=== PATIENT | male | born 1945 | race Caucasian/White ===

== ENCOUNTER 2017-08-10 09:11 | Day surgery (SDC) | payer OTHER, MEDICARE ==
[2017-08-08 17:20] VITALS: BMI 33.2
[2017-08-10] MEDS ORDERED: oxyCODONE HCL 5 MG TABLET PO PRN (10:16)
[2017-08-10] MEDS ORDERED: MIDAZOLAM HCL 2 MG/2 ML SINGLE DOSE VIAL ONE (10:49)
[2017-08-10] MEDS: TROPICAMIDE 1% OPHTH SOLN 15 ML BOTTLE ONE ×3 (11:00→11:10)
[2017-08-10] MEDS: CYCLOPENTOLATE 2% OPHTH SOLN 2 ML BOTTLE ONE ×3 (11:00→11:10)
[2017-08-10] MEDS: PHENYLEPHRINE 2.5% OPHTH SOLN 15 ML BOTTLE ONE ×3 (11:00→11:10)
[2017-08-10] MEDS: CIPROFLOXACIN 0.3% EYE DROPS 5 ML BOTTLE ONE ×3 (11:00→11:10)
[2017-08-10 11:05] VITALS: PULSE 68
[2017-08-10 12:20] VITALS: BP 124/75; TEMP 98
== END 2017-08-10 12:15 | disposition home or self-care (01) ==
LOC: FASU 09:11
PROVIDERS: ATTEND Ophthalmology
PROC: 08RK3JZ Replacement of Left Lens with Synthetic Substitute, Percutaneous Approach (ICD-10-PCS; principal; 2017-08-10 11:28)
DX: H26.8 Other specified cataract (principal)

== ENCOUNTER 2018-04-05 07:59 | Day surgery (SDC) | payer OTHER, MEDICARE ==
[2018-03-29 12:46] VITALS: BMI 33.2
[2018-04-05 08:23] VITALS: TEMP 98
[2018-04-05] MEDS ORDERED: PROPOFOL 20 ML ONE ×2 (08:44)
[2018-04-05] MEDS ORDERED: LIDOCAINE HCL/PF 2% SDV 5ML VIAL ONE (08:44)
[2018-04-05 10:04] VITALS: BP 117/70; PULSE 79
--- NOTE | 2018-04-07 17:50 | PATH ---
Surgical Pathology Report Patient Name: ADRIANA MONET [facility]. Rec. #: [id number] /Age/Gender: 1945 (Age: 73) / M Account: [id number] Location: [facility] Taken: 04/05/2018 Received: 04/05/2018 Reported: 04/07/2018 Physicians: Joseph Brown M.D. Specimen(s) Received A: BX DUODENUM B: BX ANTRUM C: BX ESOPHAGUS Clinical History GERD, history of polyps Postoperative diagnosis: Gastritis Final Diagnosis A. DUODENUM, BIOPSY: DUODENUM MUCOSA WITH MILD CHRONIC DUODENITIS. B. ANTRUM, BIOPSY: GASTRIC MUCOSA WITH REACTIVE GASTROPATHY. IMMUNOSTAIN FOR H. PYLORI IS NEGATIVE. NEGATIVE FOR INTESTINAL METAPLASIA. C. ESOPHAGUS, BIOPSY: GASTROESOPHAGEAL JUNCTIONAL MUCOSA WITH CHANGES CONSISTENT WITH REFLUX ESOPHAGITIS. NEGATIVE FOR INTESTINAL METAPLASIA. Electronically Signed Earl Sigala M.D. Gross Description A. Received in formalin, labeled "biopsy at duodenum" are 2 martínez, irregular portions of soft tissue measuring 0.3 and 0.5 cm. in greatest dimension. The specimens are submitted in toto in one cassette. B. Received in formalin, labeled "biopsy at gastric antrum" are 4 martínez, irregular portions of soft tissue ranging from 0.2-0.3 cm. in greatest dimension. The specimens are submitted in toto in one cassette. C. Received in formalin, labeled "biopsy of esophagus" is a martínez, irregular portion of soft tissue measuring 0.4 cm. in greatest dimension. The specimen is submitted in toto in one cassette. 04/06/2018 saudi04/06/2018
== END 2018-04-05 10:05 | disposition home or self-care (01) ==
LOC: FASU-ENDO 07:59
PROVIDERS: ATTEND Internal Medicine Gastroenterology
PROC: 0DJD8ZZ Inspection of Lower Intestinal Tract, Via Natural or Artificial Opening Endoscopic (ICD-10-PCS; principal; 2018-04-05 08:51)
DX: Z86.010 Personal history of colon polyps (principal)
CPT/HCPCS: 88305-TC; 88342-TC

== ENCOUNTER 2018-04-12 19:59 | Emergency (ER) | payer OTHER, MEDICARE ==
[2018-04-12 20:12] VITALS: BP 128/87; PULSE 82; TEMP 98; BMI 33.2
[2018-04-12] MEDS ORDERED: CYCLOBENZAPRINE HCL 10 MG TABLET (FP) PO ONE (20:22)
[2018-04-12] MEDS ORDERED: CYCLOBENZAPRINE HCL 10 MG TABLET (FP) ONE (20:25)
--- NOTE | 2018-04-12 20:50 | PDOC ---
History of Present Illness - General Chief Complaint: Pain, Acute Stated Complaint: BACK PAIN POST LIFTING HEAVY BUCKET Time Seen by Provider: 04/12/18 20:02 - History of Present Illness Initial Comments: 04/12/18 20:52 73 M with h/o herniated disc, HTN, presenting to ED with lower back pain since yesterday. Pt states that he was lifting a heavy bucket when he felt a pop in his back followed by pain. Pt states that the pain is localized to his lower back, does not radiate. Pt states that it is exacerbated by any sort of movement , though he is still able to ambulate with assistance. Denies any weakness/ numbness in his legs. Denies saddle anesthesia. Denies incontinence of bowel or bladder. States the pain is similar to when he had a herniated disc several years ago but not as severe. Denies abdominal pain. Denies any falls or other injury. Past History - Past Medical History Allergies/Adverse Reactions: Allergies Allergy/AdvReac Type Severity Reaction Status Date / Time No Known Drug Allergies Allergy Verified 04/12/18 20:00 Home Medications: Ambulatory Orders Cholecalciferol (Vitamin D3) [Vitamin D] 5,000 unit PO DAILY 12/27/14 Multivitamin [Poly-Vitamin] 1 cap PO DAILY 12/27/14 Simvastatin 40 mg PO DAILY 12/27/14 Esomeprazole Magnesium [Nexium 24Hr] 10 mg PO DAILY 08/08/17 Lactobacillus Acidophilus [Probiotic] 1 each PO DAILY 08/08/17 Naproxen [Naprosyn -] 375 mg PO BID 08/08/17 [place]-3/Dha/Epa/Fish Oil [Fish Oil EC 1,200 mg Softgel] 1 each PO DAILY Pyridoxine HCl (B-6) [Vitamin B6 -] 100 mg PO DAILY 08/08/17 Ubidecarenone [Co Q-10] 200 mg PO DAILY 08/08/17 Docusate Sodium [Colace] 100 mg PO PRN 08/21/17 Anemia: No Asthma: No Cancer: No Cardiac Disorders: No CVA: No COPD: No CHF: No Dementia: No Diabetes: No GI Disorders: Yes (acid reflux) Disorders: No HTN: No Hypercholesterolemia: Yes Liver Disease: No Seizures: No Thyroid Disease: No - Surgical History Abdominal Surgery: No Appendectomy: No Cardiac Surgery: No Cholecystectomy: No Lung Surgery: No Neurologic Surgery: No Orthopedic Surgery: Yes (repaired meniscus L knee) - Suicide/Smoking/Psychosocial Hx Smoking History: Never smoked Have you smoked in the past 12 months: No Information on smoking cessation initiated: No Hx Alcohol Use: No Drug/Substance Use Hx: No Substance Use Type: None Hx Substance Use Treatment: No Review of Systems - Review of Systems Comments:: 04/12/18 20:45 GENERAL/CONSTITUTIONAL: No fever or chills. No weakness. HEAD, EYES, EARS, NOSE AND THROAT: No change in vision. No ear pain or discharge. No sore throat. CARDIOVASCULAR: No chest pain, no shortness of breath, no loss of consciousness RESPIRATORY: No cough, wheezing, or hemoptysis. GASTROINTESTINAL: No nausea, vomiting, diarrhea or constipation. GENITOURINARY: No dysuria, frequency, or change in urination. MUSCULOSKELETAL: + back pain, No joint or muscle swelling or pain. No neck pain. SKIN: No rash NEUROLOGIC: No vertigo, no change in strength/sensation. ENDOCRINE: No increased thirst. No abnormal weight change. HEMATOLOGIC/LYMPHATIC: No anemia, easy bleeding, or history of blood clots. ALLERGIC/IMMUNOLOGIC: No hives or skin allergy. *Physical Exam - Vital Signs Last Vital Signs Temp Pulse Resp BP Pulse Ox 98 F 82 16 128/87 97 04/12/18 20:08 04/12/18 20:08 04/12/18 20:08 04/12/18 20:08 04/12/18 20:08 - Physical Exam Comments: 04/12/18 20:45 "GENERAL: Awake, alert, and fully oriented, in no acute distress. HEAD: No signs of trauma EYES: PERRLA, EOMI, sclera anicteric, conjunctiva clear ENT: Auricles normal inspection, hearing grossly normal, nares patent, oropharynx clear without exudates. Moist mucosa NECK: Nontender, no stepoffs, Normal ROM, supple, no lymphadenopathy, JVD, or masses LUNGS: Breath sounds equal, clear to auscultation bilaterally. No wheezes, and no crackles HEART: Regular rate and rhythm, normal S1 and S2, no murmurs, rubs or gallops ABDOMEN: Soft, nontender, normoactive bowel sounds. No guarding, no rebound. No masses EXTREMITIES: Normal range of motion, no edema. No clubbing or cyanosis. No cords, erythema, or tenderness NEUROLOGICAL: Cranial nerves II through XII intact. 5/5 strength and sensation in all extremities, Normal speech, normal gait, normal cerebellar function SKIN: Warm, Dry, normal turgor, no rashes or lesions noted. Moderate Sedation - Procedure Monitoring Vital Signs: Procedure Monitoring Vital Signs Temperature 98 F 04/12/18 20:08 Pulse Rate 82 04/12/18 20:08 Respiratory Rate 16 04/12/18 20:08 Blood Pressure 128/87 04/12/18 20:08 O2 Sat by Pulse Oximetry (%) 97 04/12/18 20:08 ED Treatment Course - Medications Given in the ED: ED Medications Discontinued Medications Generic Name Dose Route Start Last Admin Trade Name Sohailq PRN Reason Stop Dose Admin Cyclobenzaprine HCl 5 mg 04/12/18 20:22 04/12/18 20:28 Flexeril - PO 04/12/18 20:23 5 mg ONCE ONE Administration Oxycodone/Acetaminophen 1 combo 04/12/18 20:21 04/12/18 20:28 Percocet 5/325 - PO 04/12/18 20:22 1 combo ONCE ONE Administration Medical Decision Making - Medical Decision Making 04/12/18 20:45 73 M with lower back pain after lifting a bucket. No neuro deficits. No spinal tenderness or stepoffs or other sign of traumatic injury. No clinical signs of cord compression or cauda equina. No CVAT to suggest kidney stone or pyelo. No abdominal pain to suggest aortic dissection/aneurysm. - Percocet, flexaril - F/u ortho Pt is well appearing, with normal vitals. Clinically stable for DC at this time. I discussed the physical exam findings, ancillary test results and final diagnoses with the patient. I answered all of the patient's questions. The patient was satisfied with the care received and felt comfortable with the discharge plan and treatment plan. The patient agrees to follow up with the primary care physician within 24-72 hours. *DC/Admit/Observation/Transfer Diagnosis at time of Disposition: Back pain - Discharge Dispostion Disposition: HOME Condition at time of disposition: Stable - Referrals Referrals: Gamal Davidson MD [Primary Care Provider] - Obdulio Blanc MD [Staff Physician] - - Patient Instructions Printed Discharge Instructions: DI for Low Back Pain Additional Instructions: Follow up with Dr. Blanc tomorrow as scheduled. You will need a MRI to further evaluate your back pain. If you experience any worsening pain, numbness or weakness in your legs, incontinence, difficulty walking, or any other concerning symptoms, return to the ER immediately. - Post Discharge Activity - Attestations Physician Attestion: 04/12/18 20:50 I, Dr. Grupo Gold MD, attest that this document has been prepared under my direction and personally reviewed by me in its entirety. I further attest, that it accurately reflects all work, treatment, procedures and medical decision -making performed by me.
== END 2018-04-12 20:54 | disposition home or self-care (01) ==
LOC: FER 19:59
DX: M54.5 Low back pain (principal); I10 Essential (primary) hypertension; K21.9 Gastro-esophageal reflux disease without esophagitis
CPT/HCPCS: 99281-25

== ENCOUNTER 2018-04-13 05:54 | Inpatient (IN) | payer OTHER, MEDICARE ==
--- NOTE | 2018-04-13 07:52 | PDOC ---
History of Present Illness - General Chief Complaint: Back Pain Stated Complaint: BACK PAIN Time Seen by Provider: 04/13/18 07:52 - History of Present Illness Initial Comments: 04/13/18 08:32 Mr. Chang is a 73 yo male w/ pmh of HTN, HLD, prior herniated disc who presents to ER for evaluation of back pain. Patient woke up with some discomfort on Tuesday - was reportedly washing his car in the nice weather that day when he "felt a pop" followed by pain. Patient reports he was seen at [facility] emergency room last night and given single percocet and flexaril (5mg) which relieved his pain, however represents as his pain came back this morning necessitating him calling EMS. Denies any saddle anesthesia, denies incontinence of bowel/bladder, denies saddle anesthesia. Reports pain as similar to herniated disc in 2003. Denies trauma to area. Denies falls or other mechanisms. The patient denies chest pain, shortness of breath, headache and dizziness. Denies fever, chills, nausea, vomit, diarrhea and constipation. Denies dysuria, frequency, urgency and hematuria. Past History - Past Medical History Allergies/Adverse Reactions: Allergies Allergy/AdvReac Type Severity Reaction Status Date / Time No Known Drug Allergies Allergy Verified 04/12/18 20:00 Home Medications: Ambulatory Orders Cholecalciferol (Vitamin D3) [Vitamin D] 5,000 unit PO DAILY 12/27/14 Multivitamin [Poly-Vitamin] 1 cap PO DAILY 12/27/14 Simvastatin 40 mg PO DAILY 12/27/14 Esomeprazole Magnesium [Nexium 24Hr] 10 mg PO DAILY 08/08/17 Lactobacillus Acidophilus [Probiotic] 1 each PO DAILY 08/08/17 Naproxen [Naprosyn -] 375 mg PO BID 08/08/17 [place]-3/Dha/Epa/Fish Oil [Fish Oil EC 1,200 mg Softgel] 1 each PO DAILY Pyridoxine HCl (B-6) [Vitamin B6 -] 100 mg PO DAILY 08/08/17 Ubidecarenone [Co Q-10] 200 mg PO DAILY 08/08/17 Docusate Sodium [Colace] 100 mg PO PRN 08/21/17 Anemia: No Asthma: No Cancer: No Cardiac Disorders: No CVA: No COPD: No CHF: No Dementia: No Diabetes: No GI Disorders: Yes (acid reflux) Disorders: No HTN: No Hypercholesterolemia: Yes Liver Disease: No Seizures: No Thyroid Disease: No - Surgical History Abdominal Surgery: No Appendectomy: No Cardiac Surgery: No Cholecystectomy: No Lung Surgery: No Neurologic Surgery: No Orthopedic Surgery: Yes (repaired meniscus L knee) - Immunization History Immunization Up to Date: Yes - Suicide/Smoking/Psychosocial Hx Smoking History: Never smoked Have you smoked in the past 12 months: No Information on smoking cessation initiated: No Hx Alcohol Use: No Drug/Substance Use Hx: No Substance Use Type: None Hx Substance Use Treatment: No Review of Systems - Review of Systems Comments:: 04/13/18 08:40 GENERAL/CONSTITUTIONAL: No fever or chills. No weakness. HEAD, EYES, EARS, NOSE AND THROAT: No change in vision. No ear pain or discharge. No sore throat. CARDIOVASCULAR: No chest pain or shortness of breath RESPIRATORY: No cough, wheezing, or hemoptysis. GASTROINTESTINAL: No nausea, vomiting, diarrhea or constipation. GENITOURINARY: No dysuria, frequency, or change in urination. MUSCULOSKELETAL: +Right lower back pain as described. Patient describes a "burning" sensation at rest and shooting pains medially with movement. No joint or muscle swelling. No neck or back pain. SKIN: No rash NEUROLOGIC: No headache, vertigo, loss of consciousness, or change in strength/ sensation. ENDOCRINE: No increased thirst. No abnormal weight change HEMATOLOGIC/LYMPHATIC: No anemia, easy bleeding, or history of blood clots. ALLERGIC/IMMUNOLOGIC: No hives or skin allergy. *Physical Exam - Vital Signs Last Vital Signs Temp Pulse Resp BP Pulse Ox 98.3 F 78 18 129/83 94 L 04/13/18 06:52 04/13/18 06:52 04/13/18 06:52 04/13/18 06:52 04/13/18 06:52 - Physical Exam Comments: 04/13/18 08:42 GENERAL: Awake, alert, and fully oriented, in no acute distress HEAD: No signs of trauma, normocephalic, atraumatic EYES: PERRLA, EOMI, sclera anicteric, conjunctiva clear ENT: Auricles normal inspection, hearing grossly normal, nares patent, oropharynx clear without exudates. Moist mucosa NECK: Normal ROM, supple, no lymphadenopathy, JVD, or masses LUNGS: No distress, speaks full sentences, clear to auscultation bilaterally HEART: Regular rate and rhythm, normal S1 and S2, no murmurs, rubs or gallops, peripheral pulses normal and equal bilaterally. ABDOMEN: Soft, nontender, normoactive bowel sounds. No guarding, no rebound. No masses EXTREMITIES: +Tenderness to R upper gluteal region in point area only. Sensation intact. Negative straight leg, Normal inspection, Normal range of motion, no edema. No clubbing or cyanosis. NEUROLOGICAL: Cranial nerves II through XII grossly intact. Normal speech, no focal sensorimotor deficits SKIN: Warm, Dry, normal turgor, no rashes or lesions noted. Moderate Sedation - Procedure Monitoring Vital Signs: Procedure Monitoring Vital Signs Temperature 98.3 F 04/13/18 06:52 Pulse Rate 78 04/13/18 06:52 Respiratory Rate 18 04/13/18 06:52 Blood Pressure 129/83 04/13/18 06:52 O2 Sat by Pulse Oximetry (%) 94 L 04/13/18 06:52 ED Treatment Course - LABORATORY CBC & Chemistry Diagram: 04/13/18 10:35 04/13/18 10:35 Medical Decision Making - Medical Decision Making 04/13/18 08:40 Mr. Chang is a 73 yo male w/ pmh as described who presents for evaluation of R low back pain. No spinal tenderness or stepoffs or other sign of traumatic injury. No concern for cord compression or cauda equina. Patient given flexeril oral w/ no improvement. Repeat exam following flexeril showed no improvment of symptoms. Rectal exam performed with good tone. Valium, toradol, tylenol given IV w/ basic labs drawn. Plan to reassess. 04/13/18 12:30 XR positive for extensive facet joint arthropathy. Minimal anterior degenerative spondelythiasis L4 on L5. Neural foraminal stenosis L3-L4, L4-L5, L5-S1. 04/13/18 12:53 Patient unable to get up despite repeated attempts with assistance. Will admit for intractable back pain. 04/13/18 13:09 Discussed with hospitalist who will admit. *DC/Admit/Observation/Transfer Diagnosis at time of Disposition: Intractable low back pain - Discharge Dispostion Decision to Admit order: Yes - Referrals - Patient Instructions - Post Discharge Activity
--- NOTE | 2018-04-13 08:40 | PDOC ---
Attending Attestation - HPI HPI: 04/13/18 09:40 The patient is a 73 year old male with a significant past medical history of HTN , HLD, prior herniated disc, who presents to ER for evaluation of right sided back pain since Tuesday. He states he was washing his car when he lifted a pale of water and "felt a pop" in his right back. He states he was seen at [facility] emergency room last night, given percocet and flexaril (5mg) which relieved his pain, and given a referral to Dr. Blanc. The states she made an appointment with Dr. Blanc for this morning, however, the patient woke up with increased pain and inability to ambulate secondary to his pain prompting his EMS call. He states he is used to intermittent discomfort radiating across his low back, however, reports his pain is localized to the right side today and unlike his usual discomforts. He reports the pain is severe to where he can not sit up. He denies any saddle anesthesia, denies incontinence of bowel/bladder, denies saddle anesthesia. Denies trauma to area. Denies falls or other mechanisms. The patient denies chest pain, shortness of breath, headache and dizziness. Denies fever, chills, nausea, vomit, diarrhea and constipation. Denies dysuria, frequency, urgency and hematuria. - Physicial Exam PE: 04/13/18 09:44 Vitals: Triage vital signs reviewed General Appearance: No acute distress, well nourished, well developed Head: Atraumatic Eyes: Pupils equal reactive round, extraocular movement intact Ears: TM's normal bilaterally Nose: Nares patent bilaterally; no nasal congestion Throat: Posterior oropharynx without erythema, mucous membranes moist Neck: Supple; No nuchal rigidity Chest Wall: Nontender Cardiac: Regular rate and rhythm, no murmurs, no rubs, no gallops Lungs: Clear to auscultation bilateral, good air movement bilaterally Abdomen: Soft, nondistended, normal bowel sounds, nontender to palpation Extremities: Full range of motion to all extremities, no cyanosis, clubbing, or edema Msk: (+) right hip ttp. no spinous process tenderness. no step offs. no evidence of trauma. Skin: Warm and dry, no rashes or lesions, no rash, no petechiae Neuro: AOX3; Cranial Nerves 2-12 grossly intact, Strength intact to all extremities, Sensation intact to all extremities, gait unassessed. Psych: Normal mood, normal affect <Frances Palacio - Last Filed: 04/13/18 09:40> - Resident Resident Name: Titus Landers - ED Attending Attestation I have performed the following: I have examined & evaluated the patient, The case was reviewed & discussed with the resident, I agree w/resident's findings & plan, Exceptions are as noted - Medical Decision Making 04/13/18 15:15 73 years old with chronic low back discomfort usually very manageable tweaked it the other day was seen in another emergency department initially with decent pain relief. Scheduled to see orthopedics today but awoke this morning unable to transfer from bed brought into the emergency department by upon arrival to the ED pain is 10 out of 10 Patient failed trial of by mouth medications IV placed IV medications given After multiple rounds of IV medication patient still unable to transfer from bed At this point patient unable to be discharged home unable to transfer unable to care for himself at home we'll observe overnight for further management and pain management. <Goldy Zepeda - Last Filed: 04/13/18 15:16> Attestations - Attestations 04/13/18 09:46 Documentation prepared by Frances Palacio, acting as medical stenographer for Goldy Zepeda MD <Frances Palacio - Last Filed: 04/13/18 09:40>
[2018-04-13] MEDS ORDERED: CYCLOBENZAPRINE HCL 5 MG TABLET PO ONE (08:48)
[2018-04-13] MEDS ORDERED: CYCLOBENZAPRINE HCL 10 MG TABLET (FP) ONE (08:52)
[2018-04-13] MEDS ORDERED: KETOROLAC TROMETHAMINE 15 MG/ML VIAL IVPUSH ONE (09:39)
[2018-04-13] MEDS ORDERED: diazePAM CARPU-JECT 10 MG/2 ML DISP.SYRIN IVPUSH ONE (09:39)
[2018-04-13] MEDS ORDERED: ACETAMINOPHEN 1000 MG/100 ML VIAL (NON FORMULARY) IVPB ONE (09:39)
[2018-04-13] MEDS ORDERED: KETOROLAC TROMETHAMINE 15 MG/ML VIAL ONE (10:23)
[2018-04-13] MEDS ORDERED: ACETAMINOPHEN INJECTION 100 ML IVPB ONE (10:23)
[2018-04-13 10:48] LABS: BASO % 0.8 % (0-2.0); EOS % 2.5 % (0-4.5); HEMATOCRIT 44.8 % (35.4-49); HEMOGLOBIN 15.6 GM/dL (11.7-16.9); LYMPH % 12.6 % (8-40); MCH 30.8 pg (25.7-33.7); MCHC 34.8 g/dl (32.0-35.9); MEAN CELL VOLUME 88.5 fl (80-96); MEAN PLT VOLUME 8.6 fl (7.5-11.1); MONO % 9.2 % (3.8-10.2); NEUT % 74.9 % (42.8-82.8); PLATELET COUNT 144 K/MM3 (134-434); RBC 5.07 M/mm3 (4.00-5.60); RDW 14.2 % (11.9-15.9); WHITE BLOOD COUNT 11.5 K/mm3 (4.0-10.0)
[2018-04-13 11:35] LABS: ALK PHOS 62 U/L (45-117); ANION GAP 7 MMOL/L (8-16); BILIRUBIN,TOTAL 0.7 mg/dL (0.2-1); BLOOD UREA NITROGEN 23 mg/dL (7-18); CALCIUM 8.9 mg/dL (8.5-10.1); CHLORIDE 107 mmol/L (98-107); CO2 24 mmol/L (21-32); GLUCOSE,RANDOM 125 mg/dL (74-106); POTASSIUM 4.2 mmol/L (3.5-5.1); SGOT/AST 22 U/L (15-37); SGPT/ALT 32 U/L (13-61); SODIUM 138 mmol/L (136-145); TOT PROT 7.3 g/dl (6.4-8.2)
[2018-04-13] MEDS ORDERED: KETOROLAC TROMETHAMINE 30 MG/1 ML VIAL IM ONE (11:48)
[2018-04-13] MEDS ORDERED: diazePAM 2 MG TABLET PO PRN (14:58)
--- NOTE | 2018-04-13 15:00 | HP ---
CHIEF COMPLAINT: intractable back pain PCP: Dr. Davidson HISTORY OF PRESENT ILLNESS: Mr. Chang is a 73 year old male with a significant past medical history of hyperlipidemia, herniated discs 2004, GERD with polyps, bilateral cataracts with cataract extraction of the right eye with IDL implant (2014) and cataract extraction of the left eye with lens implant (2017). He comes to the ER for evaluation of severe back pain and inability to ambulate. He initially went to the ED at [facility] last night for severe back pain and was given pain medications (percocet and flexiril) which initially helped his pain. He returns today after his back pain became severe that he needed to use two canes to ambulate. Denies any saddle anesthesia, denies incontinence of bowel or bladder. Denies any trauma or falls. His back pain has been going on for years but has been worsening in the past few weeks. Back pain is mostly on his lower back and shoots across from left flank to the right. The pain hinders his ability to ambulate and now needs major assistance with all ADLs. ER course was notable for: (1) pelvic xray: no acute bony abnormality (2) lumbar spine xray: extensive facet joint arthopathy, minimal anterior degenerative spondylolisthesis of L4 on L5. neural foramina stenosis at L3-L4, L4-L4, L5-S1. facet joint arthoplasty, degenerative spondylolisthesis associated with central spine canal stenosis. (3) Recent Travel: none PAST MEDICAL HISTORY: hyperlipidemia, herniated discs 2003, PAST SURGICAL HISTORY: GERD with polyps (s/p EGD and colonoscopy 03/2018), bilateral cataracts with cataract extraction of the right eye with IDL implant ( 2014) and cataract extraction of the left eye with lens implant (2018) Social History: Smoking: n/a Alcohol:n/a Drugs: n/a Family History: Allergies No Known Drug Allergies Allergy (Verified 04/12/18 20:00) HOME MEDICATIONS: Home Medications Medication Instructions Recorded Cholecalciferol (Vitamin D3) 5,000 unit PO DAILY 12/27/14 [Vitamin D] Multivitamin [Poly-Vitamin] 1 cap PO DAILY 12/27/14 Simvastatin 40 mg PO DAILY 12/27/14 Esomeprazole Magnesium [Nexium 10 mg PO DAILY 08/08/17 24Hr] Lactobacillus Acidophilus 1 each PO DAILY 08/08/17 [Probiotic] Naproxen [Naprosyn -] 375 mg PO BID 08/08/17 [place]-3/Dha/Epa/Fish Oil [Fish Oil 1 each PO DAILY 08/08/17 EC 1,200 mg Softgel] Pyridoxine HCl (B-6) [Vitamin B6 -] 100 mg PO DAILY 08/08/17 Ubidecarenone [Co Q-10] 200 mg PO DAILY 08/08/17 Docusate Sodium [Colace] 100 mg PO PRN 08/21/17 PHYSICAL EXAMINATION Vital Signs - 24 hr 04/13/18 04/13/18 06:52 10:44 Temperature 98.3 F Pulse Rate 78 Pulse Rate [ 82 Right Radial] Respiratory 18 18 Rate Blood Pressure 129/83 Blood Pressure 133/75 [Left Arm] O2 Sat by Pulse 94 L 96 Oximetry (%) GENERAL: Awake, alert, and fully oriented, in no acute distress. HEAD: Normal with no signs of trauma. EYES: Pupils equal, round and reactive to light, extraocular movements intact, sclera anicteric, conjunctiva clear. No lid lag. EARS, NOSE, THROAT: Ears normal, nares patent, oropharynx clear without exudates. Moist mucous membranes. NECK: Normal range of motion, supple without lymphadenopathy, JVD, or masses. LUNGS: Breath sounds equal, clear to auscultation bilaterally. No wheezes, and no crackles. No accessory muscle use. HEART: Regular rate and rhythm ABDOMEN: Soft, nontender, not distended, normoactive bowel sounds, no guarding, no rebound, no masses. No hepatomegaly or splenomegaly. MUSCULOSKELETAL: No CVA tenderness. right hip pain UPPER EXTREMITIES: No peripheral edema. LOWER EXTREMITIES: No peripheral edema. NEUROLOGICAL: Normal speech. gait not observed PSYCHIATRIC: Cooperative. Good eye contact. Appropriate mood and affect. SKIN: Warm, dry, normal turgor, no rashes or lesions noted, normal capillary refill. Laboratory Results - last 24 hr 04/13/18 04/13/18 10:35 10:35 WBC 11.5 H RBC 5.07 Hgb 15.6 Hct 44.8 MCV 88.5 MCH 30.8 MCHC 34.8 RDW 14.2 Plt Count 144 MPV 8.6 Absolute Neuts (auto) 8.6 H Neutrophils % 74.9 Lymphocytes % 12.6 Monocytes % 9.2 Eosinophils % 2.5 Basophils % 0.8 Nucleated RBC % 0 Sodium 138 Potassium 4.2 Chloride 107 Carbon Dioxide 24 Anion Gap 7 L BUN 23 H Creatinine 1.0 Creat Clearance w eGFR > 60 Random Glucose 125 H Calcium 8.9 Total Bilirubin 0.7 AST 22 ALT 32 Alkaline Phosphatase 62 Total Protein 7.3 Albumin 4.0 ASSESSMENT/PLAN: Mr. Chang is a 73 year old male with a significant past medical history of hyperlipidemia, herniated discs 2003, GERD with polyps, bilateral cataracts with cataract extraction of the right eye with IDL implant (2014) and cataract extraction of the left eye with lens implant (2018). He comes to the ER for evaluation of severe back pain and inability to ambulate. He initially went to the ED at [facility] last night for severe back pain and was given pain medications (percocet and flexiril) which initially helped his pain. He returns today after his back pain became severe that he needed to use two canes to ambulate. Denies any saddle anesthesia, denies incontinence of bowel or bladder. Denies any trauma or falls. Past medical history Hyperlipidemia Herniated discs 2003 GERD with polyps Bilateral cataracts with implants Intractable back pain Imaging: pelvic xray: no acute bony abnormality lumbar spine xray: extensive facet joint arthopathy, minimal anterior degenerative spondylolisthesis of L4 on L5. neural foramina stenosis at L3-L4, L4-L4, L5-S1. facet joint arthoplasty, degenerative spondylolisthesis associated with central spine canal stenosis. Spine: Intractable back pain/Severe back pain Inability to ambulate secondary to severe back pain that radiates across his lower back. No falls or trauma. Pain management with oxycodone, valium for spasms MRI of lumbar spine Neurosurgery/Neuro consulted Physical therapy Card: Hyperlipidemia. continue statin therapy. GI: Gerd. on protonix. fen tolerating PO monitor electrolytes low salt diet prophy heparin physical therapy bowel regimen full code Visit type - Emergency Visit Emergency Visit: Yes ED Registration Date: 04/13/18 Care time: The patient presented to the Emergency Department on the above date and was hospitalized for further evaluation of their emergent condition. - New Patient This patient is new to me today: Yes Date on this admission: 04/14/18 - Critical Care Critical Care patient: No
[2018-04-13] MEDS ORDERED: LIDOCAINE 5% TOPICAL PATCH ONE (15:48)
[2018-04-13] MEDS: LIDOCAINE 5% TOPICAL PATCH TP SCH (16:10)
[2018-04-13] MEDS ORDERED: DOCUSATE SODIUM 100 MG CAPSULE (FP) PO PRN ×2 (18:15→21:33)
[2018-04-13] MEDS ORDERED: diazePAM 2 MG TABLET ONE (20:29)
[2018-04-13] MEDS: LIDOCAINE PATCH REMOVAL MC SCH (22:26)
[2018-04-13] MEDS: HEPARIN NA (PORCINE) 5,000 UNITS/ML 1ML VIAL SQ SCH (22:26)
[2018-04-13] MEDS: ATORVASTATIN CA 20 MG TABLET (FP) PO SCH (22:27)
[2018-04-13] MEDS: oxyCODONE HCL 5 MG TABLET PO PRN (22:27)
[2018-04-13 23:31] LABS: URINE APPEARANCE CLEAR; URINE BILIRUBIN NEGATIVE (<2.0 mg/dL); URINE COLOR YELLOW; URINE GLUCOSE (UA) NEGATIVE (NEGATIVE); URINE KETONE 1+ (NEGATIVE); URINE LEUK ESTERASE NEGATIVE (NEGATIVE); URINE NITRITE NEGATIVE (NEGATIVE); URINE PROTEIN NEGATIVE (NEGATIVE); URINE UROBILINOGEN NEGATIVE mg/dL (0.2-1.0)
[2018-04-14 07:38] LABS: HEMOGLOBIN 14.8 GM/dL (11.7-16.9); MCH 30.2 pg (25.7-33.7); MCHC 34.5 g/dl (32.0-35.9); MEAN CELL VOLUME 87.6 fl (80-96); MEAN PLT VOLUME 8.6 fl (7.5-11.1); PLATELET COUNT 153 K/MM3 (134-434); RBC 4.91 M/mm3 (4.00-5.60); RDW 14.5 % (11.9-15.9); WHITE BLOOD COUNT 12.4 K/mm3 (4.0-10.0)
[2018-04-14 08:19] LABS: ALBUMIN 3.4 g/dl (3.4-5.0); ALK PHOS 60 U/L (45-117); ANION GAP 8 MMOL/L (8-16); BILIRUBIN,TOTAL 0.8 mg/dL (0.2-1); BLOOD UREA NITROGEN 23 mg/dL (7-18); CALCIUM 8.5 mg/dL (8.5-10.1); CHLORIDE 103 mmol/L (98-107); CO2 25 mmol/L (21-32); GLUCOSE,RANDOM 112 mg/dL (74-106); MAGNESIUM 2.6 mg/dL (1.8-2.4); SGOT/AST 13 U/L (15-37); SGPT/ALT 26 U/L (13-61); SODIUM 136 mmol/L (136-145)
[2018-04-14] MEDS ORDERED: PT OWN MED DRAWER 7, Y5N ONE ×2 (09:27→09:37)
[2018-04-14] MEDS: CHOLECALCIFEROL (VITAMIN D3) 1,000 UNIT TABLET (FP) PO SCH (09:34)
[2018-04-14] MEDS: LIDOCAINE 5% TOPICAL PATCH TP SCH (09:34)
[2018-04-14] MEDS: GABAPENTIN 100 MG CAPSULE (FP) PO SCH (09:35)
[2018-04-14] MEDS: LACTOBACILLUS ACIDOPHILUS 1 TABLET PO SCH (09:35)
[2018-04-14] MEDS: PANTOPRAZOLE 40 MG TABLET (FP) PO SCH (09:35)
[2018-04-14] MEDS: HEPARIN NA (PORCINE) 5,000 UNITS/ML 1ML VIAL SQ SCH ×2 (09:35→21:30)
[2018-04-14] MEDS: oxyCODONE HCL 5 MG TABLET PO PRN ×2 (09:47→21:31)
[2018-04-14] MEDS: ACETAMINOPHEN 325 MG TABLET (FP) PO PRN ×2 (09:48→21:31)
[2018-04-14] MEDS: POLYETHYLENE GLYCOL 3350 119 GM BTL PO SCH (09:48)
[2018-04-14] MEDS ORDERED: PATIENT'S OWN MEDICATION (NON-FORMULARY) (Lactobacillus Acidophilus [Probiotic] 1 EACH) PO SCH (10:00)
[2018-04-14] MEDS ORDERED: LACTOBACILLUS ACIDOPHILUS 1 TABLET PO SCH (10:00)
--- NOTE | 2018-04-14 10:07 | CON.NEURO ---
Consult - Alcohol/Substance Use Hx Alcohol Use: No - Smoking History Smoking history: Never smoked Have you smoked in the past 12 months: No Home Medications - Allergies Allergies/Adverse Reactions: Allergies Allergy/AdvReac Type Severity Reaction Status Date / Time No Known Drug Allergies Allergy Verified 04/12/18 20:00 - Home Medications Home Medications: Ambulatory Orders Cholecalciferol (Vitamin D3) [Vitamin D] 5,000 unit PO DAILY 12/27/14 Multivitamin [Poly-Vitamin] 1 cap PO DAILY 12/27/14 Simvastatin 40 mg PO DAILY 12/27/14 Esomeprazole Magnesium [Nexium 24Hr] 10 mg PO DAILY 08/08/17 Lactobacillus Acidophilus [Probiotic] 1 each PO DAILY 08/08/17 Naproxen [Naprosyn -] 375 mg PO BID 08/08/17 [place]-3/Dha/Epa/Fish Oil [Fish Oil EC 1,200 mg Softgel] 1 each PO DAILY Pyridoxine HCl (B-6) [Vitamin B6 -] 100 mg PO DAILY 08/08/17 Ubidecarenone [Co Q-10] 200 mg PO DAILY 08/08/17 Docusate Sodium [Colace] 100 mg PO PRN 08/21/17 Physical Exam-Neuro Vital Signs: Vital Signs Temperature 83 F L 04/14/18 07:24 Pulse Rate 83 04/14/18 07:24 Respiratory Rate 20 04/14/18 09:00 Blood Pressure 121/78 04/14/18 07:24 O2 Sat by Pulse Oximetry (%) 96 04/14/18 09:00 Labs: CBC, BMP 04/14/18 06:00 04/14/18 06:00 Assessment/Plan cc Severe Non Radicular Back pain for three days HPI 73 year old male history of Chronic low back pain, intermittent follwoing a severe back pain episode in 2003. Patient also have historyo f cataract , HLD, GERD. Patient denies any bowel or bladder symptoms. Paitent denies any trauma, fever , or cancer. Patient having difficulty to ambulate. He did have xray of Spine done and it showed djd. Patient is taking percocet and muslce relaxant and waiting for mri of L spine. r: (1) Recent Travel: none PAST MEDICAL HISTORY: hyperlipidemia, herniated discs 2003, PAST SURGICAL HISTORY: GERD with polyps (s/p EGD and colonoscopy 03/2018), bilateral cataracts with cataract extraction of the right eye with IDL implant ( 2014) and cataract extraction of the left eye with lens implant (2017) Social History: retired and no toxic habits NKDA FH,ROS,SH reviewed in chart HOME MEDICATIONS: Home Medications Medication Instructions Recorded Cholecalciferol (Vitamin D3) 5,000 unit PO DAILY 12/27/14 [Vitamin D] Multivitamin [Poly-Vitamin] 1 cap PO DAILY 12/27/14 Simvastatin 40 mg PO DAILY 12/27/14 Esomeprazole Magnesium [Nexium 10 mg PO DAILY 08/08/17 24Hr] Lactobacillus Acidophilus 1 each PO DAILY 08/08/17 [Probiotic] Naproxen [Naprosyn -] 375 mg PO BID 08/08/17 [place]-3/Dha/Epa/Fish Oil [Fish Oil 1 each PO DAILY 08/08/17 EC 1,200 mg Softgel] Pyridoxine HCl (B-6) [Vitamin B6 -] 100 mg PO DAILY 08/08/17 Ubidecarenone [Co Q-10] 200 mg PO DAILY 08/08/17 Docusate Sodium [Colace] 100 mg PO PRN 08/21/17 NEUROLOGICAL EXAMINATION Alert oriented x 3, CN all intact, eomi, pupils reactive, no face asymmetry Moving all ext sensation is normal HIP flexion, Hip extension, knee flexion and extension, planter flexion and extension is normal reflex are generalized diminisehd Xray of Pelvis and Lumbar xray Pelvic xray: no acute bony abnormality lumbar spine xray: extensive facet joint arthopathy, minimal anterior degenerative spondylolisthesis of L4 on L5. neural foramina stenosis at L3-L4, L4-L4, L5-S1. facet joint arthoplasty, degenerative spondylolisthesis associated with central spine canal stenosis. 1. Severe non radicular low back pain, there is no clinical evidence of Radiculopathy and Cord compression or Cauda equina syndrome. Xray showed there is djd. Plan: continue muslce relaxant, NSAID, AND Opioid for PAIN - MRI of L spine is pending - PT consider Pain management after mri of L spine Thnaking you so much Saul Leroy MD
[2018-04-14] MEDS: CYCLOBENZAPRINE HCL 5 MG TABLET PO SCH ×3 (11:24→21:33)
[2018-04-14] MEDS: DOCUSATE SODIUM 100 MG CAPSULE (FP) PO SCH ×2 (14:16→21:31)
[2018-04-14] MEDS: PYRIDOXINE HCL (B-6) 100 MG TABLET PO SCH (14:16)
--- NOTE | 2018-04-14 15:41 | CONSULT ---
Consult - text type - Consultation Consultation Note: NEUROSURGERY CONSULTATION Patient is a 73 year old male who has a history of low back pain for 15 years and presents with recent exacerbation resulting in tremendous pain and inability to sit or walk. Extension results in severe paroxysms of pain and he has difficulty even turning over in bed. Plain films demonstrate moderate, multilevel degenerative changes with osteophytes and facet hypertrophy. 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 MRI Lumbar reveals multilevel spondylosis worst at L34 where there is moderate stenosis from ligamentum flavum and facet hypertrophy as well as a small cental bulge. L45 has a spondylolisthesis with severe stenosis and central disc bulging resulting in lateral recess compression bilaterally. If the patient remains completely incapacitated (bedbound and unable to turn from side to side) with severe pain, and no other etiology or treatment can be identified, I will consider the role of surgical intervention. The patient may benefit from L3-5 decompression and fusion with trimming of the spinous processes. - GI/DVT prophylaxis
--- NOTE | 2018-04-14 18:44 | PN ---
Physical Exam: SUBJECTIVE: Patient seen and examined at the bedside. still having back pain, improving with oxycodone and muscle relaxer. Unable to turn and position d/t back pain/spasms. OBJECTIVE: for lumbar spine mri Vital Signs Period Temp Pulse Resp BP Sys/Mccoy Pulse Ox Last 24 Hr 83 F-98.1 F 79-83 20-20 121-145/75-86 96-96 GENERAL: Awake, alert, and fully oriented, in no acute distress. HEAD: Normal with no signs of trauma. EYES: Pupils equal, round and reactive to light, extraocular movements intact, sclera anicteric, conjunctiva clear. No lid lag. EARS, NOSE, THROAT: Ears normal, nares patent, oropharynx clear without exudates. Moist mucous membranes. NECK: Normal range of motion, supple without lymphadenopathy, JVD, or masses. LUNGS: Breath sounds equal, clear to auscultation bilaterally. No wheezes, and no crackles. No accessory muscle use. HEART: Regular rate and rhythm ABDOMEN: Soft, nontender, not distended, normoactive bowel sounds, no guarding, no rebound, no masses. No hepatomegaly or splenomegaly. MUSCULOSKELETAL: No CVA tenderness. right hip pain UPPER EXTREMITIES: No peripheral edema. LOWER EXTREMITIES: No peripheral edema. NEUROLOGICAL: Normal speech. gait not observed PSYCHIATRIC: Cooperative. Good eye contact. Appropriate mood and affect. SKIN: Warm, dry, normal turgor, no rashes or lesions noted, normal capillary refill. Laboratory Results - last 24 hr 04/13/18 04/13/18 04/14/18 10:35 22:30 06:00 WBC 12.4 H RBC 4.91 Hgb 14.8 Hct 43.0 MCV 87.6 MCH 30.2 MCHC 34.5 RDW 14.5 Plt Count 153 MPV 8.6 Sodium Potassium Chloride Carbon Dioxide Anion Gap BUN Creatinine Creat Clearance w eGFR Random Glucose Calcium Magnesium Total Bilirubin AST ALT Alkaline Phosphatase Total Protein Albumin Urine Color Yellow Urine Appearance Clear Urine pH 6.0 Ur Specific [place] 1.021 Urine Protein Negative Urine Glucose (UA) Negative Urine Ketones 1+ H Urine Blood Negative Urine Nitrite Negative Urine Bilirubin Negative Urine Urobilinogen Negative Ur Leukocyte Esterase Negative Blood Type A POSITIVE Antibody Screen 04/14/18 04/14/18 06:00 06:00 WBC RBC Hgb Hct MCV MCH MCHC RDW Plt Count MPV Sodium 136 Potassium 4.0 Chloride 103 Carbon Dioxide 25 Anion Gap 8 BUN 23 H Creatinine 1.0 Creat Clearance w eGFR > 60 Random Glucose 112 H Calcium 8.5 Magnesium 2.6 H Total Bilirubin 0.8 AST 13 L ALT 26 Alkaline Phosphatase 60 Total Protein 7.0 Albumin 3.4 Urine Color Urine Appearance Urine pH Ur Specific [place] Urine Protein Urine Glucose (UA) Urine Ketones Urine Blood Urine Nitrite Urine Bilirubin Urine Urobilinogen Ur Leukocyte Esterase Blood Type A POSITIVE Antibody Screen Negative Active Medications Generic Name Dose Route Start Last Admin Trade Name Freq PRN Reason Stop Dose Admin Acetaminophen 650 mg 04/13/18 18:59 04/14/18 09:48 Tylenol - PO 650 mg Q6H PRN Administration PAIN LEVEL 6-10 Atorvastatin Calcium 20 mg 04/13/18 22:00 04/13/18 22:27 Lipitor - PO 20 mg HS MEAGHAN Administration Cholecalciferol 5,000 unit 04/14/18 10:00 04/14/18 09:34 Vitamin D3 - PO 5,000 unit DAILY MEAGHAN Administration Cyclobenzaprine HCl 5 mg 04/14/18 10:27 04/14/18 14:16 Cyclobenzaprine Hcl PO 5 mg TID MEAGHAN Administration Docusate Sodium 100 mg 04/14/18 14:00 04/14/18 14:16 Colace - PO 100 mg TID MEAGHAN Administration Gabapentin 100 mg 04/14/18 10:00 04/14/18 09:35 Neurontin - PO 100 mg DAILY MEAGHAN Administration Heparin Sodium (Porcine) 5,000 unit 04/13/18 22:00 04/14/18 09:35 Heparin - SQ 5,000 unit BID MEAGHAN Administration Lactobacillus Acidophilus 1 tab 04/14/18 10:00 04/14/18 09:35 Bacid - PO 1 tab DAILY MEAGHAN Administration Lidocaine 2 patch 04/13/18 15:00 04/14/18 09:34 Lidoderm Patch - TP 2 patch DAILY MEAGHAN Administration Miscellaneous 1 each 04/13/18 22:00 04/13/18 22:26 Lidoderm Patch Removal MC 1 each DAILY@2200 MEAGHAN Administration Oxycodone HCl 10 mg 04/13/18 14:56 04/14/18 09:47 Roxicodone - PO 10 mg Q6H PRN Administration PAIN LEVEL 7 - 10 Oxycodone HCl 5 mg 04/13/18 14:57 Roxicodone - PO Q6H PRN PAIN LEVEL 4 - 6 Pantoprazole Sodium 40 mg 04/14/18 10:00 04/14/18 09:35 Protonix - PO 40 mg DAILY MEAGHAN Administration Polyethylene Glycol 17 gm 04/14/18 10:00 04/14/18 09:48 Miralax (For Daily Use) - PO 17 grams DAILY MEAGHAN Administration Pyridoxine HCl 100 mg 04/14/18 10:00 04/14/18 14:16 Vitamin B6 - PO 100 mg DAILY MEAGHAN Administration Senna 2 tab 04/14/18 07:38 Senna - PO HS PRN CONSTIPATION Imaging: MRI Lumbar 04/13/2018: reveals multilevel spondylosis worst at L34 where there is moderate stenosis from ligamentum flavum and facet hypertrophy as well as a small cental bulge. L45 has a spondylolisthesis with severe stenosis and central disc bulging resulting in lateral recess compression bilaterally. pelvic xray: no acute bony abnormality lumbar spine xray: extensive facet joint arthopathy, minimal anterior degenerative spondylolisthesis of L4 on L5. neural foramina stenosis at L3-L4, L4-L4, L5-S1. facet joint arthoplasty, degenerative spondylolisthesis associated with central spine canal stenosis. ASSESSMENT/PLAN: Mr. Chang is a 73 year old male with a significant past medical history of hyperlipidemia, herniated discs 2003, GERD with polyps, bilateral cataracts with cataract extraction of the right eye with IDL implant (2014) and cataract extraction of the left eye with lens implant (2017). He comes to the ER for evaluation of severe back pain and inability to ambulate. Spine: Intractable back pain/Severe back pain Inability to ambulate secondary to severe back pain that radiates across his lower back. No falls or trauma. With pain management he is still having a difficult time with ambulation, and turning/positioning. will add Flexiril tid. On Oxycodone 5/10 prn, lidocaine for pain management MRI of lumbar spine as noted above Neurosurgery/Neuro consulted and following, notes reviewed. Physical therapy when patient is able to participate. Card: Hyperlipidemia. continue statin therapy. GI: Gerd. on protonix. fen tolerating PO monitor electrolytes low salt diet prophy heparin physical therapy bowel regimen full code Visit type - Emergency Visit Emergency Visit: Yes ED Registration Date: 04/14/18 Care time: The patient presented to the Emergency Department on the above date and was hospitalized for further evaluation of their emergent condition. - New Patient This patient is new to me today: No - Critical Care Critical Care patient: No - Discharge Referral Referred to [facility] No
[2018-04-14] MEDS: ATORVASTATIN CA 20 MG TABLET (FP) PO SCH (21:31)
[2018-04-14] MEDS: SENNOSIDES 8.6MG TABLET (FP) PO PRN (21:31)
[2018-04-14] MEDS: LIDOCAINE PATCH REMOVAL MC SCH (21:32)
[2018-04-15] MEDS ORDERED: PT OWN MED DRAWER 7, Y5N ONE ×4 (05:46→21:15)
[2018-04-15] MEDS: DOCUSATE SODIUM 100 MG CAPSULE (FP) PO SCH ×3 (06:11→21:40)
[2018-04-15] MEDS: CYCLOBENZAPRINE HCL 5 MG TABLET PO SCH ×3 (06:11→21:40)
[2018-04-15] MEDS: oxyCODONE HCL 5 MG TABLET PO PRN ×2 (09:24→18:54)
[2018-04-15] MEDS: LACTOBACILLUS ACIDOPHILUS 1 TABLET PO SCH (09:25)
[2018-04-15] MEDS: HEPARIN NA (PORCINE) 5,000 UNITS/ML 1ML VIAL SQ SCH ×2 (09:25→21:39)
[2018-04-15] MEDS: LIDOCAINE 5% TOPICAL PATCH TP SCH (09:26)
[2018-04-15] MEDS: PANTOPRAZOLE 40 MG TABLET (FP) PO SCH (09:26)
[2018-04-15] MEDS: GABAPENTIN 100 MG CAPSULE (FP) PO SCH (09:26)
[2018-04-15] MEDS: POLYETHYLENE GLYCOL 3350 119 GM BTL PO SCH (09:26)
[2018-04-15] MEDS: PYRIDOXINE HCL (B-6) 100 MG TABLET PO SCH (09:28)
[2018-04-15] MEDS: CHOLECALCIFEROL (VITAMIN D3) 1,000 UNIT TABLET (FP) PO SCH (09:29)
[2018-04-15 11:23] LABS: BASO % 0.8 % (0-2.0); EOS % 3.4 % (0-4.5); HEMATOCRIT 45.5 % (35.4-49); HEMOGLOBIN 15.3 GM/dL (11.7-16.9); LYMPH % 10.5 % (8-40); MCH 29.9 pg (25.7-33.7); MCHC 33.6 g/dl (32.0-35.9); MEAN CELL VOLUME 88.8 fl (80-96); MEAN PLT VOLUME 8.4 fl (7.5-11.1); MONO % 9.6 % (3.8-10.2); NEUT % 75.7 % (42.8-82.8); PLATELET COUNT 175 K/MM3 (134-434); RBC 5.12 M/mm3 (4.00-5.60); RDW 14.4 % (11.9-15.9); WHITE BLOOD COUNT 11.8 K/mm3 (4.0-10.0)
[2018-04-15 11:50] LABS: ALBUMIN 3.2 g/dl (3.4-5.0); ALK PHOS 67 U/L (45-117); ANION GAP 6 MMOL/L (8-16); BILIRUBIN,TOTAL 0.6 mg/dL (0.2-1); BLOOD UREA NITROGEN 23 mg/dL (7-18); CALCIUM 8.9 mg/dL (8.5-10.1); CHLORIDE 104 mmol/L (98-107); CO2 26 mmol/L (21-32); GLUCOSE,RANDOM 124 mg/dL (74-106); MAGNESIUM 2.7 mg/dL (1.8-2.4); POTASSIUM 4.3 mmol/L (3.5-5.1); SGOT/AST 15 U/L (15-37); SGPT/ALT 23 U/L (13-61); SODIUM 136 mmol/L (136-145); TOT PROT 7.2 g/dl (6.4-8.2)
--- NOTE | 2018-04-15 13:09 | PN ---
Progress Note (short form) - Note Progress Note: 73 year old male history of Chronic low back pain, intermittent follwoing a severe back pain episode in 2003. Patient also have historyo f cataract , HLD, GERD. Patient denies any bowel or bladder symptoms. Paitent denies any trauma, fever , or cancer. Patient having difficulty to ambulate. He did have xray of Spine done and it showed djd. He continue to remain in severe back pain. Pain is not radicular . Neurosurgery consult appreciated. mri showed djd. He is not able to do PT due to Severe back pain r NEUROLOGICAL EXAMINATION Alert oriented x 3, CN all intact, eomi, pupils reactive, no face asymmetry Moving all ext sensation is normal HIP flexion, Hip extension, knee flexion and extension, planter flexion and extension is normal reflex are generalized diminisehd Exam remain cunahged Xray of Pelvis and Lumbar xray Pelvic xray: no acute bony abnormality lumbar spine xray: extensive facet joint arthopathy, minimal anterior degenerative spondylolisthesis of L4 on L5. neural foramina stenosis at L3-L4, L4-L4, L5-S1. facet joint arthoplasty, degenerative spondylolisthesis associated with central spine canal stenosis. MRI of L spine reviewed and there is severe djd Neurosurgery consult appreicated 1. Severe non radicular low back pain, there is no clinical evidence of Radiculopathy and Cord compression or Cauda equina syndrome. Neurosurgery consult appreciated and mri of L showed djd. 1. Continue NSAID, Opioids and Muslce relxant fo rpain - Prdnisone 40 mg once a day for five days, spoke to patient and agree , side effect and benefit were discussed with patient consider Pain management , if pain persists Thnaking you so much Saul Leroy MD
[2018-04-15] MEDS ORDERED: predniSONE 20 MG TABLET (UD) PO SCH (13:15)
[2018-04-15] MEDS ORDERED: IBUPROFEN 600 MG TABLET (FP) PO ONE ×2 (14:50→16:30)
--- NOTE | 2018-04-15 16:36 | PN ---
Physical Exam: SUBJECTIVE: Patient seen and examined at the bedside. In no acute distress. still unable to move around, due to back pain. OBJECTIVE: will give motrin 600mg x 1 started on prednisone 40mg by neuro Vital Signs Period Temp Pulse Resp BP Sys/Mccoy Pulse Ox Last 24 Hr 97.5 F-98.9 F 76-89 18-20 116-142/53-81 96 GENERAL: Awake, alert, and fully oriented, in no acute distress. HEAD: Normal with no signs of trauma. EYES: Pupils equal, round and reactive to light, extraocular movements intact, sclera anicteric, conjunctiva clear. No lid lag. EARS, NOSE, THROAT: Ears normal, nares patent, oropharynx clear without exudates. Moist mucous membranes. NECK: Normal range of motion, supple without lymphadenopathy, JVD, or masses. LUNGS: Breath sounds equal, clear to auscultation bilaterally. No wheezes, and no crackles. No accessory muscle use. HEART: Regular rate and rhythm ABDOMEN: Soft, nontender, not distended, normoactive bowel sounds, no guarding, no rebound, no masses. No hepatomegaly or splenomegaly. MUSCULOSKELETAL: No CVA tenderness. right hip pain UPPER EXTREMITIES: No peripheral edema. LOWER EXTREMITIES: No peripheral edema. NEUROLOGICAL: Normal speech. gait not observed PSYCHIATRIC: Cooperative. Good eye contact. Appropriate mood and affect. SKIN: Warm, dry, normal turgor, no rashes or lesions noted, normal capillary refill. Laboratory Results - last 24 hr 04/15/18 04/15/18 11:05 11:05 WBC 11.8 H RBC 5.12 Hgb 15.3 Hct 45.5 MCV 88.8 MCH 29.9 MCHC 33.6 RDW 14.4 Plt Count 175 MPV 8.4 Absolute Neuts (auto) 9.0 H Neutrophils % 75.7 Lymphocytes % 10.5 Monocytes % 9.6 Eosinophils % 3.4 Basophils % 0.8 Nucleated RBC % 0 Sodium 136 Potassium 4.3 Chloride 104 Carbon Dioxide 26 Anion Gap 6 L BUN 23 H Creatinine 1.0 Creat Clearance w eGFR > 60 Random Glucose 124 H Calcium 8.9 Magnesium 2.7 H Total Bilirubin 0.6 AST 15 ALT 23 Alkaline Phosphatase 67 Total Protein 7.2 Albumin 3.2 L Active Medications Generic Name Dose Route Start Last Admin Trade Name Freq PRN Reason Stop Dose Admin Acetaminophen 650 mg 04/13/18 18:59 04/14/18 21:31 Tylenol - PO 650 mg Q6H PRN Administration PAIN LEVEL 6-10 Atorvastatin Calcium 20 mg 04/13/18 22:00 04/14/18 21:31 Lipitor - PO 20 mg HS MEAGHAN Administration Cholecalciferol 5,000 unit 04/14/18 10:00 04/15/18 09:29 Vitamin D3 - PO 5,000 unit DAILY MEAGHAN Administration Cyclobenzaprine HCl 5 mg 04/14/18 10:27 04/15/18 14:08 Cyclobenzaprine Hcl PO 5 mg TID MEAGHAN Administration Docusate Sodium 100 mg 04/14/18 14:00 04/15/18 14:07 Colace - PO 100 mg TID MEAGHAN Administration Gabapentin 100 mg 04/14/18 10:00 04/15/18 09:26 Neurontin - PO 100 mg DAILY MEAGHAN Administration Heparin Sodium (Porcine) 5,000 unit 04/13/18 22:00 04/15/18 09:25 Heparin - SQ 5,000 unit BID MEAGHAN Administration Ceftriaxone Sodium 2 gm/ 100 mls @ 200 mls/hr 04/16/18 15:00 Dextrose IVPB DAILY [facility] Protocol Lactobacillus Acidophilus 1 tab 04/14/18 10:00 04/15/18 09:25 Bacid - PO 1 tab DAILY MEAGHAN Administration Lidocaine 2 patch 04/13/18 15:00 04/15/18 09:26 Lidoderm Patch - TP 2 patch DAILY MEAGHAN Administration Miscellaneous 1 each 04/13/18 22:00 04/14/18 21:32 Lidoderm Patch Removal MC 1 each DAILY@2200 MEAGHAN Administration Oxycodone HCl 10 mg 04/13/18 14:56 04/14/18 21:31 Roxicodone - PO 10 mg Q6H PRN Administration PAIN LEVEL 7 - 10 Oxycodone HCl 5 mg 04/13/18 14:57 04/15/18 09:24 Roxicodone - PO 5 mg Q6H PRN Administration PAIN LEVEL 4 - 6 Pantoprazole Sodium 40 mg 04/14/18 10:00 04/15/18 09:26 Protonix - PO 40 mg DAILY MEAGHAN Administration Polyethylene Glycol 17 gm 04/14/18 10:00 04/15/18 09:26 Miralax (For Daily Use) - PO 17 grams DAILY MEAGHAN Administration Prednisone 40 mg 04/15/18 16:30 Deltasone - PO DAILY MEAGHAN Pyridoxine HCl 100 mg 04/14/18 10:00 04/15/18 09:28 Vitamin B6 - PO 100 mg DAILY MEAGHAN Administration Senna 2 tab 04/14/18 07:38 04/14/18 21:31 Senna - PO 2 tab HS PRN Administration CONSTIPATION Imaging: MRI Lumbar 04/13/2018: reveals multilevel spondylosis worst at L34 where there is moderate stenosis from ligamentum flavum and facet hypertrophy as well as a small cental bulge. L45 has a spondylolisthesis with severe stenosis and central disc bulging resulting in lateral recess compression bilaterally. pelvic xray: no acute bony abnormality lumbar spine xray: extensive facet joint arthopathy, minimal anterior degenerative spondylolisthesis of L4 on L5. neural foramina stenosis at L3-L4, L4-L4, L5-S1. facet joint arthoplasty, degenerative spondylolisthesis associated with central spine canal stenosis. ASSESSMENT/PLAN: Mr. Chang is a 73 year old male with a significant past medical history of hyperlipidemia, herniated discs 2003, GERD with polyps, bilateral cataracts with cataract extraction of the right eye with IDL implant (2014) and cataract extraction of the left eye with lens implant (2017). He comes to the ER for evaluation of severe back pain and inability to ambulate. Spine: Intractable back pain/Severe back pain Inability to ambulate secondary to severe back pain that radiates across his lower back. No falls or trauma. With pain management he is still having a difficult time with ambulation, and turning/positioning. Back pain managed with Oxycodone 5/10 prn, lidocaine for pain management, Motrin and prednisone 40mg MRI of lumbar spine as noted above Neurosurgery/Neuro consulted and following, notes reviewed. Physical therapy when patient is able to participate. UTI Blood cultures with group D/streptococcus Awaiting UC Will treat as patient was symptomatic at home with urinary frequency Ceftriaxone Card: Hyperlipidemia. continue statin therapy. GI: Gerd. on protonix. fen tolerating PO monitor electrolytes low salt diet prophy heparin physical therapy bowel regimen full code Visit type - Emergency Visit Emergency Visit: Yes ED Registration Date: 04/14/18 Care time: The patient presented to the Emergency Department on the above date and was hospitalized for further evaluation of their emergent condition. - New Patient This patient is new to me today: No - Critical Care Critical Care patient: No - Discharge Referral Referred to [facility] Med P.C.: No
[2018-04-15] MEDS ORDERED: CEFTRIAXONE 2 GM in DEXTROSE 5%-WATER 100 ML IVPB ONE (17:00)
[2018-04-15] MEDS ORDERED: DEXTROSE 5%-WATER 100 ML IVPB ONE (17:01)
[2018-04-15] MEDS: predniSONE 20 MG TABLET (UD) PO SCH (17:07)
[2018-04-15] MEDS: SENNOSIDES 8.6MG TABLET (FP) PO PRN (21:39)
[2018-04-15] MEDS: ATORVASTATIN CA 20 MG TABLET (FP) PO SCH (21:40)
[2018-04-15] MEDS: LIDOCAINE PATCH REMOVAL MC SCH (21:42)
--- NOTE | 2018-04-16 00:02 | PN ---
Progress Note (short form) - Note Progress Note: Patient continues to have severe back pain and remains incapacitated in bed. He cannot turn from side to side and bathing and grooming is limited despite aggressive medical treatment. I had a long discussion with the patient regarding various treatment options including, bracing, injections, Physical therapy,decompressionand posterior stabilization at two or more levels in the Lumbar spine. I described both L3-5 decompression and fusion as well as a more extensive procedure, likely from T10- S2 to address hisdegenerative changes. After discussion of the various strategies, we agreed that L3-5would be a reasonable initial plan of care with the expectation that this would address the mostlikely pain generators.I explained the risks, benefits and alternatives to Lumbar 3-5decompressionand possible interbody cage/arthrodesis with L3-5posterior instrumentationwith mild correction ofalignment in great detail. The risks included, but were not limited to: , coma, paralysis, bleeding, infection, CSF leakage possibly requiring spinal drainage or additional surgery, instrumentation migration/ malposition/malfunction and the need for additional surgery. I explained that not all patients benefit from surgeryand that additional intervention may be required. All questions were answered. Informed consent was obtained. I offered the patientthe option of seeking another opinion or another surgeon. This procedure would involve trimming of the abutting spinous processes to reduce the contribution of Bastrup's disease to his extension associated pain and enthesopathy.
[2018-04-16] MEDS: oxyCODONE HCL 5 MG TABLET PO PRN ×3 (00:12→19:03)
[2018-04-16] MEDS: DOCUSATE SODIUM 100 MG CAPSULE (FP) PO SCH ×3 (06:16→23:07)
[2018-04-16] MEDS: CYCLOBENZAPRINE HCL 5 MG TABLET PO SCH ×3 (06:16→23:07)
[2018-04-16] MEDS ORDERED: PT OWN MED DRAWER 7, Y5N ONE (09:57)
[2018-04-16] MEDS: LIDOCAINE 5% TOPICAL PATCH TP SCH (10:56)
[2018-04-16] MEDS: CHOLECALCIFEROL (VITAMIN D3) 1,000 UNIT TABLET (FP) PO SCH (10:57)
[2018-04-16] MEDS: PYRIDOXINE HCL (B-6) 50 MG TABLET (FP) PO SCH (10:57)
[2018-04-16] MEDS: predniSONE 20 MG TABLET (UD) PO SCH (10:58)
--- NOTE | 2018-04-16 10:58 | PN ---
Physical Exam: SUBJECTIVE: Patient seen and examined at the bedside. able to move his legs better but still having back pain, severe at times. unable to perform his own bathing or cleaning. using urinal. had bm yesterday. he is exploring surgical options. OBJECTIVE: Vital Signs Period Temp Pulse Resp BP Sys/Mccoy Pulse Ox Last 24 Hr 97.4 F-98.9 F 76-86 18-18 124-133/66-80 96 GENERAL: Awake, alert, and fully oriented, in no acute distress. HEAD: Normal with no signs of trauma. EYES: Pupils equal, round and reactive to light, extraocular movements intact, sclera anicteric, conjunctiva clear. No lid lag. EARS, NOSE, THROAT: Ears normal, nares patent, oropharynx clear without exudates. Moist mucous membranes. NECK: Normal range of motion, supple without lymphadenopathy, JVD, or masses. LUNGS: Breath sounds equal, clear to auscultation bilaterally. No wheezes, and no crackles. No accessory muscle use. HEART: Regular rate and rhythm ABDOMEN: Soft, nontender, not distended, normoactive bowel sounds, no guarding, no rebound, no masses. No hepatomegaly or splenomegaly. MUSCULOSKELETAL: No CVA tenderness. UPPER EXTREMITIES: No peripheral edema. LOWER EXTREMITIES: No peripheral edema. NEUROLOGICAL: Normal speech. gait not observed PSYCHIATRIC: Cooperative. Good eye contact. Appropriate mood and affect. SKIN: Warm, dry, normal turgor, no rashes or lesions noted, normal capillary refill. Laboratory Results - last 24 hr 04/15/18 04/15/18 11:05 11:05 WBC 11.8 H RBC 5.12 Hgb 15.3 Hct 45.5 MCV 88.8 MCH 29.9 MCHC 33.6 RDW 14.4 Plt Count 175 MPV 8.4 Absolute Neuts (auto) 9.0 H Neutrophils % 75.7 Lymphocytes % 10.5 Monocytes % 9.6 Eosinophils % 3.4 Basophils % 0.8 Nucleated RBC % 0 Sodium 136 Potassium 4.3 Chloride 104 Carbon Dioxide 26 Anion Gap 6 L BUN 23 H Creatinine 1.0 Creat Clearance w eGFR > 60 Random Glucose 124 H Calcium 8.9 Magnesium 2.7 H Total Bilirubin 0.6 AST 15 ALT 23 Alkaline Phosphatase 67 Total Protein 7.2 Albumin 3.2 L Active Medications Generic Name Dose Route Start Last Admin Trade Name Freq PRN Reason Stop Dose Admin Acetaminophen 650 mg 04/13/18 18:59 04/14/18 21:31 Tylenol - PO 650 mg Q6H PRN Administration PAIN LEVEL 6-10 Atorvastatin Calcium 20 mg 04/13/18 22:00 04/15/18 21:40 Lipitor - PO 20 mg HS MEAGHAN Administration Cholecalciferol 5,000 unit 04/14/18 10:00 04/15/18 09:29 Vitamin D3 - PO 5,000 unit DAILY MEAGHAN Administration Cyclobenzaprine HCl 5 mg 04/14/18 10:27 04/16/18 06:16 Cyclobenzaprine Hcl PO 5 mg TID MEAGHAN Administration Docusate Sodium 100 mg 04/14/18 14:00 04/16/18 06:16 Colace - PO 100 mg TID MEAGHAN Administration Gabapentin 100 mg 04/14/18 10:00 04/15/18 09:26 Neurontin - PO 100 mg DAILY MEAGHAN Administration Heparin Sodium (Porcine) 5,000 unit 04/13/18 22:00 04/15/18 21:39 Heparin - SQ 5,000 unit BID MEAGHAN Administration Ceftriaxone Sodium 2 gm/ 100 mls @ 200 mls/hr 04/16/18 15:00 Dextrose IVPB DAILY [facility] Protocol Lactobacillus Acidophilus 1 tab 04/14/18 10:00 04/15/18 09:25 Bacid - PO 1 tab DAILY MEAGHAN Administration Lidocaine 2 patch 04/13/18 15:00 04/15/18 09:26 Lidoderm Patch - TP 2 patch DAILY MEAGHAN Administration Miscellaneous 1 each 04/13/18 22:00 04/15/18 21:42 Lidoderm Patch Removal MC 1 each DAILY@2200 MEAGHAN Administration Oxycodone HCl 10 mg 04/13/18 14:56 04/15/18 18:54 Roxicodone - PO 10 mg Q6H PRN Administration PAIN LEVEL 7 - 10 Oxycodone HCl 5 mg 04/13/18 14:57 04/16/18 00:12 Roxicodone - PO 5 mg Q6H PRN Administration PAIN LEVEL 4 - 6 Pantoprazole Sodium 40 mg 04/14/18 10:00 04/15/18 09:26 Protonix - PO 40 mg DAILY MEAGHAN Administration Polyethylene Glycol 17 gm 04/14/18 10:00 04/15/18 09:26 Miralax (For Daily Use) - PO 17 grams DAILY MEAGHAN Administration Prednisone 40 mg 04/15/18 16:30 04/15/18 17:07 Deltasone - PO 40 mg DAILY MEAGHAN Administration Pyridoxine HCl 100 mg 04/16/18 10:00 Vitamin B6 - PO DAILY MEAGHAN Senna 2 tab 04/14/18 07:38 04/15/18 21:39 Senna - PO 2 tab HS PRN Administration CONSTIPATION Imaging: MRI Lumbar 04/13/2018: reveals multilevel spondylosis worst at L34 where there is moderate stenosis from ligamentum flavum and facet hypertrophy as well as a small cental bulge. L45 has a spondylolisthesis with severe stenosis and central disc bulging resulting in lateral recess compression bilaterally. pelvic xray: no acute bony abnormality lumbar spine xray: extensive facet joint arthopathy, minimal anterior degenerative spondylolisthesis of L4 on L5. neural foramina stenosis at L3-L4, L4-L4, L5-S1. facet joint arthoplasty, degenerative spondylolisthesis associated with central spine canal stenosis. ASSESSMENT/PLAN: Mr. Chang is a 73 year old male with a significant past medical history of hyperlipidemia, herniated discs 2003, GERD with polyps, bilateral cataracts with cataract extraction of the right eye with IDL implant (2014) and cataract extraction of the left eye with lens implant (2018). He comes to the ER for evaluation of severe back pain and inability to ambulate. Spine: Intractable back pain/Severe back pain - some improvement with prednisone Inability to ambulate secondary to severe back pain that radiates across his lower back. No falls or trauma. With pain management he is still having a difficult time with ambulation, and turning/positioning. Back pain managed with Oxycodone 5/10 prn, lidocaine for pain management, Motrin and prednisone 40mg MRI of lumbar spine as noted above For possible surgical procedure per neurosurgery Physical therapy when patient is able to participate. UTI Urine cultures with enterococcus faecalis start levaquin. qtc 439 Card: Hyperlipidemia. continue statin therapy. GI: Gerd. on protonix. fen tolerating PO monitor electrolytes low salt diet prophy heparin physical therapy bowel regimen full code Visit type - Emergency Visit Emergency Visit: Yes ED Registration Date: 04/14/18 Care time: The patient presented to the Emergency Department on the above date and was hospitalized for further evaluation of their emergent condition. - New Patient This patient is new to me today: No - Critical Care Critical Care patient: No - Discharge Referral Referred to [facility] Med P.C.: No
[2018-04-16] MEDS: PANTOPRAZOLE 40 MG TABLET (FP) PO SCH (10:59)
[2018-04-16] MEDS: POLYETHYLENE GLYCOL 3350 119 GM BTL PO SCH (10:59)
[2018-04-16] MEDS: LACTOBACILLUS ACIDOPHILUS 1 TABLET PO SCH (10:59)
[2018-04-16] MEDS: GABAPENTIN 100 MG CAPSULE (FP) PO SCH (10:59)
[2018-04-16] MEDS: HEPARIN NA (PORCINE) 5,000 UNITS/ML 1ML VIAL SQ SCH ×2 (10:59→23:07)
[2018-04-16] MEDS ORDERED: IBUPROFEN 600 MG TABLET (FP) PO ONE (11:01)
--- NOTE | 2018-04-16 11:01 | PN ---
Progress Note (short form) - Note Progress Note: 73 year old male history of Chronic low back pain, intermittent follwoing a severe back pain episode in 2003. Patient also have historyo f cataract , HLD, GERD. Patient denies any bowel or bladder symptoms. Paitent denies any trauma, fever , or cancer. Patient having difficulty to ambulate. He did have xray of Spine done and it showed djd. He did have mri of L spine and was seen by neurosurgery. He is offered surgery and she is 50% better on steroid. NEUROLOGICAL EXAMINATION Alert oriented x 3, CN all intact, eomi, pupils reactive, no face asymmetry Moving all ext sensation is normal HIP flexion, Hip extension, knee flexion and extension, planter flexion and extension is normal reflex are generalized diminisehd Exam remain cunahged Xray of Pelvis and Lumbar xray Pelvic xray: no acute bony abnormality lumbar spine xray: extensive facet joint arthopathy, minimal anterior degenerative spondylolisthesis of L4 on L5. neural foramina stenosis at L3-L4, L4-L4, L5-S1. facet joint arthoplasty, degenerative spondylolisthesis associated with central spine canal stenosis. MRI of L spine reviewed and there is severe djd Neurosurgery consult appreicated 1. Severe non radicular low back pain, there is no clinical evidence of Radiculopathy and Cord compression or Cauda equina syndrome. Neurosurgery consult appreciated and mri of L showed djd. Guy is being planned for laminectomy . I started him on steroid and he is feeling better. Thnaking you so much Saul Leroy MD
--- NOTE | 2018-04-16 13:00 | EKG ---
Test Reason : Blood Pressure : / mmHG Vent. Rate : 084 BPM Atrial Rate : 084 BPM P-R Int : 178 ms QRS Dur : 116 ms QT Int : 372 ms P-R-T Axes : 018 -50 -20 degrees QTc Int : 439 ms NORMAL SINUS RHYTHM LEFT ANTERIOR FASCICULAR BLOCK LEFT VENTRICULAR HYPERTROPHY WITH QRS WIDENING NONSPECIFIC ST ABNORMALITY ABNORMAL ECG NO PREVIOUS ECGS AVAILABLE Confirmed by Scott Philip MD ([id number]) on 04/16/2018 12:59:43 PM Referred By: Meg SALDANA Confirmed By:Scott Philip MD
--- NOTE | 2018-04-16 13:38 | CON.ID ---
Consult Consult Specialty:: infectious diseases - Alcohol/Substance Use Hx Alcohol Use: No - Smoking History Smoking history: Never smoked Have you smoked in the past 12 months: No Home Medications - Allergies Allergies/Adverse Reactions: Allergies Allergy/AdvReac Type Severity Reaction Status Date / Time No Known Drug Allergies Allergy Verified 04/12/18 20:00 - Home Medications Home Medications: Ambulatory Orders Cholecalciferol (Vitamin D3) [Vitamin D] 5,000 unit PO DAILY 12/27/14 Multivitamin [Poly-Vitamin] 1 cap PO DAILY 12/27/14 Simvastatin 40 mg PO DAILY 12/27/14 Esomeprazole Magnesium [Nexium 24Hr] 10 mg PO DAILY 08/08/17 Lactobacillus Acidophilus [Probiotic] 1 each PO DAILY 08/08/17 Naproxen [Naprosyn -] 375 mg PO BID 08/08/17 Slater-3/Dha/Epa/Fish Oil [Fish Oil EC 1,200 mg Softgel] 1 each PO DAILY Pyridoxine HCl (B-6) [Vitamin B6 -] 100 mg PO DAILY 08/08/17 Ubidecarenone [Co Q-10] 200 mg PO DAILY 08/08/17 Docusate Sodium [Colace] 100 mg PO PRN 08/21/17 Physical Exam Vital Signs: Vital Signs Temperature 98.7 F 04/16/18 06:00 Pulse Rate 86 04/16/18 06:00 Respiratory Rate 18 04/15/18 21:00 Blood Pressure 133/80 04/16/18 06:00 O2 Sat by Pulse Oximetry (%) 96 04/15/18 21:00 Labs: CBC, BMP 04/15/18 11:05 04/15/18 11:05
--- NOTE | 2018-04-16 13:39 | CON.ID ---
Consult Consult Specialty:: infectious diseases Referred by:: hospitalist Reason for Consultation:: back pain,uti - History of Present Illness Chief Complaint: back pain History of Present Illness: Mr. Chang is a 73 year old male with a significant past medical history of hyperlipidemia, herniated discs 2003, GERD with polyps, bilateral cataracts with cataract extraction of the right eye with IDL implant (2014) and cataract extraction of the left eye with lens implant (2018). patient was admitted to the hospital for back pain .patient was admitted and then fond to [facility] uti and neurosurgery has seen the patient and the paln is to take him to the operating room. patients pain had increased and also his sensation ahd decreased and patient was started on steroids patient has been on ceftriaxone for the uti currently his main complaint is the back pain - History Source History Provided By: Patient Limitations to Obtaining History: No Limitations - Alcohol/Substance Use Hx Alcohol Use: No - Smoking History Smoking history: Never smoked Have you smoked in the past 12 months: No Home Medications - Allergies Allergies/Adverse Reactions: Allergies Allergy/AdvReac Type Severity Reaction Status Date / Time No Known Drug Allergies Allergy Verified 04/12/18 20:00 kiwi Allergy Itching Uncoded 04/21/18 16:04 - Home Medications Home Medications: Ambulatory Orders RX: Cholecalciferol (Vitamin D3) [Vitamin D] 5,000 unit PO DAILY 12/27/14 RX: Multivitamin [Poly-Vitamin] 1 cap PO DAILY 12/27/14 RX: Simvastatin 40 mg PO DAILY 12/27/14 RX: Esomeprazole Magnesium [Nexium 24Hr] 10 mg PO DAILY 08/08/17 RX: Lactobacillus Acidophilus [Probiotic] 1 each PO DAILY 08/08/17 RX: Naproxen [Naprosyn -] 375 mg PO BID 08/08/17 RX: Belk-3/Dha/Epa/Fish Oil [Fish Oil EC 1,200 mg Softgel] 1 each PO DAILY 06/22 RX: Pyridoxine HCl (B-6) [Vitamin B6 -] 100 mg PO DAILY 08/08/17 RX: Ubidecarenone [Co Q-10] 200 mg PO DAILY 08/08/17 Docusate Sodium [Colace] 100 mg PO PRN 08/21/17 Review of Systems - Review of Systems Constitutional: reports: No Symptoms Eyes: reports: No Symptoms HENT: reports: No Symptoms Neck: reports: No Symptoms Cardiovascular: reports: No Symptoms Respiratory: reports: No Symptoms Gastrointestinal: reports: No Symptoms Genitourinary: reports: No Symptoms Musculoskeletal: reports: Back Pain Integumentary: reports: No Symptoms Neurological: reports: Numbness (in the legs) Endocrine: reports: No Symptoms Hematology/Lymphatic: reports: No Symptoms Psychiatric: reports: No Symptoms Physical Exam Vital Signs: Vital Signs Temperature 98.7 F 04/16/18 06:00 Pulse Rate 86 04/16/18 06:00 Respiratory Rate 18 04/15/18 21:00 Blood Pressure 133/80 04/16/18 06:00 O2 Sat by Pulse Oximetry (%) 96 04/15/18 21:00 Constitutional: Yes: Well Nourished, Calm, Mild Distress Eyes: Yes: Conjunctiva Clear HENT: Yes: Atraumatic, Normocephalic Neck: Yes: Supple, Trachea Midline Cardiovascular: Yes: Regular Rate and Rhythm Respiratory: Yes: Regular, CTA Bilaterally Gastrointestinal: Yes: Normal Bowel Sounds, Soft Musculoskeletal: Yes: Back Pain Extremities: Yes: WNL Integumentary: Yes: WNL Neurological: Yes: Alert, Oriented, Numbness (in both legs) Psychiatric: Yes: Alert, Oriented Labs: CBC, BMP 04/15/18 11:05 04/15/18 11:05 Imaging - Results Chest X-ray: Report Reviewed, Image Reviewed Cat Scan: Report Reviewed, Image Reviewed MRI: Report Reviewed, Image Reviewed Assessment/Plan Problem List - Problems (1) Hyperlipidemia Code(s): E78.5 - HYPERLIPIDEMIA, UNSPECIFIED Qualifiers: Hyperlipidemia type: pure hypercholesterolemia Qualified Code(s): E78.00 - Pure hypercholesterolemia, unspecified; E78.0 - Pure hypercholesterolemia (2) Intractable low back pain Code(s): M54.5 - LOW BACK PAIN (3) Status post lumbar laminectomy Code(s): Z98.890 - OTHER SPECIFIED POSTPROCEDURAL STATES uti plan will stop ceftriaxone will switch to zosyn patient for surgery rest as per the team
[2018-04-16] MEDS ORDERED: PIPERACILLIN/TAZOBACTAM 3.375 GM VIAL IVPB ONE ×2 (14:42→17:48)
[2018-04-16] MEDS ORDERED: DEXTROSE 5%-WATER - 50 ML IVPB ONE ×2 (14:42→17:49)
[2018-04-16] MEDS: PIPERACILLIN/TAZOB 3.375 GM 3.375 GM in DEXTROSE 5%-WATER - 50 ML IVPB SCH ×2 (14:53→18:50)
[2018-04-16] MEDS ORDERED: CEFTRIAXONE 2 GM in DEXTROSE 5%-WATER 100 ML IVPB SCH (15:00)
[2018-04-16] MEDS: SENNOSIDES 8.6MG TABLET (FP) PO PRN (23:06)
[2018-04-16] MEDS: LIDOCAINE PATCH REMOVAL MC SCH (23:07)
[2018-04-16] MEDS: ATORVASTATIN CA 20 MG TABLET (FP) PO SCH (23:07)
--- NOTE | 2018-04-16 23:51 | PN ---
Progress Note (short form) - Note Progress Note: I reviewed the risks, benefits and alternatives to L3-5 decompression and fusion with patient and spouse in detail. I explained that surgery is not mandatory, however, it represents the logical next step in his care given the radiographic findings and lack of an alternative diagnosis in a patient who has become incapacitated. All questions were answered and they ask that I expedite treatment if possible. Will plan for surgery on Tuesday, April 17, 2018.
[2018-04-17] MEDS ORDERED: PIPERACILLIN/TAZOBACTAM 3.375 GM VIAL IVPB ONE ×3 (02:06→17:06)
[2018-04-17] MEDS ORDERED: DEXTROSE 5%-WATER - 50 ML IVPB ONE ×3 (02:06→17:06)
[2018-04-17] MEDS: PIPERACILLIN/TAZOB 3.375 GM 3.375 GM in DEXTROSE 5%-WATER - 50 ML IVPB SCH ×3 (02:18→17:18)
[2018-04-17] MEDS: oxyCODONE HCL 5 MG TABLET PO PRN ×2 (06:24→17:17)
[2018-04-17] MEDS: CYCLOBENZAPRINE HCL 5 MG TABLET PO SCH ×3 (06:24→22:33)
[2018-04-17] MEDS: DOCUSATE SODIUM 100 MG CAPSULE (FP) PO SCH ×3 (06:24→22:33)
[2018-04-17 07:59] LABS: BASO % 0.4 % (0-2.0); EOS % 1.5 % (0-4.5); HEMATOCRIT 44.3 % (35.4-49); HEMOGLOBIN 15.1 GM/dL (11.7-16.9); LYMPH % 16.9 % (8-40); MCH 30.1 pg (25.7-33.7); MEAN CELL VOLUME 88.4 fl (80-96); MEAN PLT VOLUME 8.8 fl (7.5-11.1); MONO % 8.9 % (3.8-10.2); NEUT % 72.3 % (42.8-82.8); PLATELET COUNT 228 K/MM3 (134-434); RBC 5.01 M/mm3 (4.00-5.60); RDW 13.7 % (11.9-15.9); WHITE BLOOD COUNT 11.9 K/mm3 (4.0-10.0)
[2018-04-17 08:27] LABS: ALK PHOS 73 U/L (45-117); ANION GAP 6 MMOL/L (8-16); BILIRUBIN,TOTAL 0.5 mg/dL (0.2-1); BLOOD UREA NITROGEN 28 mg/dL (7-18); CALCIUM 8.9 mg/dL (8.5-10.1); CHLORIDE 101 mmol/L (98-107); CO2 30 mmol/L (21-32); CREATININE 1.1 mg/dL (0.55-1.3); GLUCOSE,RANDOM 106 mg/dL (74-106); MAGNESIUM 2.7 mg/dL (1.8-2.4); POTASSIUM 4.4 mmol/L (3.5-5.1); SGOT/AST 20 U/L (15-37); SGPT/ALT 39 U/L (13-61); SODIUM 136 mmol/L (136-145); TOT PROT 7.1 g/dl (6.4-8.2)
[2018-04-17] MEDS: HEPARIN NA (PORCINE) 5,000 UNITS/ML 1ML VIAL SQ SCH ×2 (09:41→22:33)
--- NOTE | 2018-04-17 09:41 | PN ---
Progress Note (short form) - Note Progress Note: 73 year old male history of Chronic low back pain, intermittent follwoing a severe back pain episode in 2003. Patient also have historyo f cataract , HLD, GERD. Patient denies any bowel or bladder symptoms. Paitent denies any trauma, fever , or cancer. Patient having difficulty to ambulate. He did have xray of Spine done and it showed djd. He did have mri of L spine and was seen by neurosurgery. He is undergoing surgery today. He is better but still in lot of pain. NEUROLOGICAL EXAMINATION Alert oriented x 3, CN all intact, eomi, pupils reactive, no face asymmetry Moving all ext sensation is normal HIP flexion, Hip extension, knee flexion and extension, planter flexion and extension is normal reflex are generalized diminisehd Exam remain cunahged Xray of Pelvis and Lumbar xray Pelvic xray: no acute bony abnormality lumbar spine xray: extensive facet joint arthopathy, minimal anterior degenerative spondylolisthesis of L4 on L5. neural foramina stenosis at L3-L4, L4-L4, L5-S1. facet joint arthoplasty, degenerative spondylolisthesis associated with central spine canal stenosis. MRI of L spine reviewed and there is severe djd Neurosurgery consult appreicated 1. Severe non radicular low back pain, there is no clinical evidence of Radiculopathy and Cord compression or Cauda equina syndrome. Patient undergoing surgery today. Thnaking you so much Saul Leroy MD
[2018-04-17] MEDS: LIDOCAINE 5% TOPICAL PATCH TP SCH (09:43)
[2018-04-17] MEDS: LACTOBACILLUS ACIDOPHILUS 1 TABLET PO SCH (09:47)
[2018-04-17] MEDS: POLYETHYLENE GLYCOL 3350 119 GM BTL PO SCH (09:47)
[2018-04-17] MEDS: PYRIDOXINE HCL (B-6) 50 MG TABLET (FP) PO SCH (09:47)
[2018-04-17] MEDS: PANTOPRAZOLE 40 MG TABLET (FP) PO SCH (09:47)
[2018-04-17] MEDS: GABAPENTIN 100 MG CAPSULE (FP) PO SCH (09:47)
[2018-04-17] MEDS: CHOLECALCIFEROL (VITAMIN D3) 1,000 UNIT TABLET (FP) PO SCH (09:47)
[2018-04-17] MEDS: predniSONE 20 MG TABLET (UD) PO SCH (09:47)
[2018-04-17 10:10] LABS: INR 1.13 (0.83-1.09); PROTHROMBIN TIME (PATIENT) 13.3 SEC (9.7-13.0)
--- NOTE | 2018-04-17 11:56 | CON.CARD ---
Consult Consult Specialty:: Cardiology Referred by:: Hospitalist Medicine Reason for Consultation:: Pre-operative cardiovascular evaluation - History of Present Illness Chief Complaint: Acute in chronic LBP History of Present Illness: Severe Non-Radicular Back pain for three days H PI 73 year old male history of hyperlipidemia, chronic low back pain, intermittent following a severe back pain episode in 2003 presents with acute exacerbation. Patient denies any bowel or bladder symptoms. Paitent denies any trauma, fever, or cancer. Patient having difficulty with ambulation. MRI of LS Spine showed djd. Patient is taking percocet and muscle relaxant and is planned for L3-5 decompression and fusion. He denies cardiovascular symptoms including chest pain, dyspnea, near or true syncope, palpitations, orthopnea, PND or LE edema. - History Source History Provided By: Patient Limitations to Obtaining History: No Limitations - Alcohol/Substance Use Hx Alcohol Use: No - Smoking History Smoking history: Never smoked Have you smoked in the past 12 months: No Home Medications - Allergies Allergies/Adverse Reactions: Allergies Allergy/AdvReac Type Severity Reaction Status Date / Time No Known Drug Allergies Allergy Verified 04/12/18 20:00 - Home Medications Home Medications: Ambulatory Orders Cholecalciferol (Vitamin D3) [Vitamin D] 5,000 unit PO DAILY 12/27/14 Multivitamin [Poly-Vitamin] 1 cap PO DAILY 12/27/14 Simvastatin 40 mg PO DAILY 12/27/14 Esomeprazole Magnesium [Nexium 24Hr] 10 mg PO DAILY 08/08/17 Lactobacillus Acidophilus [Probiotic] 1 each PO DAILY 08/08/17 Naproxen [Naprosyn -] 375 mg PO BID 08/08/17 Transfer-3/Dha/Epa/Fish Oil [Fish Oil EC 1,200 mg Softgel] 1 each PO DAILY Pyridoxine HCl (B-6) [Vitamin B6 -] 100 mg PO DAILY 08/08/17 Ubidecarenone [Co Q-10] 200 mg PO DAILY 08/08/17 Docusate Sodium [Colace] 100 mg PO PRN 08/21/17 Review of Systems - Review of Systems Musculoskeletal: reports: Back Pain Vital Signs: Vital Signs Temperature 97.7 F 04/17/18 09:55 Pulse Rate 81 04/17/18 09:55 Respiratory Rate 18 04/17/18 09:55 Blood Pressure 155/91 04/17/18 09:55 O2 Sat by Pulse Oximetry (%) 96 04/16/18 21:00 Constitutional: Yes: No Distress, Calm Neck: Yes: Supple Respiratory: Yes: Regular, CTA Bilaterally Gastrointestinal: Yes: Normal Bowel Sounds, Soft Cardiovascular: Yes: Regular Rate and Rhythm Heart Sounds: Yes: S1, S2 Edema: No - Other Data Labs, Other Data: CBC, BMP 04/17/18 06:20 04/17/18 06:20 INR, PTT INR 1.13 (0.83-1.09) H 04/17/18 09:30 NSR @ 84 LVH, LAD Imaging - Results Chest X-ray: Report Reviewed (NAD) Problem List - Problems (1) Hyperlipidemia Code(s): E78.5 - HYPERLIPIDEMIA, UNSPECIFIED Qualifiers: Hyperlipidemia type: pure hypercholesterolemia Qualified Code(s): E78.00 - Pure hypercholesterolemia, unspecified; E78.0 - Pure hypercholesterolemia (2) Pre-operative cardiovascular examination Code(s): Z01.810 - ENCOUNTER FOR PREPROCEDURAL CARDIOVASCULAR EXAMINATION (3) Intractable low back pain Code(s): M54.5 - LOW BACK PAIN Assessment/Plan Pelvic xray: no acute bony abnormality lumbar spine xray: extensive facet joint arthopathy, minimal anterior degenerative spondylolisthesis of L4 on L5. neural foramina stenosis at L3-L4, L4-L4, L5-S1. facet joint arthoplasty, degenerative spondylolisthesis associated with central spine canal stenosis. MRI Lumbar reveals multilevel spondylosis worst at L34 where there is moderate stenosis from ligamentum flavum and facet hypertrophy as well as a small cental bulge. L45 has a spondylolisthesis with severe stenosis and central disc bulging resulting in lateral recess compression bilaterally. 1. Severe non-radicular low back pain w/o clinical evidence of Radiculopathy and Cord compression or Cauda equina syndrome. Patient is planned for L3-5 decompression and fusion 2. Pre-operative cardiovascular evaluation 3. Hyperlipidemia P:1. Given absence of symptoms of acute coronary syndrome, decompensated CHF or malignant arrhythmia, may proceed with NSG as clinically indicated from CV standpoint without further imaging tests 2. Continue Zocor 40 qhs 3. Thank you for consultative opportunity .
--- NOTE | 2018-04-17 13:26 | PN ---
Progress Note, Physician History of Present Illness: patient stable improvement in the movement of the legs - Current Medication List Current Medications: Active Medications Acetaminophen (Tylenol -) 650 mg PO Q6H PRN PRN Reason: PAIN LEVEL 6-10 Last Admin: 04/14/18 21:31 Dose: 650 mg Atorvastatin Calcium (Lipitor -) 20 mg PO HS [facility] Last Admin: 04/16/18 23:07 Dose: 20 mg Cholecalciferol (Vitamin D3 -) 5,000 unit PO DAILY [facility] Last Admin: 04/17/18 09:47 Dose: Not Given Cyclobenzaprine HCl (Cyclobenzaprine Hcl) 5 mg PO TID [facility] Last Admin: 04/17/18 06:24 Dose: 5 mg Docusate Sodium (Colace -) 100 mg PO TID [facility] Last Admin: 04/17/18 06:24 Dose: 100 mg Gabapentin (Neurontin -) 100 mg PO DAILY [facility] Last Admin: 04/17/18 09:47 Dose: Not Given Heparin Sodium (Porcine) (Heparin -) 5,000 unit SQ BID [facility] Last Admin: 04/17/18 09:41 Dose: 5,000 unit Piperacillin Sod/Tazobactam (Sod 3.375 gm/ Dextrose) 50 mls @ 100 mls/hr IVPB Q8H-IV [facility]; Protocol Last Admin: 04/17/18 09:41 Dose: 100 mls/hr Lactobacillus Acidophilus (Bacid -) 1 tab PO DAILY [facility] Last Admin: 04/17/18 09:47 Dose: Not Given Lidocaine (Lidoderm Patch -) 2 patch TP DAILY [facility] Last Admin: 04/17/18 09:43 Dose: 2 patch Miscellaneous (Lidoderm Patch Removal) 1 each MC DAILY@2200 [facility] Last Admin: 04/16/18 23:07 Dose: 1 each Oxycodone HCl (Roxicodone -) 10 mg PO Q6H PRN PRN Reason: PAIN LEVEL 7 - 10 Last Admin: 04/16/18 19:03 Dose: 10 mg Oxycodone HCl (Roxicodone -) 5 mg PO Q6H PRN PRN Reason: PAIN LEVEL 4 - 6 Last Admin: 04/17/18 06:24 Dose: 5 mg Pantoprazole Sodium (Protonix -) 40 mg PO DAILY [facility] Last Admin: 04/17/18 09:47 Dose: Not Given Polyethylene Glycol (Miralax (For Daily Use) -) 17 gm PO DAILY [facility] Last Admin: 04/17/18 09:47 Dose: Not Given Prednisone (Deltasone -) 40 mg PO DAILY [facility] Last Admin: 04/17/18 09:47 Dose: Not Given Pyridoxine HCl (Vitamin B6 -) 100 mg PO DAILY [facility] Last Admin: 04/17/18 09:47 Dose: Not Given Senna (Senna -) 2 tab PO HS PRN PRN Reason: CONSTIPATION Last Admin: 04/16/18 23:06 Dose: 2 tab - Objective Vital Signs: Vital Signs Temperature 97.7 F 04/17/18 09:55 Pulse Rate 81 04/17/18 09:55 Respiratory Rate 18 04/17/18 09:55 Blood Pressure 155/91 04/17/18 09:55 O2 Sat by Pulse Oximetry (%) 96 04/17/18 09:00 Constitutional: Yes: No Distress, Calm Cardiovascular: Yes: Regular Rate and Rhythm Respiratory: Yes: Regular, CTA Bilaterally Gastrointestinal: Yes: Normal Bowel Sounds, Soft Musculoskeletal: Yes: Back Pain Extremities: Yes: Other Neurological: Yes: Alert, Oriented Psychiatric: Yes: Alert, Oriented Labs: CBC, BMP 04/17/18 06:20 04/17/18 06:20 INR, PTT INR 1.13 (0.83-1.09) H 04/17/18 09:30 Assessment/Plan back pain hld gerd uti plan continue current abx awaiting for surgery rest as per neurosurgery and the team
[2018-04-17] MEDS ORDERED: PT OWN MED DRAWER 7, Y5N ONE (13:50)
--- NOTE | 2018-04-17 19:07 | PN ---
Physical Exam: SUBJECTIVE: Patient seen and examined at the bedside. back pain and discomfort persists. patient is seeking surgical options. OBJECTIVE: cleared by cardiology for surgery Vital Signs Period Temp Pulse Resp BP Sys/Mccoy Pulse Ox Last 24 Hr 97.7 F-98.6 F 72-81 18-20 132-155/62-91 96-96 GENERAL: Awake, alert, and fully oriented, in no acute distress. HEAD: Normal with no signs of trauma. EYES: Pupils equal, round and reactive to light, extraocular movements intact, sclera anicteric, conjunctiva clear. No lid lag. EARS, NOSE, THROAT: Ears normal, nares patent, oropharynx clear without exudates. Moist mucous membranes. NECK: Normal range of motion, supple without lymphadenopathy, JVD, or masses. LUNGS: Breath sounds equal, clear to auscultation bilaterally. No wheezes, and no crackles. No accessory muscle use. HEART: Regular rate and rhythm ABDOMEN: Soft, nontender, not distended, normoactive bowel sounds, no guarding, no rebound, no masses. No hepatomegaly or splenomegaly. MUSCULOSKELETAL: No CVA tenderness. UPPER EXTREMITIES: No peripheral edema. LOWER EXTREMITIES: No peripheral edema. NEUROLOGICAL: Normal speech. bed bound secondary to back pain. PSYCHIATRIC: Cooperative. Good eye contact. Appropriate mood and affect. SKIN: Warm, dry, normal turgor, no rashes or lesions noted, normal capillary refill. Laboratory Results - last 24 hr 04/17/18 04/17/18 04/17/18 06:20 06:20 09:30 WBC 11.9 H RBC 5.01 Hgb 15.1 Hct 44.3 MCV 88.4 MCH 30.1 MCHC 34.0 RDW 13.7 Plt Count 228 D MPV 8.8 Absolute Neuts (auto) 8.6 H Neutrophils % 72.3 Lymphocytes % 16.9 D Monocytes % 8.9 Eosinophils % 1.5 Basophils % 0.4 Nucleated RBC % 0 PT with INR INR Sodium 136 Potassium 4.4 Chloride 101 Carbon Dioxide 30 Anion Gap 6 L BUN 28 H Creatinine 1.1 Creat Clearance w eGFR > 60 Random Glucose 106 Calcium 8.9 Magnesium 2.7 H Total Bilirubin 0.5 AST 20 ALT 39 Alkaline Phosphatase 73 Total Protein 7.1 Albumin 3.0 L Blood Type A POSITIVE Antibody Screen Negative 04/17/18 09:30 WBC RBC Hgb Hct MCV MCH MCHC RDW Plt Count MPV Absolute Neuts (auto) Neutrophils % Lymphocytes % Monocytes % Eosinophils % Basophils % Nucleated RBC % PT with INR 13.30 H INR 1.13 H Sodium Potassium Chloride Carbon Dioxide Anion Gap BUN Creatinine Creat Clearance w eGFR Random Glucose Calcium Magnesium Total Bilirubin AST ALT Alkaline Phosphatase Total Protein Albumin Blood Type Antibody Screen Active Medications Generic Name Dose Route Start Last Admin Trade Name Freq PRN Reason Stop Dose Admin Acetaminophen 650 mg 04/13/18 18:59 04/14/18 21:31 Tylenol - PO 650 mg Q6H PRN Administration PAIN LEVEL 6-10 Atorvastatin Calcium 20 mg 04/13/18 22:00 04/16/18 23:07 Lipitor - PO 20 mg HS [facility] Administration Chlorhexidine Gluconate 1 applic 04/17/18 22:00 Hibiclens For Decolonization - TP HS [facility] Cholecalciferol 5,000 unit 04/14/18 10:00 04/17/18 09:47 Vitamin D3 - PO Not Given DAILY [facility] Cyclobenzaprine HCl 5 mg 04/14/18 10:27 04/17/18 14:14 Cyclobenzaprine Hcl PO 5 mg TID [facility] Administration Docusate Sodium 100 mg 04/14/18 14:00 04/17/18 14:14 Colace - PO 100 mg TID [facility] Administration Gabapentin 100 mg 04/14/18 10:00 04/17/18 09:47 Neurontin - PO Not Given DAILY [facility] Heparin Sodium (Porcine) 5,000 unit 04/13/18 22:00 04/17/18 09:41 Heparin - SQ 04/17/18 22:01 5,000 unit BID [facility] Administration Piperacillin Sod/Tazobactam 50 mls @ 100 mls/hr 04/16/18 13:45 04/17/18 17:18 Sod 3.375 gm/ Dextrose IVPB 100 mls/hr Q8H-IV [facility] Administration Protocol Lactobacillus Acidophilus 1 tab 04/14/18 10:00 04/17/18 09:47 Bacid - PO Not Given DAILY [facility] Lidocaine 2 patch 04/13/18 15:00 04/17/18 09:43 Lidoderm Patch - TP 2 patch DAILY [facility] Administration Miscellaneous 1 each 04/13/18 22:00 04/16/18 23:07 Lidoderm Patch Removal MC 1 each DAILY@2200 [facility] Administration Oxycodone HCl 10 mg 04/13/18 14:56 04/17/18 17:17 Roxicodone - PO 10 mg Q6H PRN Administration PAIN LEVEL 7 - 10 Oxycodone HCl 5 mg 04/13/18 14:57 04/17/18 06:24 Roxicodone - PO 5 mg Q6H PRN Administration PAIN LEVEL 4 - 6 Pantoprazole Sodium 40 mg 04/14/18 10:00 04/17/18 09:47 Protonix - PO Not Given DAILY [facility] Polyethylene Glycol 17 gm 04/14/18 10:00 04/17/18 09:47 Miralax (For Daily Use) - PO Not Given DAILY [facility] Prednisone 40 mg 04/15/18 16:30 04/17/18 09:47 Deltasone - PO Not Given DAILY [facility] Pyridoxine HCl 100 mg 04/16/18 10:00 04/17/18 09:47 Vitamin B6 - PO Not Given DAILY [facility] Senna 2 tab 04/14/18 07:38 04/16/18 23:06 Senna - PO 2 tab HS PRN Administration CONSTIPATION Imaging: MRI Lumbar 04/13/2018: reveals multilevel spondylosis worst at L34 where there is moderate stenosis from ligamentum flavum and facet hypertrophy as well as a small cental bulge. L45 has a spondylolisthesis with severe stenosis and central disc bulging resulting in lateral recess compression bilaterally. pelvic xray: no acute bony abnormality lumbar spine xray: extensive facet joint arthopathy, minimal anterior degenerative spondylolisthesis of L4 on L5. neural foramina stenosis at L3-L4, L4-L4, L5-S1. facet joint arthoplasty, degenerative spondylolisthesis associated with central spine canal stenosis. ASSESSMENT/PLAN: Mr. Chang is a 73 year old male with a significant past medical history of hyperlipidemia, herniated discs 2003, GERD with polyps, bilateral cataracts with cataract extraction of the right eye with IDL implant (2014) and cataract extraction of the left eye with lens implant (2018). He comes to the ER for evaluation of severe back pain and inability to ambulate. Spine: Intractable back pain/Severe back pain - some improvement with prednisone Inability to ambulate secondary to severe back pain that radiates across his lower back. No falls or trauma. With pain management he is still having a difficult time with ambulation, and turning/positioning. Back pain managed with Oxycodone 5/10 prn, lidocaine for pain management, Motrin and prednisone 40mg MRI of lumbar spine as noted above For possible surgical procedure per neurosurgery Physical therapy when patient is able to participate. UTI Urine cultures with enterococcus faecalis bacteria. sensitivities noted. will give zosyn as patient is going for spinal surgery. ID consulted. Card: Hyperlipidemia. continue statin therapy. GI: Gerd. on protonix. fen tolerating PO monitor electrolytes low salt diet prophy heparin physical therapy bowel regimen full code hold heparin at midnight. npo at midnight. Visit type - Emergency Visit Emergency Visit: Yes ED Registration Date: 04/14/18 Care time: The patient presented to the Emergency Department on the above date and was hospitalized for further evaluation of their emergent condition. - New Patient This patient is new to me today: No - Critical Care Critical Care patient: No - Discharge Referral Referred to [facility] Med P.C.: No
--- NOTE | 2018-04-17 20:17 | PN ---
Progress Note (short form) - Note Progress Note: Patient is comfortable and is prepared for planned L3-5 decompression and stabilization in AM. - NPO p MN - GI/DVT prophylaxis - Hibiclens bath
[2018-04-17] MEDS ORDERED: CHLORHEXIDINE GLUCONATE 4% CLEANSER FOR DECOLONIZATION TP SCH (22:00)
[2018-04-17] MEDS: ATORVASTATIN CA 20 MG TABLET (FP) PO SCH (22:33)
[2018-04-17] MEDS: LIDOCAINE PATCH REMOVAL MC SCH (22:33)
[2018-04-18] MEDS ORDERED: PIPERACILLIN/TAZOBACTAM 3.375 GM VIAL IVPB ONE ×2 (03:07→17:58)
[2018-04-18] MEDS ORDERED: DEXTROSE 5%-WATER - 50 ML IVPB ONE ×2 (03:07→17:59)
[2018-04-18] MEDS: PIPERACILLIN/TAZOB 3.375 GM 3.375 GM in DEXTROSE 5%-WATER - 50 ML IVPB SCH ×3 (03:09→18:12)
[2018-04-18] MEDS: DOCUSATE SODIUM 100 MG CAPSULE (FP) PO SCH ×3 (05:23→21:29)
[2018-04-18] MEDS: CYCLOBENZAPRINE HCL 5 MG TABLET PO SCH ×2 (05:23→13:40)
[2018-04-18 07:09] LABS: EOS % 7.2 % (0-4.5); HEMATOCRIT 46.6 % (35.4-49); LYMPH % 14.7 % (8-40); MCH 30.2 pg (25.7-33.7); MCHC 34.4 g/dl (32.0-35.9); MEAN CELL VOLUME 87.7 fl (80-96); MEAN PLT VOLUME 8.2 fl (7.5-11.1); MONO % 10.1 % (3.8-10.2); PLATELET COUNT 225 K/MM3 (134-434); RBC 5.31 M/mm3 (4.00-5.60); RDW 14.1 % (11.9-15.9); WHITE BLOOD COUNT 11.2 K/mm3 (4.0-10.0)
[2018-04-18 07:38] LABS: INR 1.15 (0.83-1.09); PROTHROMBIN TIME (PATIENT) 13.6 SEC (9.7-13.0)
[2018-04-18] MEDS ORDERED: GENTAMICIN SO4 80 MG/2 ML VIAL ONE (07:45)
[2018-04-18] MEDS ORDERED: LIDOCAINE 1%-EPI 1:100,000 30 ML MDV IJ ONE (07:45)
[2018-04-18] MEDS ORDERED: THROMBIN (BOVINE) 20,000 UNIT VIAL TP ONE (07:46)
[2018-04-18 09:02] LABS: ALBUMIN 3.2 g/dl (3.4-5.0); ALK PHOS 75 U/L (45-117); ANION GAP 7 MMOL/L (8-16); BILIRUBIN,TOTAL 0.6 mg/dL (0.2-1); CALCIUM 9.5 mg/dL (8.5-10.1); CHLORIDE 103 mmol/L (98-107); CO2 27 mmol/L (21-32); CREATININE 1.2 mg/dL (0.55-1.3); GLUCOSE,RANDOM 116 mg/dL (74-106); POTASSIUM 4.4 mmol/L (3.5-5.1); SGPT/ALT 42 U/L (13-61); SODIUM 138 mmol/L (136-145); TOT PROT 7.1 g/dl (6.4-8.2)
[2018-04-18] MEDS ORDERED: BUPIVACAINE LIPOSOME/PF (EXPAREL) 266 MG/20 ML VIAL ONE (09:39)
[2018-04-18] MEDS ORDERED: MIDAZOLAM HCL 2 MG/2 ML SINGLE DOSE VIAL ONE ×4 (09:41)
[2018-04-18] MEDS ORDERED: PROPOFOL 20 ML ONE (09:55)
[2018-04-18] MEDS ORDERED: KETAMINE HCL 200 MG/20 ML VIAL ONE (09:55)
[2018-04-18] MEDS ORDERED: SODIUM CHLORIDE 0.9% P/F 10 ML VIAL IJ ONE (09:56)
[2018-04-18] MEDS ORDERED: ceFAZolin SODIUM 1 GM VIAL ONE (09:56)
[2018-04-18] MEDS ORDERED: LIDOCAINE HCL/PF 2% SDV 5ML VIAL ONE (09:56)
[2018-04-18] MEDS: LACTOBACILLUS ACIDOPHILUS 1 TABLET PO SCH (10:00)
[2018-04-18] MEDS: LIDOCAINE 5% TOPICAL PATCH TP SCH (10:00)
[2018-04-18] MEDS: predniSONE 20 MG TABLET (UD) PO SCH (10:00)
[2018-04-18] MEDS: GABAPENTIN 100 MG CAPSULE (FP) PO SCH (10:00)
[2018-04-18] MEDS: POLYETHYLENE GLYCOL 3350 119 GM BTL PO SCH (10:00)
[2018-04-18] MEDS: CHOLECALCIFEROL (VITAMIN D3) 1,000 UNIT TABLET (FP) PO SCH (10:01)
[2018-04-18] MEDS: PANTOPRAZOLE 40 MG TABLET (FP) PO SCH (10:01)
[2018-04-18] MEDS: PYRIDOXINE HCL (B-6) 50 MG TABLET (FP) PO SCH (10:01)
[2018-04-18] MEDS ORDERED: BUPIVACAINE HCL/PF 0.25% (2.5MG/ML) 10 ML VIAL IJ ONE (10:02)
[2018-04-18] MEDS ORDERED: ceFAZolin SODIUM 1 GM VIAL IVPB ONE ×2 (10:02→10:35)
[2018-04-18] MEDS ORDERED: LIDOCAINE 1%/EPI 1:100000 (50 ML MULTI DOSE VIAL) NR ONE (10:03)
[2018-04-18] MEDS ORDERED: GENTAMICIN 80MG PREMIX BAG IVPB ONE ×2 (10:04→12:30)
[2018-04-18] MEDS ORDERED: BACITRACIN 50,000 UNITS VIAL TP ONE ×2 (10:04→12:30)
[2018-04-18] MEDS ORDERED: VANCOMYCIN 1,000 MG VIAL (RESTRICTED TO ID ONLY) IVPB ONE ×3 (10:05→12:30)
[2018-04-18] MEDS ORDERED: THROMBIN (BOVINE) 5,000 UNIT VIAL TP ONE ×3 (10:06→12:45)
[2018-04-18] MEDS ORDERED: HYDROGEN PEROXIDE 473 ML PO ONE ×2 (10:07→12:30)
[2018-04-18] MEDS ORDERED: GELATIN, ABSORBABLE 12-7MM EACH SPONGE TP ONE ×2 (10:07→12:45)
[2018-04-18] MEDS ORDERED: ROCURONIUM BROMIDE 50 MG/5 ML VIAL ONE ×2 (10:10→12:42)
[2018-04-18] MEDS ORDERED: MAGNESIUM SULF 50% (8.12 MEQ/2 ML-1 GM VIAL) ONE (10:44)
[2018-04-18] MEDS ORDERED: VANCOMYCIN 1,000 MG VIAL (RESTRICTED TO ID ONLY) ONE (10:51)
--- NOTE | 2018-04-18 11:45 | PN ---
Progress Note (short form) - Note Progress Note: 73 year old male history of Chronic low back pain, intermittent follwoing a severe back pain episode in 2003. Patient also have historyo f cataract , HLD, GERD. Patient denies any bowel or bladder symptoms. Paitent denies any trauma, fever , or cancer. Patient having difficulty to ambulate. He did have xray of Spine done and it showed djd. He did have mri of L spine and was seen by neurosurgery. He continue to be in pain and is undergoing surgery by dr aguayo . L 3-l4 Decompression. NEUROLOGICAL EXAMINATION Alert oriented x 3, CN all intact, eomi, pupils reactive, no face asymmetry Moving all ext sensation is normal HIP flexion, Hip extension, knee flexion and extension, planter flexion and extension is normal reflex are generalized diminisehd Exam remain cunahged Xray of Pelvis and Lumbar xray Pelvic xray: no acute bony abnormality lumbar spine xray: extensive facet joint arthopathy, minimal anterior degenerative spondylolisthesis of L4 on L5. neural foramina stenosis at L3-L4, L4-L4, L5-S1. facet joint arthoplasty, degenerative spondylolisthesis associated with central spine canal stenosis. MRI of L spine reviewed and there is severe djd 1. Severe non radicular low back pain, there is no clinical evidence of Radiculopathy and Cord compression or Cauda equina syndrome. Continue current level of care I would see him after surgery Thanking you Saul Leroy MD
[2018-04-18] MEDS ORDERED: NEOSTIGMINE METHYLSULFATE 0.5 MG/1 ML - 10 ML MDV ONE ×2 (12:42→14:24)
[2018-04-18 13:12] LABS: BLOOD UREA NITROGEN 32 mg/dL (7-18); SGOT/AST 22 U/L (15-37)
[2018-04-18] MEDS ORDERED: GLYCOPYRROLATE 0.2 MG/1 ML VIAL ONE (14:24)
[2018-04-18] MEDS ORDERED: diphenhydrAMINE HCL 25 MG CAPSULE (FP) PO PRN (14:32)
[2018-04-18] MEDS ORDERED: ONDANSETRON 4 MG/2 ML VIAL IVPUSH PRN ×2 (14:32→14:38)
[2018-04-18] MEDS ORDERED: LACTATED RINGERS SOLUTION 1,000 ML/1,000 ML INFUS.BAG IV SCH (14:45)
[2018-04-18] MEDS ORDERED: LACTATED RINGERS SOLUTION 1,000 ML IV SCH (14:45)
[2018-04-18] MEDS ORDERED: ACETAMINOPHEN 325 MG TABLET (FP) PO PRN (14:49)
[2018-04-18] MEDS ORDERED: SENNOSIDES 8.6MG TABLET (FP) PO PRN (14:49)
[2018-04-18] MEDS ORDERED: oxyCODONE HCL 5 MG TABLET PO PRN ×2 (14:49)
--- NOTE | 2018-04-18 15:02 | OP ---
Operative Note - Note: Operative Date: 04/18/18 Pre-Operative Diagnosis: Lumbar splondylosis. Stenosis. Bastrups disease. Spondylolisthesis Operation: L3-L5 laminectomies, decompression with interbody cages at L34 and L45, Posterior fusion with pedicle screws and rods Post-Operative Diagnosis: Same as Pre-op Surgeon: Chivo Witt Body Piercer: Tiffanie Hearn Anesthesiologist/ECOSYSTEM ECOLOGY PROFESSOR: Grady Simms Anesthesia: General, Local (TLIP block under u/s) Estimated Blood Loss (mls): 500 Drains & Tubes with Location: J/P right lumbar paravetebral Drains, Volume Out (mls): 300 (norris) Fluid Volume Replaced (mls): 2,300 Operative Report Dictated: Yes
--- NOTE | 2018-04-18 15:57 | PROC ---
Procedure Note Procedure: Norris 16F norris catheter placed under sterile technique after intubation in the OR. The catheter passed with ease and no resistance was met. Once placed the norris drained urine throughout the case. the patient left the OR with the norris.
[2018-04-18] MEDS ORDERED: PT OWN MED DRAWER 7, Y5N ONE (17:35)
--- NOTE | 2018-04-18 18:23 | PN ---
Progress Note, Physician History of Present Illness: 24HR EVENTS: -Today 04/18: s/p L3-L5 laminectomies, decompression with interbody cages at L34 and L45, Posterior fusion with pedicle screws and rods -pt moved to [facility] bed post op - Current Medication List Current Medications: Active Medications Acetaminophen (Tylenol -) 650 mg PO Q6H [facility] Stop: 04/21/18 14:44 Atorvastatin Calcium (Lipitor -) 20 mg PO HS [facility] Cholecalciferol (Vitamin D3 -) 5,000 unit PO DAILY [facility] Cyclobenzaprine HCl (Flexeril -) 5 mg PO TID [facility] Diphenhydramine HCl (Benadryl -) 25 mg PO Q6H PRN PRN Reason: FOR ITCHING Docusate Sodium (Colace -) 100 mg PO TID [facility] Fentanyl (Sublimaze Injection -) 25 mcg IVPUSH [id number] PRN PRN Reason: PAIN-PACU ORDER X 4 DOSES ONLY Ferrous Sulfate (Feosol -) 325 mg PO DAILY [facility] Gabapentin (Neurontin -) 100 mg PO DAILY [facility] Heparin Sodium (Porcine) (Heparin -) 5,000 unit SQ TID [facility] Lactated Ringer's (Lactated Ringers Solution) 1,000 mls @ 75 mls/hr IV [facility] Piperacillin Sod/Tazobactam (Sod 3.375 gm/ Dextrose) 50 mls @ 100 mls/hr IVPB Q8H-IV [facility]; Protocol Cefazolin Sodium (Ancef 1 Gm Premixed Ivpb -) 1 gm in 50 mls @ 100 mls/hr IVPB Q8H [facility] Lactated Ringer's (Lactated Ringers Solution) 1,000 ml in 1,000 mls @ 100 mls/ hr IV ASDIR [facility] Lactobacillus Acidophilus (Bacid -) 1 tab PO DAILY [facility] Lidocaine (Lidoderm Patch -) 2 patch TP DAILY [facility] Miscellaneous (Lidoderm Patch Removal) 1 each MC DAILY@2200 [facility] Miscellaneous (Lidoderm Patch Removal) 1 each MC DAILY@2200 [facility] Ondansetron HCl (Zofran Injection) 4 mg IVPUSH Q6H PRN PRN Reason: NAUSEA AND/OR VOMITING Ondansetron HCl (Zofran Injection) 4 mg IVPUSH Q6H PRN PRN Reason: NAUSEA Oxycodone HCl (Oxycontin -) 10 mg PO BID [facility] Stop: 04/21/18 14:38 Oxycodone HCl (Roxicodone -) 10 mg PO Q6H PRN PRN Reason: PAIN LEVEL 7 - 10 Oxycodone HCl (Roxicodone -) 5 mg PO Q6H PRN PRN Reason: PAIN LEVEL 4 - 6 Pantoprazole Sodium (Protonix -) 40 mg PO DAILY [facility] Polyethylene Glycol (Miralax (For Daily Use) -) 17 gm PO DAILY [facility] Prednisone (Deltasone -) 40 mg PO DAILY [facility] Pyridoxine HCl (Vitamin B6 -) 100 mg PO DAILY [facility] Senna (Senna -) 2 tab PO HS PRN PRN Reason: CONSTIPATION - Objective Vital Signs: Vital Signs Temperature 98.2 F 04/18/18 16:30 Pulse Rate 108 H 04/18/18 16:30 Respiratory Rate 16 04/18/18 16:30 Blood Pressure 115/80 04/18/18 16:30 O2 Sat by Pulse Oximetry (%) 93 L 04/18/18 16:15 Constitutional: Yes: Well Nourished, No Distress, Calm Eyes: Yes: Conjunctiva Clear, PERRL (1mm) HENT: Yes: Atraumatic, Normocephalic Neck: Yes: Supple, Trachea Midline Cardiovascular: Yes: Tachycardia (distant S1S2) Respiratory: Yes: Regular, CTA Bilaterally Gastrointestinal: Yes: Normal Bowel Sounds, Soft ...Rectal Exam: Yes: Deferred Extremities: Yes: WNL Edema: No Peripheral Pulses: Left Radial: 2+, Right Radial: 2+ Wound/Incision: Yes: Clean/Dry, Dressing Dry and Intact (L-spine) Neurological: Yes: Alert, Oriented ...Motor Strength: LUE, RUE Psychiatric: Yes: Alert, Oriented Labs: CBC, BMP 04/18/18 06:30 04/18/18 06:30 INR, PTT INR 1.15 (0.83-1.09) H 04/18/18 06:30 Problem List - Problems (1) Hyperlipidemia Assessment/Plan: lipitor 20mg qhs Code(s): E78.5 - HYPERLIPIDEMIA, UNSPECIFIED Qualifiers: Hyperlipidemia type: pure hypercholesterolemia Qualified Code(s): E78.00 - Pure hypercholesterolemia, unspecified; E78.0 - Pure hypercholesterolemia (2) Intractable low back pain Assessment/Plan: s/p spinal surgery pain control PT when stable flexeril TID Fluid hydration post-op Code(s): M54.5 - LOW BACK PAIN (3) Constipation Assessment/Plan: continue senna/colace/miralax Code(s): K59.00 - CONSTIPATION, UNSPECIFIED Qualifiers: Constipation type: other constipation type Qualified Code(s): K59.09 - Other constipation (4) Urinary retention Assessment/Plan: maintain norris Code(s): R33.9 - RETENTION OF URINE, UNSPECIFIED Impression/Plan Impression/Plan: Anemia -continue iron Enteroccocus UTI continue cefazolin and Zosyn Full code Visit type - Emergency Visit Emergency Visit: Yes ED Registration Date: 04/14/18 Care time: The patient presented to the Emergency Department on the above date and was hospitalized for further evaluation of their emergent condition. - New Patient This patient is new to me today: Yes Date on this admission: 04/18/18 - Critical Care Critical Care patient: No - Discharge Referral Referred to [facility] Med P.C.: No
[2018-04-18] MEDS: CEFAZOLIN 1 GM/D5W 1 GM/50 ML BAG IVPB SCH (21:26)
[2018-04-18] MEDS: oxyCODONE HCL 10 MG SUSTAINED ACTING TABLET PO SCH (21:27)
[2018-04-18] MEDS: ATORVASTATIN CA 20 MG TABLET (FP) PO SCH (21:28)
[2018-04-18] MEDS: ACETAMINOPHEN 325 MG TABLET (FP) PO SCH ×2 (21:29→21:52)
[2018-04-18] MEDS: HEPARIN NA (PORCINE) 5,000 UNITS/ML 1ML VIAL SQ SCH (21:30)
[2018-04-18] MEDS: LIDOCAINE PATCH REMOVAL MC SCH ×2 (21:30)
[2018-04-18] MEDS: CYCLOBENZAPRINE HCL 10 MG TABLET (FP) PO SCH (21:31)
[2018-04-19] MEDS ORDERED: PIPERACILLIN/TAZOBACTAM 3.375 GM VIAL IVPB ONE ×3 (02:19→17:40)
[2018-04-19] MEDS ORDERED: DEXTROSE 5%-WATER - 50 ML IVPB ONE ×3 (02:21→17:41)
[2018-04-19] MEDS: CEFAZOLIN 1 GM/D5W 1 GM/50 ML BAG IVPB SCH ×3 (02:29→18:01)
[2018-04-19] MEDS: PIPERACILLIN/TAZOB 3.375 GM 3.375 GM in DEXTROSE 5%-WATER - 50 ML IVPB SCH ×3 (02:29→17:50)
[2018-04-19] MEDS: ACETAMINOPHEN 325 MG TABLET (FP) PO SCH ×4 (02:32→22:55)
[2018-04-19] MEDS: HEPARIN NA (PORCINE) 5,000 UNITS/ML 1ML VIAL SQ SCH ×3 (06:21→22:55)
[2018-04-19] MEDS: CYCLOBENZAPRINE HCL 10 MG TABLET (FP) PO SCH ×3 (06:21→22:54)
[2018-04-19] MEDS: DOCUSATE SODIUM 100 MG CAPSULE (FP) PO SCH ×3 (06:22→22:54)
[2018-04-19 06:45] LABS: HEMATOCRIT 38.7 % (35.4-49); MCH 29.7 pg (25.7-33.7); MCHC 33.6 g/dl (32.0-35.9); MEAN CELL VOLUME 88.4 fl (80-96); MEAN PLT VOLUME 8.3 fl (7.5-11.1); PLATELET COUNT 224 K/MM3 (134-434); RBC 4.38 M/mm3 (4.00-5.60); RDW 13.7 % (11.9-15.9); WHITE BLOOD COUNT 14.7 K/mm3 (4.0-10.0)
[2018-04-19 07:34] LABS: ALBUMIN 2.7 g/dl (3.4-5.0); ALK PHOS 60 U/L (45-117); ANION GAP 7 MMOL/L (8-16); BILIRUBIN,TOTAL 0.6 mg/dL (0.2-1); BLOOD UREA NITROGEN 31 mg/dL (7-18); CALCIUM 7.8 mg/dL (8.5-10.1); CHLORIDE 101 mmol/L (98-107); CO2 29 mmol/L (21-32); CREATININE 1.1 mg/dL (0.55-1.3); GLUCOSE,RANDOM 132 mg/dL (74-106); MAGNESIUM 2.3 mg/dL (1.8-2.4); POTASSIUM 4.6 mmol/L (3.5-5.1); SGOT/AST 26 U/L (15-37); SGPT/ALT 32 U/L (13-61); SODIUM 137 mmol/L (136-145); TOT PROT 5.9 g/dl (6.4-8.2)
--- NOTE | 2018-04-19 08:12 | PN ---
Progress Note (short form) - Note Progress Note: 73yo M s/p L3-4 PLIF POD 1, pt seen and examined at bedside. Pt states that he continues to have a lot of back pain since the surgery and is having some difficulty moving due to the pain. pt denies n/v, fever, chills. Pt eating and urinating well. Last Vital Signs Temp Pulse Resp BP Pulse Ox 97.4 F L 91 H 20 120/74 95 04/19/18 02:00 04/19/18 06:00 04/19/18 06:00 04/19/18 06:00 04/18/18 20:51 CBC, BMP 04/19/18 05:30 04/19/18 05:30 PE: Gen: A&O X3 Resp: breathing comfortably Back: drain in place with serosanguinous drainage Ext: no weakness or numbness Problem List - Problems (1) Intractable low back pain Assessment/Plan: Plan - will add on valium to help with back spasms -PT OOB/ambulate -DVT ppx -pain management Code(s): M54.5 - LOW BACK PAIN
[2018-04-19] MEDS: diazePAM 5 MG TABLET PO PRN ×2 (08:33→22:55)
--- NOTE | 2018-04-19 09:00 | PN ---
Progress Note (short form) - Note Progress Note: 73 year old male history of Chronic low back pain, intermittent follwoing a severe back pain episode in 2003. Patient also have historyo f cataract , HLD, GERD. Patient denies any bowel or bladder symptoms. Paitent denies any trauma, fever , or cancer. Patient having difficulty to ambulate. He did have xray of Spine done and it showed djd. He did have mri of L spine and was seen by neurosurgery. Patient has decompressin surgery yesterday and having post op back pain. NEUROLOGICAL EXAMINATION Alert oriented x 3, CN all intact, eomi, pupils reactive, no face asymmetry Moving all ext exam is limited due to pain he has good sensation and dorsiflexion and extension is normal Xray of Pelvis and Lumbar xray Pelvic xray: no acute bony abnormality lumbar spine xray: extensive facet joint arthopathy, minimal anterior degenerative spondylolisthesis of L4 on L5. neural foramina stenosis at L3-L4, L4-L4, L5-S1. facet joint arthoplasty, degenerative spondylolisthesis associated with central spine canal stenosis. MRI of L spine reviewed and there is severe djd N 1. Severe non radicular low back pain, there is spinal stenosis and underwent spinal decompression surgery. Plan mobilization as per neurosurgery . Thnaking you so much Saul Leroy MD
[2018-04-19] MEDS: POLYETHYLENE GLYCOL 3350 119 GM BTL PO SCH (09:46)
[2018-04-19] MEDS: PYRIDOXINE HCL (B-6) 50 MG TABLET (FP) PO SCH (09:47)
[2018-04-19] MEDS: CHOLECALCIFEROL (VITAMIN D3) 1,000 UNIT TABLET (FP) PO SCH (09:47)
[2018-04-19] MEDS: FERROUS SO4 325 MG TABLET (FP) PO SCH (09:48)
[2018-04-19] MEDS: oxyCODONE HCL 10 MG SUSTAINED ACTING TABLET PO SCH ×2 (09:48→22:55)
[2018-04-19] MEDS: LACTOBACILLUS ACIDOPHILUS 1 TABLET PO SCH (09:48)
[2018-04-19] MEDS: predniSONE 20 MG TABLET (UD) PO SCH (09:49)
[2018-04-19] MEDS: LIDOCAINE 5% TOPICAL PATCH TP SCH (09:49)
[2018-04-19] MEDS: PANTOPRAZOLE 40 MG TABLET (FP) PO SCH (09:49)
[2018-04-19] MEDS ORDERED: FOLIC ACID 1 MG TABLET (FP) PO SCH (10:00)
[2018-04-19] MEDS ORDERED: GABAPENTIN 100 MG CAPSULE (FP) PO SCH (10:00)
--- NOTE | 2018-04-19 11:30 | PN ---
Progress Note, Physician History of Present Illness: 24 HR events --day # 1 post L3-L5 laminectomies, -pt reports uncontrolled pain which limits his mobility. Valium added by surgical team for pain control -diet advanced, now consuming 50% of meals. - Current Medication List Current Medications: Active Medications Acetaminophen (Tylenol -) 650 mg PO Q6H [facility] Stop: 04/21/18 14:44 Last Admin: 04/19/18 08:33 Dose: 650 mg Atorvastatin Calcium (Lipitor -) 20 mg PO HS [facility] Last Admin: 04/18/18 21:28 Dose: 20 mg Cholecalciferol (Vitamin D3 -) 5,000 unit PO DAILY [facility] Last Admin: 04/19/18 09:47 Dose: 5,000 unit Cyclobenzaprine HCl (Flexeril -) 5 mg PO TID [facility] Last Admin: 04/19/18 06:21 Dose: 5 mg Diazepam (Valium -) 5 mg PO Q6H PRN PRN Reason: MUSCLE SPASMS Last Admin: 04/19/18 08:33 Dose: 5 mg Diphenhydramine HCl (Benadryl -) 25 mg PO Q6H PRN PRN Reason: FOR ITCHING Docusate Sodium (Colace -) 100 mg PO TID [facility] Last Admin: 04/19/18 06:22 Dose: 100 mg Ferrous Sulfate (Feosol -) 325 mg PO DAILY [facility] Last Admin: 04/19/18 09:48 Dose: 325 mg Gabapentin (Neurontin -) 100 mg PO BID [facility] Heparin Sodium (Porcine) (Heparin -) 5,000 unit SQ TID [facility] Last Admin: 04/19/18 06:21 Dose: 5,000 unit Piperacillin Sod/Tazobactam (Sod 3.375 gm/ Dextrose) 50 mls @ 100 mls/hr IVPB Q8H-[facility]; Protocol Last Admin: 04/19/18 09:50 Dose: 100 mls/hr Cefazolin Sodium (Ancef 1 Gm Premixed Ivpb -) 1 gm in 50 mls @ 100 mls/hr IVPB Q8H [facility] Last Admin: 04/19/18 02:29 Dose: 100 mls/hr Lactated Ringer's (Lactated Ringers Solution) 1,000 ml in 1,000 mls @ 100 mls/ hr IV ASDIR [facility] Last Admin: 04/18/18 21:51 Dose: Not Given Lactated Ringer's (Lactated Ringers Solution) 1,000 mls @ 50 mls/hr IV ASDIR [facility] Lactobacillus Acidophilus (Bacid -) 1 tab PO DAILY [facility] Last Admin: 04/19/18 09:48 Dose: 1 tab Lidocaine (Lidoderm Patch -) 2 patch TP DAILY [facility] Last Admin: 04/19/18 09:49 Dose: 2 patch Miscellaneous (Lidoderm Patch Removal) 1 each MC DAILY@2199 [facility] Last Admin: 04/18/18 21:30 Dose: 1 each Miscellaneous (Lidoderm Patch Removal) 1 each MC DAILY@2200 [facility] Last Admin: 04/18/18 21:30 Dose: 1 each Ondansetron HCl (Zofran Injection) 4 mg IVPUSH Q6H PRN PRN Reason: NAUSEA AND/OR VOMITING Ondansetron HCl (Zofran Injection) 4 mg IVPUSH Q6H PRN PRN Reason: NAUSEA Oxycodone HCl (Oxycontin -) 10 mg PO BID [facility] Stop: 04/21/18 14:38 Last Admin: 04/19/18 09:48 Dose: 10 mg Oxycodone HCl (Roxicodone -) 10 mg PO Q6H PRN PRN Reason: PAIN LEVEL 7 - 10 Last Admin: 04/19/18 06:21 Dose: 10 mg Oxycodone HCl (Roxicodone -) 5 mg PO Q6H PRN PRN Reason: PAIN LEVEL 4 - 6 Pantoprazole Sodium (Protonix -) 40 mg PO DAILY [facility] Last Admin: 04/19/18 09:49 Dose: 40 mg Polyethylene Glycol (Miralax (For Daily Use) -) 17 gm PO DAILY [facility] Last Admin: 04/19/18 09:46 Dose: 17 grams Prednisone (Deltasone -) 40 mg PO DAILY [facility] Last Admin: 04/19/18 09:49 Dose: 40 mg Pyridoxine HCl (Vitamin B6 -) 100 mg PO DAILY [facility] Last Admin: 04/19/18 09:47 Dose: 100 mg Senna (Senna -) 2 tab PO HS PRN PRN Reason: CONSTIPATION - Objective Vital Signs: Vital Signs Temperature 99.6 F 04/19/18 08:31 Pulse Rate 95 H 04/19/18 08:31 Respiratory Rate 16 04/19/18 08:40 Blood Pressure 135/81 04/19/18 08:31 O2 Sat by Pulse Oximetry (%) 95 04/19/18 08:40 Constitutional: Yes: Well Nourished, No Distress, Calm Eyes: Yes: Conjunctiva Clear, PERRL HENT: Yes: Atraumatic, Normocephalic Neck: Yes: Supple, Trachea Midline Cardiovascular: Yes: Regular Rate and Rhythm Respiratory: Yes: Regular, CTA Bilaterally Gastrointestinal: Yes: Normal Bowel Sounds, Soft ...Rectal Exam: Yes: Deferred Musculoskeletal: Yes: Back Pain Extremities: Yes: WNL Edema: No Peripheral Pulses WNL: Yes Peripheral Pulses: Left Radial: 2+ Integumentary: Yes: Venous Stasis Changes Wound/Incision: Yes: Clean/Dry, Dressing Dry and Intact Neurological: Yes: Alert, Oriented ...Motor Strength: WNL Psychiatric: Yes: Alert, Oriented Labs: CBC, BMP 04/19/18 05:30 04/19/18 05:30 INR, PTT INR 1.15 (0.83-1.09) H 04/18/18 06:30 Problem List - Problems (1) Hyperlipidemia Assessment/Plan: lipitor 20mg qhs Code(s): E78.5 - HYPERLIPIDEMIA, UNSPECIFIED Qualifiers: Hyperlipidemia type: pure hypercholesterolemia Qualified Code(s): E78.00 - Pure hypercholesterolemia, unspecified; E78.0 - Pure hypercholesterolemia (2) Intractable low back pain Assessment/Plan: s/p spinal surgery- pain control: valium added and neurontin increased to BID -oxycodone 5mg (moderate pain), Oxycodone 10mg (severe pain) PT encouraged flexeril TID and lidoderm patch Fluid hydration post-op, decrease LR to 50ml/hr since pt has began to take po ( consumes 40-50% meals) prednisone 40mg daily Code(s): M54.5 - LOW BACK PAIN (3) Constipation Assessment/Plan: continue senna/colace/miralax Code(s): K59.00 - CONSTIPATION, UNSPECIFIED Qualifiers: Constipation type: other constipation type Qualified Code(s): K59.09 - Other constipation (4) Urinary retention Assessment/Plan: maintain norris Code(s): R33.9 - RETENTION OF URINE, UNSPECIFIED Impression/Plan Impression/Plan: Anemia -continue iron Enteroccocus UTI -continue Zosyn Post-op PPX -cefazolin PPX -PPI -continue vitamin D3, B6 -zofran PNRN nausea/vomiting DISPO: Full code -start discharge planning homve vs. short term rehab Visit type - Emergency Visit Emergency Visit: Yes ED Registration Date: 04/14/18 Care time: The patient presented to the Emergency Department on the above date and was hospitalized for further evaluation of their emergent condition. - New Patient This patient is new to me today: No - Critical Care Critical Care patient: No - Discharge Referral Referred to [facility] Med P.C.: No
[2018-04-19] MEDS: LACTATED RINGERS SOLUTION 1,000 ML IV SCH (11:38)
--- NOTE | 2018-04-19 14:33 | PN ---
Progress Note, Physician History of Present Illness: POD#1 lumbar spinal decompression surgery with post-op pain. - Current Medication List Current Medications: Active Medications Acetaminophen (Tylenol -) 650 mg PO Q6H [facility] Stop: 04/21/18 14:44 Last Admin: 04/19/18 14:20 Dose: 650 mg Atorvastatin Calcium (Lipitor -) 20 mg PO HS [facility] Last Admin: 04/18/18 21:28 Dose: 20 mg Cholecalciferol (Vitamin D3 -) 5,000 unit PO DAILY [facility] Last Admin: 04/19/18 09:47 Dose: 5,000 unit Cyclobenzaprine HCl (Flexeril -) 5 mg PO TID [facility] Last Admin: 04/19/18 14:21 Dose: 5 mg Diazepam (Valium -) 5 mg PO Q6H PRN PRN Reason: MUSCLE SPASMS Last Admin: 04/19/18 08:33 Dose: 5 mg Diphenhydramine HCl (Benadryl -) 25 mg PO Q6H PRN PRN Reason: FOR ITCHING Docusate Sodium (Colace -) 100 mg PO TID [facility] Last Admin: 04/19/18 14:20 Dose: 100 mg Ferrous Sulfate (Feosol -) 325 mg PO DAILY [facility] Last Admin: 04/19/18 09:48 Dose: 325 mg Gabapentin (Neurontin -) 100 mg PO BID [facility] Heparin Sodium (Porcine) (Heparin -) 5,000 unit SQ TID [facility] Last Admin: 04/19/18 14:20 Dose: 5,000 unit Piperacillin Sod/Tazobactam (Sod 3.375 gm/ Dextrose) 50 mls @ 100 mls/hr IVPB Q8H-[facility]; Protocol Last Admin: 04/19/18 09:50 Dose: 100 mls/hr Cefazolin Sodium (Ancef 1 Gm Premixed Ivpb -) 1 gm in 50 mls @ 100 mls/hr IVPB Q8H [facility] Last Admin: 04/19/18 11:38 Dose: 100 mls/hr Lactated Ringer's (Lactated Ringers Solution) 1,000 mls @ 50 mls/hr IV ASDIR [facility] Last Admin: 04/19/18 11:38 Dose: 50 mls/hr Lactobacillus Acidophilus (Bacid -) 1 tab PO DAILY [facility] Last Admin: 04/19/18 09:48 Dose: 1 tab Lidocaine (Lidoderm Patch -) 2 patch TP DAILY [facility] Last Admin: 04/19/18 09:49 Dose: 2 patch Miscellaneous (Lidoderm Patch Removal) 1 each MC DAILY@2199 [facility] Last Admin: 04/18/18 21:30 Dose: 1 each Miscellaneous (Lidoderm Patch Removal) 1 each MC DAILY@2199 [facility] Last Admin: 04/18/18 21:30 Dose: 1 each Ondansetron HCl (Zofran Injection) 4 mg IVPUSH Q6H PRN PRN Reason: NAUSEA AND/OR VOMITING Ondansetron HCl (Zofran Injection) 4 mg IVPUSH Q6H PRN PRN Reason: NAUSEA Oxycodone HCl (Oxycontin -) 10 mg PO BID [facility] Stop: 04/21/18 14:38 Last Admin: 04/19/18 09:48 Dose: 10 mg Oxycodone HCl (Roxicodone -) 10 mg PO Q6H PRN PRN Reason: PAIN LEVEL 7 - 10 Last Admin: 04/19/18 06:21 Dose: 10 mg Oxycodone HCl (Roxicodone -) 5 mg PO Q6H PRN PRN Reason: PAIN LEVEL 4 - 6 Pantoprazole Sodium (Protonix -) 40 mg PO DAILY [facility] Last Admin: 04/19/18 09:49 Dose: 40 mg Polyethylene Glycol (Miralax (For Daily Use) -) 17 gm PO DAILY [facility] Last Admin: 04/19/18 09:46 Dose: 17 grams Prednisone (Deltasone -) 40 mg PO DAILY [facility] Last Admin: 04/19/18 09:49 Dose: 40 mg Pyridoxine HCl (Vitamin B6 -) 100 mg PO DAILY [facility] Last Admin: 04/19/18 09:47 Dose: 100 mg Senna (Senna -) 2 tab PO HS PRN PRN Reason: CONSTIPATION - Objective Vital Signs: Vital Signs Temperature 99.6 F 04/19/18 08:31 Pulse Rate 95 H 04/19/18 08:31 Respiratory Rate 16 04/19/18 08:40 Blood Pressure 135/81 04/19/18 08:31 O2 Sat by Pulse Oximetry (%) 95 04/19/18 08:40 Constitutional: Yes: No Distress, Calm Neck: Yes: Supple Cardiovascular: Yes: Regular Rate and Rhythm Respiratory: Yes: Regular, Diminished Gastrointestinal: Yes: Normal Bowel Sounds, Soft Edema: No Labs: CBC, BMP 04/19/18 05:30 04/19/18 05:30 INR, PTT INR 1.15 (0.83-1.09) H 04/18/18 06:30 Problem List - Problems (1) Hyperlipidemia Code(s): E78.5 - HYPERLIPIDEMIA, UNSPECIFIED Qualifiers: Hyperlipidemia type: pure hypercholesterolemia Qualified Code(s): E78.00 - Pure hypercholesterolemia, unspecified; E78.0 - Pure hypercholesterolemia (2) Intractable low back pain Code(s): M54.5 - LOW BACK PAIN Assessment/Plan Pelvic xray: no acute bony abnormality lumbar spine xray: extensive facet joint arthopathy, minimal anterior degenerative spondylolisthesis of L4 on L5. neural foramina stenosis at L3-L4, L4-L4, L5-S1. facet joint arthoplasty, degenerative spondylolisthesis associated with central spine canal stenosis. MRI Lumbar reveals multilevel spondylosis worst at L34 where there is moderate stenosis from ligamentum flavum and facet hypertrophy as well as a small cental bulge. L45 has a spondylolisthesis with severe stenosis and central disc bulging resulting in lateral recess compression bilaterally. 1. Severe non-radicular low back pain POD#1 for L3-5 laminectomies and posterior fusion 2. Hyperlipidemia P:1. Analgesia as needed, PT 2. DVT and GI prophylaxis 3. Lipitor 20 qd
--- NOTE | 2018-04-19 14:54 | PN ---
Progress Note, Physician History of Present Illness: patient kalpana well still with back pain drain draining a lot - Current Medication List Current Medications: Active Medications Acetaminophen (Tylenol -) 650 mg PO Q6H [facility] Stop: 04/21/18 14:44 Last Admin: 04/19/18 14:20 Dose: 650 mg Atorvastatin Calcium (Lipitor -) 20 mg PO HS [facility] Last Admin: 04/18/18 21:28 Dose: 20 mg Cholecalciferol (Vitamin D3 -) 5,000 unit PO DAILY [facility] Last Admin: 04/19/18 09:47 Dose: 5,000 unit Cyclobenzaprine HCl (Flexeril -) 5 mg PO TID [facility] Last Admin: 04/19/18 14:21 Dose: 5 mg Diazepam (Valium -) 5 mg PO Q6H PRN PRN Reason: MUSCLE SPASMS Last Admin: 04/19/18 08:33 Dose: 5 mg Diphenhydramine HCl (Benadryl -) 25 mg PO Q6H PRN PRN Reason: FOR ITCHING Docusate Sodium (Colace -) 100 mg PO TID [facility] Last Admin: 04/19/18 14:20 Dose: 100 mg Ferrous Sulfate (Feosol -) 325 mg PO DAILY [facility] Last Admin: 04/19/18 09:48 Dose: 325 mg Gabapentin (Neurontin -) 100 mg PO BID [facility] Heparin Sodium (Porcine) (Heparin -) 5,000 unit SQ TID [facility] Last Admin: 04/19/18 14:20 Dose: 5,000 unit Piperacillin Sod/Tazobactam (Sod 3.375 gm/ Dextrose) 50 mls @ 100 mls/hr IVPB Q8H-[facility]; Protocol Last Admin: 04/19/18 09:50 Dose: 100 mls/hr Cefazolin Sodium (Ancef 1 Gm Premixed Ivpb -) 1 gm in 50 mls @ 100 mls/hr IVPB Q8H [facility] Last Admin: 04/19/18 11:38 Dose: 100 mls/hr Lactated Ringer's (Lactated Ringers Solution) 1,000 mls @ 50 mls/hr IV ASDIR [facility] Last Admin: 04/19/18 11:38 Dose: 50 mls/hr Lactobacillus Acidophilus (Bacid -) 1 tab PO DAILY [facility] Last Admin: 04/19/18 09:48 Dose: 1 tab Lidocaine (Lidoderm Patch -) 2 patch TP DAILY [facility] Last Admin: 04/19/18 09:49 Dose: 2 patch Miscellaneous (Lidoderm Patch Removal) 1 each MC DAILY@2199 [facility] Last Admin: 04/18/18 21:30 Dose: 1 each Miscellaneous (Lidoderm Patch Removal) 1 each MC DAILY@2199 [facility] Last Admin: 04/18/18 21:30 Dose: 1 each Ondansetron HCl (Zofran Injection) 4 mg IVPUSH Q6H PRN PRN Reason: NAUSEA AND/OR VOMITING Ondansetron HCl (Zofran Injection) 4 mg IVPUSH Q6H PRN PRN Reason: NAUSEA Oxycodone HCl (Oxycontin -) 10 mg PO BID [facility] Stop: 04/21/18 14:38 Last Admin: 04/19/18 09:48 Dose: 10 mg Oxycodone HCl (Roxicodone -) 10 mg PO Q6H PRN PRN Reason: PAIN LEVEL 7 - 10 Last Admin: 04/19/18 06:21 Dose: 10 mg Oxycodone HCl (Roxicodone -) 5 mg PO Q6H PRN PRN Reason: PAIN LEVEL 4 - 6 Pantoprazole Sodium (Protonix -) 40 mg PO DAILY [facility] Last Admin: 04/19/18 09:49 Dose: 40 mg Polyethylene Glycol (Miralax (For Daily Use) -) 17 gm PO DAILY [facility] Last Admin: 04/19/18 09:46 Dose: 17 grams Prednisone (Deltasone -) 40 mg PO DAILY [facility] Last Admin: 04/19/18 09:49 Dose: 40 mg Pyridoxine HCl (Vitamin B6 -) 100 mg PO DAILY [facility] Last Admin: 04/19/18 09:47 Dose: 100 mg Senna (Senna -) 2 tab PO HS PRN PRN Reason: CONSTIPATION - Objective Vital Signs: Vital Signs Temperature 99.6 F 04/19/18 08:31 Pulse Rate 95 H 04/19/18 08:31 Respiratory Rate 16 04/19/18 08:40 Blood Pressure 135/81 04/19/18 08:31 O2 Sat by Pulse Oximetry (%) 95 04/19/18 08:40 Constitutional: Yes: No Distress, Calm Cardiovascular: Yes: Regular Rate and Rhythm Respiratory: Yes: Regular, CTA Bilaterally Gastrointestinal: Yes: Normal Bowel Sounds, Soft Musculoskeletal: Yes: WNL Extremities: Yes: WNL Neurological: Yes: Alert, Oriented Psychiatric: Yes: Alert, Oriented Labs: CBC, BMP 04/19/18 05:30 04/19/18 05:30 INR, PTT INR 1.15 (0.83-1.09) H 04/18/18 06:30 Assessment/Plan back pain hld gerd uti plan continue current abx monitor wbc wound care monitor drainage
--- NOTE | 2018-04-19 14:55 | PN ---
Progress Note, Physician History of Present Illness: patient stable plan for surgery pain better - Current Medication List Current Medications: Active Medications Acetaminophen (Tylenol -) 650 mg PO Q6H [facility] Stop: 04/21/18 14:44 Last Admin: 04/19/18 14:20 Dose: 650 mg Atorvastatin Calcium (Lipitor -) 20 mg PO HS [facility] Last Admin: 04/18/18 21:28 Dose: 20 mg Cholecalciferol (Vitamin D3 -) 5,000 unit PO DAILY [facility] Last Admin: 04/19/18 09:47 Dose: 5,000 unit Cyclobenzaprine HCl (Flexeril -) 5 mg PO TID [facility] Last Admin: 04/19/18 14:21 Dose: 5 mg Diazepam (Valium -) 5 mg PO Q6H PRN PRN Reason: MUSCLE SPASMS Last Admin: 04/19/18 08:33 Dose: 5 mg Diphenhydramine HCl (Benadryl -) 25 mg PO Q6H PRN PRN Reason: FOR ITCHING Docusate Sodium (Colace -) 100 mg PO TID [facility] Last Admin: 04/19/18 14:20 Dose: 100 mg Ferrous Sulfate (Feosol -) 325 mg PO DAILY [facility] Last Admin: 04/19/18 09:48 Dose: 325 mg Gabapentin (Neurontin -) 100 mg PO BID [facility] Heparin Sodium (Porcine) (Heparin -) 5,000 unit SQ TID [facility] Last Admin: 04/19/18 14:20 Dose: 5,000 unit Piperacillin Sod/Tazobactam (Sod 3.375 gm/ Dextrose) 50 mls @ 100 mls/hr IVPB Q8H-IV [facility]; Protocol Last Admin: 04/19/18 09:50 Dose: 100 mls/hr Cefazolin Sodium (Ancef 1 Gm Premixed Ivpb -) 1 gm in 50 mls @ 100 mls/hr IVPB Q8H [facility] Last Admin: 04/19/18 11:38 Dose: 100 mls/hr Lactated Ringer's (Lactated Ringers Solution) 1,000 mls @ 50 mls/hr IV ASDIR [facility] Last Admin: 04/19/18 11:38 Dose: 50 mls/hr Lactobacillus Acidophilus (Bacid -) 1 tab PO DAILY [facility] Last Admin: 04/19/18 09:48 Dose: 1 tab Lidocaine (Lidoderm Patch -) 2 patch TP DAILY [facility] Last Admin: 04/19/18 09:49 Dose: 2 patch Miscellaneous (Lidoderm Patch Removal) 1 each MC DAILY@2199 [facility] Last Admin: 04/18/18 21:30 Dose: 1 each Miscellaneous (Lidoderm Patch Removal) 1 each MC DAILY@2200 [facility] Last Admin: 04/18/18 21:30 Dose: 1 each Ondansetron HCl (Zofran Injection) 4 mg IVPUSH Q6H PRN PRN Reason: NAUSEA AND/OR VOMITING Ondansetron HCl (Zofran Injection) 4 mg IVPUSH Q6H PRN PRN Reason: NAUSEA Oxycodone HCl (Oxycontin -) 10 mg PO BID [facility] Stop: 04/21/18 14:38 Last Admin: 04/19/18 09:48 Dose: 10 mg Oxycodone HCl (Roxicodone -) 10 mg PO Q6H PRN PRN Reason: PAIN LEVEL 7 - 10 Last Admin: 04/19/18 06:21 Dose: 10 mg Oxycodone HCl (Roxicodone -) 5 mg PO Q6H PRN PRN Reason: PAIN LEVEL 4 - 6 Pantoprazole Sodium (Protonix -) 40 mg PO DAILY [facility] Last Admin: 04/19/18 09:49 Dose: 40 mg Polyethylene Glycol (Miralax (For Daily Use) -) 17 gm PO DAILY [facility] Last Admin: 04/19/18 09:46 Dose: 17 grams Prednisone (Deltasone -) 40 mg PO DAILY [facility] Last Admin: 04/19/18 09:49 Dose: 40 mg Pyridoxine HCl (Vitamin B6 -) 100 mg PO DAILY [facility] Last Admin: 04/19/18 09:47 Dose: 100 mg Senna (Senna -) 2 tab PO HS PRN PRN Reason: CONSTIPATION - Objective Vital Signs: Vital Signs Temperature 99.6 F 04/19/18 08:31 Pulse Rate 95 H 04/19/18 08:31 Respiratory Rate 16 04/19/18 08:40 Blood Pressure 135/81 04/19/18 08:31 O2 Sat by Pulse Oximetry (%) 95 04/19/18 08:40 Constitutional: Yes: No Distress, Calm Cardiovascular: Yes: Regular Rate and Rhythm Respiratory: Yes: Regular, CTA Bilaterally Gastrointestinal: Yes: Normal Bowel Sounds, Soft Musculoskeletal: Yes: WNL Extremities: Yes: Other Neurological: Yes: Alert, Oriented Psychiatric: Yes: Alert, Oriented Labs: CBC, BMP 04/19/18 05:30 04/19/18 05:30 INR, PTT INR 1.15 (0.83-1.09) H 04/18/18 06:30 Assessment/Plan back pain hld gerd uti plan continue current abx awaiting for surgery todau rest as per neurosurgery and the team
--- NOTE | 2018-04-19 15:59 | PN ---
Progress Note, Physician Chief Complaint: s/p lumbar laminectomy and fusion under general anesthesia post op day one History of Present Illness: TLIP block bilaterally for post op pain control. - Current Medication List Current Medications: Active Medications Acetaminophen (Tylenol -) 650 mg PO Q6H [facility] Stop: 04/21/18 14:44 Last Admin: 04/19/18 14:20 Dose: 650 mg Atorvastatin Calcium (Lipitor -) 20 mg PO HS [facility] Last Admin: 04/18/18 21:28 Dose: 20 mg Cholecalciferol (Vitamin D3 -) 5,000 unit PO DAILY [facility] Last Admin: 04/19/18 09:47 Dose: 5,000 unit Cyclobenzaprine HCl (Flexeril -) 5 mg PO TID [facility] Last Admin: 04/19/18 14:21 Dose: 5 mg Diazepam (Valium -) 5 mg PO Q6H PRN PRN Reason: MUSCLE SPASMS Last Admin: 04/19/18 08:33 Dose: 5 mg Diphenhydramine HCl (Benadryl -) 25 mg PO Q6H PRN PRN Reason: FOR ITCHING Docusate Sodium (Colace -) 100 mg PO TID [facility] Last Admin: 04/19/18 14:20 Dose: 100 mg Ferrous Sulfate (Feosol -) 325 mg PO DAILY [facility] Last Admin: 04/19/18 09:48 Dose: 325 mg Gabapentin (Neurontin -) 100 mg PO BID [facility] Heparin Sodium (Porcine) (Heparin -) 5,000 unit SQ TID [facility] Last Admin: 04/19/18 14:20 Dose: 5,000 unit Piperacillin Sod/Tazobactam (Sod 3.375 gm/ Dextrose) 50 mls @ 100 mls/hr IVPB Q8H-[facility]; Protocol Last Admin: 04/19/18 09:50 Dose: 100 mls/hr Cefazolin Sodium (Ancef 1 Gm Premixed Ivpb -) 1 gm in 50 mls @ 100 mls/hr IVPB Q8H [facility] Last Admin: 04/19/18 11:38 Dose: 100 mls/hr Lactated Ringer's (Lactated Ringers Solution) 1,000 mls @ 50 mls/hr IV ASDIR [facility] Last Admin: 04/19/18 11:38 Dose: 50 mls/hr Lactobacillus Acidophilus (Bacid -) 1 tab PO DAILY [facility] Last Admin: 02/13/19 09:48 Dose: 1 tab Lidocaine (Lidoderm Patch -) 2 patch TP DAILY [facility] Last Admin: 04/19/18 09:49 Dose: 2 patch Miscellaneous (Lidoderm Patch Removal) 1 each MC DAILY@2200 [facility] Last Admin: 04/18/18 21:30 Dose: 1 each Miscellaneous (Lidoderm Patch Removal) 1 each MC DAILY@2200 [facility] Last Admin: 04/18/18 21:30 Dose: 1 each Ondansetron HCl (Zofran Injection) 4 mg IVPUSH Q6H PRN PRN Reason: NAUSEA AND/OR VOMITING Ondansetron HCl (Zofran Injection) 4 mg IVPUSH Q6H PRN PRN Reason: NAUSEA Oxycodone HCl (Oxycontin -) 10 mg PO BID [facility] Stop: 04/21/18 14:38 Last Admin: 04/19/18 09:48 Dose: 10 mg Oxycodone HCl (Roxicodone -) 10 mg PO Q6H PRN PRN Reason: PAIN LEVEL 7 - 10 Last Admin: 04/19/18 06:21 Dose: 10 mg Oxycodone HCl (Roxicodone -) 5 mg PO Q6H PRN PRN Reason: PAIN LEVEL 4 - 6 Pantoprazole Sodium (Protonix -) 40 mg PO DAILY [facility] Last Admin: 04/19/18 09:49 Dose: 40 mg Polyethylene Glycol (Miralax (For Daily Use) -) 17 gm PO DAILY [facility] Last Admin: 04/19/18 09:46 Dose: 17 grams Prednisone (Deltasone -) 40 mg PO DAILY [facility] Last Admin: 04/19/18 09:49 Dose: 40 mg Pyridoxine HCl (Vitamin B6 -) 100 mg PO DAILY [facility] Last Admin: 04/19/18 09:47 Dose: 100 mg Senna (Senna -) 2 tab PO HS PRN PRN Reason: CONSTIPATION - Objective Vital Signs: Vital Signs Temperature 98.8 F 04/19/18 14:05 Pulse Rate 69 04/19/18 14:05 Respiratory Rate 18 04/19/18 14:05 Blood Pressure 127/72 04/19/18 14:05 O2 Sat by Pulse Oximetry (%) 95 04/19/18 08:40 Constitutional: Yes: Well Nourished Cardiovascular: Yes: WNL Respiratory: Yes: WNL Gastrointestinal: Yes: WNL Labs: CBC, BMP 04/19/18 05:30 04/19/18 05:30 INR, PTT INR 1.15 (0.83-1.09) H 04/18/18 06:30 Assessment/Plan Patient is comfortable, pain controlled, no nausea or vomiting. no anesthetic complications, dept of anesthesiology will sign off case at this time
[2018-04-19] MEDS: GABAPENTIN 100 MG CAPSULE (FP) PO SCH (22:55)
[2018-04-19] MEDS: ATORVASTATIN CA 20 MG TABLET (FP) PO SCH (22:55)
[2018-04-19] MEDS: LIDOCAINE PATCH REMOVAL MC SCH ×2 (22:55)
[2018-04-20] MEDS ORDERED: PIPERACILLIN/TAZOBACTAM 3.375 GM VIAL IVPB ONE ×3 (01:18→17:10)
[2018-04-20] MEDS ORDERED: DEXTROSE 5%-WATER - 50 ML IVPB ONE ×3 (01:19→17:10)
[2018-04-20] MEDS: ACETAMINOPHEN 325 MG TABLET (FP) PO SCH ×3 (02:45→15:56)
[2018-04-20] MEDS: PIPERACILLIN/TAZOB 3.375 GM 3.375 GM in DEXTROSE 5%-WATER - 50 ML IVPB SCH ×3 (03:09→17:39)
[2018-04-20] MEDS: CEFAZOLIN 1 GM/D5W 1 GM/50 ML BAG IVPB SCH ×2 (03:10→10:36)
[2018-04-20 06:38] LABS: BASO % 0.4 % (0-2.0); EOS % 2.1 % (0-4.5); HEMATOCRIT 36.7 % (35.4-49); HEMOGLOBIN 12.3 GM/dL (11.7-16.9); LYMPH % 11.6 % (8-40); MCH 29.7 pg (25.7-33.7); MCHC 33.4 g/dl (32.0-35.9); MEAN CELL VOLUME 88.9 fl (80-96); MEAN PLT VOLUME 8.2 fl (7.5-11.1); MONO % 8.9 % (3.8-10.2); PLATELET COUNT 224 K/MM3 (134-434); RBC 4.13 M/mm3 (4.00-5.60); RDW 13.7 % (11.9-15.9); WHITE BLOOD COUNT 16.5 K/mm3 (4.0-10.0)
[2018-04-20] MEDS: HEPARIN NA (PORCINE) 5,000 UNITS/ML 1ML VIAL SQ SCH ×3 (06:41→22:31)
[2018-04-20] MEDS: CYCLOBENZAPRINE HCL 10 MG TABLET (FP) PO SCH ×3 (06:41→22:30)
[2018-04-20] MEDS: DOCUSATE SODIUM 100 MG CAPSULE (FP) PO SCH ×3 (06:41→22:29)
[2018-04-20] MEDS ORDERED: PT OWN MED DRAWER 7, Y5N ONE (08:58)
[2018-04-20] MEDS: CHOLECALCIFEROL (VITAMIN D3) 1,000 UNIT TABLET (FP) PO SCH (09:01)
[2018-04-20] MEDS: diazePAM 5 MG TABLET PO PRN (09:01)
[2018-04-20] MEDS: predniSONE 20 MG TABLET (UD) PO SCH (09:01)
[2018-04-20] MEDS: FERROUS SO4 325 MG TABLET (FP) PO SCH (09:01)
[2018-04-20] MEDS: PANTOPRAZOLE 40 MG TABLET (FP) PO SCH (09:01)
[2018-04-20] MEDS: LACTOBACILLUS ACIDOPHILUS 1 TABLET PO SCH (09:01)
[2018-04-20] MEDS: GABAPENTIN 100 MG CAPSULE (FP) PO SCH ×2 (09:01→22:29)
[2018-04-20] MEDS: PYRIDOXINE HCL (B-6) 50 MG TABLET (FP) PO SCH (09:02)
[2018-04-20] MEDS: LIDOCAINE 5% TOPICAL PATCH TP SCH (09:02)
[2018-04-20] MEDS: oxyCODONE HCL 10 MG SUSTAINED ACTING TABLET PO SCH ×2 (10:01→22:40)
[2018-04-20] MEDS: POLYETHYLENE GLYCOL 3350 119 GM BTL PO SCH (11:47)
[2018-04-20] MEDS: LACTATED RINGERS SOLUTION 1,000 ML IV SCH (11:48)
--- NOTE | 2018-04-20 12:03 | PN ---
Progress Note, Physician History of Present Illness: POD#2 lumbar spinal decompression surgery with post-op pain, not ready for PT yet. - Current Medication List Current Medications: Active Medications Acetaminophen (Tylenol -) 650 mg PO Q6H [facility] Stop: 04/21/18 14:44 Last Admin: 04/20/18 09:00 Dose: 650 mg Atorvastatin Calcium (Lipitor -) 20 mg PO HS [facility] Last Admin: 04/19/18 22:55 Dose: 20 mg Cholecalciferol (Vitamin D3 -) 5,000 unit PO DAILY [facility] Last Admin: 04/20/18 09:01 Dose: 5,000 unit Cyclobenzaprine HCl (Flexeril -) 5 mg PO TID [facility] Last Admin: 04/20/18 06:41 Dose: 5 mg Diazepam (Valium -) 5 mg PO Q6H PRN PRN Reason: MUSCLE SPASMS Last Admin: 04/20/18 09:01 Dose: 5 mg Diphenhydramine HCl (Benadryl -) 25 mg PO Q6H PRN PRN Reason: FOR ITCHING Docusate Sodium (Colace -) 100 mg PO TID [facility] Last Admin: 04/20/18 06:41 Dose: 100 mg Ferrous Sulfate (Feosol -) 325 mg PO DAILY [facility] Last Admin: 04/20/18 09:01 Dose: 325 mg Gabapentin (Neurontin -) 100 mg PO BID [facility] Last Admin: 04/20/18 09:01 Dose: 100 mg Heparin Sodium (Porcine) (Heparin -) 5,000 unit SQ TID [facility] Last Admin: 04/20/18 06:41 Dose: 5,000 unit Piperacillin Sod/Tazobactam (Sod 3.375 gm/ Dextrose) 50 mls @ 100 mls/hr IVPB Q8H-IV [facility]; Protocol Last Admin: 04/20/18 09:02 Dose: 100 mls/hr Cefazolin Sodium (Ancef 1 Gm Premixed Ivpb -) 1 gm in 50 mls @ 100 mls/hr IVPB Q8H [facility] Last Admin: 04/20/18 10:36 Dose: 100 mls/hr Lactated Ringer's (Lactated Ringers Solution) 1,000 mls @ 50 mls/hr IV ASDIR [facility] Last Admin: 04/20/18 11:48 Dose: 50 mls/hr Lactobacillus Acidophilus (Bacid -) 1 tab PO DAILY [facility] Last Admin: 04/20/18 09:01 Dose: 1 tab Lidocaine (Lidoderm Patch -) 2 patch TP DAILY [facility] Last Admin: 04/20/18 09:02 Dose: 2 patch Miscellaneous (Lidoderm Patch Removal) 1 each MC DAILY@2200 [facility] Last Admin: 04/19/18 22:55 Dose: 1 each Miscellaneous (Lidoderm Patch Removal) 1 each MC DAILY@2200 [facility] Last Admin: 04/19/18 22:55 Dose: 1 each Ondansetron HCl (Zofran Injection) 4 mg IVPUSH Q6H PRN PRN Reason: NAUSEA AND/OR VOMITING Ondansetron HCl (Zofran Injection) 4 mg IVPUSH Q6H PRN PRN Reason: NAUSEA Oxycodone HCl (Oxycontin -) 10 mg PO BID [facility] Stop: 04/21/18 14:38 Last Admin: 04/20/18 10:01 Dose: 10 mg Oxycodone HCl (Roxicodone -) 10 mg PO Q6H PRN PRN Reason: PAIN LEVEL 7 - 10 Last Admin: 04/19/18 06:21 Dose: 10 mg Oxycodone HCl (Roxicodone -) 5 mg PO Q6H PRN PRN Reason: PAIN LEVEL 4 - 6 Pantoprazole Sodium (Protonix -) 40 mg PO DAILY [facility] Last Admin: 04/20/18 09:01 Dose: 40 mg Polyethylene Glycol (Miralax (For Daily Use) -) 17 gm PO DAILY [facility] Last Admin: 04/20/18 11:47 Dose: 17 grams Prednisone (Deltasone -) 40 mg PO DAILY [facility] Last Admin: 04/20/18 09:01 Dose: 40 mg Pyridoxine HCl (Vitamin B6 -) 100 mg PO DAILY [facility] Last Admin: 04/20/18 09:02 Dose: 100 mg Senna (Senna -) 2 tab PO HS PRN PRN Reason: CONSTIPATION - Objective Vital Signs: Vital Signs Temperature 98.1 F 04/20/18 08:29 Pulse Rate 98 H 04/20/18 08:29 Respiratory Rate 16 04/20/18 09:00 Blood Pressure 136/84 04/20/18 08:29 O2 Sat by Pulse Oximetry (%) 98 04/20/18 09:00 Constitutional: Yes: No Distress, Calm Neck: Yes: Supple Cardiovascular: Yes: Regular Rate and Rhythm Respiratory: Yes: Regular, Diminished Gastrointestinal: Yes: Normal Bowel Sounds, Soft Edema: No Labs: CBC, BMP 04/20/18 05:30 04/19/18 05:30 INR, PTT INR 1.15 (0.83-1.09) H 04/18/18 06:30 Problem List - Problems (1) Hyperlipidemia Code(s): E78.5 - HYPERLIPIDEMIA, UNSPECIFIED Qualifiers: Hyperlipidemia type: pure hypercholesterolemia Qualified Code(s): E78.00 - Pure hypercholesterolemia, unspecified; E78.0 - Pure hypercholesterolemia (2) Intractable low back pain Code(s): M54.5 - LOW BACK PAIN (3) Status post lumbar laminectomy Code(s): Z98.890 - OTHER SPECIFIED POSTPROCEDURAL STATES Assessment/Plan Pelvic xray: no acute bony abnormality lumbar spine xray: extensive facet joint arthopathy, minimal anterior degenerative spondylolisthesis of L4 on L5. neural foramina stenosis at L3-L4, L4-L4, L5-S1. facet joint arthoplasty, degenerative spondylolisthesis associated with central spine canal stenosis. MRI Lumbar reveals multilevel spondylosis worst at L34 where there is moderate stenosis from ligamentum flavum and facet hypertrophy as well as a small cental bulge. L45 has a spondylolisthesis with severe stenosis and central disc bulging resulting in lateral recess compression bilaterally. 1. Severe non-radicular low back pain POD#2 for L3-5 laminectomies and posterior fusion 2. Hyperlipidemia P:1. Analgesia as needed, PT 2. DVT and GI prophylaxis 3. Lipitor 20 qd
--- NOTE | 2018-04-20 12:13 | PN ---
Physical Exam: SUBJECTIVE: Patient seen and examined. He is complaining of pain across his back. OBJECTIVE: Vital Signs Period Temp Pulse Resp BP Sys/Mccoy Pulse Ox Last 24 Hr 97.2 F-98.8 F 69-98 16-20 100-136/71-84 95-98 GENERAL: The patient is awake, alert, and fully oriented, in no acute distress. LUNGS: Breath sounds equal, clear to auscultation bilaterally, no wheezes, no crackles, no accessory muscle use. HEART: Regular rate and rhythm, S1, S2 without murmur, rub or gallop. ABDOMEN: Obese, soft, nontender, nondistended, normoactive bowel sounds, no guarding, no rebound, no hepatosplenomegaly, no masses. EXTREMITIES: 2+ pulses, warm, well-perfused, no edema. Laboratory Results - last 24 hr 04/20/18 05:30 WBC 16.5 H RBC 4.13 Hgb 12.3 Hct 36.7 MCV 88.9 MCH 29.7 MCHC 33.4 RDW 13.7 Plt Count 224 MPV 8.2 Absolute Neuts (auto) 12.7 H Neutrophils % 77.0 Lymphocytes % 11.6 D Monocytes % 8.9 Eosinophils % 2.1 Basophils % 0.4 Nucleated RBC % 0 Active Medications Generic Name Dose Route Start Last Admin Trade Name Freq PRN Reason Stop Dose Admin Acetaminophen 650 mg 04/18/18 14:45 04/20/18 09:00 Tylenol - PO 04/21/18 14:44 650 mg Q6H [facility] Administration Atorvastatin Calcium 20 mg 04/18/18 22:00 04/19/18 22:55 Lipitor - PO 20 mg HS [facility] Administration Cholecalciferol 5,000 unit 04/19/18 10:00 04/20/18 09:01 Vitamin D3 - PO 5,000 unit DAILY [facility] Administration Cyclobenzaprine HCl 5 mg 04/18/18 22:00 04/20/18 06:41 Flexeril - PO 5 mg TID [facility] Administration Diazepam 5 mg 04/19/18 07:33 04/20/18 09:01 Valium - PO 5 mg Q6H PRN Administration MUSCLE SPASMS Diphenhydramine HCl 25 mg 04/18/18 14:32 Benadryl - PO Q6H PRN FOR ITCHING Docusate Sodium 100 mg 04/18/18 22:00 04/20/18 06:41 Colace - PO 100 mg TID [facility] Administration Ferrous Sulfate 325 mg 04/19/18 10:00 04/20/18 09:01 Feosol - PO 325 mg DAILY [facility] Administration Gabapentin 100 mg 04/19/18 22:00 04/20/18 09:01 Neurontin - PO 100 mg BID [facility] Administration Heparin Sodium (Porcine) 5,000 unit 04/18/18 22:00 04/20/18 06:41 Heparin - SQ 5,000 unit TID [facility] Administration Piperacillin Sod/Tazobactam 50 mls @ 100 mls/hr 04/18/18 18:00 04/20/18 09:02 Sod 3.375 gm/ Dextrose IVPB 100 mls/hr Q8H-IV [facility] Administration Protocol Cefazolin Sodium 1 gm in 50 mls @ 100 mls/hr 04/18/18 19:00 04/20/18 10:36 Ancef 1 Gm Premixed Ivpb - IVPB 100 mls/hr Q8H [facility] Administration Lactated Ringer's 1,000 mls @ 50 mls/hr 04/19/18 11:23 04/20/18 11:48 Lactated Ringers Solution IV 50 mls/hr ASDIR [facility] Administration Lactobacillus Acidophilus 1 tab 04/19/18 10:00 04/20/18 09:01 Bacid - PO 1 tab DAILY [facility] Administration Lidocaine 2 patch 04/19/18 10:00 04/20/18 09:02 Lidoderm Patch - TP 2 patch DAILY [facility] Administration Miscellaneous 1 each 04/18/18 22:00 04/19/18 22:55 Lidoderm Patch Removal MC 1 each DAILY@0 [facility] Administration Miscellaneous 1 each 04/18/18 22:00 04/19/18 22:55 Lidoderm Patch Removal MC 1 each DAILY@0 [facility] Administration Ondansetron HCl 4 mg 04/18/18 14:38 Zofran Injection IVPUSH Q6H PRN NAUSEA AND/OR VOMITING Ondansetron HCl 4 mg 04/18/18 14:32 Zofran Injection IVPUSH Q6H PRN NAUSEA Oxycodone HCl 10 mg 04/18/18 22:00 04/20/18 10:01 Oxycontin - PO 04/21/18 14:38 10 mg BID [facility] Administration Oxycodone HCl 10 mg 04/18/18 14:49 04/19/18 06:21 Roxicodone - PO 10 mg Q6H PRN Administration PAIN LEVEL 7 - 10 Oxycodone HCl 5 mg 04/18/18 14:49 Roxicodone - PO Q6H PRN PAIN LEVEL 4 - 6 Pantoprazole Sodium 40 mg 04/19/18 10:00 04/20/18 09:01 Protonix - PO 40 mg DAILY [facility] Administration Polyethylene Glycol 17 gm 04/19/18 10:00 04/20/18 11:47 Miralax (For Daily Use) - PO 17 grams DAILY [facility] Administration Prednisone 40 mg 04/19/18 10:00 04/20/18 09:01 Deltasone - PO 40 mg DAILY [facility] Administration Pyridoxine HCl 100 mg 04/19/18 10:00 04/20/18 09:02 Vitamin B6 - PO 100 mg DAILY [facility] Administration Senna 2 tab 04/18/18 14:49 Senna - PO HS PRN CONSTIPATION ASSESSMENT/PLAN: This is a 73 year old man with a history of hyperlipidemia, GERD, chronic back pain who presented to the ED with worsening back pain. 1. Lumbar spondylosis, stenosis, spondylolisthesis, Baastrup's disease - s/p L3-L5 laminectomies; decompression with interbody cages at L3-4 and L4- 5; posterior fusion with pedicle screws and rods on 04/18 - Continue Prednisone, OxyContin, oxycodone as needed, Neurontin, Lidoderm patch, Flexeril, Valium as needed - Continue PT 2. Hyperlipidemia - Continue Lipitor 3. Constipation - Continue Miralax, Colace, Senna as needed 4. Urinary retention - Maintain Campbell until ambulatory 5. E. faecalis UTI - On Zosyn 6. Leukocytosis - Likely secondary to UTI, Prednisone - Continue to monitor 7. Disposition - Plan for rehab (accepted to [facility]) - ? discharge tomorrow Visit type - Emergency Visit Emergency Visit: Yes ED Registration Date: 04/14/18 Care time: The patient presented to the Emergency Department on the above date and was hospitalized for further evaluation of their emergent condition. - New Patient This patient is new to me today: Yes Date on this admission: 04/20/18 - Critical Care Critical Care patient: No - Discharge Referral Referred to [facility] Med P.C.: No
--- NOTE | 2018-04-20 15:38 | PN ---
Progress Note (short form) - Note Progress Note: POD 2, s/p L3-L5 laminectomies, PLIF Pt seen and examined at bedside. Reports pain with movement, slightly improved by pain meds. Tolerating PO. Campbell still in place. Denies n/v/d, fever, chills, sob/cp. Vital Signs Temp 98.5 F 04/20/18 15:06 Pulse 82 04/20/18 15:06 Resp 20 04/20/18 15:06 BP 129/78 04/20/18 15:06 Pulse Ox 98 04/20/18 09:00 Intake & Output 04/19/18 04/20/18 04/20/18 23:59 11:59 23:59 Intake Total 700 700 Output Total 1900 240 8137 Balance -1050 160 -1300 Intake: IV 300 500 Lactated Ringers Solution 300 1,000 ml @ 50 mls/hr IV ASDIR [facility] Rx#:[id number] S/L 500 IVPB 100 200 Oral 300 Output: Drainage 250 140 RT SIDE LUMBAR 250 140 PARAVETEBRAL Urine [id number] Campbell [id number] Other: Voiding Method Indwelling Catheter Indwelling Catheter Indwelling Catheter Bowel Movement No CBC, BMP 04/20/18 05:30 04/19/18 05:30 Gen: A&O X3 Resp: cta anteriorly b/l Back: Dressing c/d/i, drain in place with serosanguinous drainage in reservoir approx 50ml (tubing stripped) Neuro: B/L UE line maintainer section strength intact, b/l biceps/triceps/deltoids 5/5, b/l le dorsi/plantarflexion 5/5, SILT b/l ue/le. A/P: 73 y/o M w/ PMHx HLD, chronic low back pain admitted 04/13 for severe back pain, now POD 2, s/p L3-L5 laminectomies, PLIF. Afebrile, tachy cardiac (likely due to pain) WBC increasing -Pain control -Keep JENNA in place, measure and record output -OOB, PT -Continue Ancef 1g q8hrs while drain is in place -DVT prophylaxis Heparin 5000units SQ TID, b/l SCDS -Incentive spirometry, consider infection workup (spoke w/ Dr Murcia) -Pain consult (Dr Short) will be by to see patient in the morning -Steroid taper: 40mg daily to END 04/20, 10mg bid 04/21 and 04/22, 5mg bid 04/23 and 04/24, 2.5mg bid 04/25 and 04/26 and 1mg bid 04/27 and 04/28 (ordered) d/w attending Dr Rogers
--- NOTE | 2018-04-20 17:05 | PN ---
Progress Note, Physician History of Present Illness: patient stable wbc has jumperd up no complaints still draiang a lot movement of the legs has improved - Current Medication List Current Medications: Active Medications Acetaminophen (Tylenol -) 650 mg PO Q6H [facility] Stop: 04/21/18 14:44 Last Admin: 04/20/18 15:56 Dose: Not Given Atorvastatin Calcium (Lipitor -) 20 mg PO HS [facility] Last Admin: 04/19/18 22:55 Dose: 20 mg Cholecalciferol (Vitamin D3 -) 5,000 unit PO DAILY [facility] Last Admin: 04/20/18 09:01 Dose: 5,000 unit Cyclobenzaprine HCl (Flexeril -) 5 mg PO TID [facility] Last Admin: 04/20/18 13:18 Dose: 5 mg Diazepam (Valium -) 5 mg PO Q6H PRN PRN Reason: MUSCLE SPASMS Last Admin: 04/20/18 09:01 Dose: 5 mg Diphenhydramine HCl (Benadryl -) 25 mg PO Q6H PRN PRN Reason: FOR ITCHING Docusate Sodium (Colace -) 100 mg PO TID [facility] Last Admin: 04/20/18 13:18 Dose: 100 mg Ferrous Sulfate (Feosol -) 325 mg PO DAILY [facility] Last Admin: 04/20/18 09:01 Dose: 325 mg Gabapentin (Neurontin -) 100 mg PO BID [facility] Last Admin: 04/20/18 09:01 Dose: 100 mg Heparin Sodium (Porcine) (Heparin -) 5,000 unit SQ TID [facility] Last Admin: 04/20/18 13:18 Dose: 5,000 unit Piperacillin Sod/Tazobactam (Sod 3.375 gm/ Dextrose) 50 mls @ 100 mls/hr IVPB Q8H-IV [facility]; Protocol Last Admin: 04/20/18 09:02 Dose: 100 mls/hr Lactated Ringer's (Lactated Ringers Solution) 1,000 mls @ 50 mls/hr IV ASDIR [facility] Last Admin: 04/20/18 11:48 Dose: 50 mls/hr Lactobacillus Acidophilus (Bacid -) 1 tab PO DAILY [facility] Last Admin: 04/20/18 09:01 Dose: 1 tab Lidocaine (Lidoderm Patch -) 2 patch TP DAILY [facility] Last Admin: 04/20/18 09:02 Dose: 2 patch Miscellaneous (Lidoderm Patch Removal) 1 each MC DAILY@2199 [facility] Last Admin: 04/19/18 22:55 Dose: 1 each Miscellaneous (Lidoderm Patch Removal) 1 each MC DAILY@2199 [facility] Last Admin: 04/19/18 22:55 Dose: 1 each Ondansetron HCl (Zofran Injection) 4 mg IVPUSH Q6H PRN PRN Reason: NAUSEA AND/OR VOMITING Ondansetron HCl (Zofran Injection) 4 mg IVPUSH Q6H PRN PRN Reason: NAUSEA Oxycodone HCl (Oxycontin -) 10 mg PO BID [facility] Stop: 04/21/18 14:38 Last Admin: 04/20/18 10:01 Dose: 10 mg Oxycodone HCl (Roxicodone -) 10 mg PO Q6H PRN PRN Reason: PAIN LEVEL 7 - 10 Last Admin: 04/19/18 06:21 Dose: 10 mg Oxycodone HCl (Roxicodone -) 5 mg PO Q6H PRN PRN Reason: PAIN LEVEL 4 - 6 Pantoprazole Sodium (Protonix -) 40 mg PO DAILY [facility] Last Admin: 04/20/18 09:01 Dose: 40 mg Polyethylene Glycol (Miralax (For Daily Use) -) 17 gm PO DAILY [facility] Last Admin: 04/20/18 11:47 Dose: 17 grams Prednisone (Deltasone -) 40 mg PO DAILY [facility] Stop: 04/20/18 23:59 Last Admin: 04/20/18 09:01 Dose: 40 mg Prednisone (Deltasone -) 10 mg PO BID [facility] Stop: 04/22/18 23:59 Prednisone (Deltasone -) 5 mg PO BID [facility] Stop: 04/24/18 23:59 Prednisone (Deltasone -) 2.5 mg PO BID [facility] Stop: 04/26/18 23:59 Prednisone (Deltasone -) 1 mg PO BID [facility] Stop: 04/28/18 23:59 Pyridoxine HCl (Vitamin B6 -) 100 mg PO DAILY [facility] Last Admin: 04/20/18 09:02 Dose: 100 mg Senna (Senna -) 2 tab PO HS PRN PRN Reason: CONSTIPATION - Objective Vital Signs: Vital Signs Temperature 98.5 F 04/20/18 15:06 Pulse Rate 82 04/20/18 15:06 Respiratory Rate 20 04/20/18 15:06 Blood Pressure 129/78 04/20/18 15:06 O2 Sat by Pulse Oximetry (%) 98 04/20/18 09:00 Constitutional: Yes: No Distress, Calm Cardiovascular: Yes: Regular Rate and Rhythm Respiratory: Yes: Regular, CTA Bilaterally Gastrointestinal: Yes: Normal Bowel Sounds, Soft Musculoskeletal: Yes: Back Pain Extremities: Yes: WNL Wound/Incision: Yes: Other (drain in place) Neurological: Yes: Alert, Oriented Psychiatric: Yes: Alert Labs: CBC, BMP 04/20/18 05:30 04/19/18 05:30 INR, PTT INR 1.15 (0.83-1.09) H 04/18/18 06:30 Assessment/Plan back pain hld gerd uti plan continue current abx monitor wbc wound care monitor drainage
[2018-04-20] MEDS ORDERED: LACTATED RINGERS SOLUTION 1,000 ML IV SCH (21:58)
[2018-04-20] MEDS ORDERED: SENNOSIDES 8.6MG TABLET (FP) PO PRN (21:58)
[2018-04-20] MEDS ORDERED: oxyCODONE HCL 5 MG TABLET PO PRN (21:58)
[2018-04-20] MEDS ORDERED: ONDANSETRON 4 MG/2 ML VIAL IVPUSH PRN (21:58)
[2018-04-20] MEDS ORDERED: diphenhydrAMINE HCL 25 MG CAPSULE (FP) PO PRN (21:58)
[2018-04-20] MEDS ORDERED: LIDOCAINE PATCH REMOVAL MC SCH ×2 (22:00)
[2018-04-20] MEDS: ATORVASTATIN CA 20 MG TABLET (FP) PO SCH (22:29)
[2018-04-20] MEDS: LIDOCAINE PATCH REMOVAL MC SCH (22:45)
[2018-04-21] MEDS: ACETAMINOPHEN 325 MG TABLET (FP) PO SCH ×3 (01:00→09:47)
[2018-04-21] MEDS ORDERED: DEXTROSE 5%-WATER - 50 ML IVPB ONE ×3 (01:10→17:09)
[2018-04-21] MEDS ORDERED: PIPERACILLIN/TAZOBACTAM 3.375 GM VIAL IVPB ONE ×3 (01:10→17:08)
[2018-04-21] MEDS: PIPERACILLIN/TAZOB 3.375 GM 3.375 GM in DEXTROSE 5%-WATER - 50 ML IVPB SCH ×3 (01:36→17:27)
[2018-04-21] MEDS: CYCLOBENZAPRINE HCL 10 MG TABLET (FP) PO SCH (06:06)
[2018-04-21] MEDS: DOCUSATE SODIUM 100 MG CAPSULE (FP) PO SCH ×3 (06:06→21:20)
[2018-04-21] MEDS: HEPARIN NA (PORCINE) 5,000 UNITS/ML 1ML VIAL SQ SCH ×3 (06:07→21:20)
[2018-04-21 06:50] LABS: BASO % 0.3 % (0-2.0); EOS % 0.8 % (0-4.5); HEMATOCRIT 36.2 % (35.4-49); HEMOGLOBIN 12.1 GM/dL (11.7-16.9); LYMPH % 10.3 % (8-40); MCH 29.5 pg (25.7-33.7); MCHC 33.4 g/dl (32.0-35.9); MEAN CELL VOLUME 88.2 fl (80-96); MEAN PLT VOLUME 8.4 fl (7.5-11.1); MONO % 9.2 % (3.8-10.2); NEUT % 79.4 % (42.8-82.8); PLATELET COUNT 256 K/MM3 (134-434); RDW 13.9 % (11.9-15.9); WHITE BLOOD COUNT 16.7 K/mm3 (4.0-10.0)
--- NOTE | 2018-04-21 09:11 | PN ---
Progress Note (short form) - Note Progress Note: c/o back pain, worse on movement. denies Cp, SOB, fever, chills, N /V/C/D, dysuria, hematuria Current Medications Generic Name Dose Route Start Last Admin Trade Name Freq PRN Reason Stop Dose Admin Acetaminophen 650 mg 04/21/18 02:45 04/21/18 03:29 Tylenol - PO 04/21/18 14:44 650 mg Q6H MEAGHAN Administration Atorvastatin Calcium 20 mg 04/20/18 22:00 04/20/18 22:29 Lipitor - PO 20 mg HS MEAGHAN Administration Cholecalciferol 5,000 unit 04/21/18 10:00 Vitamin D3 - PO DAILY MEAGHAN Cyclobenzaprine HCl 5 mg 04/20/18 22:00 04/21/18 06:06 Flexeril - PO 5 mg TID MEAGHAN Administration Diazepam 5 mg 04/20/18 21:58 Valium - PO Q6H PRN MUSCLE SPASMS Diphenhydramine HCl 25 mg 04/20/18 21:58 Benadryl - PO Q6H PRN FOR ITCHING Docusate Sodium 100 mg 04/20/18 22:00 04/21/18 06:06 Colace - PO 100 mg TID MEAGHAN Administration Ferrous Sulfate 325 mg 04/21/18 08:00 Feosol - PO DAILY@0800 MEAGHAN Gabapentin 100 mg 04/20/18 22:00 04/20/18 22:29 Neurontin - PO 100 mg BID MEAGHAN Administration Heparin Sodium (Porcine) 5,000 unit 04/20/18 22:00 04/21/18 06:07 Heparin - SQ 5,000 unit TID MEAGHAN Administration Lactated Ringer's 1,000 mls @ 50 mls/hr 04/20/18 21:58 04/20/18 22:32 Lactated Ringers Solution IV 50 mls/hr ASDIR MEAGHAN Administration Piperacillin Sod/Tazobactam 50 mls @ 100 mls/hr 04/21/18 02:00 04/21/18 01:36 Sod 3.375 gm/ Dextrose IVPB 100 mls/hr Q8H-IV MEAGHAN Administration Protocol Lactobacillus Acidophilus 1 tab 04/21/18 10:00 Bacid - PO DAILY MEAGHAN Lidocaine 2 patch 04/21/18 10:00 Lidoderm Patch - TP DAILY MEAGHAN Miscellaneous 2 each 04/20/18 22:00 04/20/18 22:45 Lidoderm Patch Removal MC Not Given DAILY@2200 [facility] Ondansetron HCl 4 mg 04/20/18 21:58 Zofran Injection IVPUSH Q6H PRN NAUSEA Oxycodone HCl 10 mg 04/20/18 21:58 Roxicodone - PO Q6H PRN PAIN LEVEL 7 - 10 Oxycodone HCl 5 mg 04/20/18 21:58 Roxicodone - PO Q6H PRN PAIN LEVEL 4 - 6 Oxycodone HCl 10 mg 04/20/18 22:00 04/20/18 22:40 Oxycontin - PO 04/21/18 14:38 10 mg BID MEAGHAN Administration Pantoprazole Sodium 40 mg 04/21/18 10:00 Protonix - PO DAILY [facility] Polyethylene Glycol 17 gm 04/21/18 10:00 Miralax (For Daily Use) - PO DAILY [facility] Prednisone 10 mg 04/21/18 10:00 Deltasone - PO 04/22/18 23:59 BID [facility] Prednisone 5 mg 04/23/18 10:00 Deltasone - PO 04/24/18 23:59 BID MEAGHAN Prednisone 2.5 mg 04/25/18 10:00 Deltasone - PO 04/26/18 23:59 BID [facility] Prednisone 1 mg 04/27/18 10:00 Deltasone - PO 04/28/18 23:59 BID [facility] Pyridoxine HCl 100 mg 04/21/18 10:00 Vitamin B6 - PO DAILY [facility] Senna 2 tab 04/20/18 21:58 Senna - PO HS PRN CONSTIPATION Last Vital Signs Temp Pulse Resp BP Pulse Ox 97.9 F 92 H 20 129/78 98 04/20/18 22:10 04/20/18 22:10 04/20/18 22:10 04/20/18 22:10 04/20/18 21:00 General NAD CV S1 S2 RRR no murmur/rub/gallop Lungs CTA anteriorly Abdomen soft NT/ND obese no suprapubic distention Back surgical JENNA drain with serosangenous drainage. no erythema or tenderness along the spine CBCD WBC 16.7 K/mm3 (4.0-10.0) H 04/21/18 05:45 RBC 4.10 M/mm3 (4.00-5.60) 04/21/18 05:45 Hgb 12.1 GM/dL (11.7-16.9) 04/21/18 05:45 Hct 36.2 % (35.4-49) 04/21/18 05:45 MCV 88.2 fl (80-96) 04/21/18 05:45 MCHC 33.4 g/dl (32.0-35.9) 04/21/18 05:45 RDW 13.9 % (11.9-15.9) 04/21/18 05:45 Plt Count 256 K/MM3 (134-434) 04/21/18 05:45 MPV 8.4 fl (7.5-11.1) 04/21/18 05:45 CMP Sodium 137 mmol/L (136-145) 04/19/18 05:30 Potassium 4.6 mmol/L (3.5-5.1) 04/19/18 05:30 Chloride 101 mmol/L (98-107) 04/19/18 05:30 Carbon Dioxide 29 mmol/L (21-32) 04/19/18 05:30 Anion Gap 7 MMOL/L (8-16) L 04/19/18 05:30 BUN 31 mg/dL (7-18) H 04/19/18 05:30 Creatinine 1.1 mg/dL (0.55-1.3) 04/19/18 05:30 Creat Clearance w eGFR > 60 (>60) 04/19/18 05:30 Calcium 7.8 mg/dL (8.5-10.1) L 04/19/18 05:30 Total Bilirubin 0.6 mg/dL (0.2-1) 04/19/18 05:30 AST 26 U/L (15-37) 04/19/18 05:30 ALT 32 U/L (13-61) 04/19/18 05:30 Alkaline Phosphatase 60 U/L (45-117) 04/19/18 05:30 Total Protein 5.9 g/dl (6.4-8.2) L 04/19/18 05:30 Albumin 2.7 g/dl (3.4-5.0) L 04/19/18 05:30 Laboratory Tests 04/13/18 04/13/18 04/13/18 10:35 10:35 10:35 WBC 11.5 H RBC 5.07 Hgb 15.6 Hct 44.8 MCV 88.5 MCH 30.8 MCHC 34.8 RDW 14.2 Plt Count 144 MPV 8.6 Absolute Neuts (auto) 8.6 H Neutrophils % 74.9 Lymphocytes % 12.6 Monocytes % 9.2 Eosinophils % 2.5 Basophils % 0.8 Nucleated RBC % 0 PT with INR INR Sodium 138 Potassium 4.2 Chloride 107 Carbon Dioxide 24 Anion Gap 7 L BUN 23 H Creatinine 1.0 Creat Clearance w eGFR > 60 Random Glucose 125 H Calcium 8.9 Magnesium Total Bilirubin 0.7 AST 22 ALT 32 Alkaline Phosphatase 62 Total Protein 7.3 Albumin 4.0 Urine Color Urine Appearance Urine pH Ur Specific [place] Urine Protein Urine Glucose (UA) Urine Ketones Urine Blood Urine Nitrite Urine Bilirubin Urine Urobilinogen Ur Leukocyte Esterase Blood Type A POSITIVE Antibody Screen 04/13/18 04/14/18 04/14/18 22:30 06:00 06:00 WBC 12.4 H RBC 4.91 Hgb 14.8 Hct 43.0 MCV 87.6 MCH 30.2 MCHC 34.5 RDW 14.5 Plt Count 153 MPV 8.6 Absolute Neuts (auto) Neutrophils % Lymphocytes % Monocytes % Eosinophils % Basophils % Nucleated RBC % PT with INR INR Sodium 136 Potassium 4.0 Chloride 103 Carbon Dioxide 25 Anion Gap 8 BUN 23 H Creatinine 1.0 Creat Clearance w eGFR > 60 Random Glucose 112 H Calcium 8.5 Magnesium 2.6 H Total Bilirubin 0.8 AST 13 L ALT 26 Alkaline Phosphatase 60 Total Protein 7.0 Albumin 3.4 Urine Color Yellow Urine Appearance Clear Urine pH 6.0 Ur Specific [place] 1.021 Urine Protein Negative Urine Glucose (UA) Negative Urine Ketones 1+ H Urine Blood Negative Urine Nitrite Negative Urine Bilirubin Negative Urine Urobilinogen Negative Ur Leukocyte Esterase Negative Blood Type Antibody Screen 04/14/18 04/15/18 04/15/18 06:00 11:05 11:05 WBC 11.8 H RBC 5.12 Hgb 15.3 Hct 45.5 MCV 88.8 MCH 29.9 MCHC 33.6 RDW 14.4 Plt Count 175 MPV 8.4 Absolute Neuts (auto) 9.0 H Neutrophils % 75.7 Lymphocytes % 10.5 Monocytes % 9.6 Eosinophils % 3.4 Basophils % 0.8 Nucleated RBC % 0 PT with INR INR Sodium 136 Potassium 4.3 Chloride 104 Carbon Dioxide 26 Anion Gap 6 L BUN 23 H Creatinine 1.0 Creat Clearance w eGFR > 60 Random Glucose 124 H Calcium 8.9 Magnesium 2.7 H Total Bilirubin 0.6 AST 15 ALT 23 Alkaline Phosphatase 67 Total Protein 7.2 Albumin 3.2 L Urine Color Urine Appearance Urine pH Ur Specific [place] Urine Protein Urine Glucose (UA) Urine Ketones Urine Blood Urine Nitrite Urine Bilirubin Urine Urobilinogen Ur Leukocyte Esterase Blood Type A POSITIVE Antibody Screen Negative 04/17/18 04/17/18 04/17/18 06:20 06:20 09:30 WBC 11.9 H RBC 5.01 Hgb 15.1 Hct 44.3 MCV 88.4 MCH 30.1 MCHC 34.0 RDW 13.7 Plt Count 228 D MPV 8.8 Absolute Neuts (auto) 8.6 H Neutrophils % 72.3 Lymphocytes % 16.9 D Monocytes % 8.9 Eosinophils % 1.5 Basophils % 0.4 Nucleated RBC % 0 PT with INR INR Sodium 136 Potassium 4.4 Chloride 101 Carbon Dioxide 30 Anion Gap 6 L BUN 28 H Creatinine 1.1 Creat Clearance w eGFR > 60 Random Glucose 106 Calcium 8.9 Magnesium 2.7 H Total Bilirubin 0.5 AST 20 ALT 39 Alkaline Phosphatase 73 Total Protein 7.1 Albumin 3.0 L Urine Color Urine Appearance Urine pH Ur Specific [place] Urine Protein Urine Glucose (UA) Urine Ketones Urine Blood Urine Nitrite Urine Bilirubin Urine Urobilinogen Ur Leukocyte Esterase Blood Type A POSITIVE Antibody Screen Negative 04/17/18 04/18/18 04/18/18 09:30 06:30 06:30 WBC 11.2 H RBC 5.31 Hgb 16.0 Hct 46.6 MCV 87.7 MCH 30.2 MCHC 34.4 RDW 14.1 Plt Count 225 MPV 8.2 Absolute Neuts (auto) 7.5 Neutrophils % 67.0 Lymphocytes % 14.7 Monocytes % 10.1 Eosinophils % 7.2 H D Basophils % 1.0 Nucleated RBC % 0 PT with INR 13.30 H 13.60 H INR 1.13 H 1.15 H Sodium Potassium Chloride Carbon Dioxide Anion Gap BUN Creatinine Creat Clearance w eGFR Random Glucose Calcium Magnesium Total Bilirubin AST ALT Alkaline Phosphatase Total Protein Albumin Urine Color Urine Appearance Urine pH Ur Specific [place] Urine Protein Urine Glucose (UA) Urine Ketones Urine Blood Urine Nitrite Urine Bilirubin Urine Urobilinogen Ur Leukocyte Esterase Blood Type Antibody Screen 04/18/18 04/19/18 04/19/18 06:30 05:30 05:30 WBC 14.7 H RBC 4.38 Hgb 13.0 Hct 38.7 D MCV 88.4 MCH 29.7 MCHC 33.6 RDW 13.7 Plt Count 224 MPV 8.3 Absolute Neuts (auto) Neutrophils % Lymphocytes % Monocytes % Eosinophils % Basophils % Nucleated RBC % PT with INR INR Sodium 138 137 Potassium 4.4 4.6 Chloride 103 101 Carbon Dioxide 27 29 Anion Gap 7 L 7 L BUN 32 H 31 H Creatinine 1.2 1.1 Creat Clearance w eGFR 59.68 > 60 Random Glucose 116 H 132 H Calcium 9.5 7.8 L Magnesium 2.3 Total Bilirubin 0.6 0.6 AST 22 26 ALT 42 32 Alkaline Phosphatase 75 60 Total Protein 7.1 5.9 L Albumin 3.2 L 2.7 L Urine Color Urine Appearance Urine pH Ur Specific [place] Urine Protein Urine Glucose (UA) Urine Ketones Urine Blood Urine Nitrite Urine Bilirubin Urine Urobilinogen Ur Leukocyte Esterase Blood Type Antibody Screen 04/20/18 04/21/18 05:30 05:45 WBC 16.5 H 16.7 H RBC 4.13 4.10 Hgb 12.3 12.1 Hct 36.7 36.2 MCV 88.9 88.2 MCH 29.7 29.5 MCHC 33.4 33.4 RDW 13.7 13.9 Plt Count 224 256 MPV 8.2 8.4 Absolute Neuts (auto) 12.7 H 13.2 H Neutrophils % 77.0 79.4 Lymphocytes % 11.6 D 10.3 Monocytes % 8.9 9.2 Eosinophils % 2.1 0.8 Basophils % 0.4 0.3 Nucleated RBC % 0 0 PT with INR INR Sodium Potassium Chloride Carbon Dioxide Anion Gap BUN Creatinine Creat Clearance w eGFR Random Glucose Calcium Magnesium Total Bilirubin AST ALT Alkaline Phosphatase Total Protein Albumin Urine Color Urine Appearance Urine pH Ur Specific [place] Urine Protein Urine Glucose (UA) Urine Ketones Urine Blood Urine Nitrite Urine Bilirubin Urine Urobilinogen Ur Leukocyte Esterase Blood Type Antibody Screen Assessment and Plan 73 year old man with a history of hyperlipidemia, GERD, chronic back pain who presented to the ED with worsening back pain. 1. Lumbar spondylosis, stenosis, spondylolisthesis, Baastrup's disease- s/p L3- L5 laminectomies; decompression with interbody cages at L3-4 and L4-5; posterior fusion with pedicle screws and rods on 04/18 on steroid taper. JENNA drain in place. reached out to Surgical PA to determine plan for JENNA drain. started on long acting oxyconin for better pain control. will give time for it to work (only received 1 dose so far) titrate medications to optimize control. muscle relaxers (informed patient to watch for sedation). OOB with TLSO brace. further management per surgery 2. Leukocytosis- more liekly due to steroids however can not r/o infectious source. will repeat UCx as only source. UA on presentation was normal and UCx growing cardona sensitive E Faecalis. 3. UTI- on zosyn day 8 of total abx. can likely d/c if Ucx is negative. will d/ w with ID 4. Hyperlipidemia- Continue Lipitor 5. Constipation- Continue Miralax, Colace, Senna as needed 6. Urinary retention-resolved, voiding freely. 7. DVT ppx- hep sq 8. accepted to [facility] for Rehab. Plan to d/c tomorrow if leukocytosis is stable or improved. SW aware. Visit type - Emergency Visit Emergency Visit: Yes ED Registration Date: 04/14/18 Care time: The patient presented to the Emergency Department on the above date and was hospitalized for further evaluation of their emergent condition. - New Patient This patient is new to me today: Yes Date on this admission: 04/21/18 - Critical Care Critical Care patient: No - Discharge Referral Referred to [facility] No
[2018-04-21] MEDS: PYRIDOXINE HCL (B-6) 50 MG TABLET (FP) PO SCH (09:46)
[2018-04-21] MEDS: CHOLECALCIFEROL (VITAMIN D3) 1,000 UNIT TABLET (FP) PO SCH (09:46)
[2018-04-21] MEDS: LACTOBACILLUS ACIDOPHILUS 1 TABLET PO SCH (09:46)
[2018-04-21] MEDS: PANTOPRAZOLE 40 MG TABLET (FP) PO SCH (09:46)
--- NOTE | 2018-04-21 09:47 | PN ---
Progress Note, Physician History of Present Illness: patient stable no issues still draining a lot c/o of lot of pain - Current Medication List Current Medications: Active Medications Acetaminophen (Tylenol -) 650 mg PO Q6H [facility] Stop: 04/21/18 14:44 Last Admin: 04/21/18 03:29 Dose: 650 mg Atorvastatin Calcium (Lipitor -) 20 mg PO HS [facility] Last Admin: 04/20/18 22:29 Dose: 20 mg Cholecalciferol (Vitamin D3 -) 5,000 unit PO DAILY [facility] Cyclobenzaprine HCl (Flexeril -) 5 mg PO TID [facility] Last Admin: 04/21/18 06:06 Dose: 5 mg Diazepam (Valium -) 5 mg PO Q6H PRN PRN Reason: MUSCLE SPASMS Diphenhydramine HCl (Benadryl -) 25 mg PO Q6H PRN PRN Reason: FOR ITCHING Docusate Sodium (Colace -) 100 mg PO TID [facility] Last Admin: 04/21/18 06:06 Dose: 100 mg Ferrous Sulfate (Feosol -) 325 mg PO DAILY@0800 [facility] Gabapentin (Neurontin -) 100 mg PO BID [facility] Last Admin: 04/20/18 22:29 Dose: 100 mg Heparin Sodium (Porcine) (Heparin -) 5,000 unit SQ TID [facility] Last Admin: 04/21/18 06:07 Dose: 5,000 unit Piperacillin Sod/Tazobactam (Sod 3.375 gm/ Dextrose) 50 mls @ 100 mls/hr IVPB Q8H-IV [facility]; Protocol Last Admin: 04/21/18 01:36 Dose: 100 mls/hr Lactobacillus Acidophilus (Bacid -) 1 tab PO DAILY [facility] Lidocaine (Lidoderm Patch -) 2 patch TP DAILY [facility] Miscellaneous (Lidoderm Patch Removal) 2 each MC DAILY@2200 [facility] Last Admin: 04/20/18 22:45 Dose: Not Given Ondansetron HCl (Zofran Injection) 4 mg IVPUSH Q6H PRN PRN Reason: NAUSEA Oxycodone HCl (Roxicodone -) 10 mg PO Q6H PRN PRN Reason: PAIN LEVEL 7 - 10 Oxycodone HCl (Roxicodone -) 5 mg PO Q6H PRN PRN Reason: PAIN LEVEL 4 - 6 Oxycodone HCl (Oxycontin -) 10 mg PO BID [facility] Stop: 04/21/18 14:38 Last Admin: 04/20/18 22:40 Dose: 10 mg Pantoprazole Sodium (Protonix -) 40 mg PO DAILY [facility] Polyethylene Glycol (Miralax (For Daily Use) -) 17 gm PO DAILY [facility] Prednisone (Deltasone -) 10 mg PO BID [facility] Stop: 04/22/18 23:59 Prednisone (Deltasone -) 5 mg PO BID [facility] Stop: 04/24/18 23:59 Prednisone (Deltasone -) 2.5 mg PO BID [facility] Stop: 04/26/18 23:59 Prednisone (Deltasone -) 1 mg PO BID [facility] Stop: 04/28/18 23:59 Pyridoxine HCl (Vitamin B6 -) 100 mg PO DAILY [facility] Senna (Senna -) 2 tab PO HS PRN PRN Reason: CONSTIPATION - Objective Vital Signs: Vital Signs Temperature 97.9 F 04/20/18 22:10 Pulse Rate 92 H 04/20/18 22:10 Respiratory Rate 20 04/20/18 22:10 Blood Pressure 129/78 04/20/18 22:10 O2 Sat by Pulse Oximetry (%) 98 04/20/18 21:00 Constitutional: Yes: Calm, Moderate Distress Cardiovascular: Yes: Regular Rate and Rhythm Respiratory: Yes: Regular, CTA Bilaterally Gastrointestinal: Yes: Normal Bowel Sounds, Soft Musculoskeletal: Yes: Other Extremities: Yes: Other Wound/Incision: Yes: Dressing Dry and Intact, Other (drain in place) Neurological: Yes: Alert, Oriented Psychiatric: Yes: Alert, Oriented Labs: CBC, BMP 04/21/18 05:45 04/19/18 05:30 INR, PTT INR 1.15 (0.83-1.09) H 04/18/18 06:30 Assessment/Plan back pain hld gerd uti plan continue current abx monitor wbc wound care monitor drainage patient working with physio
[2018-04-21] MEDS: FERROUS SO4 325 MG TABLET (FP) PO SCH (09:48)
[2018-04-21] MEDS: predniSONE 10 MG TABLET (UD) PO SCH ×2 (09:48→21:20)
[2018-04-21] MEDS: oxyCODONE HCL 10 MG SUSTAINED ACTING TABLET PO SCH (09:48)
[2018-04-21] MEDS: LIDOCAINE 5% TOPICAL PATCH TP SCH (09:49)
[2018-04-21] MEDS: GABAPENTIN 100 MG CAPSULE (FP) PO SCH ×2 (09:50→21:21)
[2018-04-21] MEDS: POLYETHYLENE GLYCOL 3350 119 GM BTL PO SCH (09:50)
[2018-04-21] MEDS ORDERED: predniSONE 20 MG TABLET (UD) PO SCH (10:00)
[2018-04-21] MEDS ORDERED: predniSONE 10 MG TABLET (UD) PO SCH (10:00)
--- NOTE | 2018-04-21 11:03 | PN ---
Progress Note, Physician History of Present Illness: POD#3 lumbar spinal decompression surgery with post-op pain. - Current Medication List Current Medications: Active Medications Acetaminophen (Tylenol -) 650 mg PO Q6H [facility] Stop: 04/21/18 14:44 Last Admin: 04/21/18 09:47 Dose: 650 mg Atorvastatin Calcium (Lipitor -) 20 mg PO HS [facility] Last Admin: 04/20/18 22:29 Dose: 20 mg Baclofen (Lioresal -) 10 mg PO TID [facility] Cholecalciferol (Vitamin D3 -) 5,000 unit PO DAILY [facility] Last Admin: 04/21/18 09:46 Dose: 5,000 unit Diazepam (Valium -) 5 mg PO Q6H PRN PRN Reason: MUSCLE SPASMS Diphenhydramine HCl (Benadryl -) 25 mg PO Q6H PRN PRN Reason: FOR ITCHING Docusate Sodium (Colace -) 100 mg PO TID [facility] Last Admin: 04/21/18 06:06 Dose: 100 mg Ferrous Sulfate (Feosol -) 325 mg PO DAILY@0800 [facility] Last Admin: 04/21/18 09:48 Dose: 325 mg Gabapentin (Neurontin -) 100 mg PO BID [facility] Last Admin: 04/21/18 09:50 Dose: 100 mg Heparin Sodium (Porcine) (Heparin -) 5,000 unit SQ TID [facility] Last Admin: 04/21/18 06:07 Dose: 5,000 unit Piperacillin Sod/Tazobactam (Sod 3.375 gm/ Dextrose) 50 mls @ 100 mls/hr IVPB Q8H-IV [facility]; Protocol Last Admin: 04/21/18 09:45 Dose: 100 mls/hr Lactobacillus Acidophilus (Bacid -) 1 tab PO DAILY [facility] Last Admin: 04/21/18 09:46 Dose: 1 tab Lidocaine (Lidoderm Patch -) 2 patch TP DAILY [facility] Last Admin: 04/21/18 09:49 Dose: 2 patch Miscellaneous (Lidoderm Patch Removal) 2 each MC DAILY@2200 [facility] Last Admin: 04/20/18 22:45 Dose: Not Given Ondansetron HCl (Zofran Injection) 4 mg IVPUSH Q6H PRN PRN Reason: NAUSEA Oxycodone HCl (Roxicodone -) 10 mg PO Q6H PRN PRN Reason: PAIN LEVEL 7 - 10 Oxycodone HCl (Oxycontin -) 10 mg PO BID [facility] Stop: 04/21/18 14:38 Last Admin: 04/21/18 09:48 Dose: 10 mg Pantoprazole Sodium (Protonix -) 40 mg PO DAILY [facility] Last Admin: 04/21/18 09:46 Dose: 40 mg Polyethylene Glycol (Miralax (For Daily Use) -) 17 gm PO DAILY [facility] Last Admin: 04/21/18 09:50 Dose: 17 gm Prednisone (Deltasone -) 10 mg PO BID [facility] Stop: 04/22/18 23:59 Last Admin: 04/21/18 09:48 Dose: 10 mg Prednisone (Deltasone -) 5 mg PO BID [facility] Stop: 04/24/18 23:59 Prednisone (Deltasone -) 2.5 mg PO BID [facility] Stop: 04/26/18 23:59 Prednisone (Deltasone -) 1 mg PO BID [facility] Stop: 04/28/18 23:59 Pyridoxine HCl (Vitamin B6 -) 100 mg PO DAILY [facility] Last Admin: 04/21/18 09:46 Dose: 100 mg Senna (Senna -) 2 tab PO HS PRN PRN Reason: CONSTIPATION - Objective Vital Signs: Vital Signs Temperature 97.9 F 04/20/18 22:10 Pulse Rate 92 H 04/20/18 22:10 Respiratory Rate 20 04/20/18 22:10 Blood Pressure 129/78 04/20/18 22:10 O2 Sat by Pulse Oximetry (%) 98 04/20/18 21:00 Constitutional: Yes: No Distress, Calm Neck: Yes: Supple Cardiovascular: Yes: Regular Rate and Rhythm Respiratory: Yes: Regular, Diminished Gastrointestinal: Yes: Normal Bowel Sounds, Soft Edema: No Labs: CBC, BMP 04/21/18 05:45 04/19/18 05:30 INR, PTT INR 1.15 (0.83-1.09) H 04/18/18 06:30 Problem List - Problems (1) Hyperlipidemia Code(s): E78.5 - HYPERLIPIDEMIA, UNSPECIFIED Qualifiers: Hyperlipidemia type: pure hypercholesterolemia Qualified Code(s): E78.00 - Pure hypercholesterolemia, unspecified; E78.0 - Pure hypercholesterolemia (2) Intractable low back pain Code(s): M54.5 - LOW BACK PAIN (3) Status post lumbar laminectomy Code(s): Z98.890 - OTHER SPECIFIED POSTPROCEDURAL STATES Assessment/Plan Pelvic xray: no acute bony abnormality lumbar spine xray: extensive facet joint arthopathy, minimal anterior degenerative spondylolisthesis of L4 on L5. neural foramina stenosis at L3-L4, L4-L4, L5-S1. facet joint arthoplasty, degenerative spondylolisthesis associated with central spine canal stenosis. MRI Lumbar reveals multilevel spondylosis worst at L34 where there is moderate stenosis from ligamentum flavum and facet hypertrophy as well as a small cental bulge. L45 has a spondylolisthesis with severe stenosis and central disc bulging resulting in lateral recess compression bilaterally. 1. Severe non-radicular low back pain POD#3 for L3-5 laminectomies and posterior fusion 2. Hyperlipidemia 3. UTI P:1. Analgesia as needed, PT->rehab, TLSO brace 2. DVT and GI prophylaxis 3. Lipitor 20 qd 4. Complete abx course per ID, wound care, monitor drainage
--- NOTE | 2018-04-21 13:43 | PN ---
Progress Note (short form) - Note Progress Note: POD #3 Alert. Supine in bed at 30 degrees. Tolerating PO diet. Passed his trial of void. States he got oob and ambulated a very little bit yesterday. Incedentally, when patient came into the hospital he had a UTI and + for E. faecalis. Since then he has been on appropriate abx and has since tested negative. Denies n/v/f/c, CP, palpitations, SOB or SCOTT. Last Vital Signs Temp Pulse Resp BP Pulse Ox 97.9 F 92 H 20 129/78 98 04/20/18 22:10 04/20/18 22:10 04/20/18 22:10 04/20/18 22:10 04/20/18 21:00 CBC, BMP 04/21/18 05:45 04/19/18 05:30 OUTPUT TREND 04/20/18 04/20/18 04/20/18 04/20/18 04/21/18 04/21/18 06:00 15:57 17:06 22:10 07:53 13:30 JENNA 140 115 60 60 100 75 Urine Test Results Urine Color Yellow 04/13/18 22:30 Urine Appearance Clear 04/13/18 22:30 Urine pH 6.0 (5.0-8.0) 04/13/18 22:30 Ur Specific [place] 1.021 (1.010-1.035) 04/13/18 22:30 Urine Protein Negative (NEGATIVE) 04/13/18 22:30 Urine Glucose (UA) Negative (NEGATIVE) 04/13/18 22:30 Urine Ketones 1+ (NEGATIVE) H 04/13/18 22:30 Urine Blood Negative (NEGATIVE) 04/13/18 22:30 Urine Nitrite Negative (NEGATIVE) 04/13/18 22:30 Urine Bilirubin Negative (<2.0 mg/dL) 04/13/18 22:30 Ur Leukocyte Esterase Negative (NEGATIVE) 04/13/18 22:30 PE Gen: A&O X3 Resp: CTA bilat Back: Dressing c/d/i, no periwound hematoma. JENNA on bulb suction. 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 LE: SCDs bilat. soft. NT. Problem List - Problems (1) Intractable low back pain Assessment/Plan: POD #3 s/p L3-L5 laminectomies, decompression with interbody cages at L34 and L45, Posterior fusion with pedicle screws and rods. Leukocytosis most likely spuriously elevated due to the steroids. He remains afebrile. - Keep JENNA in place, measure and record output - OOB and ambulate with PT - Continue Ancef 1g q8hrs while drain is in place - DVT prophylaxis Heparin 5000units SQ TID and b/l SCDS - Incentive spirometry - Pain Management Consult (Dr Short) managing his chronic pain - Steroid taper started 2/: 10mg bid 2 and 04/22, 5mg bid 04/23 and 04/24, 2.5mg bid 04/25 and 04/26 and 1mg bid 04/27 and 04/28 Above plan discussed with Dr. Witt and agrees. Code(s): M54.5 - LOW BACK PAIN
[2018-04-21] MEDS: BACLOFEN 10 MG TABLET (FP) PO SCH ×2 (15:23→21:20)
[2018-04-21 16:33] VITALS: BMI 31.8
[2018-04-21] MEDS: LIDOCAINE PATCH REMOVAL MC SCH (21:21)
[2018-04-21] MEDS: ATORVASTATIN CA 20 MG TABLET (FP) PO SCH (21:21)
[2018-04-22] MEDS ORDERED: PIPERACILLIN/TAZOBACTAM 3.375 GM VIAL IVPB ONE ×3 (01:39→17:05)
[2018-04-22] MEDS ORDERED: DEXTROSE 5%-WATER - 50 ML IVPB ONE ×3 (01:40→17:06)
[2018-04-22] MEDS: PIPERACILLIN/TAZOB 3.375 GM 3.375 GM in DEXTROSE 5%-WATER - 50 ML IVPB SCH ×3 (02:16→17:25)
[2018-04-22] MEDS: BACLOFEN 10 MG TABLET (FP) PO SCH ×3 (06:21→21:36)
[2018-04-22] MEDS: HEPARIN NA (PORCINE) 5,000 UNITS/ML 1ML VIAL SQ SCH ×3 (06:21→21:35)
[2018-04-22] MEDS: DOCUSATE SODIUM 100 MG CAPSULE (FP) PO SCH ×3 (06:21→21:36)
[2018-04-22 08:50] LABS: BASO % 0.6 % (0-2.0); EOS % 2.8 % (0-4.5); HEMATOCRIT 36.6 % (35.4-49); HEMOGLOBIN 12.6 GM/dL (11.7-16.9); LYMPH % 12.3 % (8-40); MCH 30.1 pg (25.7-33.7); MCHC 34.3 g/dl (32.0-35.9); MEAN CELL VOLUME 87.7 fl (80-96); MEAN PLT VOLUME 8.6 fl (7.5-11.1); MONO % 8.1 % (3.8-10.2); NEUT % 76.2 % (42.8-82.8); PLATELET COUNT 284 K/MM3 (134-434); RBC 4.17 M/mm3 (4.00-5.60); WHITE BLOOD COUNT 14.3 K/mm3 (4.0-10.0)
[2018-04-22] MEDS: oxyCODONE HCL 5 MG TABLET PO PRN ×2 (10:06→21:45)
[2018-04-22] MEDS: CHOLECALCIFEROL (VITAMIN D3) 1,000 UNIT TABLET (FP) PO SCH (10:08)
[2018-04-22] MEDS: PANTOPRAZOLE 40 MG TABLET (FP) PO SCH (10:08)
[2018-04-22] MEDS: LACTOBACILLUS ACIDOPHILUS 1 TABLET PO SCH (10:08)
[2018-04-22] MEDS: GABAPENTIN 100 MG CAPSULE (FP) PO SCH ×2 (10:09→21:36)
[2018-04-22] MEDS: FERROUS SO4 325 MG TABLET (FP) PO SCH (10:09)
[2018-04-22] MEDS: POLYETHYLENE GLYCOL 3350 119 GM BTL PO SCH (10:09)
[2018-04-22] MEDS: predniSONE 10 MG TABLET (UD) PO SCH ×2 (10:09→21:36)
[2018-04-22] MEDS: LIDOCAINE 5% TOPICAL PATCH TP SCH (10:10)
[2018-04-22] MEDS: PYRIDOXINE HCL (B-6) 50 MG TABLET (FP) PO SCH (10:10)
--- NOTE | 2018-04-22 11:35 | PN ---
Physical Exam: SUBJECTIVE: Patient seen and examined pt is better , less pains and no distress OBJECTIVE: GENERAL: The patient is awake, alert, and fully oriented, in no acute distress. HEAD: Normal with no signs of trauma. EYES: PERRL, extraocular movements intact, sclera anicteric, conjunctiva clear. No ptosis. ENT:nad NECK: full range of motion, supple. LUNGS: Breath sounds equal, clear to auscultation bilaterally, no wheezes, no crackles, no accessory muscle use. HEART: Regular rate and rhythm, S1, S2 without murmur, rub or gallop. ABDOMEN: Soft, nontender, nondistended, normoactive bowel sounds, no guarding, no rebound, no hepatosplenomegaly, no masses. EXTREMITIES: 2+ pulses, warm, well-perfused, no edema. NEUROLOGICAL: Cranial nerves II through XII grossly intact. Normal speech, gait not observed. Laboratory Results - last 24 hr 04/22/18 06:00 WBC 14.3 H RBC 4.17 Hgb 12.6 Hct 36.6 MCV 87.7 MCH 30.1 MCHC 34.3 RDW 14.0 Plt Count 284 MPV 8.6 Absolute Neuts (auto) 10.9 H Neutrophils % 76.2 Lymphocytes % 12.3 Monocytes % 8.1 Eosinophils % 2.8 D Basophils % 0.6 Nucleated RBC % 0 Active Medications Generic Name Dose Route Start Last Admin Trade Name Freq PRN Reason Stop Dose Admin Atorvastatin Calcium 20 mg 04/20/18 22:00 04/21/18 21:21 Lipitor - PO 20 mg HS MEAGHAN Administration Baclofen 10 mg 04/21/18 14:00 04/22/18 06:21 Lioresal - PO 10 mg TID MEAGHAN Administration Cholecalciferol 5,000 unit 04/21/18 10:00 04/22/18 10:08 Vitamin D3 - PO 5,000 unit DAILY MEAGHAN Administration Diazepam 5 mg 04/20/18 21:58 Valium - PO Q6H PRN MUSCLE SPASMS Diphenhydramine HCl 25 mg 04/20/18 21:58 Benadryl - PO Q6H PRN FOR ITCHING Docusate Sodium 100 mg 04/20/18 22:00 04/22/18 06:21 Colace - PO 100 mg TID MEAGHAN Administration Ferrous Sulfate 325 mg 04/21/18 08:00 04/22/18 10:09 Feosol - PO 325 mg DAILY@0800 MEAGHAN Administration Gabapentin 100 mg 04/20/18 22:00 04/22/18 10:09 Neurontin - PO 100 mg BID MEAGHAN Administration Heparin Sodium (Porcine) 5,000 unit 04/20/18 22:00 04/22/18 06:21 Heparin - SQ 5,000 unit TID MEAGHAN Administration Piperacillin Sod/Tazobactam 50 mls @ 100 mls/hr 04/21/18 02:00 04/22/18 10:08 Sod 3.375 gm/ Dextrose IVPB 100 mls/hr Q8H-IV MEAGHAN Administration Protocol Lactobacillus Acidophilus 1 tab 04/21/18 10:00 04/22/18 10:08 Bacid - PO 1 tab DAILY MEAGHAN Administration Lidocaine 2 patch 04/21/18 10:00 04/22/18 10:10 Lidoderm Patch - TP 2 patch DAILY MEAGHAN Administration Miscellaneous 2 each 04/20/18 22:00 04/21/18 21:21 Lidoderm Patch Removal MC Not Given DAILY@2200 [facility] Ondansetron HCl 4 mg 04/20/18 21:58 Zofran Injection IVPUSH Q6H PRN NAUSEA Oxycodone HCl 10 mg 04/20/18 21:58 04/22/18 10:06 Roxicodone - PO 10 mg Q6H PRN Administration PAIN LEVEL 7 - 10 Pantoprazole Sodium 40 mg 04/21/18 10:00 04/22/18 10:08 Protonix - PO 40 mg DAILY MEAGHAN Administration Polyethylene Glycol 17 gm 04/21/18 10:00 04/22/18 10:09 Miralax (For Daily Use) - PO 17 gm DAILY MEAGHAN Administration Prednisone 10 mg 04/21/18 10:00 04/22/18 10:09 Deltasone - PO 04/22/18 23:59 10 mg BID MEAGHAN Administration Prednisone 5 mg 04/23/18 10:00 Deltasone - PO 04/24/18 23:59 BID MEAGHAN Prednisone 2.5 mg 04/25/18 10:00 Deltasone - PO 04/26/18 23:59 BID MEAGHAN Prednisone 1 mg 04/27/18 10:00 Deltasone - PO 04/28/18 23:59 BID MEAGHAN Pyridoxine HCl 100 mg 04/21/18 10:00 04/22/18 10:10 Vitamin B6 - PO 100 mg DAILY MEAGHAN Administration Senna 2 tab 04/20/18 21:58 Senna - PO HS PRN CONSTIPATION ASSESSMENT/PLAN: 73 year old man with a history of hyperlipidemia, GERD, chronic back pain who presented to the ED with worsening back pain. 1. Lumbar spondylosis, stenosis, spondylolisthesis, OOB with TLSO brace. further management per surgery 2. Leukocytosis- more liekly due to steroids however can not r/o infectious source. will repeat UCx as only source. UA on presentation was normal and UCx growing cardona sensitive E Faecalis. 3. UTI- on zosyn day 8 of total abx. 4. Hyperlipidemia- Continue Lipitor 5. Constipation- Continue Miralax, Colace, Senna as needed 6-still wbc is high 14 and will repeat am stable d/c am
--- NOTE | 2018-04-22 15:33 | PN ---
Progress Note, Physician History of Present Illness: Pt seen and examined. Events reviewed, labs noted. Today he has some back pain but mostly when he turns. Otherwise remains afebrile, without specific complaints. - Current Medication List Current Medications: Active Medications Atorvastatin Calcium (Lipitor -) 20 mg PO HS [facility] Last Admin: 04/21/18 21:21 Dose: 20 mg Baclofen (Lioresal -) 10 mg PO TID [facility] Last Admin: 04/22/18 13:49 Dose: 10 mg Cholecalciferol (Vitamin D3 -) 5,000 unit PO DAILY [facility] Last Admin: 04/22/18 10:08 Dose: 5,000 unit Diazepam (Valium -) 5 mg PO Q6H PRN PRN Reason: MUSCLE SPASMS Diphenhydramine HCl (Benadryl -) 25 mg PO Q6H PRN PRN Reason: FOR ITCHING Docusate Sodium (Colace -) 100 mg PO TID [facility] Last Admin: 04/22/18 13:49 Dose: 100 mg Ferrous Sulfate (Feosol -) 325 mg PO DAILY@0800 [facility] Last Admin: 04/22/18 10:09 Dose: 325 mg Gabapentin (Neurontin -) 100 mg PO BID [facility] Last Admin: 04/22/18 10:09 Dose: 100 mg Heparin Sodium (Porcine) (Heparin -) 5,000 unit SQ TID [facility] Last Admin: 04/22/18 13:49 Dose: 5,000 unit Piperacillin Sod/Tazobactam (Sod 3.375 gm/ Dextrose) 50 mls @ 100 mls/hr IVPB Q8H-IV [facility]; Protocol Last Admin: 04/22/18 10:08 Dose: 100 mls/hr Lactobacillus Acidophilus (Bacid -) 1 tab PO DAILY [facility] Last Admin: 04/22/18 10:08 Dose: 1 tab Lidocaine (Lidoderm Patch -) 2 patch TP DAILY [facility] Last Admin: 04/22/18 10:10 Dose: 2 patch Miscellaneous (Lidoderm Patch Removal) 2 each MC DAILY@2200 [facility] Last Admin: 04/21/18 21:21 Dose: Not Given Ondansetron HCl (Zofran Injection) 4 mg IVPUSH Q6H PRN PRN Reason: NAUSEA Oxycodone HCl (Roxicodone -) 10 mg PO Q6H PRN PRN Reason: PAIN LEVEL 7 - 10 Last Admin: 04/22/18 10:06 Dose: 10 mg Pantoprazole Sodium (Protonix -) 40 mg PO DAILY [facility] Last Admin: 04/22/18 10:08 Dose: 40 mg Polyethylene Glycol (Miralax (For Daily Use) -) 17 gm PO DAILY [facility] Last Admin: 04/22/18 10:09 Dose: 17 gm Prednisone (Deltasone -) 10 mg PO BID [facility] Stop: 04/22/18 23:59 Last Admin: 04/22/18 10:09 Dose: 10 mg Prednisone (Deltasone -) 5 mg PO BID [facility] Stop: 04/24/18 23:59 Prednisone (Deltasone -) 2.5 mg PO BID [facility] Stop: 04/26/18 23:59 Prednisone (Deltasone -) 1 mg PO BID [facility] Stop: 04/28/18 23:59 Pyridoxine HCl (Vitamin B6 -) 100 mg PO DAILY [facility] Last Admin: 04/22/18 10:10 Dose: 100 mg Senna (Senna -) 2 tab PO PRN PRN Reason: CONSTIPATION - Objective Vital Signs: Vital Signs Temperature 97.9 F 04/20/18 22:10 Pulse Rate 92 H 04/20/18 22:10 Respiratory Rate 20 04/20/18 22:10 Blood Pressure 129/78 04/20/18 22:10 O2 Sat by Pulse Oximetry (%) 98 04/22/18 09:00 Constitutional: Yes: No Distress, Calm Cardiovascular: Yes: Regular Rate and Rhythm Respiratory: Yes: Regular Gastrointestinal: Yes: Normal Bowel Sounds, Soft Musculoskeletal: Yes: Back Pain Wound/Incision: Yes: Other (dressing intact, drain with serosanguinous fluid) Neurological: Yes: Alert, Oriented Labs: CBC, BMP 04/22/18 06:00 04/19/18 05:30 INR, PTT INR 1.15 (0.83-1.09) H 04/18/18 06:30 Microbiology 04/21/18 10:38 Urine - Urine Clean Catch Urine Culture - Final NO GROWTH OBTAINED 04/13/18 22:30 Urine - Urine Clean Catch Urine Culture - Final Enterococcus Faecalis Problem List - Problems (1) Hyperlipidemia Code(s): E78.5 - HYPERLIPIDEMIA, UNSPECIFIED Qualifiers: Hyperlipidemia type: pure hypercholesterolemia Qualified Code(s): E78.00 - Pure hypercholesterolemia, unspecified; E78.0 - Pure hypercholesterolemia (2) Intractable low back pain Code(s): M54.5 - LOW BACK PAIN (3) Status post lumbar laminectomy Code(s): Z98.890 - OTHER SPECIFIED POSTPROCEDURAL STATES Assessment/Plan Back pain s/p L3-L5 laminectomies UTI Leukocytosis - likely due to steroids -- Pt is afebrile, wbc trending down -- repeat urine culture no growth -- continue antibiotics -- monitor wbc trend
[2018-04-22] MEDS: LIDOCAINE PATCH REMOVAL MC SCH (21:36)
[2018-04-22] MEDS: ATORVASTATIN CA 20 MG TABLET (FP) PO SCH (21:36)
[2018-04-23] MEDS ORDERED: DEXTROSE 5%-WATER - 50 ML IVPB ONE ×2 (01:51→08:36)
[2018-04-23] MEDS ORDERED: PIPERACILLIN/TAZOBACTAM 3.375 GM VIAL IVPB ONE ×2 (01:51→08:36)
[2018-04-23] MEDS: PIPERACILLIN/TAZOB 3.375 GM 3.375 GM in DEXTROSE 5%-WATER - 50 ML IVPB SCH ×2 (02:23→10:01)
[2018-04-23] MEDS: HEPARIN NA (PORCINE) 5,000 UNITS/ML 1ML VIAL SQ SCH ×3 (06:16→20:59)
[2018-04-23] MEDS: BACLOFEN 10 MG TABLET (FP) PO SCH ×3 (06:16→20:59)
[2018-04-23] MEDS: DOCUSATE SODIUM 100 MG CAPSULE (FP) PO SCH ×3 (06:17→20:59)
[2018-04-23] MEDS ORDERED: predniSONE 5 MG TABLET (UD) PO SCH (10:00)
[2018-04-23] MEDS: GABAPENTIN 100 MG CAPSULE (FP) PO SCH ×2 (10:01→20:59)
[2018-04-23] MEDS: FERROUS SO4 325 MG TABLET (FP) PO SCH (10:01)
[2018-04-23] MEDS: predniSONE 5 MG TABLET (UD) PO SCH ×2 (10:01→21:01)
[2018-04-23] MEDS: PANTOPRAZOLE 40 MG TABLET (FP) PO SCH (10:02)
[2018-04-23] MEDS: LACTOBACILLUS ACIDOPHILUS 1 TABLET PO SCH (10:11)
[2018-04-23] MEDS: LIDOCAINE 5% TOPICAL PATCH TP SCH (10:11)
[2018-04-23] MEDS: POLYETHYLENE GLYCOL 3350 119 GM BTL PO SCH (10:12)
[2018-04-23] MEDS: PYRIDOXINE HCL (B-6) 50 MG TABLET (FP) PO SCH (10:13)
[2018-04-23] MEDS: CHOLECALCIFEROL (VITAMIN D3) 1,000 UNIT TABLET (FP) PO SCH (10:13)
--- NOTE | 2018-04-23 11:09 | PN ---
Physical Exam: SUBJECTIVE: Patient seen and examined no new c/o no fever and pain is better no chills he is eating well OBJECTIVE: Vital Signs Period Temp Pulse Resp BP Sys/Mccoy Pulse Ox Last 24 Hr 97.6 F-98.8 F 85-93 20-20 120-130/72-87 GENERAL: The patient is awake, alert, and fully oriented, in no acute distress. HEAD: Normal with no signs of trauma. EYES: PERRL, extraocular movements intact, sclera anicteric, conjunctiva clear. No ptosis. ENT: Ears normal, nares patent, oropharynx clear without exudates, moist mucous membranes. NECK: Trachea midline, full range of motion, supple. LUNGS: Breath sounds equal, clear to auscultation bilaterally, no wheezes, no crackles, no accessory muscle use. HEART: Regular rate and rhythm, S1, S2 without murmur, rub or gallop. ABDOMEN: Soft, nontender, nondistended, normoactive bowel sounds, no guarding, no rebound, no hepatosplenomegaly, no masses. EXTREMITIES: 2+ pulses, warm, well-perfused, no edema. NEUROLOGICAL: Cranial nerves II through XII grossly intact. Normal speech, gait not observed. Laboratory Results - last 24 hr 04/22/18 06:00 Neutrophils % (Manual) 72.0 Band Neutrophils % 2.0 Lymphocytes % (Manual) 15.0 Monocytes % (Manual) 7 Eosinophils % (Manual) 1.0 Basophils % (Manual) 2.0 Myelocytes % (Man) 0 Promyelocytes % (Man) 0 Blast Cells % (Manual) 0 Metamyelocytes 1 Active Medications Generic Name Dose Route Start Last Admin Trade Name Freq PRN Reason Stop Dose Admin Atorvastatin Calcium 20 mg 04/20/18 22:00 04/22/18 21:36 Lipitor - PO 20 mg HS MEAGHAN Administration Baclofen 10 mg 04/21/18 14:00 04/23/18 06:16 Lioresal - PO 10 mg TID MEAGHAN Administration Cholecalciferol 5,000 unit 04/21/18 10:00 04/23/18 10:13 Vitamin D3 - PO 5,000 unit DAILY MEAGHAN Administration Diazepam 5 mg 04/20/18 21:58 Valium - PO Q6H PRN MUSCLE SPASMS Diphenhydramine HCl 25 mg 02/14/19 21:58 Benadryl - PO Q6H PRN FOR ITCHING Docusate Sodium 100 mg 04/20/18 22:00 04/23/18 06:17 Colace - PO 100 mg TID MEAGHAN Administration Ferrous Sulfate 325 mg 04/21/18 08:00 04/23/18 10:01 Feosol - PO 325 mg DAILY@0800 MEAGHAN Administration Gabapentin 100 mg 04/20/18 22:00 04/23/18 10:01 Neurontin - PO 100 mg BID MEAGHAN Administration Heparin Sodium (Porcine) 5,000 unit 04/20/18 22:00 04/23/18 06:16 Heparin - SQ 5,000 unit TID MEAGHAN Administration Piperacillin Sod/Tazobactam 50 mls @ 100 mls/hr 04/21/18 02:00 04/23/18 10:01 Sod 3.375 gm/ Dextrose IVPB 100 mls/hr Q8H-IV MEAGHAN Administration Protocol Lactobacillus Acidophilus 1 tab 04/21/18 10:00 04/23/18 10:11 Bacid - PO 1 tab DAILY MEAGHAN Administration Lidocaine 2 patch 04/21/18 10:00 04/23/18 10:11 Lidoderm Patch - TP 2 patch DAILY MEAGHAN Administration Miscellaneous 2 each 04/20/18 22:00 04/22/18 21:36 Lidoderm Patch Removal MC Not Given DAILY@2200 [facility] Ondansetron HCl 4 mg 04/20/18 21:58 Zofran Injection IVPUSH Q6H PRN NAUSEA Oxycodone HCl 10 mg 04/20/18 21:58 04/22/18 21:45 Roxicodone - PO 10 mg Q6H PRN Administration PAIN LEVEL 7 - 10 Pantoprazole Sodium 40 mg 04/21/18 10:00 04/23/18 10:02 Protonix - PO 40 mg DAILY MEAGHAN Administration Polyethylene Glycol 17 gm 04/21/18 10:00 04/23/18 10:12 Miralax (For Daily Use) - PO 17 gm DAILY MEAGHAN Administration Prednisone 5 mg 04/23/18 10:00 04/23/18 10:01 Deltasone - PO 04/24/18 23:59 5 mg BID MEAGHAN Administration Prednisone 2.5 mg 04/25/18 10:00 Deltasone - PO 04/26/18 23:59 BID MEAGHAN Prednisone 1 mg 04/27/18 10:00 Deltasone - PO 04/28/18 23:59 BID MEAGHAN Pyridoxine HCl 100 mg 04/21/18 10:00 04/23/18 10:13 Vitamin B6 - PO 100 mg DAILY MEAGHAN Administration Senna 2 tab 04/20/18 21:58 Senna - PO HS PRN CONSTIPATION ASSESSMENT/PLAN: 73 year old man with a history of hyperlipidemia, GERD, chronic back pain who presented to the ED with worsening back pain. 1. Lumbar spondylosis, stenosis, spondylolisthesis, OOB with TLSO brace. further management per surgery 2. Leukocytosis- repeat cbc am and trend is down 3. UTI- on zosyn day 8 of total abx. 4. Hyperlipidemia- Continue Lipitor 5. Constipation- Continue Miralax, Colace, Senna as needed Visit type - Emergency Visit Emergency Visit: Yes ED Registration Date: 04/14/18 Care time: The patient presented to the Emergency Department on the above date and was hospitalized for further evaluation of their emergent condition. - New Patient This patient is new to me today: No - Critical Care Critical Care patient: No - Discharge Referral Referred to [facility] No
--- NOTE | 2018-04-23 11:20 | PN ---
Progress Note, Physician History of Present Illness: POD#5 lumbar spinal decompression surgery with improving lower back spasms. - Current Medication List Current Medications: Active Medications Atorvastatin Calcium (Lipitor -) 20 mg PO HS [facility] Last Admin: 04/22/18 21:36 Dose: 20 mg Baclofen (Lioresal -) 10 mg PO TID [facility] Last Admin: 04/23/18 06:16 Dose: 10 mg Cholecalciferol (Vitamin D3 -) 5,000 unit PO DAILY [facility] Last Admin: 04/23/18 10:13 Dose: 5,000 unit Diazepam (Valium -) 5 mg PO Q6H PRN PRN Reason: MUSCLE SPASMS Diphenhydramine HCl (Benadryl -) 25 mg PO Q6H PRN PRN Reason: FOR ITCHING Docusate Sodium (Colace -) 100 mg PO TID [facility] Last Admin: 04/23/18 06:17 Dose: 100 mg Ferrous Sulfate (Feosol -) 325 mg PO DAILY@0800 [facility] Last Admin: 04/23/18 10:01 Dose: 325 mg Gabapentin (Neurontin -) 100 mg PO BID [facility] Last Admin: 04/23/18 10:01 Dose: 100 mg Heparin Sodium (Porcine) (Heparin -) 5,000 unit SQ TID [facility] Last Admin: 04/23/18 06:16 Dose: 5,000 unit Piperacillin Sod/Tazobactam (Sod 3.375 gm/ Dextrose) 50 mls @ 100 mls/hr IVPB Q8H-IV [facility]; Protocol Last Admin: 04/23/18 10:01 Dose: 100 mls/hr Lactobacillus Acidophilus (Bacid -) 1 tab PO DAILY [facility] Last Admin: 04/23/18 10:11 Dose: 1 tab Lidocaine (Lidoderm Patch -) 2 patch TP DAILY [facility] Last Admin: 04/23/18 10:11 Dose: 2 patch Miscellaneous (Lidoderm Patch Removal) 2 each MC DAILY@2200 [facility] Last Admin: 04/22/18 21:36 Dose: Not Given Ondansetron HCl (Zofran Injection) 4 mg IVPUSH Q6H PRN PRN Reason: NAUSEA Oxycodone HCl (Roxicodone -) 10 mg PO Q6H PRN PRN Reason: PAIN LEVEL 7 - 10 Last Admin: 04/22/18 21:45 Dose: 10 mg Pantoprazole Sodium (Protonix -) 40 mg PO DAILY [facility] Last Admin: 04/23/18 10:02 Dose: 40 mg Polyethylene Glycol (Miralax (For Daily Use) -) 17 gm PO DAILY [facility] Last Admin: 04/23/18 10:12 Dose: 17 gm Prednisone (Deltasone -) 5 mg PO BID [facility] Stop: 04/24/18 23:59 Last Admin: 04/23/18 10:01 Dose: 5 mg Prednisone (Deltasone -) 2.5 mg PO BID [facility] Stop: 04/26/18 23:59 Prednisone (Deltasone -) 1 mg PO BID [facility] Stop: 04/28/18 23:59 Pyridoxine HCl (Vitamin B6 -) 100 mg PO DAILY [facility] Last Admin: 04/23/18 10:13 Dose: 100 mg Senna (Senna -) 2 tab PO HS PRN PRN Reason: CONSTIPATION - Objective Vital Signs: Vital Signs Temperature 97.6 F 04/23/18 06:50 Pulse Rate 85 04/23/18 06:50 Respiratory Rate 20 04/23/18 06:50 Blood Pressure 120/72 04/23/18 06:50 O2 Sat by Pulse Oximetry (%) 98 04/22/18 09:00 Constitutional: Yes: No Distress, Calm Neck: Yes: Supple Cardiovascular: Yes: Regular Rate and Rhythm Respiratory: Yes: Regular, CTA Bilaterally Gastrointestinal: Yes: Normal Bowel Sounds, Soft Edema: No Labs: CBC, BMP 04/22/18 06:00 04/19/18 05:30 INR, PTT INR 1.15 (0.83-1.09) H 04/18/18 06:30 Problem List - Problems (1) Hyperlipidemia Code(s): E78.5 - HYPERLIPIDEMIA, UNSPECIFIED Qualifiers: Hyperlipidemia type: pure hypercholesterolemia Qualified Code(s): E78.00 - Pure hypercholesterolemia, unspecified; E78.0 - Pure hypercholesterolemia (2) Intractable low back pain Code(s): M54.5 - LOW BACK PAIN (3) Status post lumbar laminectomy Code(s): Z98.890 - OTHER SPECIFIED POSTPROCEDURAL STATES Assessment/Plan lumbar spine xray: extensive facet joint arthopathy, minimal anterior degenerative spondylolisthesis of L4 on L5. neural foramina stenosis at L3-L4, L4-L4, L5-S1. facet joint arthoplasty, degenerative spondylolisthesis associated with central spine canal stenosis. MRI Lumbar reveals multilevel spondylosis worst at L34 where there is moderate stenosis from ligamentum flavum and facet hypertrophy as well as a small cental bulge. L45 has a spondylolisthesis with severe stenosis and central disc bulging resulting in lateral recess compression bilaterally. 1. Lumbar spondylosis, stenosis, spondylolisthesis POD#5 for L3-5 laminectomies and posterior fusion 2. Hyperlipidemia 3. UTI P:1. Analgesia as needed, PT->rehab, TLSO brace 2. Mechanical DVT and GI prophylaxis 3. Lipitor 20 qd 4. Complete abx course per ID, wound care
--- NOTE | 2018-04-23 15:20 | PN ---
Progress Note, Physician History of Present Illness: Pt without new complaints. With some back pain with PT but not increasing. Denies dysuria. - Current Medication List Current Medications: Active Medications Atorvastatin Calcium (Lipitor -) 20 mg PO HS [facility] Last Admin: 04/22/18 21:36 Dose: 20 mg Baclofen (Lioresal -) 10 mg PO TID [facility] Last Admin: 04/23/18 14:50 Dose: 10 mg Cholecalciferol (Vitamin D3 -) 5,000 unit PO DAILY [facility] Last Admin: 04/23/18 10:13 Dose: 5,000 unit Diazepam (Valium -) 5 mg PO Q6H PRN PRN Reason: MUSCLE SPASMS Diphenhydramine HCl (Benadryl -) 25 mg PO Q6H PRN PRN Reason: FOR ITCHING Docusate Sodium (Colace -) 100 mg PO TID [facility] Last Admin: 04/23/18 14:50 Dose: 100 mg Ferrous Sulfate (Feosol -) 325 mg PO DAILY@0800 [facility] Last Admin: 04/23/18 10:01 Dose: 325 mg Gabapentin (Neurontin -) 100 mg PO BID [facility] Last Admin: 04/23/18 10:01 Dose: 100 mg Heparin Sodium (Porcine) (Heparin -) 5,000 unit SQ TID [facility] Last Admin: 04/23/18 14:51 Dose: 5,000 unit Piperacillin Sod/Tazobactam (Sod 3.375 gm/ Dextrose) 50 mls @ 100 mls/hr IVPB Q8H-IV [facility]; Protocol Last Admin: 04/23/18 10:01 Dose: 100 mls/hr Lactobacillus Acidophilus (Bacid -) 1 tab PO DAILY [facility] Last Admin: 04/23/18 10:11 Dose: 1 tab Lidocaine (Lidoderm Patch -) 2 patch TP DAILY [facility] Last Admin: 04/23/18 10:11 Dose: 2 patch Miscellaneous (Lidoderm Patch Removal) 2 each MC DAILY@2200 [facility] Last Admin: 04/22/18 21:36 Dose: Not Given Ondansetron HCl (Zofran Injection) 4 mg IVPUSH Q6H PRN PRN Reason: NAUSEA Oxycodone HCl (Roxicodone -) 10 mg PO Q6H PRN PRN Reason: PAIN LEVEL 7 - 10 Last Admin: 02/16/19 21:45 Dose: 10 mg Pantoprazole Sodium (Protonix -) 40 mg PO DAILY [facility] Last Admin: 04/23/18 10:02 Dose: 40 mg Polyethylene Glycol (Miralax (For Daily Use) -) 17 gm PO DAILY [facility] Last Admin: 04/23/18 10:12 Dose: 17 gm Prednisone (Deltasone -) 5 mg PO BID [facility] Stop: 04/24/18 23:59 Last Admin: 04/23/18 10:01 Dose: 5 mg Prednisone (Deltasone -) 2.5 mg PO BID [facility] Stop: 04/26/18 23:59 Prednisone (Deltasone -) 1 mg PO BID [facility] Stop: 04/28/18 23:59 Pyridoxine HCl (Vitamin B6 -) 100 mg PO DAILY [facility] Last Admin: 04/23/18 10:13 Dose: 100 mg Senna (Senna -) 2 tab PO HS PRN PRN Reason: CONSTIPATION - Objective Vital Signs: Vital Signs Temperature 97.6 F 04/23/18 06:50 Pulse Rate 85 04/23/18 06:50 Respiratory Rate 20 04/23/18 06:50 Blood Pressure 120/72 04/23/18 06:50 O2 Sat by Pulse Oximetry (%) 98 04/22/18 09:00 Constitutional: Yes: No Distress, Calm Cardiovascular: Yes: Regular Rate and Rhythm Respiratory: Yes: Regular Gastrointestinal: Yes: Normal Bowel Sounds, Soft, Abdomen, Obese Genitourinary: Yes: WNL Wound/Incision: Yes: Dressing Dry and Intact Neurological: Yes: Alert, Oriented Labs: CBC, BMP 04/22/18 06:00 04/19/18 05:30 INR, PTT INR 1.15 (0.83-1.09) H 04/18/18 06:30 Problem List - Problems (1) Hyperlipidemia Code(s): E78.5 - HYPERLIPIDEMIA, UNSPECIFIED Qualifiers: Hyperlipidemia type: pure hypercholesterolemia Qualified Code(s): E78.00 - Pure hypercholesterolemia, unspecified; E78.0 - Pure hypercholesterolemia (2) Intractable low back pain Code(s): M54.5 - LOW BACK PAIN (3) Status post lumbar laminectomy Code(s): Z98.890 - OTHER SPECIFIED POSTPROCEDURAL STATES Assessment/Plan Back pain s/p L3-L5 laminectomies UTI Leukocytosis - likely due to steroids -- Pt is afebrile, wbc trending down, repeat cbc in a.m. to monitor -- switch to augmentin po x 2 days -- monitor back to assess for continued healing Pt afebrile, clinically appears stable at this time
[2018-04-23] MEDS: AMOX TR/POT CLAV 875MG/125MG TABLETS (FP) PO SCH (17:52)
[2018-04-23] MEDS: oxyCODONE HCL 5 MG TABLET PO PRN (20:52)
[2018-04-23] MEDS: ATORVASTATIN CA 20 MG TABLET (FP) PO SCH (20:59)
[2018-04-23] MEDS: LIDOCAINE PATCH REMOVAL MC SCH (20:59)
[2018-04-23] MEDS: diazePAM 5 MG TABLET PO PRN (22:03)
[2018-04-24] MEDS: oxyCODONE HCL 5 MG TABLET PO PRN ×2 (03:08→13:34)
[2018-04-24] MEDS: HEPARIN NA (PORCINE) 5,000 UNITS/ML 1ML VIAL SQ SCH ×3 (06:10→21:11)
[2018-04-24] MEDS: BACLOFEN 10 MG TABLET (FP) PO SCH ×3 (06:10→21:09)
[2018-04-24] MEDS: DOCUSATE SODIUM 100 MG CAPSULE (FP) PO SCH ×3 (06:10→21:09)
[2018-04-24] MEDS: diazePAM 5 MG TABLET PO PRN (06:45)
[2018-04-24 07:20] LABS: BASO % 1.1 % (0-2.0); EOS % 2.7 % (0-4.5); HEMATOCRIT 40.7 % (35.4-49); HEMOGLOBIN 13.7 GM/dL (11.7-16.9); LYMPH % 13.8 % (8-40); MCHC 33.8 g/dl (32.0-35.9); MEAN CELL VOLUME 88.9 fl (80-96); MEAN PLT VOLUME 8.3 fl (7.5-11.1); MONO % 6.8 % (3.8-10.2); NEUT % 75.6 % (42.8-82.8); PLATELET COUNT 338 K/MM3 (134-434); RBC 4.57 M/mm3 (4.00-5.60); RDW 13.9 % (11.9-15.9); WHITE BLOOD COUNT 18.4 K/mm3 (4.0-10.0)
--- NOTE | 2018-04-24 08:27 | PN ---
Physical Exam: SUBJECTIVE: Patient seen and examined OBJECTIVE: Vital Signs Period Temp Pulse Resp BP Sys/Mccoy Pulse Ox Last 24 Hr 97.5 F-98.0 F 95-100 18-20 116-150/77-96 95 GENERAL: The patient is awake, alert, and fully oriented, in no acute distress. HEAD: Normal with no signs of trauma. EYES: PERRL, extraocular movements intact, sclera anicteric, conjunctiva clear. No ptosis. ENT: Ears normal, nares patent, oropharynx clear without exudates, moist mucous membranes. NECK: Trachea midline, full range of motion, supple. LUNGS: Breath sounds equal, clear to auscultation bilaterally, no wheezes, no crackles, no accessory muscle use. HEART: Regular rate and rhythm, S1, S2 without murmur, rub or gallop. ABDOMEN: Soft, nontender, nondistended, normoactive bowel sounds, no guarding, no rebound, no hepatosplenomegaly, no masses. EXTREMITIES: 2+ pulses, warm, well-perfused, no edema. NEUROLOGICAL: Cranial nerves II through XII grossly intact. Normal speech, gait not observed. PSYCH: Normal mood, normal affect. SKIN: Warm, dry, normal turgor, no rashes or lesions noted Laboratory Results - last 24 hr 04/24/18 06:20 WBC 18.4 H RBC 4.57 Hgb 13.7 Hct 40.7 MCV 88.9 MCH 30.0 MCHC 33.8 RDW 13.9 Plt Count 338 MPV 8.3 Absolute Neuts (auto) 13.9 H Neutrophils % 75.6 Lymphocytes % 13.8 Monocytes % 6.8 Eosinophils % 2.7 Basophils % 1.1 Nucleated RBC % 0 Active Medications Generic Name Dose Route Start Last Admin Trade Name Freq PRN Reason Stop Dose Admin Amoxicillin/Clavulanate Potassium 1 tab 04/23/18 17:30 04/23/18 17:52 Augmentin - 875mg Tablet PO 1 tab BID@0800,1730 MEAGHAN Administration Atorvastatin Calcium 20 mg 04/20/18 22:00 04/23/18 20:59 Lipitor - PO 20 mg HS MEAGHAN Administration Baclofen 10 mg 04/21/18 14:00 04/24/18 06:10 Lioresal - PO 10 mg TID MEAGHAN Administration Cholecalciferol 5,000 unit 04/21/18 10:00 04/23/18 10:13 Vitamin D3 - PO 5,000 unit DAILY MEAGHAN Administration Diazepam 5 mg 04/20/18 21:58 04/24/18 06:45 Valium - PO 5 mg Q6H PRN Administration MUSCLE SPASMS Diphenhydramine HCl 25 mg 04/20/18 21:58 Benadryl - PO Q6H PRN FOR ITCHING Docusate Sodium 100 mg 04/20/18 22:00 04/24/18 06:10 Colace - PO 100 mg TID MEAGHAN Administration Ferrous Sulfate 325 mg 04/21/18 08:00 04/23/18 10:01 Feosol - PO 325 mg DAILY@0800 MEAGHAN Administration Gabapentin 100 mg 04/20/18 22:00 04/23/18 20:59 Neurontin - PO 100 mg BID MEAGHAN Administration Heparin Sodium (Porcine) 5,000 unit 04/20/18 22:00 04/24/18 06:10 Heparin - SQ 5,000 unit TID MEAGHAN Administration Lactobacillus Acidophilus 1 tab 04/21/18 10:00 04/23/18 10:11 Bacid - PO 1 tab DAILY MEAGHAN Administration Lidocaine 2 patch 04/21/18 10:00 04/23/18 10:11 Lidoderm Patch - TP 2 patch DAILY MEAGHAN Administration Miscellaneous 2 each 04/20/18 22:00 04/23/18 20:59 Lidoderm Patch Removal MC 2 each DAILY@2200 MEAGHAN Administration Ondansetron HCl 4 mg 04/20/18 21:58 Zofran Injection IVPUSH Q6H PRN NAUSEA Oxycodone HCl 10 mg 04/20/18 21:58 04/24/18 03:08 Roxicodone - PO 10 mg Q6H PRN Administration PAIN LEVEL 7 - 10 Pantoprazole Sodium 40 mg 04/21/18 10:00 04/23/18 10:02 Protonix - PO 40 mg DAILY MEAGHAN Administration Polyethylene Glycol 17 gm 04/21/18 10:00 04/23/18 10:12 Miralax (For Daily Use) - PO 17 gm DAILY MEAGHAN Administration Prednisone 5 mg 04/23/18 10:00 04/23/18 21:01 Deltasone - PO 04/24/18 23:59 5 mg BID MEAGHAN Administration Prednisone 2.5 mg 04/25/18 10:00 Deltasone - PO 04/26/18 23:59 BID MEAGHAN Prednisone 1 mg 04/27/18 10:00 Deltasone - PO 04/28/18 23:59 BID MEAGHAN Pyridoxine HCl 100 mg 04/21/18 10:00 04/23/18 10:13 Vitamin B6 - PO 100 mg DAILY MEAGHAN Administration Senna 2 tab 04/20/18 21:58 Senna - PO HS PRN CONSTIPATION ASSESSMENT/PLAN Back pain s/p L3-L5 laminectomies:still has severe pain, drain in place, been evaluated by neurosurgery daily, is on prednisone taper pain management: Will increase the Gabapentine dose to 300 TID, C/W lidocaine patch Will C/W oxycodone( changed to SR) C/W baclofen c/w [id number] prn Constipation: has improved with bowel regimen, C/W senna, Mirralax UTI: Has no urinary complaints at this time, will C/W po augmentin at this time Leukocytosis: likely due to steroids,as he is afebrile and looks good other than the pain complaints. Encouraged to use the incentive spirometer more often -- Pt is afebrile, WBC was initially trending down but has increased today again. -- Was evaluated by ID today and plan for continuation of the Augmentin -- per neurosurgery wound is clean and no sign of infection -- UA sent today, will send CXR for atelectasia. Dispo: patient is in severe pain with limited ET will likely need TRACI. Diet: cardiac DVT ppx: heparin SQ Visit type - Emergency Visit Emergency Visit: Yes ED Registration Date: 04/14/18 Care time: The patient presented to the Emergency Department on the above date and was hospitalized for further evaluation of their emergent condition. - New Patient This patient is new to me today: No - Critical Care Critical Care patient: No - Discharge Referral Referred to [facility] No
--- NOTE | 2018-04-24 09:34 | PN ---
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 - Current Medication List Current Medications: Active Medications Amoxicillin/Clavulanate Potassium (Augmentin - 875mg Tablet) 1 tab PO BID@0800, 1730 [facility] Last Admin: 04/23/18 17:52 Dose: 1 tab Atorvastatin Calcium (Lipitor -) 20 mg PO HS [facility] Last Admin: 04/23/18 20:59 Dose: 20 mg Baclofen (Lioresal -) 10 mg PO TID [facility] Last Admin: 04/24/18 06:10 Dose: 10 mg Cholecalciferol (Vitamin D3 -) 5,000 unit PO DAILY [facility] Last Admin: 04/23/18 10:13 Dose: 5,000 unit Diazepam (Valium -) 5 mg PO Q6H PRN PRN Reason: MUSCLE SPASMS Last Admin: 04/24/18 06:45 Dose: 5 mg Diphenhydramine HCl (Benadryl -) 25 mg PO Q6H PRN PRN Reason: FOR ITCHING Docusate Sodium (Colace -) 100 mg PO TID [facility] Last Admin: 04/24/18 06:10 Dose: 100 mg Ferrous Sulfate (Feosol -) 325 mg PO DAILY@0800 [facility] Last Admin: 04/23/18 10:01 Dose: 325 mg Gabapentin (Neurontin -) 100 mg PO BID [facility] Last Admin: 04/23/18 20:59 Dose: 100 mg Heparin Sodium (Porcine) (Heparin -) 5,000 unit SQ TID [facility] Last Admin: 04/24/18 06:10 Dose: 5,000 unit Lactobacillus Acidophilus (Bacid -) 1 tab PO DAILY [facility] Last Admin: 04/23/18 10:11 Dose: 1 tab Lidocaine (Lidoderm Patch -) 2 patch TP DAILY [facility] Last Admin: 04/23/18 10:11 Dose: 2 patch Miscellaneous (Lidoderm Patch Removal) 2 each MC DAILY@2200 [facility] Last Admin: 04/23/18 20:59 Dose: 2 each Ondansetron HCl (Zofran Injection) 4 mg IVPUSH Q6H PRN PRN Reason: NAUSEA Oxycodone HCl (Roxicodone -) 10 mg PO Q6H PRN PRN Reason: PAIN LEVEL 7 - 10 Last Admin: 04/24/18 03:08 Dose: 10 mg Pantoprazole Sodium (Protonix -) 40 mg PO DAILY [facility] Last Admin: 04/23/18 10:02 Dose: 40 mg Polyethylene Glycol (Miralax (For Daily Use) -) 17 gm PO DAILY [facility] Last Admin: 04/23/18 10:12 Dose: 17 gm Prednisone (Deltasone -) 5 mg PO BID [facility] Stop: 04/24/18 23:59 Last Admin: 04/23/18 21:01 Dose: 5 mg Prednisone (Deltasone -) 2.5 mg PO BID [facility] Stop: 04/26/18 23:59 Prednisone (Deltasone -) 1 mg PO BID [facility] Stop: 04/28/18 23:59 Pyridoxine HCl (Vitamin B6 -) 100 mg PO DAILY [facility] Last Admin: 04/23/18 10:13 Dose: 100 mg Senna (Senna -) 2 tab PO HS PRN PRN Reason: CONSTIPATION - Objective Vital Signs: Vital Signs Temperature 97.6 F 04/24/18 03:14 Pulse Rate 95 H 04/24/18 03:14 Respiratory Rate 20 04/24/18 03:14 Blood Pressure 150/96 04/24/18 03:14 O2 Sat by Pulse Oximetry (%) 95 04/23/18 21:45 Constitutional: Yes: Calm, Mild Distress Cardiovascular: Yes: S1, S2 Respiratory: Yes: Regular, CTA Bilaterally Gastrointestinal: Yes: Normal Bowel Sounds, Soft Musculoskeletal: Yes: Back Pain Extremities: Yes: WNL Integumentary: Yes: WNL Wound/Incision: Yes: Dressing Dry and Intact, Other (drain --still with quite a bit of drain) Neurological: Yes: Alert, Oriented Psychiatric: Yes: Alert, Oriented Labs: CBC, BMP 04/24/18 06:20 04/19/18 05:30 INR, PTT INR 1.15 (0.83-1.09) H 04/18/18 06:30 Assessment/Plan Problem List - Problems (1) Hyperlipidemia Code(s): E78.5 - HYPERLIPIDEMIA, UNSPECIFIED Qualifiers: Hyperlipidemia type: pure hypercholesterolemia Qualified Code(s): E78.00 - Pure hypercholesterolemia, unspecified; E78.0 - Pure hypercholesterolemia (2) Intractable low back pain Code(s): M54.5 - LOW BACK PAIN (3) Status post lumbar laminectomy Code(s): Z98.890 - OTHER SPECIFIED POSTPROCEDURAL STATES uti plan continue abx wbc has jumped up wound needs to be evaluated will d/w surgical team rest as per the team might need repeat imaging
[2018-04-24 09:45] LABS: ANION GAP 11 MMOL/L (8-16); BLOOD UREA NITROGEN 26 mg/dL (7-18); CALCIUM 9.1 mg/dL (8.5-10.1); CHLORIDE 100 mmol/L (98-107); CO2 24 mmol/L (21-32); CREATININE 0.9 mg/dL (0.55-1.3); GLUCOSE,RANDOM 134 mg/dL (74-106); POTASSIUM 4.5 mmol/L (3.5-5.1); SODIUM 135 mmol/L (136-145)
[2018-04-24] MEDS: AMOX TR/POT CLAV 875MG/125MG TABLETS (FP) PO SCH ×2 (10:04→18:09)
[2018-04-24] MEDS: FERROUS SO4 325 MG TABLET (FP) PO SCH (10:05)
[2018-04-24] MEDS: PANTOPRAZOLE 40 MG TABLET (FP) PO SCH (10:09)
[2018-04-24] MEDS: GABAPENTIN 100 MG CAPSULE (FP) PO SCH (10:09)
[2018-04-24] MEDS: LACTOBACILLUS ACIDOPHILUS 1 TABLET PO SCH (10:09)
[2018-04-24] MEDS: predniSONE 5 MG TABLET (UD) PO SCH ×2 (10:10→21:11)
[2018-04-24] MEDS: PYRIDOXINE HCL (B-6) 50 MG TABLET (FP) PO SCH (10:11)
[2018-04-24] MEDS: CHOLECALCIFEROL (VITAMIN D3) 1,000 UNIT TABLET (FP) PO SCH (10:11)
[2018-04-24] MEDS: LIDOCAINE 5% TOPICAL PATCH TP SCH (10:12)
[2018-04-24] MEDS: POLYETHYLENE GLYCOL 3350 119 GM BTL PO SCH (10:12)
--- NOTE | 2018-04-24 10:40 | PN ---
Progress Note (short form) - Note Progress Note: POD#6 PT states that he is moving a couple of steps with PT. No pain or tingling in his lower extremities. Voiding without difficulty. had a bowel movement. 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 No headaches. Vital Signs Period Temp Pulse Resp BP Sys/Mccoy Pulse Ox Last 24 Hr 97.5 F-98.0 F 95-100 18-20 116-150/77-96 95 JENNA-approximatley 200 ml clear GEN: A&0x3, NAD sitting upright eating breakfast CV: RRR Lungs: CTA b/l ABD: soft, non-distended, non-tender Back: [place] midline, skin edges intact without any ischemia, erythema or drainage noted. Incision/wound flat. Dermabond reappplied. LE: 5/5 dorsi/plantar flexion. No calf tenderness or swelling noted. CBC, BMP 04/24/ 06:20 04/24/18 06:20 Microbiology 04/21/18 10:38 Urine - Urine Clean Catch Urine Culture - Final NO GROWTH OBTAINED 04/13/18 22:30 Urine - Urine Clean Catch Urine Culture - Final Enterococcus Faecalis CXR: Pening A/p: 73 yo male s/p L3-L5 laminectomies, decompression with interbody cages at L34 and L45, Posterior fusion with pedicle screws and rods. Changed to oral antibiotics, amoxicillin. CXR pending, Incentive spirometer Prednisone ejnnifer Pt afebrile with leukycytosis, wound without any evidence of infection. Oral antibiocs as per ID. Physical therapy as tolerated, OOB with assistance, TLSO brace. Working on placement to rehab. D/w Dr. Witt and Dr. Martin covering for Dr. Witt.
[2018-04-24 10:55] LABS: INR 1.2 (0.83-1.09); PROTHROMBIN TIME (PATIENT) 14.2 SEC (9.7-13.0)
[2018-04-24 11:24] LABS: PLATELET ESTIMATE ADEQUATE
--- NOTE | 2018-04-24 13:37 | PN ---
Physical Exam: SUBJECTIVE: Patient seen and examined, He states that with every little movement he develops severe pain, he has had 1 BM yesterday. He has no other complaints at this time OBJECTIVE: Vital Signs Period Temp Pulse Resp BP Sys/Mccoy Pulse Ox Last 24 Hr 97.5 F-98.8 F 72-100 18-20 116-150/61-96 95 GENERAL: The patient is awake, alert, and fully oriented, in no acute distress. but when moves has severe pain HEAD: Normal with no signs of trauma. EYES: PERRL, extraocular movements intact, sclera anicteric, conjunctiva clear. No ptosis. ENT: Ears normal, nares patent, oropharynx clear without exudates, moist mucous membranes. NECK: Trachea midline, full range of motion, supple. LUNGS: Breath sounds equal, clear to auscultation bilaterally, no wheezes, no crackles, no accessory muscle use. HEART: Regular rate and rhythm, S1, S2 without murmur, rub or gallop. ABDOMEN: Soft, nontender, nondistended, normoactive bowel sounds, no guarding, no rebound, no hepatosplenomegaly, no masses. EXTREMITIES: 2+ pulses, warm, well-perfused, no edema. NEUROLOGICAL: Cranial nerves II through XII grossly intact. Normal speech, gait not observed. has no erythema and no point tenderness in the back. PSYCH: Normal mood, normal affect. SKIN: Warm, dry, normal turgor, no rashes or lesions noted Laboratory Results - last 24 hr 04/24/18 04/24/18 04/24/18 06:20 06:20 10:03 WBC 18.4 H RBC 4.57 Hgb 13.7 Hct 40.7 MCV 88.9 MCH 30.0 MCHC 33.8 RDW 13.9 Plt Count 338 MPV 8.3 Absolute Neuts (auto) 13.9 H Neutrophils % 75.6 Neutrophils % (Manual) 74.2 Band Neutrophils % 2.0 Lymphocytes % 13.8 Lymphocytes % (Manual) 12.9 Monocytes % 6.8 Monocytes % (Manual) 5 Eosinophils % 2.7 Eosinophils % (Manual) 1.0 Basophils % 1.1 Basophils % (Manual) 0.0 Myelocytes % (Man) 1 D Promyelocytes % (Man) 0 Blast Cells % (Manual) 0 Nucleated RBC % 0 Metamyelocytes 0 D Platelet Estimate Adequate Platelet Comment Large platelets PT with INR 14.20 H INR 1.20 H Sodium 135 L Potassium 4.5 Chloride 100 Carbon Dioxide 24 Anion Gap 11 BUN 26 H Creatinine 0.9 Creat Clearance w eGFR > 60 Random Glucose 134 H Calcium 9.1 Active Medications Generic Name Dose Route Start Last Admin Trade Name Freq PRN Reason Stop Dose Admin Amoxicillin/Clavulanate Potassium 1 tab 04/23/18 17:30 04/24/18 10:04 Augmentin - 875mg Tablet PO 1 tab BID@0800,1730 MEAGHAN Administration Atorvastatin Calcium 20 mg 04/20/18 22:00 04/23/18 20:59 Lipitor - PO 20 mg HS MEAGHAN Administration Baclofen 10 mg 04/21/18 14:00 04/24/18 06:10 Lioresal - PO 10 mg TID MEAGHAN Administration Cholecalciferol 5,000 unit 04/21/18 10:00 04/24/18 10:11 Vitamin D3 - PO 5,000 unit DAILY MEAGHAN Administration Diazepam 5 mg 04/20/18 21:58 04/24/18 06:45 Valium - PO 5 mg Q6H PRN Administration MUSCLE SPASMS Diphenhydramine HCl 25 mg 04/20/18 21:58 Benadryl - PO Q6H PRN FOR ITCHING Docusate Sodium 100 mg 04/20/18 22:00 04/24/18 06:10 Colace - PO 100 mg TID MEAGHAN Administration Ferrous Sulfate 325 mg 04/21/18 08:00 04/24/18 10:05 Feosol - PO 325 mg DAILY@0800 MEAGHAN Administration Gabapentin 100 mg 04/20/18 22:00 04/24/18 10:09 Neurontin - PO 100 mg BID MEAGHAN Administration Heparin Sodium (Porcine) 5,000 unit 04/20/18 22:00 04/24/18 06:10 Heparin - SQ 5,000 unit TID MEAGHAN Administration Lactobacillus Acidophilus 1 tab 04/21/18 10:00 04/24/18 10:09 Bacid - PO 1 tab DAILY MEAGHAN Administration Lidocaine 2 patch 04/21/18 10:00 04/24/18 10:12 Lidoderm Patch - TP 2 patch DAILY MEAGHAN Administration Miscellaneous 2 each 04/20/18 22:00 04/23/18 20:59 Lidoderm Patch Removal MC 2 each DAILY@2200 MEAGHAN Administration Ondansetron HCl 4 mg 04/20/18 21:58 Zofran Injection IVPUSH Q6H PRN NAUSEA Oxycodone HCl 10 mg 04/20/18 21:58 04/24/18 03:08 Roxicodone - PO 10 mg Q6H PRN Administration PAIN LEVEL 7 - 10 Pantoprazole Sodium 40 mg 04/21/18 10:00 04/24/18 10:09 Protonix - PO 40 mg DAILY MEAGHAN Administration Polyethylene Glycol 17 gm 04/21/18 10:00 04/24/18 10:12 Miralax (For Daily Use) - PO 17 gm DAILY MEAGHAN Administration Prednisone 5 mg 04/23/18 10:00 04/24/18 10:10 Deltasone - PO 04/24/18 23:59 5 mg BID MEAGHAN Administration Prednisone 2.5 mg 04/25/18 10:00 Deltasone - PO 04/26/18 23:59 BID MEAGHAN Prednisone 1 mg 04/27/18 10:00 Deltasone - PO 04/28/18 23:59 BID MEAGHAN Pyridoxine HCl 100 mg 04/21/18 10:00 04/24/18 10:11 Vitamin B6 - PO 100 mg DAILY MEAGHAN Administration Senna 2 tab 04/20/18 21:58 Senna - PO HS PRN CONSTIPATION ASSESSMENT/PLAN: He is a
[2018-04-24] MEDS ORDERED: oxyCODONE HCL 10 MG SUSTAINED ACTING TABLET PO STA (13:50)
[2018-04-24] MEDS: GABAPENTIN 300 MG CAPSULE (FP) PO SCH ×2 (14:18→21:09)
--- NOTE | 2018-04-24 15:04 | PN ---
Progress Note, Physician History of Present Illness: POD#6 lumbar spinal decompression surgery with improving lower back spasms, tolerating PT. - Current Medication List Current Medications: Active Medications Amoxicillin/Clavulanate Potassium (Augmentin - 875mg Tablet) 1 tab PO BID@0800, 1730 [facility] Last Admin: 04/24/18 10:04 Dose: 1 tab Atorvastatin Calcium (Lipitor -) 20 mg PO HS [facility] Last Admin: 04/23/18 20:59 Dose: 20 mg Baclofen (Lioresal -) 10 mg PO TID [facility] Last Admin: 04/24/18 13:35 Dose: 10 mg Cholecalciferol (Vitamin D3 -) 5,000 unit PO DAILY [facility] Last Admin: 04/24/18 10:11 Dose: 5,000 unit Diazepam (Valium -) 5 mg PO Q6H PRN PRN Reason: MUSCLE SPASMS Last Admin: 04/24/18 06:45 Dose: 5 mg Diphenhydramine HCl (Benadryl -) 25 mg PO Q6H PRN PRN Reason: FOR ITCHING Docusate Sodium (Colace -) 100 mg PO TID [facility] Last Admin: 04/24/18 13:35 Dose: 100 mg Ferrous Sulfate (Feosol -) 325 mg PO DAILY@0800 [facility] Last Admin: 04/24/18 10:05 Dose: 325 mg Gabapentin (Neurontin -) 300 mg PO TID [facility] Last Admin: 04/24/18 14:18 Dose: 300 mg Heparin Sodium (Porcine) (Heparin -) 5,000 unit SQ TID [facility] Last Admin: 04/24/18 13:35 Dose: 5,000 unit Lactobacillus Acidophilus (Bacid -) 1 tab PO DAILY [facility] Last Admin: 04/24/18 10:09 Dose: 1 tab Lidocaine (Lidoderm Patch -) 2 patch TP DAILY [facility] Last Admin: 04/24/18 10:12 Dose: 2 patch Miscellaneous (Lidoderm Patch Removal) 2 each MC DAILY@2200 [facility] Last Admin: 04/23/18 20:59 Dose: 2 each Ondansetron HCl (Zofran Injection) 4 mg IVPUSH Q6H PRN PRN Reason: NAUSEA Oxycodone HCl (Oxycontin -) 10 mg PO BID [facility] Pantoprazole Sodium (Protonix -) 40 mg PO DAILY [facility] Last Admin: 04/24/18 10:09 Dose: 40 mg Polyethylene Glycol (Miralax (For Daily Use) -) 17 gm PO DAILY [facility] Last Admin: 04/24/18 10:12 Dose: 17 gm Prednisone (Deltasone -) 5 mg PO BID [facility] Stop: 04/24/18 23:59 Last Admin: 04/24/18 10:10 Dose: 5 mg Prednisone (Deltasone -) 2.5 mg PO BID [facility] Stop: 04/26/18 23:59 Prednisone (Deltasone -) 1 mg PO BID [facility] Stop: 04/28/18 23:59 Pyridoxine HCl (Vitamin B6 -) 100 mg PO DAILY [facility] Last Admin: 04/24/18 10:11 Dose: 100 mg Senna (Senna -) 2 tab PO HS PRN PRN Reason: CONSTIPATION - Objective Vital Signs: Vital Signs Temperature 98.8 F 04/24/18 10:00 Pulse Rate 72 04/24/18 10:00 Respiratory Rate 18 04/24/18 10:00 Blood Pressure 125/61 04/24/18 10:00 O2 Sat by Pulse Oximetry (%) 95 04/23/18 21:45 Constitutional: Yes: No Distress, Calm Neck: Yes: Supple Cardiovascular: Yes: Regular Rate and Rhythm Respiratory: Yes: Regular, Diminished Gastrointestinal: Yes: Normal Bowel Sounds, Soft Edema: No Labs: CBC, BMP 04/24/18 06:20 04/24/18 06:20 INR, PTT INR 1.20 (0.83-1.09) H 04/24/18 10:03 Problem List - Problems (1) Hyperlipidemia Code(s): E78.5 - HYPERLIPIDEMIA, UNSPECIFIED Qualifiers: Hyperlipidemia type: pure hypercholesterolemia Qualified Code(s): E78.00 - Pure hypercholesterolemia, unspecified; E78.0 - Pure hypercholesterolemia (2) Intractable low back pain Code(s): M54.5 - LOW BACK PAIN (3) Status post lumbar laminectomy Code(s): Z98.890 - OTHER SPECIFIED POSTPROCEDURAL STATES Assessment/Plan lumbar spine xray: extensive facet joint arthopathy, minimal anterior degenerative spondylolisthesis of L4 on L5. neural foramina stenosis at L3-L4, L4-L4, L5-S1. facet joint arthoplasty, degenerative spondylolisthesis associated with central spine canal stenosis. MRI Lumbar reveals multilevel spondylosis worst at L34 where there is moderate stenosis from ligamentum flavum and facet hypertrophy as well as a small cental bulge. L45 has a spondylolisthesis with severe stenosis and central disc bulging resulting in lateral recess compression bilaterally. 1. Lumbar spondylosis, stenosis, spondylolisthesis POD#6 for L3-5 laminectomies and posterior fusion 2. Hyperlipidemia 3. UTI P:1. Analgesia as needed, PT->rehab, TLSO brace 2. Mechanical DVT and prednisone taper with GI prophylaxis 3. Lipitor 20 qd 4. Complete abx course per ID, wound care
[2018-04-24 16:56] LABS: URINE APPEARANCE SLCLOUDY; URINE BILIRUBIN NEGATIVE (<2.0 mg/dL); URINE COLOR YELLOW; URINE GLUCOSE (UA) NEGATIVE (NEGATIVE); URINE KETONE NEGATIVE (NEGATIVE); URINE LEUK ESTERASE NEGATIVE (NEGATIVE); URINE NITRITE NEGATIVE (NEGATIVE); URINE PROTEIN NEGATIVE (NEGATIVE); URINE UROBILINOGEN 4.0 E.U/dl mg/dL (0.2-1.0)
[2018-04-24] MEDS ORDERED: PT OWN MED DRAWER 7, Y5N ONE (18:07)
[2018-04-24] MEDS: ATORVASTATIN CA 20 MG TABLET (FP) PO SCH (21:09)
[2018-04-24] MEDS: oxyCODONE HCL 10 MG SUSTAINED ACTING TABLET PO SCH (21:10)
[2018-04-24] MEDS: LIDOCAINE PATCH REMOVAL MC SCH (21:20)
[2018-04-25] MEDS: DOCUSATE SODIUM 100 MG CAPSULE (FP) PO SCH ×3 (06:11→21:15)
[2018-04-25] MEDS: HEPARIN NA (PORCINE) 5,000 UNITS/ML 1ML VIAL SQ SCH ×3 (06:11→21:15)
[2018-04-25] MEDS: BACLOFEN 10 MG TABLET (FP) PO SCH ×3 (06:11→21:15)
[2018-04-25] MEDS: GABAPENTIN 300 MG CAPSULE (FP) PO SCH ×3 (06:11→21:15)
[2018-04-25] MEDS: diazePAM 5 MG TABLET PO PRN (06:19)
[2018-04-25] MEDS ORDERED: predniSONE 2.5 MG TABLET PO SCH (10:00)
[2018-04-25] MEDS: LIDOCAINE 5% TOPICAL PATCH TP SCH (10:24)
[2018-04-25] MEDS: AMOX TR/POT CLAV 875MG/125MG TABLETS (FP) PO SCH ×2 (10:27→17:53)
[2018-04-25] MEDS: LACTOBACILLUS ACIDOPHILUS 1 TABLET PO SCH (10:27)
[2018-04-25] MEDS: PANTOPRAZOLE 40 MG TABLET (FP) PO SCH (10:27)
[2018-04-25] MEDS: FERROUS SO4 325 MG TABLET (FP) PO SCH (10:27)
[2018-04-25] MEDS: CHOLECALCIFEROL (VITAMIN D3) 1,000 UNIT TABLET (FP) PO SCH (10:28)
[2018-04-25] MEDS: PYRIDOXINE HCL (B-6) 50 MG TABLET (FP) PO SCH (10:28)
[2018-04-25] MEDS: POLYETHYLENE GLYCOL 3350 119 GM BTL PO SCH (10:29)
[2018-04-25] MEDS: oxyCODONE HCL 10 MG SUSTAINED ACTING TABLET PO SCH ×2 (10:29→21:16)
[2018-04-25] MEDS: predniSONE 5 MG TABLET (UD) PO SCH ×2 (10:52→21:15)
--- NOTE | 2018-04-25 12:18 | PN ---
Progress Note, Physician - Current Medication List Current Medications: Active Medications Amoxicillin/Clavulanate Potassium (Augmentin - 875mg Tablet) 1 tab PO BID@0800, 1730 [facility] Last Admin: 04/25/18 10:27 Dose: 1 tab Atorvastatin Calcium (Lipitor -) 20 mg PO HS [facility] Last Admin: 04/24/18 21:09 Dose: 20 mg Baclofen (Lioresal -) 10 mg PO TID [facility] Last Admin: 04/25/18 06:11 Dose: 10 mg Cholecalciferol (Vitamin D3 -) 5,000 unit PO DAILY [facility] Last Admin: 04/25/18 10:28 Dose: 5,000 unit Diazepam (Valium -) 5 mg PO Q6H PRN PRN Reason: MUSCLE SPASMS Last Admin: 04/25/18 06:19 Dose: 5 mg Diphenhydramine HCl (Benadryl -) 25 mg PO Q6H PRN PRN Reason: FOR ITCHING Docusate Sodium (Colace -) 100 mg PO TID [facility] Last Admin: 04/25/18 06:11 Dose: 100 mg Ferrous Sulfate (Feosol -) 325 mg PO DAILY@0800 [facility] Last Admin: 04/25/18 10:27 Dose: 325 mg Gabapentin (Neurontin -) 300 mg PO TID [facility] Last Admin: 04/25/18 06:11 Dose: 300 mg Heparin Sodium (Porcine) (Heparin -) 5,000 unit SQ TID [facility] Last Admin: 04/25/18 06:11 Dose: 5,000 unit Lactobacillus Acidophilus (Bacid -) 1 tab PO DAILY [facility] Last Admin: 04/25/18 10:27 Dose: 1 tab Lidocaine (Lidoderm Patch -) 2 patch TP DAILY [facility] Last Admin: 04/25/18 10:24 Dose: 2 patch Miscellaneous (Lidoderm Patch Removal) 2 each MC DAILY@2200 [facility] Last Admin: 04/24/18 21:20 Dose: 2 each Ondansetron HCl (Zofran Injection) 4 mg IVPUSH Q6H PRN PRN Reason: NAUSEA Oxycodone HCl (Oxycontin -) 10 mg PO BID [facility] Last Admin: 04/25/18 10:29 Dose: 10 mg Pantoprazole Sodium (Protonix -) 40 mg PO DAILY [facility] Last Admin: 04/25/18 10:27 Dose: 40 mg Polyethylene Glycol (Miralax (For Daily Use) -) 17 gm PO DAILY [facility] Last Admin: 04/25/18 10:29 Dose: 17 gm Prednisone (Deltasone -) 2.5 mg PO BID [facility] Stop: 04/26/18 23:59 Last Admin: 04/25/18 10:52 Dose: 2.5 mg Prednisone (Deltasone -) 1 mg PO BID [facility] Stop: 04/28/18 23:59 Pyridoxine HCl (Vitamin B6 -) 100 mg PO DAILY [facility] Last Admin: 04/25/18 10:28 Dose: 100 mg Senna (Senna -) 2 tab PO HS PRN PRN Reason: CONSTIPATION - Objective Vital Signs: Vital Signs Temperature 98.8 F 04/25/18 06:00 Pulse Rate 94 H 04/25/18 06:00 Respiratory Rate 20 04/25/18 06:00 Blood Pressure 112/67 04/25/18 06:00 O2 Sat by Pulse Oximetry (%) 95 04/23/18 21:45 Labs: CBC, BMP 04/24/18 06:20 04/24/18 06:20 INR, PTT INR 1.20 (0.83-1.09) H 04/24/18 10:03
[2018-04-25] MEDS ORDERED: oxyCODONE HCL 5 MG TABLET PO PRN (12:32)
--- NOTE | 2018-04-25 15:30 | PN ---
Physical Exam: SUBJECTIVE: Patient seen and examined at the bedside. feels some pain, but controlled with pain meds. OBJECTIVE: Vital Signs Period Temp Pulse Resp BP Sys/Mccoy Pulse Ox Last 24 Hr 98.1 F-98.8 F 87-94 18-20 112-129/67-87 GENERAL: Awake, alert, and fully oriented, in no acute distress. HEAD: Normal with no signs of trauma. EYES: Pupils equal, round and reactive to light, extraocular movements intact, sclera anicteric, conjunctiva clear. No lid lag. EARS, NOSE, THROAT: Ears normal, nares patent, oropharynx clear without exudates. Moist mucous membranes. NECK: Normal range of motion, supple without lymphadenopathy, JVD, or masses. LUNGS: Breath sounds equal, clear to auscultation bilaterally. No wheezes, and no crackles. No accessory muscle use. HEART: Regular rate and rhythm ABDOMEN: Soft, nontender, not distended, normoactive bowel sounds, no guarding, no rebound, no masses. No hepatomegaly or splenomegaly. MUSCULOSKELETAL: No CVA tenderness. UPPER EXTREMITIES: No peripheral edema. LOWER EXTREMITIES: No peripheral edema. NEUROLOGICAL: Normal speech. bed bound secondary to back pain. PSYCHIATRIC: Cooperative. Good eye contact. Appropriate mood and affect. SKIN: surgical dressing posterior back Laboratory Results - last 24 hr 04/24/18 15:32 Urine Color Yellow Urine Appearance Slcloudy Urine pH 5.0 Ur Specific [place] 1.019 Urine Protein Negative Urine Glucose (UA) Negative Urine Ketones Negative Urine Blood Negative Urine Nitrite Negative Urine Bilirubin Negative Urine Urobilinogen 4.0 e.u/dl Ur Leukocyte Esterase Negative Active Medications Generic Name Dose Route Start Last Admin Trade Name Freq PRN Reason Stop Dose Admin Amoxicillin/Clavulanate Potassium 1 tab 04/23/18 17:30 04/25/18 10:27 Augmentin - 875mg Tablet PO 1 tab BID@0800,1730 MEAGHAN Administration Atorvastatin Calcium 20 mg 04/20/18 22:00 04/24/18 21:09 Lipitor - PO 20 mg HS MEAGHAN Administration Baclofen 10 mg 04/21/18 14:00 04/25/18 14:22 Lioresal - PO 10 mg TID MEAGHAN Administration Cholecalciferol 5,000 unit 04/21/18 10:00 04/25/18 10:28 Vitamin D3 - PO 5,000 unit DAILY MEAGHAN Administration Diazepam 5 mg 04/20/18 21:58 04/25/18 06:19 Valium - PO 5 mg Q6H PRN Administration MUSCLE SPASMS Diphenhydramine HCl 25 mg 04/20/18 21:58 Benadryl - PO Q6H PRN FOR ITCHING Docusate Sodium 100 mg 04/20/18 22:00 04/25/18 14:23 Colace - PO 100 mg TID MEAGHAN Administration Ferrous Sulfate 325 mg 04/21/18 08:00 04/25/18 10:27 Feosol - PO 325 mg DAILY@0800 MEAGHAN Administration Gabapentin 300 mg 04/24/18 14:00 04/25/18 14:22 Neurontin - PO 300 mg TID MEAGHAN Administration Heparin Sodium (Porcine) 5,000 unit 04/20/18 22:00 04/25/18 14:23 Heparin - SQ 5,000 unit TID MEAGHAN Administration Lactobacillus Acidophilus 1 tab 04/21/18 10:00 04/25/18 10:27 Bacid - PO 1 tab DAILY MEAGHAN Administration Lidocaine 2 patch 04/21/18 10:00 04/25/18 10:24 Lidoderm Patch - TP 2 patch DAILY MEAGHAN Administration Miscellaneous 2 each 04/20/18 22:00 04/24/18 21:20 Lidoderm Patch Removal MC 2 each DAILY@2200 MEAGHAN Administration Ondansetron HCl 4 mg 04/20/18 21:58 Zofran Injection IVPUSH Q6H PRN NAUSEA Oxycodone HCl 10 mg 04/24/18 22:00 04/25/18 10:29 Oxycontin - PO 10 mg BID MEAGHAN Administration Oxycodone HCl 5 mg 04/25/18 12:32 Roxicodone - PO Q6H PRN PAIN LEVEL 7 - 10 Pantoprazole Sodium 40 mg 04/21/18 10:00 04/25/18 10:27 Protonix - PO 40 mg DAILY MEAGHAN Administration Polyethylene Glycol 17 gm 04/21/18 10:00 04/25/18 10:29 Miralax (For Daily Use) - PO 17 gm DAILY MEAGHAN Administration Prednisone 2.5 mg 04/25/18 10:00 04/25/18 10:52 Deltasone - PO 04/26/18 23:59 2.5 mg BID MEAGHAN Administration Prednisone 1 mg 04/27/18 10:00 Deltasone - PO 04/28/18 23:59 BID MEAGHAN Pyridoxine HCl 100 mg 04/21/18 10:00 04/25/18 10:28 Vitamin B6 - PO 100 mg DAILY MEAGHAN Administration Senna 2 tab 04/20/18 21:58 Senna - PO HS PRN CONSTIPATION ASSESSMENT/PLAN: Mr. Chang is a 73 year old male with a significant past medical history of hyperlipidemia, herniated discs 2003, GERD with polyps, bilateral cataracts with cataract extraction of the right eye with IDL implant (2014) and cataract extraction of the left eye with lens implant (2017). He comes to the ER for evaluation of severe back pain and inability to ambulate. Surgery: Back pain s/p L3-L5 laminectomies:still has severe pain, drain in place, been evaluated by neurosurgery daily, is on prednisone taper pain management: gabapentin, lidocaine, oxycodone sr and oxy 5 for breakthrough , baclofen, diazepam. Constipation: on senna, miralax continue physical therapy, for rehab placement. UTI: Has no urinary complaints at this time, will continue PO augmentin at this time. ID: Patient is afebrile but WBC was trending up, remains afebrile. ID following. continue the Augmentin. Card: Hyperlipidemia. continue statin therapy. GI: Gerd. on protonix. fen toleraiting po monitor electrolytes low salt diet prophy heparin Visit type - Emergency Visit Emergency Visit: Yes ED Registration Date: 04/14/18 Care time: The patient presented to the Emergency Department on the above date and was hospitalized for further evaluation of their emergent condition. - New Patient This patient is new to me today: No - Critical Care Critical Care patient: No - Discharge Referral Referred to [facility] Med P.C.: No
[2018-04-25 21:01] LABS: BASO % 0.5 % (0-2.0); EOS % 1.7 % (0-4.5); HEMATOCRIT 38.6 % (35.4-49); HEMOGLOBIN 13.2 GM/dL (11.7-16.9); LYMPH % 10.1 % (8-40); MCH 30.5 pg (25.7-33.7); MCHC 34.2 g/dl (32.0-35.9); MEAN CELL VOLUME 89.2 fl (80-96); MEAN PLT VOLUME 8.6 fl (7.5-11.1); MONO % 6.1 % (3.8-10.2); NEUT % 81.6 % (42.8-82.8); PLATELET COUNT 380 K/MM3 (134-434); RBC 4.33 M/mm3 (4.00-5.60); RDW 14.1 % (11.9-15.9); WHITE BLOOD COUNT 20.9 K/mm3 (4.0-10.0)
[2018-04-25] MEDS: ATORVASTATIN CA 20 MG TABLET (FP) PO SCH (21:15)
[2018-04-25] MEDS: LIDOCAINE PATCH REMOVAL MC SCH (21:23)
[2018-04-25 22:21] LABS: ALK PHOS 84 U/L (45-117); ANION GAP 11 MMOL/L (8-16); BILIRUBIN,TOTAL 0.5 mg/dL (0.2-1); BLOOD UREA NITROGEN 30 mg/dL (7-18); CALCIUM 8.4 mg/dL (8.5-10.1); CHLORIDE 98 mmol/L (98-107); CO2 25 mmol/L (21-32); CREATININE 0.9 mg/dL (0.55-1.3); GLUCOSE,RANDOM 140 mg/dL (74-106); POTASSIUM 4.8 mmol/L (3.5-5.1); SGOT/AST 24 U/L (15-37); SGPT/ALT 76 U/L (13-61); SODIUM 134 mmol/L (136-145); TOT PROT 6.9 g/dl (6.4-8.2)
[2018-04-25 23:43] LABS: PLATELET ESTIMATE ADEQUATE
[2018-04-26] MEDS: BACLOFEN 10 MG TABLET (FP) PO SCH ×3 (05:36→21:06)
[2018-04-26] MEDS: HEPARIN NA (PORCINE) 5,000 UNITS/ML 1ML VIAL SQ SCH ×3 (05:36→21:05)
[2018-04-26] MEDS: DOCUSATE SODIUM 100 MG CAPSULE (FP) PO SCH ×3 (05:36→21:06)
[2018-04-26] MEDS: GABAPENTIN 300 MG CAPSULE (FP) PO SCH ×3 (05:36→21:06)
[2018-04-26] MEDS: FERROUS SO4 325 MG TABLET (FP) PO SCH (08:30)
[2018-04-26] MEDS: AMOX TR/POT CLAV 875MG/125MG TABLETS (FP) PO SCH ×2 (08:30→17:36)
--- NOTE | 2018-04-26 08:32 | PN ---
Progress Note, Physician History of Present Illness: clinically patient says better wbc still continues to increase pain better today - Current Medication List Current Medications: Active Medications Amoxicillin/Clavulanate Potassium (Augmentin - 875mg Tablet) 1 tab PO BID@0800, 1730 [facility] Last Admin: 04/25/18 17:53 Dose: 1 tab Atorvastatin Calcium (Lipitor -) 20 mg PO HS [facility] Last Admin: 04/25/18 21:15 Dose: 20 mg Baclofen (Lioresal -) 10 mg PO TID [facility] Last Admin: 04/26/18 05:36 Dose: 10 mg Cholecalciferol (Vitamin D3 -) 5,000 unit PO DAILY [facility] Last Admin: 04/25/18 10:28 Dose: 5,000 unit Diazepam (Valium -) 5 mg PO Q6H PRN PRN Reason: MUSCLE SPASMS Last Admin: 04/25/18 06:19 Dose: 5 mg Diphenhydramine HCl (Benadryl -) 25 mg PO Q6H PRN PRN Reason: FOR ITCHING Docusate Sodium (Colace -) 100 mg PO TID [facility] Last Admin: 04/26/18 05:36 Dose: 100 mg Ferrous Sulfate (Feosol -) 325 mg PO DAILY@0800 [facility] Last Admin: 04/25/18 10:27 Dose: 325 mg Gabapentin (Neurontin -) 300 mg PO TID [facility] Last Admin: 04/26/18 05:36 Dose: 300 mg Heparin Sodium (Porcine) (Heparin -) 5,000 unit SQ TID [facility] Last Admin: 04/26/18 05:36 Dose: 5,000 unit Lactobacillus Acidophilus (Bacid -) 1 tab PO DAILY [facility] Last Admin: 04/25/18 10:27 Dose: 1 tab Lidocaine (Lidoderm Patch -) 2 patch TP DAILY [facility] Last Admin: 04/25/18 10:24 Dose: 2 patch Miscellaneous (Lidoderm Patch Removal) 2 each MC DAILY@2200 [facility] Last Admin: 04/25/18 21:23 Dose: 2 each Ondansetron HCl (Zofran Injection) 4 mg IVPUSH Q6H PRN PRN Reason: NAUSEA Oxycodone HCl (Oxycontin -) 10 mg PO BID [facility] Last Admin: 04/25/18 21:16 Dose: 10 mg Oxycodone HCl (Roxicodone -) 5 mg PO Q6H PRN PRN Reason: PAIN LEVEL 7 - 10 Last Admin: 04/26/18 05:36 Dose: 5 mg Pantoprazole Sodium (Protonix -) 40 mg PO DAILY [facility] Last Admin: 04/25/18 10:27 Dose: 40 mg Polyethylene Glycol (Miralax (For Daily Use) -) 17 gm PO DAILY [facility] Last Admin: 04/25/18 10:29 Dose: 17 gm Prednisone (Deltasone -) 2.5 mg PO BID [facility] Stop: 04/26/18 23:59 Last Admin: 04/25/18 21:15 Dose: 2.5 mg Prednisone (Deltasone -) 1 mg PO BID [facility] Stop: 04/28/18 23:59 Pyridoxine HCl (Vitamin B6 -) 100 mg PO DAILY [facility] Last Admin: 04/25/18 10:28 Dose: 100 mg Senna (Senna -) 2 tab PO HS PRN PRN Reason: CONSTIPATION - Objective Vital Signs: Vital Signs Temperature 98.7 F 04/26/18 06:27 Pulse Rate 80 04/26/18 06:27 Respiratory Rate 20 04/26/18 06:27 Blood Pressure 114/73 04/26/18 06:27 O2 Sat by Pulse Oximetry (%) 95 04/25/18 21:00 Constitutional: Yes: Calm, Mild Distress Cardiovascular: Yes: Regular Rate and Rhythm Respiratory: Yes: Regular, CTA Bilaterally Gastrointestinal: Yes: Normal Bowel Sounds, Soft Genitourinary: Yes: WNL Musculoskeletal: Yes: Back Pain Extremities: Yes: Other Wound/Incision: Yes: Dressing Dry and Intact Neurological: Yes: Alert, Oriented Psychiatric: Yes: Alert, Oriented Labs: CBC, BMP 04/25/18 20:00 04/25/18 20:00 INR, PTT INR 1.20 (0.83-1.09) H 04/24/18 10:03 Assessment/Plan Problem List - Problems (1) Hyperlipidemia Code(s): E78.5 - HYPERLIPIDEMIA, UNSPECIFIED Qualifiers: Hyperlipidemia type: pure hypercholesterolemia Qualified Code(s): E78.00 - Pure hypercholesterolemia, unspecified; E78.0 - Pure hypercholesterolemia (2) Intractable low back pain Code(s): M54.5 - LOW BACK PAIN (3) Status post lumbar laminectomy Code(s): Z98.890 - OTHER SPECIFIED POSTPROCEDURAL STATES uti plan continue abx wbc has jumped up patient on low dose of prednisone wbc high though clinically patient looks stable if wbc keeps increasing then imaging
[2018-04-26] MEDS: POLYETHYLENE GLYCOL 3350 119 GM BTL PO SCH (09:29)
[2018-04-26] MEDS: LIDOCAINE 5% TOPICAL PATCH TP SCH ×2 (09:29→09:37)
[2018-04-26] MEDS: LACTOBACILLUS ACIDOPHILUS 1 TABLET PO SCH (09:32)
[2018-04-26] MEDS: oxyCODONE HCL 10 MG SUSTAINED ACTING TABLET PO SCH ×3 (09:32→22:41)
[2018-04-26] MEDS: PANTOPRAZOLE 40 MG TABLET (FP) PO SCH (09:35)
[2018-04-26] MEDS: predniSONE 5 MG TABLET (UD) PO SCH ×2 (09:35→21:09)
[2018-04-26] MEDS: PYRIDOXINE HCL (B-6) 50 MG TABLET (FP) PO SCH (09:36)
[2018-04-26] MEDS: CHOLECALCIFEROL (VITAMIN D3) 1,000 UNIT TABLET (FP) PO SCH (09:36)
--- NOTE | 2018-04-26 10:02 | PN ---
Physical Exam: SUBJECTIVE: Patient seen and examined at the bedside. having some low back pain. OBJECTIVE: Vital Signs Period Temp Pulse Resp BP Sys/Mccoy Pulse Ox Last 24 Hr 97.6 F-98.7 F 80-104 18-20 111-114/73-76 95 GENERAL: Awake, alert, and fully oriented, in no acute distress. HEAD: Normal with no signs of trauma. EYES: Pupils equal, round and reactive to light, extraocular movements intact, sclera anicteric, conjunctiva clear. No lid lag. EARS, NOSE, THROAT: Ears normal, nares patent, oropharynx clear without exudates. Moist mucous membranes. NECK: Normal range of motion, supple without lymphadenopathy, JVD, or masses. LUNGS: Breath sounds equal, clear to auscultation bilaterally. No wheezes, and no crackles. No accessory muscle use. HEART: Regular rate and rhythm ABDOMEN: Soft, nontender, not distended, normoactive bowel sounds, no guarding, no rebound, no masses. No hepatomegaly or splenomegaly. UPPER EXTREMITIES: No peripheral edema. LOWER EXTREMITIES: No peripheral edema. NEUROLOGICAL: Normal speech. bed bound secondary to back pain. PSYCHIATRIC: Cooperative. Good eye contact. Appropriate mood and affect. SKIN: surgical dressing posterior back Laboratory Results - last 24 hr 04/25/18 04/25/18 20:00 20:00 WBC 20.9 H RBC 4.33 Hgb 13.2 Hct 38.6 MCV 89.2 MCH 30.5 MCHC 34.2 RDW 14.1 Plt Count 380 MPV 8.6 Absolute Neuts (auto) 17.0 H Neutrophils % 81.6 Neutrophils % (Manual) 80.0 Band Neutrophils % 3.0 Lymphocytes % 10.1 D Lymphocytes % (Manual) 10.0 D Monocytes % 6.1 Monocytes % (Manual) 6 Eosinophils % 1.7 Eosinophils % (Manual) 1.0 Basophils % 0.5 Nucleated RBC % 0 Hypochromia 1+ Platelet Estimate Adequate Platelet Comment No clumping noted Sodium 134 L Potassium 4.8 Chloride 98 Carbon Dioxide 25 Anion Gap 11 BUN 30 H Creatinine 0.9 Creat Clearance w eGFR > 60 Random Glucose 140 H Calcium 8.4 L Total Bilirubin 0.5 AST 24 ALT 76 H Alkaline Phosphatase 84 Total Protein 6.9 Albumin 3.0 L Active Medications Generic Name Dose Route Start Last Admin Trade Name Freq PRN Reason Stop Dose Admin Amoxicillin/Clavulanate Potassium 1 tab 04/23/18 17:30 04/26/18 08:30 Augmentin - 875mg Tablet PO 1 tab BID@0800,1730 MEAGHAN Administration Atorvastatin Calcium 20 mg 04/20/18 22:00 04/25/18 21:15 Lipitor - PO 20 mg HS MEAGHAN Administration Baclofen 10 mg 04/21/18 14:00 04/26/18 05:36 Lioresal - PO 10 mg TID MEAGHAN Administration Cholecalciferol 5,000 unit 04/21/18 10:00 04/26/18 09:36 Vitamin D3 - PO 5,000 unit DAILY MEAGHAN Administration Diazepam 5 mg 04/20/18 21:58 04/25/18 06:19 Valium - PO 5 mg Q6H PRN Administration MUSCLE SPASMS Diphenhydramine HCl 25 mg 04/20/18 21:58 Benadryl - PO Q6H PRN FOR ITCHING Docusate Sodium 100 mg 04/20/18 22:00 04/26/18 05:36 Colace - PO 100 mg TID MEAGHAN Administration Ferrous Sulfate 325 mg 04/21/18 08:00 04/26/18 08:30 Feosol - PO 325 mg DAILY@0800 MEAHGAN Administration Gabapentin 300 mg 04/24/18 14:00 04/26/18 05:36 Neurontin - PO 300 mg TID [facility] Administration Heparin Sodium (Porcine) 5,000 unit 04/20/18 22:00 04/26/18 05:36 Heparin - SQ 5,000 unit TID [facility] Administration Lactobacillus Acidophilus 1 tab 04/21/18 10:00 04/26/18 09:32 Bacid - PO 1 tab DAILY MEAGHAN Administration Lidocaine 2 patch 04/21/18 10:00 04/26/18 09:37 Lidoderm Patch - TP 2 patch DAILY MEAGHAN Administration Miscellaneous 2 each 04/20/18 22:00 04/25/18 21:23 Lidoderm Patch Removal MC 2 each DAILY@2200 [facility] Administration Ondansetron HCl 4 mg 04/20/18 21:58 Zofran Injection IVPUSH Q6H PRN NAUSEA Oxycodone HCl 10 mg 04/24/18 22:00 04/26/18 09:32 Oxycontin - PO 10 mg BID MEAGHAN Administration Oxycodone HCl 5 mg 04/25/18 12:32 04/26/18 05:36 Roxicodone - PO 5 mg Q6H PRN Administration PAIN LEVEL 7 - 10 Pantoprazole Sodium 40 mg 04/21/18 10:00 04/26/18 09:35 Protonix - PO 40 mg DAILY MEAGHAN Administration Polyethylene Glycol 17 gm 04/21/18 10:00 04/26/18 09:29 Miralax (For Daily Use) - PO 17 gm DAILY MEAGHAN Administration Prednisone 2.5 mg 04/25/18 10:00 04/26/18 09:35 Deltasone - PO 04/26/18 23:59 2.5 mg BID MEAGHAN Administration Prednisone 1 mg 04/27/18 10:00 Deltasone - PO 04/28/18 23:59 BID MEAGHAN Pyridoxine HCl 100 mg 04/21/18 10:00 04/26/18 09:36 Vitamin B6 - PO 100 mg DAILY MEAGHAN Administration Senna 2 tab 04/20/18 21:58 Senna - PO HS PRN CONSTIPATION ASSESSMENT/PLAN: Mr. Chang is a 73 year old male with a significant past medical history of hyperlipidemia, herniated discs 2003, GERD with polyps, bilateral cataracts with cataract extraction of the right eye with IDL implant (2014) and cataract extraction of the left eye with lens implant (2017). He comes to the ER for evaluation of severe back pain and inability to ambulate. Surgery: Back pain s/p L3-L5 laminectomies:still has severe pain, drain in place, been evaluated by neurosurgery daily, is on prednisone taper pain management: gabapentin, lidocaine, oxycodone sr and oxy 5 for breakthrough , baclofen, diazepam. Constipation: on senna, miralax continue physical therapy, for rehab placement. UTI: Has no urinary complaints at this time, will continue PO augmentin at this time. ID: Patient is afebrile but WBC was trending up. ID following. continue the Augmentin. No signs of infection. Card: Hyperlipidemia. continue statin therapy. GI: Gerd. on protonix. fen toleraiting po monitor electrolytes low salt diet prophy heparin Visit type - Emergency Visit Emergency Visit: Yes ED Registration Date: 04/14/18 Care time: The patient presented to the Emergency Department on the above date and was hospitalized for further evaluation of their emergent condition. - New Patient This patient is new to me today: No - Critical Care Critical Care patient: No - Discharge Referral Referred to [facility] Med P.C.: No
[2018-04-26 10:03] LABS: BASO % 0.7 % (0-2.0); EOS % 2.5 % (0-4.5); HEMATOCRIT 39.1 % (35.4-49); HEMOGLOBIN 13.4 GM/dL (11.7-16.9); LYMPH % 12.7 % (8-40); MCH 30.5 pg (25.7-33.7); MCHC 34.4 g/dl (32.0-35.9); MEAN CELL VOLUME 88.6 fl (80-96); MEAN PLT VOLUME 8.4 fl (7.5-11.1); MONO % 5.2 % (3.8-10.2); NEUT % 78.9 % (42.8-82.8); PLATELET COUNT 351 K/MM3 (134-434); RBC 4.41 M/mm3 (4.00-5.60); RDW 14.1 % (11.9-15.9); WHITE BLOOD COUNT 18.4 K/mm3 (4.0-10.0)
[2018-04-26 10:30] LABS: ALBUMIN 2.9 g/dl (3.4-5.0); ALK PHOS 79 U/L (45-117); ANION GAP 9 MMOL/L (8-16); BILIRUBIN,TOTAL 0.6 mg/dL (0.2-1); BLOOD UREA NITROGEN 27 mg/dL (7-18); CALCIUM 8.5 mg/dL (8.5-10.1); CHLORIDE 99 mmol/L (98-107); CO2 26 mmol/L (21-32); CREATININE 0.9 mg/dL (0.55-1.3); GLUCOSE,RANDOM 134 mg/dL (74-106); POTASSIUM 4.3 mmol/L (3.5-5.1); SGOT/AST 23 U/L (15-37); SGPT/ALT 66 U/L (13-61); SODIUM 134 mmol/L (136-145); TOT PROT 6.7 g/dl (6.4-8.2)
[2018-04-26] MEDS: ATORVASTATIN CA 20 MG TABLET (FP) PO SCH (21:06)
[2018-04-26] MEDS: LIDOCAINE PATCH REMOVAL MC SCH (22:42)
[2018-04-27] MEDS: DOCUSATE SODIUM 100 MG CAPSULE (FP) PO SCH ×3 (05:50→21:04)
[2018-04-27] MEDS: GABAPENTIN 300 MG CAPSULE (FP) PO SCH ×3 (05:50→21:05)
[2018-04-27] MEDS: BACLOFEN 10 MG TABLET (FP) PO SCH ×3 (05:50→21:05)
[2018-04-27] MEDS: HEPARIN NA (PORCINE) 5,000 UNITS/ML 1ML VIAL SQ SCH ×3 (05:50→21:06)
[2018-04-27] MEDS ORDERED: predniSONE 1 MG TABLET (FP) PO SCH ×2 (10:00)
--- NOTE | 2018-04-27 10:18 | PN ---
Progress Note, Physician - Current Medication List Current Medications: Active Medications Amoxicillin/Clavulanate Potassium (Augmentin - 875mg Tablet) 1 tab PO BID@0800, 1730 [facility] Last Admin: 04/26/18 17:36 Dose: 1 tab Atorvastatin Calcium (Lipitor -) 20 mg PO HS [facility] Last Admin: 04/26/18 21:06 Dose: 20 mg Baclofen (Lioresal -) 10 mg PO TID [facility] Last Admin: 04/27/18 05:50 Dose: 10 mg Cholecalciferol (Vitamin D3 -) 5,000 unit PO DAILY [facility] Last Admin: 04/26/18 09:36 Dose: 5,000 unit Diazepam (Valium -) 5 mg PO Q6H PRN PRN Reason: MUSCLE SPASMS Last Admin: 04/25/18 06:19 Dose: 5 mg Diphenhydramine HCl (Benadryl -) 25 mg PO Q6H PRN PRN Reason: FOR ITCHING Docusate Sodium (Colace -) 100 mg PO TID [facility] Last Admin: 04/27/18 05:50 Dose: 100 mg Ferrous Sulfate (Feosol -) 325 mg PO DAILY@0800 [facility] Last Admin: 04/26/18 08:30 Dose: 325 mg Gabapentin (Neurontin -) 300 mg PO TID [facility] Last Admin: 04/27/18 05:50 Dose: 300 mg Heparin Sodium (Porcine) (Heparin -) 5,000 unit SQ TID [facility] Last Admin: 04/27/18 05:50 Dose: 5,000 unit Lactobacillus Acidophilus (Bacid -) 1 tab PO DAILY [facility] Last Admin: 04/26/18 09:32 Dose: 1 tab Lidocaine (Lidoderm Patch -) 2 patch TP DAILY [facility] Last Admin: 04/26/18 09:37 Dose: 2 patch Miscellaneous (Lidoderm Patch Removal) 2 each MC DAILY@2200 [facility] Last Admin: 04/26/18 22:42 Dose: 2 each Ondansetron HCl (Zofran Injection) 4 mg IVPUSH Q6H PRN PRN Reason: NAUSEA Oxycodone HCl (Oxycontin -) 10 mg PO BID [facility] Last Admin: 04/26/18 22:41 Dose: 10 mg Oxycodone HCl (Roxicodone -) 5 mg PO Q6H PRN PRN Reason: PAIN LEVEL 7 - 10 Last Admin: 04/26/18 05:36 Dose: 5 mg Pantoprazole Sodium (Protonix -) 40 mg PO DAILY [facility] Last Admin: 04/26/18 09:35 Dose: 40 mg Polyethylene Glycol (Miralax (For Daily Use) -) 17 gm PO DAILY [facility] Last Admin: 04/26/18 09:29 Dose: 17 gm Prednisone (Deltasone -) 1 mg PO BID [facility] Stop: 04/28/18 23:59 Pyridoxine HCl (Vitamin B6 -) 100 mg PO DAILY [facility] Last Admin: 04/26/18 09:36 Dose: 100 mg Senna (Senna -) 2 tab PO HS PRN PRN Reason: CONSTIPATION Last Admin: 04/26/18 21:05 Dose: 2 tab - Objective Vital Signs: Vital Signs Temperature 98 F 04/27/18 06:53 Pulse Rate 77 04/27/18 06:53 Respiratory Rate 20 04/27/18 06:53 Blood Pressure 120/81 04/27/18 06:53 O2 Sat by Pulse Oximetry (%) 94 L 04/26/18 21:00 Labs: CBC, BMP 04/26/18 09:15 04/26/18 09:15 INR, PTT INR 1.20 (0.83-1.09) H 04/24/18 10:03
--- NOTE | 2018-04-27 10:44 | PN ---
Progress Note, Physician History of Present Illness: POD#8 lumbar spinal decompression surgery with improving lower back spasms, reports positional dizziness, tolerating PT. - Current Medication List Current Medications: Active Medications Amoxicillin/Clavulanate Potassium (Augmentin - 875mg Tablet) 1 tab PO BID@0800, 1730 [facility] Last Admin: 04/26/18 17:36 Dose: 1 tab Atorvastatin Calcium (Lipitor -) 20 mg PO HS [facility] Last Admin: 04/26/18 21:06 Dose: 20 mg Baclofen (Lioresal -) 10 mg PO TID [facility] Last Admin: 04/27/18 05:50 Dose: 10 mg Cholecalciferol (Vitamin D3 -) 5,000 unit PO DAILY [facility] Last Admin: 04/26/18 09:36 Dose: 5,000 unit Diazepam (Valium -) 5 mg PO Q6H PRN PRN Reason: MUSCLE SPASMS Last Admin: 04/25/18 06:19 Dose: 5 mg Diphenhydramine HCl (Benadryl -) 25 mg PO Q6H PRN PRN Reason: FOR ITCHING Docusate Sodium (Colace -) 100 mg PO TID [facility] Last Admin: 04/27/18 05:50 Dose: 100 mg Ferrous Sulfate (Feosol -) 325 mg PO DAILY@0800 [facility] Last Admin: 04/26/18 08:30 Dose: 325 mg Gabapentin (Neurontin -) 300 mg PO TID [facility] Last Admin: 04/27/18 05:50 Dose: 300 mg Heparin Sodium (Porcine) (Heparin -) 5,000 unit SQ TID [facility] Last Admin: 04/27/18 05:50 Dose: 5,000 unit Lactobacillus Acidophilus (Bacid -) 1 tab PO DAILY [facility] Last Admin: 04/26/18 09:32 Dose: 1 tab Lidocaine (Lidoderm Patch -) 2 patch TP DAILY [facility] Last Admin: 04/26/18 09:37 Dose: 2 patch Miscellaneous (Lidoderm Patch Removal) 2 each MC DAILY@2200 [facility] Last Admin: 04/26/18 22:42 Dose: 2 each Ondansetron HCl (Zofran Injection) 4 mg IVPUSH Q6H PRN PRN Reason: NAUSEA Oxycodone HCl (Oxycontin -) 10 mg PO BID [facility] Last Admin: 04/26/18 22:41 Dose: 10 mg Oxycodone HCl (Roxicodone -) 5 mg PO Q6H PRN PRN Reason: PAIN LEVEL 7 - 10 Last Admin: 04/26/18 05:36 Dose: 5 mg Pantoprazole Sodium (Protonix -) 40 mg PO DAILY [facility] Last Admin: 04/26/18 09:35 Dose: 40 mg Polyethylene Glycol (Miralax (For Daily Use) -) 17 gm PO DAILY [facility] Last Admin: 04/26/18 09:29 Dose: 17 gm Prednisone (Deltasone -) 1 mg PO BID [facility] Stop: 04/28/18 23:59 Pyridoxine HCl (Vitamin B6 -) 100 mg PO DAILY [facility] Last Admin: 04/26/18 09:36 Dose: 100 mg Senna (Senna -) 2 tab PO HS PRN PRN Reason: CONSTIPATION Last Admin: 04/26/18 21:05 Dose: 2 tab - Objective Vital Signs: Vital Signs Temperature 98 F 04/27/18 06:53 Pulse Rate 77 04/27/18 06:53 Respiratory Rate 20 04/27/18 06:53 Blood Pressure 120/81 04/27/18 06:53 O2 Sat by Pulse Oximetry (%) 94 L 04/26/18 21:00 Constitutional: Yes: No Distress, Calm Neck: Yes: Supple Cardiovascular: Yes: Regular Rate and Rhythm Respiratory: Yes: Regular, CTA Bilaterally Gastrointestinal: Yes: Normal Bowel Sounds, Soft Edema: No Labs: CBC, BMP 04/26/18 09:15 04/26/18 09:15 INR, PTT INR 1.20 (0.83-1.09) H 04/24/18 10:03 Problem List - Problems (1) Hyperlipidemia Code(s): E78.5 - HYPERLIPIDEMIA, UNSPECIFIED Qualifiers: Hyperlipidemia type: pure hypercholesterolemia Qualified Code(s): E78.00 - Pure hypercholesterolemia, unspecified; E78.0 - Pure hypercholesterolemia (2) Intractable low back pain Code(s): M54.5 - LOW BACK PAIN (3) Status post lumbar laminectomy Code(s): Z98.890 - OTHER SPECIFIED POSTPROCEDURAL STATES Assessment/Plan lumbar spine xray: extensive facet joint arthopathy, minimal anterior degenerative spondylolisthesis of L4 on L5. neural foramina stenosis at L3-L4, L4-L4, L5-S1. facet joint arthoplasty, degenerative spondylolisthesis associated with central spine canal stenosis. MRI Lumbar reveals multilevel spondylosis worst at L34 where there is moderate stenosis from ligamentum flavum and facet hypertrophy as well as a small cental bulge. L45 has a spondylolisthesis with severe stenosis and central disc bulging resulting in lateral recess compression bilaterally. 1. Lumbar spondylosis, stenosis, spondylolisthesis POD#8 for L3-5 laminectomies and posterior fusion 2. Hyperlipidemia 3. UTI P:1. Analgesia as needed, PT->rehab, TLSO brace 2. Mechanical DVT and prednisone taper with GI prophylaxis 3. Lipitor 20 qd 4. Complete abx course per ID, wound care
[2018-04-27] MEDS: PANTOPRAZOLE 40 MG TABLET (FP) PO SCH (10:46)
[2018-04-27] MEDS: LIDOCAINE 5% TOPICAL PATCH TP SCH (10:46)
[2018-04-27] MEDS: AMOX TR/POT CLAV 875MG/125MG TABLETS (FP) PO SCH ×2 (10:46→19:07)
[2018-04-27] MEDS: FERROUS SO4 325 MG TABLET (FP) PO SCH (10:46)
[2018-04-27] MEDS: LACTOBACILLUS ACIDOPHILUS 1 TABLET PO SCH (10:47)
[2018-04-27] MEDS: oxyCODONE HCL 10 MG SUSTAINED ACTING TABLET PO SCH ×2 (10:47→21:05)
[2018-04-27] MEDS: CHOLECALCIFEROL (VITAMIN D3) 1,000 UNIT TABLET (FP) PO SCH (10:47)
[2018-04-27] MEDS: predniSONE 1 MG TABLET (FP) PO SCH ×2 (10:49→21:04)
[2018-04-27] MEDS: POLYETHYLENE GLYCOL 3350 119 GM BTL PO SCH (10:50)
[2018-04-27] MEDS: PYRIDOXINE HCL (B-6) 50 MG TABLET (FP) PO SCH (10:50)
[2018-04-27 11:50] LABS: BASO % 0.7 % (0-2.0); EOS % 3.6 % (0-4.5); HEMATOCRIT 37.5 % (35.4-49); HEMOGLOBIN 12.8 GM/dL (11.7-16.9); LYMPH % 16.9 % (8-40); MCH 30.5 pg (25.7-33.7); MCHC 34.3 g/dl (32.0-35.9); MEAN PLT VOLUME 8.4 fl (7.5-11.1); MONO % 7.9 % (3.8-10.2); NEUT % 70.9 % (42.8-82.8); PLATELET COUNT 366 K/MM3 (134-434); RBC 4.21 M/mm3 (4.00-5.60); RDW 14.1 % (11.9-15.9); WHITE BLOOD COUNT 14.8 K/mm3 (4.0-10.0)
[2018-04-27 12:23] LABS: ALBUMIN 2.7 g/dl (3.4-5.0); ALK PHOS 76 U/L (45-117); ANION GAP 7 MMOL/L (8-16); BILIRUBIN,TOTAL 0.4 mg/dL (0.2-1); BLOOD UREA NITROGEN 24 mg/dL (7-18); CALCIUM 8.7 mg/dL (8.5-10.1); CHLORIDE 97 mmol/L (98-107); CO2 28 mmol/L (21-32); CREATININE 0.9 mg/dL (0.55-1.3); GLUCOSE,RANDOM 118 mg/dL (74-106); POTASSIUM 4.3 mmol/L (3.5-5.1); SGOT/AST 21 U/L (15-37); SGPT/ALT 56 U/L (13-61); SODIUM 132 mmol/L (136-145); TOT PROT 6.5 g/dl (6.4-8.2)
[2018-04-27 13:55] LABS: ANISOCYTOSIS 2+; MACROCYTOSIS 0; PLATELET ESTIMATE NORMAL
--- NOTE | 2018-04-27 16:06 | PN ---
Physical Exam: SUBJECTIVE: Patient seen and examined at the bedside. OBJECTIVE: wbc down trending. no fevers. blood and urine cultures negative. discharge planning. Vital Signs Period Temp Pulse Resp BP Sys/Mccoy Pulse Ox Last 24 Hr 97.7 F-98.2 F 77-102 18-20 106-125/65-81 94 GENERAL: Awake, alert, and fully oriented, in no acute distress. HEAD: Normal with no signs of trauma. EYES: Pupils equal, round and reactive to light, extraocular movements intact, sclera anicteric, conjunctiva clear. No lid lag. EARS, NOSE, THROAT: Ears normal, nares patent, oropharynx clear without exudates. Moist mucous membranes. NECK: Normal range of motion, supple without lymphadenopathy, JVD, or masses. LUNGS: Breath sounds equal, clear to auscultation bilaterally. No wheezes, and no crackles. No accessory muscle use. HEART: Regular rate and rhythm ABDOMEN: Soft, nontender, not distended, normoactive bowel sounds, no guarding, no rebound, no masses. No hepatomegaly or splenomegaly. UPPER EXTREMITIES: No peripheral edema. LOWER EXTREMITIES: No peripheral edema. NEUROLOGICAL: Normal speech. bed bound secondary to back pain. PSYCHIATRIC: Cooperative. Good eye contact. Appropriate mood and affect. SKIN: surgical dressing posterior back, cdi Laboratory Results - last 24 hr 04/27/18 04/27/18 11:10 11:10 WBC 14.8 H RBC 4.21 Hgb 12.8 Hct 37.5 MCV 89.0 MCH 30.5 MCHC 34.3 RDW 14.1 Plt Count 366 MPV 8.4 Absolute Neuts (auto) 10.5 H Neutrophils % 70.9 Neutrophils % (Manual) 66.0 Band Neutrophils % 1.0 Lymphocytes % 16.9 D Lymphocytes % (Manual) 16.0 D Monocytes % 7.9 Monocytes % (Manual) 5 Eosinophils % 3.6 Eosinophils % (Manual) 3.0 D Basophils % 0.7 Basophils % (Manual) 0.0 Myelocytes % (Man) 0 D Promyelocytes % (Man) 0 Blast Cells % (Manual) 0 Nucleated RBC % 0 Metamyelocytes 4 H D Hypochromia 0 Platelet Estimate Normal Platelet Comment Present Polychromasia 1+ Poikilocytosis 0 Anisocytosis 2+ Microcytosis 1+ Macrocytosis 0 Sodium 132 L Potassium 4.3 Chloride 97 L Carbon Dioxide 28 Anion Gap 7 L BUN 24 H Creatinine 0.9 Creat Clearance w eGFR > 60 Random Glucose 118 H Calcium 8.7 Total Bilirubin 0.4 AST 21 ALT 56 Alkaline Phosphatase 76 Total Protein 6.5 Albumin 2.7 L Active Medications Generic Name Dose Route Start Last Admin Trade Name Freq PRN Reason Stop Dose Admin Amoxicillin/Clavulanate Potassium 1 tab 04/23/18 17:30 04/27/18 10:46 Augmentin - 875mg Tablet PO 1 tab BID@0800,1730 MEAGHAN Administration Atorvastatin Calcium 20 mg 04/20/18 22:00 04/26/18 21:06 Lipitor - PO 20 mg HS MEAGHAN Administration Baclofen 10 mg 04/21/18 14:00 04/27/18 15:47 Lioresal - PO 10 mg TID MEAGHAN Administration Cholecalciferol 5,000 unit 04/21/18 10:00 04/27/18 10:47 Vitamin D3 - PO 5,000 unit DAILY MEAGHAN Administration Diazepam 5 mg 04/20/18 21:58 04/25/18 06:19 Valium - PO 5 mg Q6H PRN Administration MUSCLE SPASMS Diphenhydramine HCl 25 mg 04/20/18 21:58 Benadryl - PO Q6H PRN FOR ITCHING Docusate Sodium 100 mg 04/20/18 22:00 04/27/18 15:48 Colace - PO Not Given TID MEAGHAN Ferrous Sulfate 325 mg 04/21/18 08:00 04/27/18 10:46 Feosol - PO 325 mg DAILY@0800 MEAGHAN Administration Gabapentin 300 mg 04/24/18 14:00 04/27/18 15:47 Neurontin - PO 300 mg TID MEAGHAN Administration Heparin Sodium (Porcine) 5,000 unit 04/20/18 22:00 04/27/18 15:48 Heparin - SQ 5,000 unit TID MEAGHAN Administration Lactobacillus Acidophilus 1 tab 04/21/18 10:00 04/27/18 10:47 Bacid - PO 1 tab DAILY MEAGHAN Administration Lidocaine 2 patch 04/21/18 10:00 04/27/18 10:46 Lidoderm Patch - TP 2 patch DAILY MEAGHAN Administration Miscellaneous 2 each 04/20/18 22:00 04/26/18 22:42 Lidoderm Patch Removal MC 2 each DAILY@2200 MEAGHAN Administration Ondansetron HCl 4 mg 04/20/18 21:58 Zofran Injection IVPUSH Q6H PRN NAUSEA Oxycodone HCl 10 mg 04/24/18 22:00 04/27/18 10:47 Oxycontin - PO 10 mg BID MEAGHAN Administration Oxycodone HCl 5 mg 04/25/18 12:32 04/26/18 05:36 Roxicodone - PO 5 mg Q6H PRN Administration PAIN LEVEL 7 - 10 Pantoprazole Sodium 40 mg 04/21/18 10:00 04/27/18 10:46 Protonix - PO 40 mg DAILY MEAGHAN Administration Polyethylene Glycol 17 gm 04/21/18 10:00 04/27/18 10:50 Miralax (For Daily Use) - PO 17 gm DAILY MEAGHAN Administration Prednisone 1 mg 04/27/18 10:00 04/27/18 10:49 Deltasone - PO 04/28/18 23:59 1 mg BID MEAGHAN Administration Pyridoxine HCl 100 mg 04/21/18 10:00 04/27/18 10:50 Vitamin B6 - PO 100 mg DAILY MEAGHAN Administration Senna 2 tab 04/20/18 21:58 04/26/18 21:05 Senna - PO 2 tab HS PRN Administration CONSTIPATION ASSESSMENT/PLAN: Mr. Chang is a 73 year old male with a significant past medical history of hyperlipidemia, herniated discs 2003, GERD with polyps, bilateral cataracts with cataract extraction of the right eye with IDL implant (2014) and cataract extraction of the left eye with lens implant (2017). He comes to the ER for evaluation of severe back pain and inability to ambulate. Surgery: Back pain s/p L3-L5 laminectomies: On a prednisone taper for back pain. pain management: gabapentin, lidocaine, oxycodone sr and oxy 5 for breakthrough , baclofen, diazepam. Constipation: on senna, miralax continue physical therapy, for rehab placement to [place]. UTI: UA/UC negative. will discuss with ID on stopping augmentin Card: Hyperlipidemia. continue statin therapy. GI: Gerd. on protonix. fen toleraiting po monitor electrolytes low salt diet prophy heparin Visit type - Emergency Visit Emergency Visit: Yes ED Registration Date: 04/14/18 Care time: The patient presented to the Emergency Department on the above date and was hospitalized for further evaluation of their emergent condition. - New Patient This patient is new to me today: No - Critical Care Critical Care patient: No - Discharge Referral Referred to [facility] Med P.C.: No
[2018-04-27] MEDS ORDERED: PT OWN MED DRAWER 7, Y5N ONE ×2 (20:05→20:12)
[2018-04-27] MEDS: LIDOCAINE PATCH REMOVAL MC SCH (21:04)
[2018-04-27] MEDS: ATORVASTATIN CA 20 MG TABLET (FP) PO SCH (21:05)
[2018-04-28] MEDS: HEPARIN NA (PORCINE) 5,000 UNITS/ML 1ML VIAL SQ SCH (05:43)
[2018-04-28] MEDS: GABAPENTIN 300 MG CAPSULE (FP) PO SCH (05:43)
[2018-04-28] MEDS: BACLOFEN 10 MG TABLET (FP) PO SCH (05:43)
[2018-04-28] MEDS: DOCUSATE SODIUM 100 MG CAPSULE (FP) PO SCH (05:43)
[2018-04-28] MEDS: FERROUS SO4 325 MG TABLET (FP) PO SCH (08:34)
[2018-04-28] MEDS: AMOX TR/POT CLAV 875MG/125MG TABLETS (FP) PO SCH (08:34)
[2018-04-28] MEDS ORDERED: PT OWN MED DRAWER 7, Y5N ONE (09:19)
[2018-04-28] MEDS: CHOLECALCIFEROL (VITAMIN D3) 1,000 UNIT TABLET (FP) PO SCH (09:20)
[2018-04-28] MEDS: PANTOPRAZOLE 40 MG TABLET (FP) PO SCH (09:21)
[2018-04-28] MEDS: PYRIDOXINE HCL (B-6) 50 MG TABLET (FP) PO SCH (09:21)
[2018-04-28] MEDS: oxyCODONE HCL 10 MG SUSTAINED ACTING TABLET PO SCH (09:21)
[2018-04-28] MEDS: LACTOBACILLUS ACIDOPHILUS 1 TABLET PO SCH (09:22)
[2018-04-28] MEDS: LIDOCAINE 5% TOPICAL PATCH TP SCH (09:22)
[2018-04-28] MEDS: predniSONE 1 MG TABLET (FP) PO SCH (09:22)
[2018-04-28] MEDS: POLYETHYLENE GLYCOL 3350 119 GM BTL PO SCH (09:26)
[2018-04-28 09:51] LABS: BASO % 1.1 % (0-2.0); EOS % 3.6 % (0-4.5); HEMATOCRIT 36.1 % (35.4-49); HEMOGLOBIN 12.2 GM/dL (11.7-16.9); LYMPH % 16.2 % (8-40); MCH 29.8 pg (25.7-33.7); MCHC 33.7 g/dl (32.0-35.9); MEAN CELL VOLUME 88.3 fl (80-96); MEAN PLT VOLUME 8.2 fl (7.5-11.1); MONO % 6.2 % (3.8-10.2); NEUT % 72.9 % (42.8-82.8); PLATELET COUNT 346 K/MM3 (134-434); RBC 4.09 M/mm3 (4.00-5.60); RDW 14.2 % (11.9-15.9); WHITE BLOOD COUNT 12.2 K/mm3 (4.0-10.0)
[2018-04-28 10:08] LABS: ALBUMIN 2.7 g/dl (3.4-5.0); ALK PHOS 74 U/L (45-117); ANION GAP 5 MMOL/L (8-16); BILIRUBIN,TOTAL 0.4 mg/dL (0.2-1); BLOOD UREA NITROGEN 20 mg/dL (7-18); CALCIUM 8.6 mg/dL (8.5-10.1); CHLORIDE 97 mmol/L (98-107); CO2 29 mmol/L (21-32); CREATININE 0.9 mg/dL (0.55-1.3); GLUCOSE,RANDOM 114 mg/dL (74-106); POTASSIUM 4.5 mmol/L (3.5-5.1); SGOT/AST 20 U/L (15-37); SGPT/ALT 53 U/L (13-61); SODIUM 131 mmol/L (136-145); TOT PROT 6.3 g/dl (6.4-8.2)
--- NOTE | 2018-04-28 10:16 | PN ---
Progress Note, Physician - Current Medication List Current Medications: Active Medications Amoxicillin/Clavulanate Potassium (Augmentin - 875mg Tablet) 1 tab PO BID@0800, 1730 [facility] Last Admin: 04/28/18 08:34 Dose: 1 tab Atorvastatin Calcium (Lipitor -) 20 mg PO HS [facility] Last Admin: 04/27/18 21:05 Dose: 20 mg Baclofen (Lioresal -) 10 mg PO TID [facility] Last Admin: 04/28/18 05:43 Dose: 10 mg Cholecalciferol (Vitamin D3 -) 5,000 unit PO DAILY [facility] Last Admin: 04/28/18 09:20 Dose: 5,000 unit Diazepam (Valium -) 5 mg PO Q6H PRN PRN Reason: MUSCLE SPASMS Last Admin: 04/25/18 06:19 Dose: 5 mg Diphenhydramine HCl (Benadryl -) 25 mg PO Q6H PRN PRN Reason: FOR ITCHING Docusate Sodium (Colace -) 100 mg PO TID [facility] Last Admin: 04/28/18 05:43 Dose: 100 mg Ferrous Sulfate (Feosol -) 325 mg PO DAILY@0800 [facility] Last Admin: 04/28/18 08:34 Dose: 325 mg Gabapentin (Neurontin -) 300 mg PO TID [facility] Last Admin: 04/28/18 05:43 Dose: 300 mg Heparin Sodium (Porcine) (Heparin -) 5,000 unit SQ TID [facility] Last Admin: 04/28/18 05:43 Dose: 5,000 unit Lactobacillus Acidophilus (Bacid -) 1 tab PO DAILY [facility] Last Admin: 04/28/18 09:22 Dose: 1 tab Lidocaine (Lidoderm Patch -) 2 patch TP DAILY [facility] Last Admin: 04/28/18 09:22 Dose: 2 patch Miscellaneous (Lidoderm Patch Removal) 2 each MC DAILY@2200 [facility] Last Admin: 04/27/18 21:04 Dose: 2 each Ondansetron HCl (Zofran Injection) 4 mg IVPUSH Q6H PRN PRN Reason: NAUSEA Oxycodone HCl (Oxycontin -) 10 mg PO BID [facility] Last Admin: 04/28/18 09:21 Dose: 10 mg Oxycodone HCl (Roxicodone -) 5 mg PO Q6H PRN PRN Reason: PAIN LEVEL 7 - 10 Last Admin: 04/26/18 05:36 Dose: 5 mg Pantoprazole Sodium (Protonix -) 40 mg PO DAILY [facility] Last Admin: 04/28/18 09:21 Dose: 40 mg Polyethylene Glycol (Miralax (For Daily Use) -) 17 gm PO DAILY [facility] Last Admin: 04/28/18 09:26 Dose: Not Given Prednisone (Deltasone -) 1 mg PO BID [facility] Stop: 04/28/18 23:59 Last Admin: 04/28/18 09:22 Dose: 1 mg Pyridoxine HCl (Vitamin B6 -) 100 mg PO DAILY [facility] Last Admin: 04/28/18 09:21 Dose: 100 mg Senna (Senna -) 2 tab PO HS PRN PRN Reason: CONSTIPATION Last Admin: 04/26/18 21:05 Dose: 2 tab - Objective Vital Signs: Vital Signs Temperature 97.6 F 04/28/18 05:47 Pulse Rate 69 04/28/18 05:47 Respiratory Rate 16 04/28/18 05:47 Blood Pressure 114/65 04/28/18 05:47 O2 Sat by Pulse Oximetry (%) 95 04/27/18 21:00 Labs: CBC, BMP 04/28/18 09:20 INR, PTT INR 1.20 (0.83-1.09) H 04/24/18 10:03
--- NOTE | 2018-04-28 10:57 | PN ---
Progress Note, Physician History of Present Illness: POD#9 lumbar spinal decompression surgery with improving lower back spasms, reports positional dizziness, tolerating PT. - Current Medication List Current Medications: Active Medications Amoxicillin/Clavulanate Potassium (Augmentin - 875mg Tablet) 1 tab PO BID@0800, 1730 [facility] Last Admin: 04/28/18 08:34 Dose: 1 tab Atorvastatin Calcium (Lipitor -) 20 mg PO HS [facility] Last Admin: 04/27/18 21:05 Dose: 20 mg Baclofen (Lioresal -) 10 mg PO TID [facility] Last Admin: 04/28/18 05:43 Dose: 10 mg Cholecalciferol (Vitamin D3 -) 5,000 unit PO DAILY [facility] Last Admin: 04/28/18 09:20 Dose: 5,000 unit Diazepam (Valium -) 5 mg PO Q6H PRN PRN Reason: MUSCLE SPASMS Last Admin: 04/25/18 06:19 Dose: 5 mg Diphenhydramine HCl (Benadryl -) 25 mg PO Q6H PRN PRN Reason: FOR ITCHING Docusate Sodium (Colace -) 100 mg PO TID [facility] Last Admin: 04/28/18 05:43 Dose: 100 mg Ferrous Sulfate (Feosol -) 325 mg PO DAILY@0800 [facility] Last Admin: 04/28/18 08:34 Dose: 325 mg Gabapentin (Neurontin -) 300 mg PO TID [facility] Last Admin: 04/28/18 05:43 Dose: 300 mg Heparin Sodium (Porcine) (Heparin -) 5,000 unit SQ TID [facility] Last Admin: 04/28/18 05:43 Dose: 5,000 unit Lactobacillus Acidophilus (Bacid -) 1 tab PO DAILY [facility] Last Admin: 04/28/18 09:22 Dose: 1 tab Lidocaine (Lidoderm Patch -) 2 patch TP DAILY [facility] Last Admin: 04/28/18 09:22 Dose: 2 patch Miscellaneous (Lidoderm Patch Removal) 2 each MC DAILY@2200 [facility] Last Admin: 04/27/18 21:04 Dose: 2 each Ondansetron HCl (Zofran Injection) 4 mg IVPUSH Q6H PRN PRN Reason: NAUSEA Oxycodone HCl (Oxycontin -) 10 mg PO BID [facility] Last Admin: 04/28/18 09:21 Dose: 10 mg Oxycodone HCl (Roxicodone -) 5 mg PO Q6H PRN PRN Reason: PAIN LEVEL 7 - 10 Last Admin: 04/26/18 05:36 Dose: 5 mg Pantoprazole Sodium (Protonix -) 40 mg PO DAILY [facility] Last Admin: 04/28/18 09:21 Dose: 40 mg Polyethylene Glycol (Miralax (For Daily Use) -) 17 gm PO DAILY [facility] Last Admin: 04/28/18 09:26 Dose: Not Given Prednisone (Deltasone -) 1 mg PO BID [facility] Stop: 04/28/18 23:59 Last Admin: 04/28/18 09:22 Dose: 1 mg Pyridoxine HCl (Vitamin B6 -) 100 mg PO DAILY [facility] Last Admin: 04/28/18 09:21 Dose: 100 mg Senna (Senna -) 2 tab PO HS PRN PRN Reason: CONSTIPATION Last Admin: 04/26/18 21:05 Dose: 2 tab - Objective Vital Signs: Vital Signs Temperature 97.6 F 04/28/18 05:47 Pulse Rate 69 04/28/18 05:47 Respiratory Rate 16 04/28/18 05:47 Blood Pressure 114/65 04/28/18 05:47 O2 Sat by Pulse Oximetry (%) 95 04/27/18 21:00 Constitutional: Yes: No Distress, Calm Neck: Yes: Supple Cardiovascular: Yes: Regular Rate and Rhythm Respiratory: Yes: Regular, CTA Bilaterally Gastrointestinal: Yes: Normal Bowel Sounds, Soft Edema: No Labs: CBC, BMP 04/28/18 09:20 04/28/18 09:20 INR, PTT INR 1.20 (0.83-1.09) H 04/24/18 10:03 Problem List - Problems (1) Hyperlipidemia Code(s): E78.5 - HYPERLIPIDEMIA, UNSPECIFIED Qualifiers: Hyperlipidemia type: pure hypercholesterolemia Qualified Code(s): E78.00 - Pure hypercholesterolemia, unspecified; E78.0 - Pure hypercholesterolemia (2) Intractable low back pain Code(s): M54.5 - LOW BACK PAIN (3) Status post lumbar laminectomy Code(s): Z98.890 - OTHER SPECIFIED POSTPROCEDURAL STATES (4) Hyponatremia Code(s): E87.1 - HYPO-OSMOLALITY AND HYPONATREMIA Assessment/Plan lumbar spine xray: extensive facet joint arthopathy, minimal anterior degenerative spondylolisthesis of L4 on L5. neural foramina stenosis at L3-L4, L4-L4, L5-S1. facet joint arthoplasty, degenerative spondylolisthesis associated with central spine canal stenosis. MRI Lumbar reveals multilevel spondylosis worst at L34 where there is moderate stenosis from ligamentum flavum and facet hypertrophy as well as a small cental bulge. L45 has a spondylolisthesis with severe stenosis and central disc bulging resulting in lateral recess compression bilaterally. 1. Lumbar spondylosis, stenosis, spondylolisthesis POD#9 for L3-5 laminectomies and posterior fusion 2. Hyperlipidemia 3. UTI 4. Hyponatremia P:1. Analgesia as needed, PT->rehab, TLSO brace 2. DVT and prednisone taper with GI prophylaxis 3. Lipitor 20 qd, liberalize salt intake 4. Complete abx course per ID, wound care
[2018-04-28 11:23] VITALS: BP 111/76; PULSE 79; TEMP 98.5
--- NOTE | 2018-04-28 11:57 | DS ---
Physical Exam: SUBJECTIVE: Patient seen and examined at the bedside. for discharge to rehab today. OBJECTIVE: wbc downtrending, no fevers. blood and urine cultures negative stop antibiotics and discharge to rehab Vital Signs Period Temp Pulse Resp BP Sys/Mccoy Pulse Ox Last 24 Hr 97.6 F-98.7 F 69-102 16-20 106-120/65-76 95 PHYSICAL EXAM GENERAL: Awake, alert, and fully oriented, in no acute distress. HEAD: Normal with no signs of trauma. EYES: Pupils equal, round and reactive to light, extraocular movements intact, sclera anicteric, conjunctiva clear. No lid lag. EARS, NOSE, THROAT: Ears normal, nares patent, oropharynx clear without exudates. Moist mucous membranes. NECK: Normal range of motion, supple without lymphadenopathy, JVD, or masses. LUNGS: Breath sounds equal, clear to auscultation bilaterally. No wheezes, and no crackles. No accessory muscle use. HEART: Regular rate and rhythm ABDOMEN: Soft, nontender, not distended, normoactive bowel sounds, no guarding, no rebound, no masses. No hepatomegaly or splenomegaly. UPPER EXTREMITIES: No peripheral edema. LOWER EXTREMITIES: No peripheral edema. NEUROLOGICAL: Normal speech. bed bound secondary to back pain. PSYCHIATRIC: Cooperative. Good eye contact. Appropriate mood and affect. SKIN: surgical dressing posterior back, cdi LABS Laboratory Results - last 24 hr 04/27/18 04/27/18 04/28/18 11:10 11:10 09:20 WBC 12.2 H RBC 4.09 Hgb 12.2 Hct 36.1 MCV 88.3 MCH 29.8 MCHC 33.7 RDW 14.2 Plt Count 346 MPV 8.2 Absolute Neuts (auto) 8.9 H Neutrophils % 72.9 Neutrophils % (Manual) 66.0 Band Neutrophils % 1.0 Lymphocytes % 16.2 Lymphocytes % (Manual) 16.0 D Monocytes % 6.2 Monocytes % (Manual) 5 Eosinophils % 3.6 Eosinophils % (Manual) 3.0 D Basophils % 1.1 Basophils % (Manual) 0.0 Myelocytes % (Man) 0 D Promyelocytes % (Man) 0 Blast Cells % (Manual) 0 Nucleated RBC % 0 Metamyelocytes 4 H D Hypochromia 0 Platelet Estimate Normal Platelet Comment Present Polychromasia 1+ Poikilocytosis 0 Anisocytosis 2+ Microcytosis 1+ Macrocytosis 0 Sodium 132 L Potassium 4.3 Chloride 97 L Carbon Dioxide 28 Anion Gap 7 L BUN 24 H Creatinine 0.9 Creat Clearance w eGFR > 60 Random Glucose 118 H Calcium 8.7 Total Bilirubin 0.4 AST 21 ALT 56 Alkaline Phosphatase 76 Total Protein 6.5 Albumin 2.7 L 04/28/18 09:20 WBC RBC Hgb Hct MCV MCH MCHC RDW Plt Count MPV Absolute Neuts (auto) Neutrophils % Neutrophils % (Manual) Band Neutrophils % Lymphocytes % Lymphocytes % (Manual) Monocytes % Monocytes % (Manual) Eosinophils % Eosinophils % (Manual) Basophils % Basophils % (Manual) Myelocytes % (Man) Promyelocytes % (Man) Blast Cells % (Manual) Nucleated RBC % Metamyelocytes Hypochromia Platelet Estimate Platelet Comment Polychromasia Poikilocytosis Anisocytosis Microcytosis Macrocytosis Sodium 131 L Potassium 4.5 Chloride 97 L Carbon Dioxide 29 Anion Gap 5 L BUN 20 H Creatinine 0.9 Creat Clearance w eGFR > 60 Random Glucose 114 H Calcium 8.6 Total Bilirubin 0.4 AST 20 ALT 53 Alkaline Phosphatase 74 Total Protein 6.3 L Albumin 2.7 L HOSPITAL COURSE: Date of Admission:04/14/18 Date of Discharge: 04/28/18 Mr. Chang is a 73 year old male with a significant past medical history of hyperlipidemia, herniated discs 2003, GERD with polyps, bilateral cataracts with cataract extraction of the right eye with IDL implant (2014) and cataract extraction of the left eye with lens implant (2017). He comes to the ER for evaluation of severe back pain and inability to ambulate. On 04/18/2018 he underwent L3-L5 laminectomies, decompression with interbody cages at L34 and L45, Posterior fusion with pedicle screws and rods with Dr. Witt. He has been cleared for discharge home. Surgery: Back pain s/p L3-L5 laminectomies: Completed prednisone taper for back pain. Pain management with gabapentin, lidocaine, oxycodone sr and oxy 5 for breakthrough, baclofen, diazepam. Constipation: on senna, miralax continue physical therapy, for rehab placement to [place]. UTI: UA/UC negative, blood cultures negative. No signs of infection. discontinue antibiotics. Card: Hyperlipidemia. continue statin therapy. GI: Gerd. on protonix. Discharge to [place]. Minutes to complete discharge: 60 Discharge Summary Reason For Visit: INTRACTABLE LOW BACK PAIN Current Active Problems Hyperlipidemia (Acute) Hyponatremia (Acute) Intractable low back pain (Acute) Pre-operative cardiovascular examination (Acute) Status post lumbar laminectomy (Acute) Condition: Improved - Instructions Diet, Activity, Other Instructions: Post Operative Instructions Physical Activity Resume your normal everyday activity as tolerated. No heavy lifting or exercise until seen by your surgeon. You may walk unlimited amounts and climb stairs. You may resume driving the car when you feel safe and comfortable behind the wheel and you are no longer wearing your brace. Do not operate a vehicle while taking narcotic medication. Brace If you had back surgery, wear TLSO Brace whenever out of bed. May remove to sleep and shower. Wound Care Keep your incision clean, dry and covered at all times. Apply an occlusive dressing (Saran wrap or Tegaderm) when showering to avoid getting your incision wet. Do not submerge incision or apply ointments or creams. The carlos will be removed in the office in 10-14 days post-op. Diet There are no dietary restrictions. Eat healthy, high-fiber foods. Drink 6-8 glasses of liquid each day. This will assist in keeping your bowels regular. Pain Management You may take Tylenol or acetaminophen. Any pain prescription medication ordered should be taken as prescribed for moderate to severe pain. Call Dr Ayoub for any of the following: Severe pain not relieved by medication Fever of 101 or higher Excessive bleeding or drainage on dressing Inability to urinate Any chest pain or shortness of breath, seek Emergency Care. Call the office to confirm a post-operative appointment for 2-3 weeks post-op Chivo Witt MD [facility] [address] [place] [address] Referrals: Gamal Davidson MD [Primary Care Provider] - Disposition: [facility] - Home Medications Comprehensive Discharge Medication List: Ambulatory Orders Cholecalciferol (Vitamin D3) [Vitamin D] 5,000 unit PO DAILY 12/27/14 Simvastatin 40 mg PO DAILY 12/27/14 Pyridoxine HCl (B-6) [Vitamin B6 -] 100 mg PO DAILY 08/08/17 Baclofen [Lioresal -] 10 mg PO TID tablet 04/28/18 Ferrous Sulfate [Feosol] 325 mg PO DAILY@0800 ud 04/28/18 Gabapentin [Neurontin -] 300 mg PO TID capsule 04/28/18 Lactobacillus Acidophilus [Bacid -] 1 tab PO DAILY tab 04/28/18 Lidocaine 5% Patch [Lidoderm -] 2 patch TP DAILY patch 04/28/18 Pantoprazole Sodium [Protonix -] 40 mg PO DAILY tablet.ec 04/28/18 Polyethylene Glycol 3350 [Miralax 119 gm Btl -] 17 gm PO DAILY bottle 04/28/18 Sennosides [Senna -] 2 tab PO HS PRN tablet 04/28/18 This patient is new to me today: No Emergency Visit: Yes ED Registration Date: 04/14/18 Care time: The patient presented to the Emergency Department on the above date and was hospitalized for further evaluation of their emergent condition. Critical Care patient: No - Discharge Referral Referred to [facility] Med P.C.: No
--- NOTE | 2018-05-03 10:05 | SURG ---
Surgery Telesales Representative Note Telesales Representative: Tiffanie Hearn PA-C Date of Service: 04/18/18 Diagnosis: L34 & L45 disc herniations with stenosis and facet arthropathy Procedure: 1) Bilateral L34 Laminectomy 2) Bilateral L45 Laminectomy 3) L34 Transpedicuar approach 4) L45 Trsanspedicular approach 5) Floroscopy 6) Microdissection 7) Interbody cage L34 8) Interbody & posterior/lateral Arthrodesis L34 9) Interbody cage L45 10) Interbody & posterior/lateral arthrodesis L45 11) L3-L5 posterial segmental Instrumentaion (techincally challenging) 12) Local autograft 13) Bilateral soft tissue advancement flaps (100cm2) I was present for the entirety of the operative procedure. For further detail, please refer to operative report. Visit type - Case Type Case Type: Scheduled - Emergency Emergency Visit: No - New patient This patient is new to me today: Yes Date on this admission: 05/03/18
== END 2018-04-28 13:48 | DRG 454 ==
LOC: JER 05:54 → JERBED 12:55 → J6S 21:37 → OBSVTOIN 04-14 10:46 → J4W 04-18 17:48 → J8W 04-20 21:55
PROVIDERS: ADMIT Internal Medicine; ATTEND Nurse Practitioner Family
PROC: 0SG10J1 Fusion of 2 or more Lumbar Vertebral Joints with Synthetic Substitute, Posterior Approach, Posterior Column, Open Approach (ICD-10-PCS; 2018-04-18)
PROC: 0ST20ZZ Resection of Lumbar Vertebral Disc, Open Approach (ICD-10-PCS; 2018-04-18)
PROC: 01NB0ZZ Release Lumbar Nerve, Open Approach (ICD-10-PCS; 2018-04-18)
PROC: B01BZZZ Fluoroscopy of Spinal Cord (ICD-10-PCS; 2018-04-18)
PROC: 0JX70ZZ Transfer Back Subcutaneous Tissue and Fascia, Open Approach (ICD-10-PCS; 2018-04-18)
PROC: 0SG10AJ Fusion of 2 or more Lumbar Vertebral Joints with Interbody Fusion Device, Posterior Approach, Anterior Column, Open Approach (ICD-10-PCS; principal; 2018-04-18 08:00)
DX: M48.061 Spinal stenosis, lumbar region without neurogenic claudication (principal); N39.0 Urinary tract infection, site not specified; K21.9 Gastro-esophageal reflux disease without esophagitis; E78.00 Pure hypercholesterolemia, unspecified; I10 Essential (primary) hypertension; E78.5 Hyperlipidemia, unspecified; M47.816 Spondylosis without myelopathy or radiculopathy, lumbar region; M43.16 Spondylolisthesis, lumbar region; K59.09 Other constipation; R33.9 Retention of urine, unspecified; D64.9 Anemia, unspecified; B95.2 Enterococcus as the cause of diseases classified elsewhere; D72.829 Elevated white blood cell count, unspecified; M51.26 Other intervertebral disc displacement, lumbar region
CPT/HCPCS: 36415; 71045-TC-FY; 72100-TC-FY; 72131-TC; 72148-TC; 72170-TC-FY; 76000-TC-FY; 80048; 80053; 81003; 82962; 83735; 85025; 85027; 85610; 86850; 86900; 86901; 87040; 87086; 87186; 93005; 93010; 94760; 97116-GP; 97162-GP; 99281-25; 99283-25; G0378; J0131; J0475; J1644

== ENCOUNTER 2018-05-19 16:35 | Emergency (ER) | payer OTHER, MEDICARE ==
--- NOTE | 2018-05-19 16:55 | PDOC ---
Rapid Medical Evaluation Time Seen by Provider: 05/19/18 16:55 Medical Evaluation: Allergies Allergy/AdvReac Type Severity Reaction Status Date / Time No Known Drug Allergies Allergy Verified 04/12/18 20:00 kiwi Allergy Itching Uncoded 04/21/18 16:04 05/19/18 16:55 I performed a brief in-person evaluation of this patient. Chief complaint: RLE edema s/p recent admission/rehab stay for low back pain Pertinent physical exam findings: 2+ LE edema bilaterally, no calf tenderness I have ordered the following: EKG, CBC, CMP, PT/INR, BNP, bilat LE duplex Patient to proceed to the ED for further evaluation. 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 Andino requests to be paged on his arrival. 05/19/18 16:56 Discharge Disposition - Diagnosis Swelling of lower leg - Referrals - Patient Instructions - Post Discharge Activity
[2018-05-19 17:01] VITALS: BP 109/67; PULSE 94; TEMP 97.9; BMI 29.9
--- NOTE | 2018-05-19 19:52 | PDOC ---
History of Present Illness - General Chief Complaint: Edema Stated Complaint: SWOLLEN LEGS Time Seen by Provider: 05/19/18 16:55 - History of Present Illness Initial Comments: 05/19/18 19:49 Mr. Chang is a 73 yo male w/ pmh of HTN, HLD, with recent (2) L3-L5 laminectomies, decompression at L3-L4, L4-L5, posterior fusion with pedicle screws and rods who presents on advice of neurosurgeon for evaluation of bilateral swollen ankles. Patient reports he has no pain or other symptoms however became concerned as he "used to have ankles." Reports he is unsure if they have swollen acutely or not but knows they do not look like his baseline. Patient has no other complaints at this time. The patient denies chest pain, shortness of breath, headache and dizziness. Denies fever, chills, nausea, vomit, diarrhea and constipation. Denies dysuria, frequency, urgency and hematuria. Past History - Past Medical History Allergies/Adverse Reactions: Allergies Allergy/AdvReac Type Severity Reaction Status Date / Time No Known Drug Allergies Allergy Verified 05/19/18 16:55 kiwi Allergy Itching Uncoded 05/19/18 16:55 Home Medications: Ambulatory Orders Cholecalciferol (Vitamin D3) [Vitamin D] 5,000 unit PO DAILY 12/27/14 Simvastatin 40 mg PO DAILY 12/27/14 Pyridoxine HCl (B-6) [Vitamin B6 -] 100 mg PO DAILY 08/08/17 Baclofen [Lioresal -] 10 mg PO TID tablet 04/28/18 Ferrous Sulfate [Feosol] 325 mg PO DAILY@0800 ud 04/28/18 Gabapentin [Neurontin -] 300 mg PO TID capsule 04/28/18 Lactobacillus Acidophilus [Bacid -] 1 tab PO DAILY tab 04/28/18 Lidocaine 5% Patch [Lidoderm -] 2 patch TP DAILY patch 04/28/18 Pantoprazole Sodium [Protonix -] 40 mg PO DAILY tablet.ec 04/28/18 Polyethylene Glycol 3350 [Miralax 119 gm Btl -] 17 gm PO DAILY bottle 04/28/18 Sennosides [Senna -] 2 tab PO HS PRN tablet 04/28/18 Anemia: No Asthma: No Cancer: No Cardiac Disorders: No CVA: No COPD: No CHF: No Dementia: No Diabetes: No GI Disorders: Yes (acid reflux) Disorders: No HTN: No Hypercholesterolemia: Yes Liver Disease: No Seizures: No Thyroid Disease: No - Surgical History Abdominal Surgery: No Appendectomy: No Cardiac Surgery: No Cholecystectomy: No Lung Surgery: No Neurologic Surgery: No Orthopedic Surgery: Yes (repaired meniscus L knee) - Immunization History Immunization Up to Date: Yes - Suicide/Smoking/Psychosocial Hx Smoking History: Unknown if ever smoked Have you smoked in the past 12 months: No Information on smoking cessation initiated: No Hx Alcohol Use: No Drug/Substance Use Hx: No Substance Use Type: None Hx Substance Use Treatment: No Review of Systems - Review of Systems Comments:: 05/19/18 19:58 GENERAL/CONSTITUTIONAL: No fever or chills. No weakness. HEAD, EYES, EARS, NOSE AND THROAT: No change in vision. No ear pain or discharge. No sore throat. CARDIOVASCULAR: No chest pain or shortness of breath RESPIRATORY: No cough, wheezing, or hemoptysis. GASTROINTESTINAL: No nausea, vomiting, diarrhea or constipation. GENITOURINARY: No dysuria, frequency, or change in urination. MUSCULOSKELETAL: +MELINDA swollen ankles as described. SKIN: No rash NEUROLOGIC: No headache, vertigo, loss of consciousness, or change in strength/ sensation. ENDOCRINE: No increased thirst. No abnormal weight change HEMATOLOGIC/LYMPHATIC: No anemia, easy bleeding, or history of blood clots. ALLERGIC/IMMUNOLOGIC: No hives or skin allergy. *Physical Exam - Vital Signs Last Vital Signs Temp Pulse Resp BP Pulse Ox 97.9 F 94 H 18 109/67 96 05/19/18 16:57 05/19/18 16:57 05/19/18 16:57 05/19/18 16:57 05/19/18 16:57 - Physical Exam Comments: 05/19/18 19:58 GENERAL: Awake, alert, and fully oriented, in no acute distress HEAD: No signs of trauma, normocephalic, atraumatic EYES: PERRLA, EOMI, sclera anicteric, conjunctiva clear ENT: Auricles normal inspection, hearing grossly normal, nares patent, oropharynx clear without exudates. Moist mucosa NECK: Normal ROM, supple, no lymphadenopathy, JVD, or masses LUNGS: No distress, speaks full sentences, clear to auscultation bilaterally HEART: Regular rate and rhythm, normal S1 and S2, no murmurs, rubs or gallops, peripheral pulses normal and equal bilaterally. ABDOMEN: Soft, nontender, normoactive bowel sounds. No guarding, no rebound. No masses EXTREMITIES: +1+ Edema noted to ankles MELINDA. NEUROLOGICAL: Cranial nerves II through XII grossly intact. Normal speech, normal gait, no focal sensorimotor deficits SKIN: Warm, Dry, normal turgor, no rashes or lesions noted. Moderate Sedation - Procedure Monitoring Vital Signs: Procedure Monitoring Vital Signs Temperature 97.9 F 05/19/18 16:57 Pulse Rate 94 H 05/19/18 16:57 Respiratory Rate 18 05/19/18 16:57 Blood Pressure 109/67 05/19/18 16:57 O2 Sat by Pulse Oximetry (%) 96 05/19/18 16:57 ED Treatment Course - LABORATORY CBC & Chemistry Diagram: 05/19/18 19:22 05/19/18 19:22 Medical Decision Making - Medical Decision Making 05/19/18 19:58 Mr. Chang is a 73 yo male w/ pmh as described who presents for evaluation of symptoms of MELINDA leg swelling. Discussed patient with Neurosurgery (Dr. Witt ) who reports patient was recently immobilized for over a week prior to his back surgery and directed patient to ER for r/o DVT given his history. Will comply with recommendations and dispo accordingly. 05/19/18 21:03 Patient US negative MELINDA. Laboratory evaluation grossly wnl as below. No concern for acute process at this time. Discharging patient to home for further outpatient evaluation as needed. Laboratory Results - last 24 hr 05/19/18 05/19/18 05/19/18 19:22 19:22 19:22 WBC 7.7 RBC 4.29 Hgb 12.9 Hct 38.5 MCV 89.8 MCH 30.1 MCHC 33.5 RDW 14.9 Plt Count 249 D MPV 8.6 Absolute Neuts (auto) 4.4 Neutrophils % 57.5 D Lymphocytes % 27.7 D Monocytes % 9.1 Eosinophils % 4.6 H Basophils % 1.1 Nucleated RBC % 0 PT with INR 12.60 INR 1.07 Sodium 142 Potassium 4.4 Chloride 108 H Carbon Dioxide 26 Anion Gap 8 BUN 17 Creatinine 1.0 Creat Clearance w eGFR 73.66 Random Glucose 90 Calcium 8.8 Total Bilirubin 0.4 AST 43 H ALT 31 Alkaline Phosphatase 89 B-Natriuretic Peptide 121.1 Total Protein 7.1 Albumin 3.4 *DC/Admit/Observation/Transfer Diagnosis at time of Disposition: Swelling of lower leg - Discharge Dispostion Disposition: HOME - Referrals Referrals: Gamal Davidson MD [Primary Care Provider] - - Patient Instructions Printed Discharge Instructions: DI for Dependent Edema Additional Instructions: You were evaluated today in the ER for your leg swelling. We performed laboratory analysis as well as leg ultrasounds with no concerning findings. We also alerted your Neurosurgeon of these findings. You may follow-up outpatient later this week for further evaluation. Return to ER if any leg pain, fevers, chills, or other concerning symptoms. - Post Discharge Activity
[2018-05-19 19:54] LABS: BASO % 1.1 % (0-2.0); EOS % 4.6 % (0-4.5); HEMATOCRIT 38.5 % (35.4-49); HEMOGLOBIN 12.9 GM/dL (11.7-16.9); LYMPH % 27.7 % (8-40); MCH 30.1 pg (25.7-33.7); MCHC 33.5 g/dl (32.0-35.9); MEAN CELL VOLUME 89.8 fl (80-96); MEAN PLT VOLUME 8.6 fl (7.5-11.1); MONO % 9.1 % (3.8-10.2); NEUT % 57.5 % (42.8-82.8); PLATELET COUNT 249 K/MM3 (134-434); RBC 4.29 M/mm3 (4.00-5.60); RDW 14.9 % (11.9-15.9); WHITE BLOOD COUNT 7.7 K/mm3 (4.0-10.0)
[2018-05-19 20:06] LABS: INR 1.07 (0.83-1.09); PROTHROMBIN TIME (PATIENT) 12.6 SEC (9.7-13.0)
[2018-05-19 20:47] LABS: ALBUMIN 3.4 g/dl (3.4-5.0); ALK PHOS 89 U/L (45-117); ANION GAP 8 MMOL/L (8-16); BILIRUBIN,TOTAL 0.4 mg/dL (0.2-1); BLOOD UREA NITROGEN 17 mg/dL (7-18); CALCIUM 8.8 mg/dL (8.5-10.1); CHLORIDE 108 mmol/L (98-107); CO2 26 mmol/L (21-32); GLUCOSE,RANDOM 90 mg/dL (74-106); N-TERMINAL BNP 121.1 pg/ml (5-125); POTASSIUM 4.4 mmol/L (3.5-5.1); SGOT/AST 43 U/L (15-37); SGPT/ALT 31 U/L (13-61); SODIUM 142 mmol/L (136-145); TOT PROT 7.1 g/dl (6.4-8.2)
--- NOTE | 2018-05-19 21:16 | PDOC ---
Attending Attestation - HPI HPI: 05/19/18 21:22 The patient is a 73 year old male with a PMH of HTN, HLD, with recent (04/18) L3- L5 laminectomies, decompression at L3-L4, L4-L5, posterior fusion with pedicle screws and rods who presents to the ER sent in by Dr. Witt for bilateral ankle swelling. Patient denies any other associated symptoms. Denies any trauma or recent falls. The patient denies chest pain, shortness of breath, headache and dizziness. Denies fever, chills, nausea, vomit, diarrhea and constipation. Denies dysuria, frequency, urgency and hematuria. Allergies: NKA Past surgical history: L3-L5 laminectomies, decompression at L3-L4, L4-L5, posterior fusion with pedicle screws and rods Social history: No reported alcohol, drug or cigarette use. PCP: Dr. Davidson - Physicial Exam PE: 05/19/18 21:22 GENERAL: Awake, alert, and fully oriented, in no acute distress HEAD: No signs of trauma EYES: PERRLA, EOMI, sclera anicteric, conjunctiva clear ENT: Auricles normal inspection, hearing grossly normal, nares patent, oropharynx clear without exudates. Moist mucosa NECK: Normal ROM, supple, no lymphadenopathy, JVD, or masses LUNGS: Breath sounds equal, clear to auscultation bilaterally. No wheezes, and no crackles HEART: Regular rate and rhythm, normal S1 and S2, no murmurs, rubs or gallops ABDOMEN: Soft, nontender, normoactive bowel sounds. No guarding, no rebound. No masses EXTREMITIES: (+) Left ankle swelling greater than the right. (+) 2+ pitting edema going up the shins bilaterally. No calf tenderness. (+) Has a back brace on. Moving all extremities. NEUROLOGICAL: Cranial nerves II through XII grossly intact. Normal speech, normal gait SKIN: Warm, Dry, normal turgor, no rashes or lesions noted. <Becky Rocha - Last Filed: 05/19/18 21:23> - Resident Resident Name: Titus Landers - ED Attending Attestation I have performed the following: I have examined & evaluated the patient, The case was reviewed & discussed with the resident, I agree w/resident's findings & plan - Medical Decision Making 05/19/18 21:27 Labs are normal. Pt's sono demonstrates no DVT. Pt states that he has no calf or ankle tenderness. He just got nervous when he saw that his left ankle was more swollen than the right. Pt has pitting edema. No color changes. Pt is stable for discharge. He is able to ambulate and he has no other complaints. He has no chest pain and no SOB. 05/19/18 21:49 Pt is stable for discharge home. <Tanisha Eddy - Last Filed: 05/19/18 21:49>
--- NOTE | 2018-05-20 13:15 | EKG ---
Test Reason : Blood Pressure : / mmHG Vent. Rate : 085 BPM Atrial Rate : 085 BPM P-R Int : 182 ms QRS Dur : 116 ms QT Int : 382 ms P-R-T Axes : 026 -38 048 degrees QTc Int : 454 ms NORMAL SINUS RHYTHM LEFT AXIS DEVIATION SEPTAL INFARCT , AGE UNDETERMINED ABNORMAL ECG WHEN COMPARED WITH ECG OF 16-APR-2018 10:16, SEPTAL INFARCT IS NOW PRESENT T WAVE INVERSION NO LONGER EVIDENT IN INFERIOR LEADS Confirmed by MD DANIKA, MARY ([id number]) on 05/20/2018 1:15:11 PM Referred By: Confirmed By:MARY GARNICA MD
== END 2018-05-19 21:26 | disposition home or self-care (01) ==
LOC: JER 16:35
DX: R60.0 Localized edema (principal); I10 Essential (primary) hypertension; E78.5 Hyperlipidemia, unspecified; Z98.890 Other specified postprocedural states
CPT/HCPCS: 36415; 80053; 83880; 85025; 85610; 93005; 93010; 93970-TC; 99283-25

== ENCOUNTER 2020-03-31 09:30 | Inpatient (IN) | payer OTHER, MEDICARE ==
[2020-03-31 09:37] VITALS: BMI 48.2
[2020-03-31] MEDS ORDERED: ACETAMINOPHEN INJECTION 100 ML IVPB ONE (09:39)
[2020-03-31] MEDS ORDERED: ACETAMINOPHEN 1000 MG/100 ML VIAL (NON FORMULARY) IVPB ONE (09:40)
[2020-03-31] MEDS ORDERED: DEXAMETHASONE SOD PHOSPHATE 10 MG/1 ML VIAL IVPUSH ONE (10:19)
[2020-03-31] MEDS ORDERED: SODIUM CHLORIDE 1,000 ML IV STA ×2 (10:19→11:16)
[2020-03-31] MEDS ORDERED: DEXAMETHASONE SOD PHOSPHATE 10 MG/1 ML VIAL ONE (10:24)
[2020-03-31 10:26] LABS: VENOUS BASE EXCESS -3.6 mmol/L (-2-2); VENOUS O2 SATURATION 66.3 % (70-80); VENOUS PCO2 33.5 mmHg (38-52); VENOUS PH 7.399 (7.310-7.410)
[2020-03-31 10:31] LABS: BASO % 1.3 % (0-2.0); EOS % 3.8 % (0-4.5); HEMATOCRIT 45.6 % (35.4-49); MCH 29.1 pg (25.7-33.7); MCHC 32.8 g/dl (32.0-35.9); MEAN CELL VOLUME 88.8 fl (80-96); MONO % 1.3 % (3.8-10.2); NEUT % 84.6 % (42.8-82.8); PLATELET COUNT 133 K/MM3 (134-434); RBC 5.14 M/mm3 (4.00-5.60); RDW 13.7 % (11.9-15.9); WHITE BLOOD COUNT 4.4 K/mm3 (4.0-10.0)
[2020-03-31 10:39] LABS: INR 1.26 (0.83-1.09); PROTHROMBIN TIME (PATIENT) 15.2 SEC (9.7-13.0)
[2020-03-31 10:42] LABS: ACTIVATED PTT 25.3 SECONDS (25.2-36.5)
[2020-03-31 10:58] LABS: POTASSIUM 4.2 mmol/L (3.5-5.1)
[2020-03-31 11:01] LABS: ALBUMIN 3.6 g/dl (3.4-5.0); BLOOD UREA NITROGEN 31.4 mg/dL (7-18); CALCIUM 9.1 mg/dL (8.5-10.1)
[2020-03-31 11:04] LABS: BILIRUBIN,DIRECT 0.4 mg/dL (0.0-0.2); CREATININE 1.7 mg/dL (0.55-1.3)
[2020-03-31 11:05] LABS: BILIRUBIN,TOTAL 0.8 mg/dL (0.2-1)
[2020-03-31 11:06] LABS: TOT PROT 6.6 g/dl (6.4-8.2)
[2020-03-31] MEDS ORDERED: PIPERACILLIN/TAZOB 4.5 GM 4.5 GM in DEXTROSE 5%-WATER 100 ML IVPB ONE (11:17)
[2020-03-31] MEDS ORDERED: VANCOMYCIN 1,000 MG in DEXTROSE 5%-WATER - 250 ML IVPB ONE (11:17)
[2020-03-31] MEDS ORDERED: VANCOMYCIN 1 GRAM (PRE-DOCKED) 1,000 MG/250 ML BAG IVPB ONE (11:26)
[2020-03-31] MEDS ORDERED: PIPERACILLIN/TAZOB 4.5 GM 4.5 GM/100 ML BAG IVPB ONE (11:26)
[2020-03-31 12:51] LABS: EPI CELLS 12 /uL (0-25.1); HYALINE CASTS 48 /uL (0-3.1); PH,URINE 5.5 (5.0-8.0); URINE APPEARANCE CLOUDY; URINE BACTERIA 6392 /uL (0-1359); URINE BILIRUBIN NEGATIVE (NEGATIVE); URINE COLOR YELLOW; URINE GLUCOSE (UA) NEGATIVE (NEGATIVE); URINE KETONE TRACE (NEGATIVE); URINE LEUK ESTERASE 2+ (NEGATIVE); URINE NITRITE POSITIVE (NEGATIVE); URINE PROTEIN 1+ (NEGATIVE); URINE RBC 203 /uL (0-23.9); URINE WBC 683 /uL (0-25.8)
[2020-03-31] MEDS ORDERED: ACETAMINOPHEN 325 MG TABLET (FP) PO PRN (14:01)
[2020-03-31] MEDS ORDERED: HEPARIN NA (PORCINE) 5,000 UNITS/ML 1ML VIAL ONE (14:08)
[2020-03-31] MEDS: HEPARIN NA (PORCINE) 5,000 UNITS/ML 1ML VIAL SQ SCH ×2 (14:21→23:11)
[2020-03-31] MEDS: SODIUM CHLORIDE 1,000 ML IV SCH (14:21)
[2020-03-31] MEDS ORDERED: ASPIRIN 81 MG CHEWABLE TABLETS PO ONE (14:28)
[2020-03-31] MEDS ORDERED: SENNOSIDES 8.6MG TABLET (FP) PO PRN (14:56)
[2020-03-31] MEDS ORDERED: PIPERACILLIN/TAZOB 2.25 GM 2.25 GM in DEXTROSE 5%-WATER - 50 ML IVPB SCH ×2 (15:00→16:30)
[2020-03-31] MEDS ORDERED: ASPIRIN 81 MG CHEWABLE TABLETS ONE (15:04)
[2020-03-31] MEDS ORDERED: PIPERACILLIN/TAZOB 2.25 GM 2.25 GM/50 ML BAG IVPB ONE (19:01)
[2020-03-31] MEDS: PIPERACILLIN/TAZOB 2.25 GM 2.25 GM in DEXTROSE 5%-WATER - 50 ML IVPB SCH ×2 (19:08→23:58)
[2020-03-31] MEDS: ATORVASTATIN CA 20 MG TABLET (FP) PO SCH (23:11)
[2020-04-01] MEDS ORDERED: PIPERACILLIN/TAZOB 2.25 GM 2.25 GM in DEXTROSE 5%-WATER - 50 ML IVPB SCH (03:00)
[2020-04-01] MEDS ORDERED: PIPERACILLIN/TAZOBACTAM 2.25 GM VIAL IVPB ONE ×2 (03:07→03:10)
[2020-04-01] MEDS ORDERED: DEXTROSE 5%-WATER - 50 ML IVPB ONE ×3 (03:10→16:21)
[2020-04-01] MEDS: HEPARIN NA (PORCINE) 5,000 UNITS/ML 1ML VIAL SQ SCH ×3 (05:50→21:47)
[2020-04-01 07:07] LABS: BASO % 0.5 % (0-2.0); EOS % 0.1 % (0-4.5); HEMATOCRIT 38.6 % (35.4-49); HEMOGLOBIN 12.7 GM/dL (11.7-16.9); MCH 29.3 pg (25.7-33.7); MCHC 32.8 g/dl (32.0-35.9); MEAN CELL VOLUME 89.4 fl (80-96); MEAN PLT VOLUME 9.4 fl (7.5-11.1); MONO % 6.9 % (3.8-10.2); NEUT % 83.5 % (42.8-82.8); PLATELET COUNT 91 K/MM3 (134-434); RBC 4.32 M/mm3 (4.00-5.60); RDW 14.1 % (11.9-15.9); WHITE BLOOD COUNT 13.4 K/mm3 (4.0-10.0)
[2020-04-01 07:33] LABS: ALBUMIN 2.8 g/dl (3.4-5.0); CALCIUM 7.7 mg/dL (8.5-10.1)
[2020-04-01 07:34] LABS: BLOOD UREA NITROGEN 31.4 mg/dL (7-18); MAGNESIUM 2.2 mg/dL (1.8-2.4)
[2020-04-01 07:37] LABS: CREATININE 1.6 mg/dL (0.55-1.3); PHOSPHOROUS 3.5 mg/dL (2.5-4.9)
[2020-04-01 07:38] LABS: BILIRUBIN,TOTAL 0.5 mg/dL (0.2-1); TOT PROT 5.7 g/dl (6.4-8.2)
[2020-04-01] MEDS ORDERED: PIPERACILLIN/TAZOBACTAM 3.375 GM VIAL IVPB ONE ×2 (10:44→16:21)
[2020-04-01] MEDS: PIPERACILLIN/TAZOB 3.375 GM 3.375 GM in DEXTROSE 5%-WATER - 50 ML IVPB SCH ×2 (10:45→17:44)
[2020-04-01] MEDS: ASPIRIN 81 MG CHEWABLE TABLETS PO SCH (10:47)
[2020-04-01] MEDS: LACTOBACILLUS ACIDOPHILUS 1 TABLET PO SCH (10:47)
[2020-04-01] MEDS: PANTOPRAZOLE 20 MG TABLET PO SCH (10:47)
[2020-04-01] MEDS: SODIUM CHLORIDE 1,000 ML IV SCH (13:42)
[2020-04-01] MEDS: ATORVASTATIN CA 20 MG TABLET (FP) PO SCH (21:47)
[2020-04-02] MEDS ORDERED: PIPERACILLIN/TAZOBACTAM 3.375 GM VIAL IVPB ONE ×3 (01:57→17:38)
[2020-04-02] MEDS ORDERED: DEXTROSE 5%-WATER - 50 ML IVPB ONE ×3 (01:58→17:38)
[2020-04-02] MEDS: PIPERACILLIN/TAZOB 3.375 GM 3.375 GM in DEXTROSE 5%-WATER - 50 ML IVPB SCH ×3 (01:59→17:48)
[2020-04-02] MEDS: HEPARIN NA (PORCINE) 5,000 UNITS/ML 1ML VIAL SQ SCH ×3 (06:31→21:20)
[2020-04-02] MEDS: SODIUM CHLORIDE 1,000 ML IV SCH (06:45)
[2020-04-02 07:45] LABS: BASO % 0.8 % (0-2.0); EOS % 6.5 % (0-4.5); HEMOGLOBIN 13.3 GM/dL (11.7-16.9); LYMPH % 21.9 % (8-40); MCH 29.8 pg (25.7-33.7); MCHC 34.1 g/dl (32.0-35.9); MEAN CELL VOLUME 87.3 fl (80-96); MEAN PLT VOLUME 9.7 fl (7.5-11.1); MONO % 9.1 % (3.8-10.2); NEUT % 61.7 % (42.8-82.8); PLATELET COUNT 115 K/MM3 (134-434); RBC 4.47 M/mm3 (4.00-5.60); WHITE BLOOD COUNT 9.9 K/mm3 (4.0-10.0)
[2020-04-02 07:59] LABS: POTASSIUM 4.2 mmol/L (3.5-5.1)
[2020-04-02 08:02] LABS: CALCIUM 8.4 mg/dL (8.5-10.1)
[2020-04-02 08:03] LABS: ALBUMIN 2.9 g/dl (3.4-5.0); BLOOD UREA NITROGEN 31.2 mg/dL (7-18); MAGNESIUM 2.4 mg/dL (1.8-2.4)
[2020-04-02 08:06] LABS: CREATININE 1.5 mg/dL (0.55-1.3)
[2020-04-02 08:07] LABS: BILIRUBIN,TOTAL 0.7 mg/dL (0.2-1); TOT PROT 5.8 g/dl (6.4-8.2)
[2020-04-02] MEDS: ASPIRIN 81 MG CHEWABLE TABLETS PO SCH (09:32)
[2020-04-02] MEDS: METOPROLOL TARTRATE 25 MG TABLET (FP) PO SCH ×2 (09:32→21:20)
[2020-04-02] MEDS: LACTOBACILLUS ACIDOPHILUS 1 TABLET PO SCH (09:32)
[2020-04-02] MEDS: PANTOPRAZOLE 20 MG TABLET PO SCH (09:33)
[2020-04-02] MEDS: ATORVASTATIN CA 20 MG TABLET (FP) PO SCH (21:20)
[2020-04-03] MEDS ORDERED: DEXTROSE 5%-WATER - 50 ML IVPB ONE ×3 (01:15→17:02)
[2020-04-03] MEDS ORDERED: PIPERACILLIN/TAZOBACTAM 3.375 GM VIAL IVPB ONE ×3 (01:15→17:02)
[2020-04-03] MEDS: PIPERACILLIN/TAZOB 3.375 GM 3.375 GM in DEXTROSE 5%-WATER - 50 ML IVPB SCH ×3 (01:50→17:03)
[2020-04-03] MEDS: HEPARIN NA (PORCINE) 5,000 UNITS/ML 1ML VIAL SQ SCH ×3 (05:54→21:07)
[2020-04-03 07:20] LABS: BASO % 0.8 % (0-2.0); EOS % 7.2 % (0-4.5); HEMATOCRIT 41.8 % (35.4-49); HEMOGLOBIN 14.3 GM/dL (11.7-16.9); LYMPH % 22.4 % (8-40); MCH 29.7 pg (25.7-33.7); MCHC 34.1 g/dl (32.0-35.9); MEAN CELL VOLUME 87.1 fl (80-96); MEAN PLT VOLUME 9.1 fl (7.5-11.1); MONO % 9.5 % (3.8-10.2); NEUT % 60.1 % (42.8-82.8); PLATELET COUNT 137 K/MM3 (134-434); RBC 4.81 M/mm3 (4.00-5.60); RDW 13.8 % (11.9-15.9); WHITE BLOOD COUNT 8.4 K/mm3 (4.0-10.0)
[2020-04-03 07:36] LABS: POTASSIUM 4.1 mmol/L (3.5-5.1)
[2020-04-03 07:43] LABS: BLOOD UREA NITROGEN 24.7 mg/dL (7-18)
[2020-04-03 07:44] LABS: CALCIUM 8.7 mg/dL (8.5-10.1)
[2020-04-03 07:46] LABS: CREATININE 1.4 mg/dL (0.55-1.3)
[2020-04-03 07:47] LABS: BILIRUBIN,TOTAL 0.5 mg/dL (0.2-1); TOT PROT 6.3 g/dl (6.4-8.2)
[2020-04-03] MEDS: PANTOPRAZOLE 20 MG TABLET PO SCH (09:14)
[2020-04-03] MEDS: METOPROLOL TARTRATE 25 MG TABLET (FP) PO SCH ×2 (09:14→21:07)
[2020-04-03] MEDS: LACTOBACILLUS ACIDOPHILUS 1 TABLET PO SCH (09:15)
[2020-04-03] MEDS: ASPIRIN 81 MG CHEWABLE TABLETS PO SCH (09:16)
[2020-04-03] MEDS: ATORVASTATIN CA 20 MG TABLET (FP) PO SCH (21:07)
[2020-04-04] MEDS ORDERED: PIPERACILLIN/TAZOBACTAM 3.375 GM VIAL IVPB ONE ×3 (01:23→16:58)
[2020-04-04] MEDS ORDERED: DEXTROSE 5%-WATER - 50 ML IVPB ONE ×3 (01:23→16:58)
[2020-04-04] MEDS: PIPERACILLIN/TAZOB 3.375 GM 3.375 GM in DEXTROSE 5%-WATER - 50 ML IVPB SCH ×3 (01:30→17:00)
[2020-04-04] MEDS: HEPARIN NA (PORCINE) 5,000 UNITS/ML 1ML VIAL SQ SCH ×3 (06:14→21:23)
[2020-04-04 07:22] LABS: BASO % 0.9 % (0-2.0); EOS % 6.4 % (0-4.5); HEMATOCRIT 42.7 % (35.4-49); HEMOGLOBIN 14.6 GM/dL (11.7-16.9); LYMPH % 20.5 % (8-40); MCHC 34.1 g/dl (32.0-35.9); MEAN CELL VOLUME 87.8 fl (80-96); MEAN PLT VOLUME 8.8 fl (7.5-11.1); MONO % 8.4 % (3.8-10.2); NEUT % 63.8 % (42.8-82.8); PLATELET COUNT 161 K/MM3 (134-434); RBC 4.87 M/mm3 (4.00-5.60); RDW 14.2 % (11.9-15.9); WHITE BLOOD COUNT 10.1 K/mm3 (4.0-10.0)
[2020-04-04 07:39] LABS: POTASSIUM 4.2 mmol/L (3.5-5.1)
[2020-04-04 07:59] LABS: ALBUMIN 3.2 g/dl (3.4-5.0); BLOOD UREA NITROGEN 21.4 mg/dL (7-18); CALCIUM 8.7 mg/dL (8.5-10.1)
[2020-04-04 08:02] LABS: CREATININE 1.4 mg/dL (0.55-1.3)
[2020-04-04 08:03] LABS: TOT PROT 6.6 g/dl (6.4-8.2)
[2020-04-04 08:04] LABS: BILIRUBIN,TOTAL 0.6 mg/dL (0.2-1)
[2020-04-04] MEDS: PANTOPRAZOLE 20 MG TABLET PO SCH (09:06)
[2020-04-04] MEDS: METOPROLOL TARTRATE 25 MG TABLET (FP) PO SCH ×2 (09:06→21:23)
[2020-04-04] MEDS: LACTOBACILLUS ACIDOPHILUS 1 TABLET PO SCH (09:07)
[2020-04-04] MEDS: ASPIRIN 81 MG CHEWABLE TABLETS PO SCH (09:07)
[2020-04-04] MEDS ORDERED: TAMSULOSIN HCL 0.4 MG CAP PO ONE (10:18)
[2020-04-04 11:51] LABS: ANISOCYTOSIS 0; MACROCYTOSIS 0; PLATELET ESTIMATE DECREASED
[2020-04-04] MEDS: ATORVASTATIN CA 20 MG TABLET (FP) PO SCH (21:23)
[2020-04-05] MEDS ORDERED: PIPERACILLIN/TAZOBACTAM 3.375 GM VIAL IVPB ONE ×3 (01:09→17:06)
[2020-04-05] MEDS ORDERED: DEXTROSE 5%-WATER - 50 ML IVPB ONE ×3 (01:09→17:07)
[2020-04-05] MEDS: PIPERACILLIN/TAZOB 3.375 GM 3.375 GM in DEXTROSE 5%-WATER - 50 ML IVPB SCH ×3 (01:19→17:08)
[2020-04-05] MEDS: HEPARIN NA (PORCINE) 5,000 UNITS/ML 1ML VIAL SQ SCH ×3 (06:01→21:49)
[2020-04-05] MEDS: TAMSULOSIN HCL 0.4 MG CAP PO SCH (08:30)
[2020-04-05] MEDS: ASPIRIN 81 MG CHEWABLE TABLETS PO SCH (11:05)
[2020-04-05] MEDS: LACTOBACILLUS ACIDOPHILUS 1 TABLET PO SCH (11:06)
[2020-04-05] MEDS: METOPROLOL TARTRATE 25 MG TABLET (FP) PO SCH ×2 (11:06→21:49)
[2020-04-05] MEDS: PANTOPRAZOLE 20 MG TABLET PO SCH (11:07)
[2020-04-05 11:26] LABS: EOS % 4.9 % (0-4.5); HEMATOCRIT 42.5 % (35.4-49); HEMOGLOBIN 14.3 GM/dL (11.7-16.9); LYMPH % 21.3 % (8-40); MCH 29.6 pg (25.7-33.7); MCHC 33.7 g/dl (32.0-35.9); MEAN CELL VOLUME 87.9 fl (80-96); MEAN PLT VOLUME 8.7 fl (7.5-11.1); MONO % 10.1 % (3.8-10.2); NEUT % 62.7 % (42.8-82.8); PLATELET COUNT 184 K/MM3 (134-434); RBC 4.83 M/mm3 (4.00-5.60); RDW 13.9 % (11.9-15.9); WHITE BLOOD COUNT 9.5 K/mm3 (4.0-10.0)
[2020-04-05 11:46] LABS: CALCIUM 8.8 mg/dL (8.5-10.1)
[2020-04-05 11:47] LABS: ALBUMIN 3.2 g/dl (3.4-5.0); BLOOD UREA NITROGEN 21.2 mg/dL (7-18); MAGNESIUM 2.2 mg/dL (1.8-2.4)
[2020-04-05 11:50] LABS: CREATININE 1.4 mg/dL (0.55-1.3)
[2020-04-05 11:51] LABS: BILIRUBIN,TOTAL 0.5 mg/dL (0.2-1); TOT PROT 6.6 g/dl (6.4-8.2)
[2020-04-05 11:57] LABS: ANISOCYTOSIS 1+; MACROCYTOSIS 0; PLATELET ESTIMATE NORMAL
[2020-04-05] MEDS: ATORVASTATIN CA 20 MG TABLET (FP) PO SCH (21:51)
[2020-04-06] MEDS ORDERED: DEXTROSE 5%-WATER - 50 ML IVPB ONE ×2 (01:10→09:05)
[2020-04-06] MEDS ORDERED: PIPERACILLIN/TAZOBACTAM 3.375 GM VIAL IVPB ONE ×2 (01:10→09:04)
[2020-04-06] MEDS: PIPERACILLIN/TAZOB 3.375 GM 3.375 GM in DEXTROSE 5%-WATER - 50 ML IVPB SCH ×2 (01:30→09:10)
[2020-04-06] MEDS: HEPARIN NA (PORCINE) 5,000 UNITS/ML 1ML VIAL SQ SCH (05:46)
[2020-04-06 09:10] VITALS: BP 116/75; PULSE 75; TEMP 97.9
[2020-04-06] MEDS: PANTOPRAZOLE 20 MG TABLET PO SCH (09:10)
[2020-04-06] MEDS: TAMSULOSIN HCL 0.4 MG CAP PO SCH (09:10)
[2020-04-06] MEDS: ASPIRIN 81 MG CHEWABLE TABLETS PO SCH (09:10)
[2020-04-06] MEDS: LACTOBACILLUS ACIDOPHILUS 1 TABLET PO SCH (09:10)
[2020-04-06] MEDS: METOPROLOL TARTRATE 25 MG TABLET (FP) PO SCH (09:11)
== END 2020-04-06 13:23 | disposition home or self-care (01) | DRG 872 ==
LOC: JER 09:30 → JERBED 14:02 → J4S 22:51
PROVIDERS: ADMIT Internal Medicine; ATTEND Nurse Practitioner Acute Care
DX: A41.59 Other Gram-negative sepsis (principal); N39.0 Urinary tract infection, site not specified; Z68.42 Body mass index [BMI] 45.0-49.9, adult; I24.8 Other forms of acute ischemic heart disease; N17.9 Acute kidney failure, unspecified; E87.2 Acidosis; E66.01 Morbid (severe) obesity due to excess calories; R65.20 Severe sepsis without septic shock; E78.5 Hyperlipidemia, unspecified; M19.90 Unspecified osteoarthritis, unspecified site; D72.829 Elevated white blood cell count, unspecified; D69.6 Thrombocytopenia, unspecified; I25.10 Atherosclerotic heart disease of native coronary artery without angina pectoris; E78.00 Pure hypercholesterolemia, unspecified; I95.9 Hypotension, unspecified; N40.0 Benign prostatic hyperplasia without lower urinary tract symptoms
CPT/HCPCS: 36415; 71045-TC-FY; 76775-TC; 80053; 81003; 82248; 82550; 82553; 82728; 82803; 83605; 83615; 83735; 84100; 84484; 85025; 85610; 85730; 86140; 86850; 86900; 86901; 87040; 87086; 87186; 87804; 93005; 93010; 93306-TC; 99291; C9803; J0131; J1100; J1644; U0003

== ENCOUNTER 2020-12-30 04:15 | Inpatient (IN) | payer OTHER, MEDICARE ==
[2020-12-26 15:47] VITALS: BMI 33.2
[2020-12-30] MEDS ORDERED: THROMBIN (BOVINE) 20,000 UNIT VIAL TP ONE (08:36)
[2020-12-30] MEDS ORDERED: GENTAMICIN SO4 80 MG/2 ML VIAL ONE (08:36)
[2020-12-30] MEDS ORDERED: LIDOCAINE 1%/EPI 1:100000 (20 ML MULTI DOSE VIAL) ONE ×2 (08:37→09:19)
[2020-12-30] MEDS ORDERED: BUPIVACAINE HCL/PF 0.5% (5MG/ML) 10 ML VIAL ONE (08:37)
[2020-12-30] MEDS ORDERED: ceFAZolin SODIUM 1 GM VIAL ONE ×2 (09:25→18:02)
[2020-12-30] MEDS ORDERED: ceFAZolin 2 GRAM PREMIX BAG IVPB ONE ×2 (10:00→11:20)
[2020-12-30] MEDS ORDERED: ONDANSETRON 4 MG/2 ML VIAL IVPUSH PRN ×2 (10:34→14:20)
[2020-12-30] MEDS ORDERED: LACTATED RINGERS SOLUTION 1,000 ML IV SCH (10:45)
[2020-12-30] MEDS ORDERED: LIDOCAINE HCL 0.5% EPINEPHRINE 1:200,000 50 ML VIAL IJ ONE ×2 (10:49→11:10)
[2020-12-30] MEDS ORDERED: PROPOFOL 20 ML ONE (10:49)
[2020-12-30] MEDS ORDERED: THROMBIN (BOVINE) 5,000 UNIT VIAL TP ONE ×4 (10:49→12:39)
[2020-12-30] MEDS ORDERED: GENTAMICIN 80MG PREMIX BAG IVPB ONE ×2 (10:49→11:40)
[2020-12-30] MEDS ORDERED: SUCCINYLCHOLINE CHLORIDE 200 MG/10 ML SYRINGE ONE (10:49)
[2020-12-30] MEDS ORDERED: ROCURONIUM BROMIDE 100 MG/10 ML VIAL ONE (10:49)
[2020-12-30] MEDS ORDERED: VANCOMYCIN 1,000 MG VIAL (RESTRICTED TO ID ONLY) ONE (11:17)
[2020-12-30] MEDS ORDERED: TRANEXAMIC ACID 1000 MG/10 ML VIAL ONE (11:22)
[2020-12-30] MEDS ORDERED: DEXAMETHASONE SOD PHOSPHATE 4 MG/1 ML VIAL ONE (11:22)
[2020-12-30] MEDS ORDERED: VANCOMYCIN 1,000 MG VIAL (RESTRICTED TO ID ONLY) IVPB ONE (11:30)
[2020-12-30] MEDS ORDERED: ESMOLOL 2500 MG/250 ML 2,500,000 MCG/250 ML INFUS.BAG IVPB ONE (11:35)
[2020-12-30] MEDS ORDERED: HYDROGEN PEROXIDE 473 ML PO ONE (11:54)
[2020-12-30] MEDS ORDERED: BUPIVACAINE LIPOSOME/PF (EXPAREL) 266 MG/20 ML VIAL NR ONE (11:55)
[2020-12-30] MEDS ORDERED: BUPIVACAINE HCL/PF 0.5% (5MG/ML) 10 ML VIAL IJ ONE (11:55)
[2020-12-30] MEDS ORDERED: BUPIVACAINE LIPOSOME/PF (EXPAREL) 266 MG/20 ML VIAL ONE (12:01)
[2020-12-30] MEDS ORDERED: HYDROmorphone HCl 2 MG/ML VIAL ONE (12:35)
[2020-12-30] MEDS ORDERED: ONDANSETRON 4 MG/2 ML VIAL ONE (13:24)
[2020-12-30] MEDS ORDERED: NEOSTIGMINE METHYLSULFATE 0.5 MG/ML - 10 ML MDV ONE (13:38)
[2020-12-30] MEDS ORDERED: NALOXONE HCL 0.4 MG/ML VIAL ONE (13:48)
[2020-12-30] MEDS ORDERED: GLYCOPYRROLATE 0.2 MG/1 ML VIAL ONE (14:03)
[2020-12-30] MEDS ORDERED: diphenhydrAMINE HCL 25 MG CAPSULE (FP) PO PRN (14:20)
[2020-12-30] MEDS ORDERED: morphine SULFATE 4 MG/ML VIAL IVPUSH PRN (14:20)
[2020-12-30] MEDS ORDERED: ACETAMINOPHEN 1000 MG/100 ML VIAL IVPB PRN (15:40)
[2020-12-30] MEDS ORDERED: ACETAMINOPHEN 1000 MG/100 ML VIAL IVPB ONE (15:50)
[2020-12-30] MEDS: HEPARIN NA (PORCINE) 5,000 UNITS/ML 1ML VIAL SQ SCH ×2 (18:01→21:39)
[2020-12-30] MEDS ORDERED: DEXTROSE 5%-WATER - 50 ML IVPB ONE (18:02)
[2020-12-30] MEDS: CEFAZOLIN 1 GM in DEXTROSE 5%-WATER - 1 GM/50 ML IVPB IVPB SCH (18:04)
[2020-12-30] MEDS: LACTATED RINGERS SOLUTION 1,000 ML/1,000 ML INFUS.BAG IV SCH (18:05)
[2020-12-30] MEDS: DOCUSATE SODIUM 100 MG CAPSULE (FP) PO SCH (21:38)
[2020-12-30] MEDS: ATORVASTATIN CA 20 MG TABLET (FP) PO SCH (21:39)
[2020-12-30] MEDS: BENZOCAINE/MENTH/CETYLPYRD CL 1 EACH LOZENGE MM PRN (21:39)
[2020-12-30] MEDS ORDERED: NAPROXEN 375 MG TABLET PO SCH (22:00)
[2020-12-30] MEDS: oxyCODONE HCL 5 MG TABLET PO PRN (23:16)
[2020-12-31] MEDS ORDERED: DEXTROSE 5%-WATER - 50 ML IVPB ONE ×3 (00:58→19:07)
[2020-12-31] MEDS ORDERED: ceFAZolin SODIUM 1 GM VIAL ONE ×3 (00:58→19:07)
[2020-12-31] MEDS: LACTATED RINGERS SOLUTION 1,000 ML/1,000 ML INFUS.BAG IV SCH ×2 (01:11→14:07)
[2020-12-31] MEDS: CEFAZOLIN 1 GM in DEXTROSE 5%-WATER - 1 GM/50 ML IVPB IVPB SCH ×3 (01:12→18:59)
[2020-12-31] MEDS: HEPARIN NA (PORCINE) 5,000 UNITS/ML 1ML VIAL SQ SCH ×3 (05:17→22:15)
[2020-12-31] MEDS: DOCUSATE SODIUM 100 MG CAPSULE (FP) PO SCH (05:17)
[2020-12-31 09:04] LABS: HEMATOCRIT 37.9 % (35.4-49); HEMOGLOBIN 12.6 GM/dL (11.7-16.9); MCH 29.7 pg (25.7-33.7); MCHC 33.1 g/dl (32.0-35.9); MEAN CELL VOLUME 89.6 fl (80-96); MEAN PLT VOLUME 9.2 fl (7.5-11.1); PLATELET COUNT 164 10^3/uL (134-434); RBC 4.23 M/mm3 (4.00-5.60); RDW 14.3 % (11.9-15.9); WHITE BLOOD COUNT 13.2 K/mm3 (4.0-10.0)
[2020-12-31 09:38] LABS: BLOOD UREA NITROGEN 22.2 mg/dL (7-18); CALCIUM 8.5 mg/dL (8.5-10.1)
[2020-12-31 09:41] LABS: CREATININE 1.1 mg/dL (0.55-1.3)
[2020-12-31] MEDS ORDERED: PT OWN MED DRAWER 7, Y5N ONE (09:50)
[2020-12-31] MEDS: ASPIRIN COATED 81 MG TABLET.EC PO SCH (09:54)
[2020-12-31] MEDS: TAMSULOSIN HCL 0.4 MG CAP PO SCH (09:54)
[2020-12-31] MEDS: FOLIC ACID 1 MG TABLET (FP) PO SCH (09:54)
[2020-12-31] MEDS: PANTOPRAZOLE 20 MG TABLET PO SCH (09:54)
[2020-12-31] MEDS: metoPROLOL SUCCINATE 25 MG TAB.SR.24H (FP) PO SCH (09:54)
[2020-12-31] MEDS: SENNOSIDES/DOCUSATE COMBO (SENNA PLUS) TABLET (UD) PO SCH (09:54)
[2020-12-31] MEDS: FERROUS SO4 325 MG TABLET (FP) PO SCH (09:54)
[2020-12-31] MEDS: FINASTERIDE 5 MG TABLET (FP) PO SCH (09:54)
[2020-12-31] MEDS: CHOLECALCIFEROL (VIT D3) 5000 UNITS (125 MCG) CAP PO SCH (09:55)
[2020-12-31] MEDS ORDERED: PYRIDOXINE HCL (B-6) 100 MG TABLET PO SCH (10:00)
[2020-12-31] MEDS: oxyCODONE HCL 5 MG TABLET PO PRN ×3 (10:01→19:12)
[2020-12-31] MEDS: BENZOCAINE/MENTH/CETYLPYRD CL 1 EACH LOZENGE MM PRN ×4 (10:01→22:16)
[2020-12-31] MEDS: PYRIDOXINE HCL (B-6) 50 MG TABLET (FP) PO SCH (11:51)
[2020-12-31] MEDS: ATORVASTATIN CA 20 MG TABLET (FP) PO SCH (22:15)
[2021-01-01] MEDS ORDERED: DEXTROSE 5%-WATER - 50 ML IVPB ONE ×3 (01:09→17:43)
[2021-01-01] MEDS ORDERED: ceFAZolin SODIUM 1 GM VIAL ONE ×3 (01:09→17:43)
[2021-01-01] MEDS: CEFAZOLIN 1 GM in DEXTROSE 5%-WATER - 1 GM/50 ML IVPB IVPB SCH ×3 (02:04→17:47)
[2021-01-01] MEDS: HEPARIN NA (PORCINE) 5,000 UNITS/ML 1ML VIAL SQ SCH ×3 (06:06→21:23)
[2021-01-01] MEDS: TAMSULOSIN HCL 0.4 MG CAP PO SCH (08:34)
[2021-01-01 08:58] LABS: BASO % 0.7 % (0-2.0); EOS % 4.2 % (0-4.5); HEMATOCRIT 37.3 % (35.4-49); HEMOGLOBIN 12.8 GM/dL (11.7-16.9); LYMPH % 19.7 % (8-40); MCH 30.8 pg (25.7-33.7); MCHC 34.3 g/dl (32.0-35.9); MEAN CELL VOLUME 89.8 fl (80-96); MEAN PLT VOLUME 8.9 fl (7.5-11.1); MONO % 8.6 % (3.8-10.2); NEUT % 66.8 % (42.8-82.8); PLATELET COUNT 165 10^3/uL (134-434); RBC 4.16 M/mm3 (4.00-5.60); WHITE BLOOD COUNT 10.4 K/mm3 (4.0-10.0)
[2021-01-01 09:24] LABS: BLOOD UREA NITROGEN 24.1 mg/dL (7-18); CALCIUM 8.7 mg/dL (8.5-10.1)
[2021-01-01 09:25] LABS: ALBUMIN 3.2 g/dl (3.4-5.0); MAGNESIUM 2.1 mg/dL (1.8-2.4)
[2021-01-01 09:28] LABS: CREATININE 1.1 mg/dL (0.55-1.3); PHOSPHOROUS 2.8 mg/dL (2.5-4.9)
[2021-01-01 09:29] LABS: BILIRUBIN,TOTAL 0.6 mg/dL (0.2-1); TOT PROT 6.4 g/dl (6.4-8.2)
[2021-01-01] MEDS ORDERED: PYRIDOXINE HCL (B-6) 50 MG TABLET (FP) PO SCH (10:00)
[2021-01-01] MEDS ORDERED: PT OWN MED DRAWER 7, Y5N ONE (10:03)
[2021-01-01] MEDS: FERROUS SO4 325 MG TABLET (FP) PO SCH (10:08)
[2021-01-01] MEDS: FOLIC ACID 1 MG TABLET (FP) PO SCH (10:08)
[2021-01-01] MEDS: ASPIRIN COATED 81 MG TABLET.EC PO SCH (10:08)
[2021-01-01] MEDS: SENNOSIDES/DOCUSATE COMBO (SENNA PLUS) TABLET (UD) PO SCH (10:09)
[2021-01-01] MEDS: metoPROLOL SUCCINATE 25 MG TAB.SR.24H (FP) PO SCH (10:09)
[2021-01-01] MEDS: FINASTERIDE 5 MG TABLET (FP) PO SCH (10:09)
[2021-01-01] MEDS: PANTOPRAZOLE 20 MG TABLET PO SCH (10:09)
[2021-01-01] MEDS: PYRIDOXINE HCL (B-6) 50 MG TABLET (FP) PO SCH (10:10)
[2021-01-01] MEDS: CHOLECALCIFEROL (VIT D3) 5000 UNITS (125 MCG) CAP PO SCH (10:11)
[2021-01-01] MEDS: LACTATED RINGERS SOLUTION 1,000 ML/1,000 ML INFUS.BAG IV SCH ×3 (11:26→21:23)
[2021-01-01] MEDS ORDERED: DEXAMETHASONE SOD PHOSPHATE 10 MG/1 ML VIAL IVPB ONE (18:00)
[2021-01-01] MEDS ORDERED: PANTOPRAZOLE SODIUM 40 MG VIAL IVPB SCH (18:00)
[2021-01-01] MEDS: ATORVASTATIN CA 20 MG TABLET (FP) PO SCH ×2 (21:23→21:26)
[2021-01-02] MEDS ORDERED: DEXTROSE 5%-WATER - 50 ML IVPB ONE ×3 (00:53→17:41)
[2021-01-02] MEDS ORDERED: ceFAZolin SODIUM 1 GM VIAL ONE ×3 (00:53→17:41)
[2021-01-02] MEDS: CEFAZOLIN 1 GM in DEXTROSE 5%-WATER - 1 GM/50 ML IVPB IVPB SCH ×3 (01:29→17:44)
[2021-01-02] MEDS: HEPARIN NA (PORCINE) 5,000 UNITS/ML 1ML VIAL SQ SCH ×2 (05:54→15:42)
[2021-01-02] MEDS: LACTATED RINGERS SOLUTION 1,000 ML/1,000 ML INFUS.BAG IV SCH (05:55)
[2021-01-02 08:35] LABS: BASO % 0.1 % (0-2.0); HEMATOCRIT 35.4 % (35.4-49); HEMOGLOBIN 12.3 GM/dL (11.7-16.9); LYMPH % 8.4 % (8-40); MCHC 34.7 g/dl (32.0-35.9); MEAN CELL VOLUME 89.3 fl (80-96); MEAN PLT VOLUME 9.1 fl (7.5-11.1); MONO % 7.6 % (3.8-10.2); NEUT % 83.9 % (42.8-82.8); PLATELET COUNT 152 10^3/uL (134-434); RBC 3.96 M/mm3 (4.00-5.60); RDW 13.7 % (11.9-15.9)
[2021-01-02 09:15] LABS: CALCIUM 8.6 mg/dL (8.5-10.1)
[2021-01-02 09:17] LABS: BLOOD UREA NITROGEN 21.8 mg/dL (7-18)
[2021-01-02 09:19] LABS: BILIRUBIN,TOTAL 0.5 mg/dL (0.2-1)
[2021-01-02 09:20] LABS: MAGNESIUM 2.2 mg/dL (1.8-2.4); TOT PROT 6.3 g/dl (6.4-8.2)
[2021-01-02] MEDS ORDERED: PANTOPRAZOLE 40 MG TABLET PO SCH (10:00)
[2021-01-02] MEDS ORDERED: PT OWN MED DRAWER 7, Y5N ONE (11:08)
[2021-01-02] MEDS: ASPIRIN COATED 81 MG TABLET.EC PO SCH (11:12)
[2021-01-02] MEDS: SENNOSIDES/DOCUSATE COMBO (SENNA PLUS) TABLET (UD) PO SCH (11:13)
[2021-01-02] MEDS: FOLIC ACID 1 MG TABLET (FP) PO SCH (11:13)
[2021-01-02] MEDS: TAMSULOSIN HCL 0.4 MG CAP PO SCH (11:13)
[2021-01-02] MEDS: FERROUS SO4 325 MG TABLET (FP) PO SCH (11:13)
[2021-01-02] MEDS: PYRIDOXINE HCL (B-6) 50 MG TABLET (FP) PO SCH (11:14)
[2021-01-02] MEDS: metoPROLOL SUCCINATE 25 MG TAB.SR.24H (FP) PO SCH (11:14)
[2021-01-02] MEDS: FINASTERIDE 5 MG TABLET (FP) PO SCH (11:14)
[2021-01-02] MEDS: CHOLECALCIFEROL (VIT D3) 5000 UNITS (125 MCG) CAP PO SCH (11:15)
[2021-01-02 16:23] VITALS: BP 105/69; PULSE 83; TEMP 97.8
[2021-01-03 17:07] LABS: MYCOPLASMA PNEUMONIAE,IG G AB 344 U/mL (0-99); MYCOPLASMA PNEUMONIAE,IGM AB <770 U/mL (0-769)
== END 2021-01-02 20:58 | disposition home or self-care (01) | DRG 472 ==
LOC: J2C 04:15 → J8W 17:47
PROVIDERS: ADMIT Neurological Surgery; ATTEND Internal Medicine
PROC: 0RB30ZZ Excision of Cervical Vertebral Disc, Open Approach (ICD-10-PCS; 2020-12-30)
PROC: 00NW0ZZ Release Cervical Spinal Cord, Open Approach (ICD-10-PCS; 2020-12-30)
PROC: 4A11X4G Monitoring of Peripheral Nervous Electrical Activity, Intraoperative, External Approach (ICD-10-PCS; 2020-12-30)
PROC: 0RG20A0 Fusion of 2 or more Cervical Vertebral Joints with Interbody Fusion Device, Anterior Approach, Anterior Column, Open Approach (ICD-10-PCS; principal; 2020-12-30 11:00)
DX: M40.50 Lordosis, unspecified, site unspecified (principal); M47.12 Other spondylosis with myelopathy, cervical region; M40.202 Unspecified kyphosis, cervical region; M24.28 Disorder of ligament, vertebrae; E78.5 Hyperlipidemia, unspecified; K21.9 Gastro-esophageal reflux disease without esophagitis; I10 Essential (primary) hypertension; N40.0 Benign prostatic hyperplasia without lower urinary tract symptoms; M54.2 Cervicalgia; I25.10 Atherosclerotic heart disease of native coronary artery without angina pectoris; G56.00 Carpal tunnel syndrome, unspecified upper limb; D72.829 Elevated white blood cell count, unspecified
CPT/HCPCS: 36415; 71045-TC-FY; 72125-TC; 76000-TC-FY; 80048; 80053; 83735; 84100; 85025; 85027; 86738; 87899; 94010; 94760; 97116-GP; 97161-GP; C9803; J0131; J1100; J1644; U0003; U0005